=== PATIENT | female | born 1935 | race Caucasian/White ===

== ENCOUNTER → 2016-09-29 | Outpatient (CLI) | payer MEDICARE, OTHER | LOC: WI 12:59 | PROVIDERS: ATTEND Internal Medicine | DX: Z12.31 Encounter for screening mammogram for malignant neoplasm of breast (principal); M81.0 Age-related osteoporosis without current pathological fracture | CPT/HCPCS: 77080; G0202; 77067 ==

== ENCOUNTER → 2019-02-12 | Outpatient (CLI) | payer MEDICARE, OTHER ==
--- NOTE | 2019-02-12 14:05 | WOMENS IMAGING REPORT ---
EXAM DESCRIPTION: 3D SCREENING MAMMO BILAT COMPLETED DATE/TIME: 02/12/2019 11:39 am REASON FOR STUDY: Z12.31 ROUTINE 3D BILATERAL SCREENING, M81.0 AGE RELATED OSTEOPOROSIS WITHO Z12.31 ENCNTR SCREEN MAMMOGRAM FOR MALIGNANT NEOPLASM OF ODILIA M81.0 AGE-RELATED OSTEOPOROSIS W/O CURRENT P ATHOLOGICAL FRAC COMPARISON: Multiple since 2008 EXAM PARAMETERS: Standard craniocaudal and mediolateral oblique views of each breast recorded using digital acquisition and breast tomosynthesis. Read with the assistance of CAD. .[facility] - [employer] Architecture Analyst Version 9.2 LIMITATIONS: None. FINDINGS: Findings present which are benign by mammographic criteria. No suspicious masses, calcific ations or architectural distortion. Pertinent benign findings: Old postsurgical changes at the 6 o'clock position right breast Benign mammographic findings may include one or more of the following: Smooth masses, popcorn/rim/coa rse calcifications, asymmetries, post-procedure changes, and lesions with long-standing stability. IMPRESSION: BENIGN MAMMOGRAPHIC FINDINGS. BIRADS 2 BREAST DENSITY: a. The breasts are almost entirely fatty. BIRAD: ASSESSMENT: 2 BENIGN FINDING(S) RECOMMENDATION: ROUTINE SCREENING COMMENT: The patient has been notified of the results by letter per SA requirements. Additional no tification policies are in place for contacting patient with suspicious or incomplete findings. Quality ID #[id number]: The [employer] recommends an annual screening mammogram for women aged 40 years or over. This facility utilizes a reminder system to ensure that all patients receive reminder letters, and/or direct phone calls for appointments. This includes reminders for routine scr eening mammograms, diagnostic mammograms, or other Breast Imaging Interventions when appropriate. Th is patient will be placed in the appropriate reminder system. TECHNICAL DOCUMENTATION: FINDING NUMBER: (1) ASSESSMENT: (1) JOB ID: [id number] [employer]- All Rights Reserved Reading location - IP/workstation name: [email or web address]
--- NOTE | 2019-02-12 14:07 | WOMENS IMAGING REPORT ---
EXAM DESCRIPTION: BONE DENSITY HIP/SPINE COMPLETED DATE/TIME: 02/12/2019 11:39 am REASON FOR STUDY: Z12.31 ROUTINE 3D BILATERAL SCREENING, M81.0 AGE RELATED OSTEOPOROSIS WITHO Z12.31 ENCNTR SCREEN MAMMOGRAM FOR MALIGNANT NEOPLASM OF [place]ILIA M81.0 AGE-RELATED OSTEOPOROSIS W/O CURRENT P ATHOLOGICAL FRAC COMPARISON: Multiple since 2004, most recently 2017 TECHNIQUE: Dual-Energy X-ray Absorptiometry (DEXA) of the AP Spine and Hip. LIMITATIONS: None. FINDINGS: LUMBAR SPINE: The bone mineral density (BMD) measured from L1-L4 in the AP projection correlates with a T-score of -1.5, which is osteopenic as defined by the World Health Organization. This is unchanged from 2017. This represents a 9% decrease in bone density since baseline study in 2 004 HIP: The bone mineral density (BMD) measured in the left femoral neck at the hip correlates with a T-score of -2.3, which is osteopenic as defined by the World Health Organization. This is unchanged from 2017. This represents a 16% decrease in bone density since 2003 10 year Fracture Risk Assessment: Major Osteoporotic Fracture: Currently treated for osteoporosis Hip Fracture: Currently treated for osteoporosis IMPRESSION: 1. LUMBAR SPINE WHO CLASSIFICATION: Osteopenic 2. HIP WHO CLASSIFICATION: Osteoporotic OVERALL ASSESSMENT: WHO CLASSIFICATION: Osteoporotic COMMENT: The World Health Organization defines low BMD as follows: T-score: Normal: Greater than -1.0 Osteopenia: Between -1.0 and -2.5 Osteoporosis: Less than -2.5 without fractures Established osteoporosis: Less than -2.5 with fractures In general, you may wish to consider: Diagnosis Treatment Follow-up DEXA Normal BMD Prevention 2-3 years Osteopenia Prevention/Therapy 1-2 years Osteoporosis Therapy Yearly TECHNICAL DOCUMENTATION: JOB ID: [id number] [employer]- All Rights Reserved Reading location - IP/workstation name: [email or web address]
== END ==
LOC: WI 11:10
PROVIDERS: ATTEND Internal Medicine
DX: Z12.31 Encounter for screening mammogram for malignant neoplasm of breast (principal); M81.0 Age-related osteoporosis without current pathological fracture; C34.32 Malignant neoplasm of lower lobe, left bronchus or lung
CPT/HCPCS: 77063; 77067; 77080

== ENCOUNTER 2020-04-29 16:36 | Inpatient (IN) | payer MEDICARE, OTHER ==
[2020-04-29] MEDS ORDERED: IPRATROPIUM/ALBUTEROL 0.5-2.5 MG/3 ML AMPUL NEB ONE (16:55)
--- NOTE | 2020-04-29 17:23 | ER Document Report ---
Entered by LANIE VILLALPANDO SCRIBE 04/29/20 [id number] Acting as scribe for:MARK LEIVA MD ED Respiratory Problem - General Chief Complaint: Breathing Difficulty Stated Complaint: BREATHING PROBLEMS Time Seen by Provider: 04/29/20 16:43 Mode of Arrival: Medic Information source: Patient Notes: This 84 year old female patient with a history significant for COPD brought in by EMS from [facility] presents to the ED today with complaints of shortness of breath with associated productive cough for the past x4-5 days. Per nursing, patient's O2 sats were 77% on room air upon EMS arrival. EMS administered 125 mg Solumedrol and x1 A&A treatment and placed the patient on supplemental O2. Initial O2 saturation here was 97% on 4L via [place]. TRAVEL OUTSIDE OF THE [place] IN LAST 30 DAYS: No - Related Data Allergies/Adverse Reactions: Sulfa (Sulfonamide Antibiotics) Allergy (Intermediate, Verified 02/18/13 18:13) Hives Past Medical History - General Information source: Patient, [facility] Records - Social History Smoking Status: Current Every Day Smoker Smoking Education Provided: No Family History: Reviewed & Not Pertinent, Other Patient has suicidal ideation: No Patient has homicidal ideation: No - Past Medical History Cardiac Medical History: Reports: Hx Hypertension Pulmonary Medical History: Reports: Hx COPD Endocrine Medical History: Reports: Hx Hypothyroidism Malignancy Medical History: Reports: Hx Breast Cancer Past Surgical History: Reports: Hx Breast Surgery, Hx Thyroid Surgery - Immunizations Hx Diphtheria, Pertussis, Tetanus Vaccination: Yes Review of Systems - Review of Systems Constitutional: No symptoms reported EENT: No symptoms reported Cardiovascular: No symptoms reported Respiratory: See HPI Gastrointestinal: No symptoms reported Genitourinary: No symptoms reported Female Genitourinary: No symptoms reported Musculoskeletal: No symptoms reported Skin: No symptoms reported Hematologic/Lymphatic: No symptoms reported Neurological/Psychological: No symptoms reported -: Yes All other systems reviewed and negative Physical Exam - Vital signs Vitals: Pulse Ox 93 04/29/20 16:43 - General General appearance: Alert In distress: None - HEENT Head: Normocephalic, Atraumatic Eyes: Normal Pupils: PERRL - Respiratory Respiratory status: Retractions, Tachypnea Chest status: Nontender Breath sounds: Rhonchi - diffuse, Wheezing - diffuse Chest palpation: Normal - Cardiovascular Rhythm: Regular, Tachycardia Heart sounds: Normal auscultation Murmur: No Friction rub: No Gallop: None auscultated - Abdominal Inspection: Normal Distension: No distension Bowel sounds: Normal Tenderness: Nontender - Abdomen soft Organomegaly: No organomegaly - Back Back: Normal, Nontender - Extremities General upper extremity: Normal inspection General lower extremity: Normal inspection. No: Edema - Neurological Neuro grossly intact: Yes Orientation: AAOx4 Luis Coma Scale Eye Opening: Spontaneous Luis Coma Scale Verbal: Oriented [place] Coma Scale Motor: Obeys Commands [place] Coma Scale Total: 15 - Psychological Associated symptoms: Normal affect, Normal mood - Skin Skin Temperature: Warm Skin Moisture: Dry Skin Color: Normal Course - Re-evaluation Re-evalutation: 04/29/20 20:27 The patient was evaluated during the global COVID-19 pandemic and that diagnosis was suspected/considered upon their initial presentation. Their evaluation, treatment and testing was consistent with current guidelines for patients who present with complaints or symptoms that may be related to COVID-19. - Vital Signs Vital signs: Temp Pulse Resp BP Pulse Ox 97.3 F 109 H 30 H 98/71 L 94 04/29/20 16:59 04/29/20 16:54 04/29/20 20:00 04/29/20 19:01 04/29/20 20:00 - Laboratory Result Diagrams: 04/29/20 16:53 04/29/20 16:53 Laboratory results interpreted by me: 04/29/20 04/29/20 16:53 16:53 WBC 16.6 H Hgb 11.2 L Hct 33.0 L RDW 14.9 H Plt Count 690 H Lymph % (Auto) 6.0 L Absolute Neuts (auto) 14.3 H Seg Neutrophils % 85.9 H Sodium 132.5 L Carbon Dioxide 17 L BUN 40 H Est GFR (MDRD) Non-Af 53 L Glucose 120 H Total Protein 6.0 L Albumin 2.8 L - Diagnostic Test Radiology reviewed: Image reviewed, Reports reviewed - Chest x-ray shows new development of bilateral pulmonary nodules. Mild prominence of interstitial m [place]kings in the left lung may be edema versus infiltrate. Very small pleural effusions suggested. - EKG Interpretation by Fl EKG shows normal: Sinus rhythm, [place], Intervals, ST-T Waves. abnormal: QRS Complexes - Consider anteroseptal infarct Rate: Tachycardia - 105 Rhythm: Other - Ectopic atrial tachycardia When compared to previous EKG there are: Changes noted - Consults Dr. Bahena Time consulted: 19:45 Consulted provider: will come to ER Critical Care Note - Critical Care Note Total time excluding time spent on procedures (mins): 40 Comments: At least 40 minutes spent evaluating the patient, trying to get is clear possible history from EMS. Taking a history from my quite dyspneic hypoxic patient. Instituting urgent medical therapies. Reviewing patient's prior records, new lab work, EKGs, and chest x-rays. Multiple re-evaluations to see how the patient was progressing with management. Implementing hydration therapy when lab work indicated the patient was dehydrated. Phone calls to hospitalist service to get the patient admitted to the hospital. Discharge - Discharge Clinical Impression: COPD with exacerbation, Left lower lobe pulmonary infiltrate, Pulmonary nodules/lesions, multiple, Dehydration, Hypoxemia Leukocytosis Qualifiers: Leukocytosis type: unspecified Qualified Code(s): D72.829 - Elevated white blood cell count, unspecified Hypotension Qualifiers: Hypotension type: unspecified hypotension type Qualified Code(s): I95.9 - Hypotension, unspecified Condition: Good Disposition: ADMITTED INPATIENT Admitting Provider: Shruti (Hospitalist) Unit Admitted: Telemetry I personally performed the services described in the documentation, reviewed and edited the documentation which was dictated to the scribe in my presence, and it accurately records my words and actions.
--- NOTE | 2020-04-29 17:28 | RADIOLOGY REPORT (SQ) ---
EXAM DESCRIPTION: CHEST SINGLE VIEW IMAGES COMPLETED DATE/TIME: 04/29/2020 5:05 pm REASON FOR STUDY: sob COMPARISON: 07/11/2010 EXAM PARAMETERS: NUMBER OF VIEWS: One view. TECHNIQUE: Single frontal radiographic view of the chest acquired. RADIATION DOSE: NA LIMITATIONS: None. FINDINGS: LUNGS AND PLEURA: New development of bilateral pulmonary nodules since the prior examinat ion. Some of the largest measures 1.4 cm. Mild prominence of the interstitial markings in the left lung may be on the basis of edema versus infiltrates. No pneumothorax. Very small pleural effusions suggested. MEDIASTINUM AND HILAR STRUCTURES: No masses. Contour normal. HEART AND VASCULAR STRUCTURES: Heart normal in size. Normal vasculature. BONES: No acute findings. HARDWARE: None in the chest. OTHER: Post surgical changes right breast and surgical clips in the right axilla. IMPRESSION: 1. Since the prior study dated 07/11/2010, new development of bilateral pulmonary nodule s. Correlation with CT chest with IV contrast suggested. 2. Mild prominence of the interstitial markings in the left lung may be on the basis of edema versus infiltrates. Very small pleural effusions suggested. 3. Post surgical changes right breast, stable findings. TECHNICAL DOCUMENTATION: JOB ID: [id number] [employer]- All Rights Reserved Reading location - IP/workstation name: [email or web address]
[2020-04-29 17:32] LABS: ABSOLUTE MONOCYTES (AUTO) 1.3 10^3/uL (0.1-1.4); ABSOLUTE NEUT (AUTO) 14.3 10^3/uL (1.7-8.2); BASOPHILS % (AUTO) 0.1 % (0-2); EOSINOPHILS % (AUTO) 0.2 % (0-6); HEMOGLOBIN 11.2 g/dL (12.0-15.5); MEAN CORPUSCULAR HEMOGLOBIN 28.5 pg (27.0-33.4); MEAN CORPUSCULAR HGB CONC 33.9 g/dL (32.0-36.0); MEAN CORPUSCULAR VOLUME 84 fl (80-97); MONOCYTES % (AUTO) 7.8 % (3-13); PLATELET COUNT 690 10^3/uL (150-450); RED BLOOD COUNT 3.93 10^6/uL (3.72-5.28); RED CELL DISTRIBUTION WIDTH 14.9 % (11.5-14.0); SEGMENTED NEUTROPHILS % (AUTO) 85.9 % (42-78); TOTAL CELLS COUNTED % (AUTO) 100 %; WHITE BLOOD COUNT 16.6 10^3/uL (4.0-10.5)
[2020-04-29 17:57] LABS: ALBUMIN 2.8 g/dL (3.5-5.0); ALKALINE PHOSPHATASE 68 U/L (38-126); ANION GAP 16 (5-19); ASPARTATE AMINO TRANSFERASE 27 U/L (14-36); BILIRUBIN,DIRECT 0.3 mg/dL (0.0-0.4); BILIRUBIN,TOTAL 0.4 mg/dL (0.2-1.3); BLOOD UREA NITROGEN 40 mg/dL (7-20); CALCIUM 8.7 mg/dL (8.4-10.2); CARBON DIOXIDE 17 mmol/L (22-30); CHLORIDE 100 mmol/L (98-107); CREATINE KINASE 100 U/L (30-135); GLUCOSE 120 mg/dL (75-110); POTASSIUM 4.1 mmol/L (3.6-5.0)
[2020-04-29] MEDS ORDERED: LEVOFLOXACIN 750 MG/D5W RTU 750 MG/150 ML RTUPB IV ONE (18:04)
[2020-04-29 18:09] LABS: CREATINE KINASE MB 2.44 ng/mL (<4.55); TROPONIN I 0.029 ng/mL
[2020-04-29] MEDS ORDERED: ALBUTEROL SULFATE 0.083% NEB 2.5 MG/3 ML AMPUL NEB ONE (18:34)
[2020-04-29] MEDS ORDERED: NORMAL SALINE 1000 ML 1,000 ML IV ONE (18:35)
[2020-04-29] MEDS ORDERED: ONDANSETRON HCL INJ/PF 4 MG/2 ML SDV IV PRN (21:01)
[2020-04-29] MEDS ORDERED: ACETAMINOPHEN 325 MG TABLET PO PRN (21:01)
[2020-04-29] MEDS ORDERED: PROMETHAZINE HCL INJ 25 MG/1 ML VIAL IV PRN (21:01)
[2020-04-29] MEDS ORDERED: TEMAZEPAM 7.5 MG CAPSULE PO PRN (21:01)
[2020-04-29] MEDS ORDERED: NITROGLYCERIN 0.4 MG/TAB 25 TAB/BOTTLE SL PRN (21:09)
--- NOTE | 2020-04-29 22:07 | EKG REPORT ---
SEVERITY:- ABNORMAL ECG - SINUS OR ECTOPIC ATRIAL TACHYCARDIA : Confirmed by: Aisha Walters MD 29-Apr-2020 22:06:39
[2020-04-29 22:23] LABS: CHOLESTEROL 103.72 mg/dL (0-200); TRIGLYCERIDES 101 mg/dL (<150)
[2020-04-29 22:33] LABS: DIRECT LDL 40 mg/dL (<100)
[2020-04-29] MEDS: FAMOTIDINE 20 MG TABLET PO SCH (23:23)
[2020-04-29] MEDS: DEXAMETHASONE 4 MG TABLET PO SCH (23:24)
[2020-04-29] MEDS: ASPIRIN 81 MG TABLET, CHEWABLE PO SCH (23:24)
[2020-04-29] MEDS: OXYCODONE-ACETAMINOPHEN 5-325 MG TABLET PO PRN (23:29)
[2020-04-29] MEDS: NICOTINE 21 MG/24 HR PATCH.TD24 TD SCH (23:30)
[2020-04-29 23:35] LABS: ARTERIAL BLOOD BASE EXCESS -6.9 mmol/L; ARTERIAL BLOOD FIO2 4L; ARTERIAL BLOOD H2CO3 0.71 mmol/L (1.05-1.35); ARTERIAL BLOOD HCO3 15.7 mmol/L (20-24); ARTERIAL BLOOD O2 SATURATION 91.3 % (94-98); ARTERIAL BLOOD PCO2 23.7 mmHg (35-45); ARTERIAL BLOOD PH 7.44 (7.35-7.45); ARTERIAL BLOOD TOTAL CO2 16.4 mmol/L (21-25)
[2020-04-30 00:06] LABS: APPEARANCE,URINE CLOUDY; BILIRUBIN,URINE NEGATIVE (NEGATIVE); COLOR,URINE YELLOW; GLUCOSE, URINE NEGATIVE (NEGATIVE); KETONES,URINE TRACE mg/dL (NEGATIVE); LEUKOCYTE ESTERASE,URINE SMALL (NEGATIVE); NITRITE,URINE NEGATIVE (NEGATIVE); PROTEIN,URINE 30 mg/dL (NEGATIVE); URINE SPECIFIC GRAVITY 1.023; UROBILINOGEN,URINE NEGATIVE mg/dL (<2.0)
[2020-04-30] MEDS: NORMAL SALINE 1000 ML 1,000 ML IV PRN ×2 (01:12→19:00)
[2020-04-30] MEDS: LORAZEPAM INJ 2 MG/1 ML VIAL IV PRN ×2 (01:15→21:09)
[2020-04-30] MEDS: FLUTICASONE/UMECLIDIN/VILANTER 100-62.5-25 MCG/DOSE IH SCH ×2 (01:16→10:31)
--- NOTE | 2020-04-30 01:21 | RADIOLOGY REPORT (SQ) ---
CLINICAL INDICATION: Acute respiratory failure, pulmonary nodules,. . TECHNIQUE: CT arteriography was obtained of the chest with multiplanar MIP and/or 3-D angiographic reconstructions. This exam was performed according to our departmental dose-optimization program, which includes automated exposure control, adjustment of the mA and/or kV according to patient size and/or use of iterative reconstruction techniques. COMPARISON: None available. CORRELATION: Chest radiography today. FINDINGS: Adequate contrast bolus. Average Hounsfield unit measurement within main pulmonary artery segment of 545. Artifact from venous opacification. Motion artifact There is no evidence of pulmonary embolus. Thoracic aorta is of normal caliber. Arterial calcification. The heart is enlarged. No pericardial effusion. Large right hilar/infrahilar mass. This may represent an enlarged central lymph node. This measures approximately 2.5 x 3 cm, series 3 image 70. Additional matted lymph nodes are seen within the mediastinum. The esophagus is mildly distended and fluid-filled. There is also mild esophageal thickening.. The lungs demonstrate chronic interstitial changes bilaterally. Innumerable tiny nodule opacities are identified left upper lobe. There are several tiny, less than 5 mm, nodular opacities scattered bilaterally most prominent left upper lobe. More dominant confluent nodular opacities are seen bilaterally. The largest is appreciated apical posterior segment left upper lobe measuring 1.2 x 1.6 cm, series 4 image 48. Large soft tissue nodule is appreciated superior segment right lower lobe measuring 1.5 x 2.2 cm, series 4 image 48. Multiple other nodules are seen. Dependent atelectasis. No effusion. No pneumothorax.. Mucous plugging is seen within several bronchi. Visualized abdominal contents are unremarkable. 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 Multilevel wedge compression fractures which appear old. This includes a vertebral plana at T12. IMPRESSION: No evidence of pulmonary embolus. Mucous plugging. There is a large central mass lesion left infrahilar may represent a pulmonary mass or perhaps adenopathy. Other prominent mediastinal lymph nodes are seen. Multiple bilateral pulmonary nodules are seen. Some of the smaller nodules have an appearance suspicious for an infectious inflammatory process but there are larger well-rounded and more sharply marginated soft tissue nodules which are suspicious for neoplasm. Is there a known history of a primary carcinoma? .
--- NOTE | 2020-04-30 04:21 | PDOC H&P ---
History of Present Illness Admission Date/PCP: 04/29/20 20:10 YEIMY WHITMAN MD History of Present Illness: JESSY BAKER is a 84 year old female past medical history of tobacco abuse, non-oxygen dependent COPD, hypothyroidism, chronic pain, hypertension presenting to ED complaining of recent onset worsening shortness of breath accompanied by productive cough, wheezing and rales. Patient denies any chest pain, fever, nausea, vomiting, diarrhea, constipation or any urinary symptoms. In ED a chest x-ray was positive for left lower lobe consolidation and multiple pulmonary nodules. Hospitalist was consulted for admission. In ED he was noted to have leukocytosis, thrombocytosis, ABG positive for hypoxemia, mildly elevated troponins and proBNP, mild hypercalcemia, hyponatremia, a CTA was done to follow-up for pulmonary nodule, showed multiple pulmonary nodules and a central mass likely malignancy. Past Medical History Cardiac Medical History: Reports: Hypertension Pulmonary Medical History: Reports: Chronic Obstructive Pulmonary Disease (COPD) Endocrine Medical History: Reports: Hypothyroidism Malignancy Medical History: Reports: Breast Cancer Psychiatric Medical History: Denies: Depression Social History Smoking Status: Current Every Day Smoker Electronic Cigarette use?: No Frequency of Alcohol Use: None Hx Recreational Drug Use: No Drugs: None Hx Prescription Drug Abuse: No Family History Family History: Reviewed & Not Pertinent, Other Parental Family History Reviewed: Yes Children Family History Reviewed: Yes Sibling(s) Family History Reviewed.: Yes Medication/Allergy Home Medications: Albuterol Sulfate [Ventolin 0.083% Neb 2.5 mg/3 mL Ampul] 1 vial NEB Q4 02/11/13 Aspirin [Ecotrin 81 mg EC Tablet] 81 mg PO DAILY 02/11/13 Atenolol [Tenormin 25 mg Tablet] 25 mg PO DAILY 02/11/13 Fluticasone/Salmeterol [Advair 100-50 Diskus 28 Dose] 1 inh IH Q12H 02/11/13 Ipratropium/Albuterol Sulfate [Duoneb 2.5-0.5 Mg/3 Ml Soln] 3 ml IH PRN PRN 02/11/13 Levothyroxine Sodium [Synthroid 75 Mcg Tablet] 150 mcg PO DAILY 02/11/13 Montelukast Sodium [Singulair 10 Mg Tablet] 10 mg PO QHS 02/11/13 Niacin/Lovastatin [Advicor 1,000 Mg-20 Mg Tablet] 1 each PO DAILY 02/11/13 Nifedipine [Adalat CC 60 mg Tablet] 60 mg PO DAILY 02/11/13 Tiotropium [place] [Spiriva Handihaler 18 mcg/dose (30 Dose)] 1 cap IH DAILY 02/11/13 Allergies/Adverse Reactions: Sulfa (Sulfonamide Antibiotics) Allergy (Intermediate, Verified 02/18/13 18:13) Hives Review of Systems Review of Systems: as per hpi Physical Exam Vital Signs: Temp Pulse Resp BP Pulse Ox 97.5 F 90 29 H 108/53 L 93 04/30/20 01:13 04/30/20 02:00 04/30/20 01:30 04/30/20 01:13 04/30/20 01:30 Intake & Output 04/28/20 04/29/20 04/30/20 06:59 06:59 06:59 Intake Total 1150 Balance 1150 Weight 54.1 kg General appearance: PRESENT: severe distress, well-developed, well-nourished Respiratory exam: PRESENT: clear to auscultation leonid, crackles, prolonged expiratory phas, tachypnea, wheezes. ABSENT: rales, rhonchi Cardiovascular exam: PRESENT: RRR, tachycardia. ABSENT: diastolic murmur, rubs, systolic murmur GI/Abdominal exam: PRESENT: normal bowel sounds, soft. ABSENT: distended, guarding, mass, organolmegaly, rebound, tenderness Neurological exam: PRESENT: alert, awake, oriented to person, oriented to place, oriented to time, oriented to situation, CN II-XII grossly intact. ABSENT: motor sensory deficit Results Laboratory Results: 04/29/20 16:53 04/29/20 16:53 04/29/20 04/29/20 04/29/20 16:53 16:53 16:53 WBC 16.6 H RBC 3.93 Hgb 11.2 L Hct 33.0 L MCV 84 MCH 28.5 MCHC 33.9 RDW 14.9 H Plt Count 690 H Seg Neutrophils % 85.9 H Carbonic Acid HCO3/H2CO3 Ratio ABG pH ABG pCO2 ABG pO2 ABG HCO3 ABG O2 Saturation ABG Base Excess FiO2 Sodium 132.5 L Potassium 4.1 Chloride 100 Carbon Dioxide 17 L Anion Gap 16 BUN 40 H Creatinine 1.00 Est GFR ( Amer) > 60 Glucose 120 H Calcium 8.7 Total Bilirubin 0.4 AST 27 Alkaline Phosphatase 68 Total Protein 6.0 L Albumin 2.8 L Triglycerides 101 Cholesterol 103.72 LDL Cholesterol Direct 40 VLDL Cholesterol 20.0 HDL Cholesterol 34 L Urine Color Urine Appearance Urine pH Ur Specific [place] Urine Protein Urine Glucose (UA) Urine Ketones Urine Blood Urine Nitrite Ur Leukocyte Esterase Urine WBC (Auto) Urine RBC (Auto) 04/29/20 04/29/20 21:48 23:42 WBC RBC Hgb Hct MCV MCH MCHC RDW Plt Count Seg Neutrophils % Carbonic Acid 0.71 L HCO3/H2CO3 Ratio 22:1 ABG pH 7.44 ABG pCO2 23.7 L ABG pO2 57.0 L ABG HCO3 15.7 L ABG O2 Saturation 91.3 L ABG Base Excess -6.9 FiO2 4L Sodium Potassium Chloride Carbon Dioxide Anion Gap BUN Creatinine Est GFR ( Amer) Glucose Calcium Total Bilirubin AST Alkaline Phosphatase Total Protein Albumin Triglycerides Cholesterol LDL Cholesterol Direct VLDL Cholesterol HDL Cholesterol Urine Color YELLOW Urine Appearance CLOUDY Urine pH 5.0 Ur Specific [place] 1.023 Urine Protein 30 H Urine Glucose (UA) NEGATIVE Urine Ketones TRACE H Urine Blood NEGATIVE Urine Nitrite NEGATIVE Ur Leukocyte Esterase SMALL H Urine WBC (Auto) 22 Urine RBC (Auto) 2 04/29/20 04/29/20 04/29/20 16:53 16:53 22:24 Creatine Kinase 100 CK-MB (CK-2) 2.44 Troponin I 0.029 NT-Pro-B Natriuret Pep 1250 H 04/29/20 22:24 Creatine Kinase CK-MB (CK-2) Troponin I 0.024 NT-Pro-B Natriuret Pep Impressions: Chest X-Ray 04/29/20 16:43 IMPRESSION: 1. Since the prior study dated 07/11/2010, new development of bilateral pulmonary nodules. Correlation with CT chest with IV contrast suggested. 2. Mild prominence of the interstitial markings in the left lung may be on the basis of edema versus infiltrates. Very small pleural effusions suggested. 3. Post surgical changes right breast, stable findings. Chest/Abdomen CTA 04/29/20 21:12 IMPRESSION: No evidence of pulmonary embolus. Mucous plugging. There is a large central mass lesion left infrahilar may represent a pulmonary mass or perhaps adenopathy. Other prominent mediastinal lymph nodes are seen. Multiple bilateral pulmonary nodules are seen. Some of the smaller nodules have an appearance suspicious for an infectious inflammatory process but there are larger well-rounded and more sharply marginated soft tissue nodules which are suspicious for neoplasm. Is there a known history of a primary carcinoma? . Assessment and Plan - Diagnosis (1) Acute respiratory failure with hypoxemia Is this a current diagnosis for this admission?: Yes Plan: Multifactorial, likely due to acute pneumonia complicated by underlying COPD and likely lung malignancy. Admit to IMCU, empiric broad-spectrum IV antibiotics, IV steroids, sputum culture, BiPAP, duo nebs, LABA, LABA, ICS, flutter valve, incentive spirometry. (2) Pneumonia Qualifiers: Laterality: right Lung location: lower lobe of lung Is this a current diagnosis for this admission?: Yes Plan: Likely community-acquired pneumonia caused by gram-positive cocci including Streptococcus pneumonia, COVID-19 infection and postobstructive pneumonia is also possibility. Plan as per above. (3) Acute exacerbation of COPD with asthma Is this a current diagnosis for this admission?: Yes Plan: History of non-oxygen dependent COPD. Acutely exacerbated with bilateral wheezing and rhonchi on physical examination. ABG positive for hypoxemia. History of chronic heavy tobacco abuse. Plan as per #1. (4) Hyponatremia Is this a current diagnosis for this admission?: Yes Plan: Most likely chronic. Given lung nodules and mass hyponatremia due to lung malignancy is a possibility. Continue normal saline, monitor BMP, seizure precautions. If no improvement consult nephrology. (5) Pulmonary nodules/lesions, multiple Is this a current diagnosis for this admission?: Yes Plan: Chest x-ray positive for multiple pulmonary nodules, follow-up CT with contrast positive for multiple nodules and central lesion likely malignancy. Consulted oncology. Follow-up recommendations. (6) Tobacco abuse Is this a current diagnosis for this admission?: Yes Plan: History of heavy tobacco abuse. Counseled on quitting. NicoDerm patch provided. - Time Time Spent with patient: 35 or more minutes Smoking Cessation Education: 3 to 10 minutes Medications reviewed and adjusted accordingly: Yes Anticipated Discharge Disposition: Home with Home Health Anticipated Discharge Timeframe: within 72 hours
[2020-04-30] MEDS: DEXAMETHASONE 4 MG TABLET PO SCH ×3 (05:33→21:09)
[2020-04-30 06:47] LABS: HEMATOCRIT 31.8 % (36.0-47.0); HEMOGLOBIN 10.5 g/dL (12.0-15.5); MEAN CORPUSCULAR HEMOGLOBIN 28.3 pg (27.0-33.4); MEAN CORPUSCULAR HGB CONC 33.1 g/dL (32.0-36.0); MEAN CORPUSCULAR VOLUME 85 fl (80-97); PLATELET COUNT 572 10^3/uL (150-450); RED BLOOD COUNT 3.72 10^6/uL (3.72-5.28); RED CELL DISTRIBUTION WIDTH 15.1 % (11.5-14.0); WHITE BLOOD COUNT 13.8 10^3/uL (4.0-10.5)
[2020-04-30 07:14] LABS: ALBUMIN 2.8 g/dL (3.5-5.0); ALKALINE PHOSPHATASE 60 U/L (38-126); ANION GAP 13 (5-19); ASPARTATE AMINO TRANSFERASE 30 U/L (14-36); BILIRUBIN,DIRECT 0.3 mg/dL (0.0-0.4); BILIRUBIN,TOTAL 0.3 mg/dL (0.2-1.3); BLOOD UREA NITROGEN 35 mg/dL (7-20); CALCIUM 8.2 mg/dL (8.4-10.2); CARBON DIOXIDE 16 mmol/L (22-30); CHLORIDE 107 mmol/L (98-107); GLUCOSE 111 mg/dL (75-110); PHOSPHORUS 3.9 mg/dL (2.5-4.5); TOTAL PROTEIN 6.4 g/dL (6.3-8.2)
[2020-04-30 07:21] LABS: ABSOLUTE LYMPHOCYTES# (MANUAL) 0.4 10^3/uL (0.5-4.7); ABSOLUTE MONOCYTES # (MANUAL) 0.6 10^3/uL (0.1-1.4); BASOPHILS % (MANUAL) 0 % (0-2); EOSINOPHILS % (MANUAL) 0 % (0-6); LYMPHOCYTES % (MANUAL) 3 % (13-45); MONOCYTES % (MANUAL) 4 % (3-13); SEGMENTED NEUTROPHILS % (MAN) 93 % (42-78); TOTAL CELLS COUNTED 100
[2020-04-30 07:22] LABS: ANISOCYTOSIS SLIGHT; PLATELET COMMENT INCREASED; POLYCHROMASIA SLIGHT
[2020-04-30] MEDS: IPRATROPIUM/ALBUTEROL 0.5-2.5 MG/3 ML AMPUL NEB SCH ×3 (07:48→20:07)
[2020-04-30] MEDS: NORMAL SALINE 1000 ML 1,000 ML IV ONE ×2 (08:34→08:45)
--- NOTE | 2020-04-30 08:57 | Progress Note ---
Provider Note Provider Note: Oncology consultation was received for new possible lung mass on CT scans. Patient is currently in COVID-19 restriction area and I was not able to complete full consult. I did review the chart and review radiology images. I will be happy to follow with you and complete full consult once COVID-19 restrictions have been lifted. Consider biopsy of mass in the future. Elevated PLT and WBC most likely reactive.
[2020-04-30] MEDS ORDERED: CEFTRIAXONE 1 GM/D5W RTU 1 GM/50 ML RTUPB IV SCH (10:00)
[2020-04-30] MEDS ORDERED: AZITHROMYCIN 500 MG in DEXTROSE 5%-WATER 250 ML IV SCH (10:00)
[2020-04-30] MEDS: NICOTINE 21 MG/24 HR PATCH.TD24 TD SCH (10:30)
[2020-04-30] MEDS: FAMOTIDINE 20 MG TABLET PO SCH ×2 (10:31→21:10)
[2020-04-30] MEDS: DOCUSATE SODIUM 100 MG CAPSULE PO SCH (10:31)
[2020-04-30] MEDS: ASPIRIN 81 MG TABLET, CHEWABLE PO SCH (10:31)
[2020-04-30] MEDS: GUAIFENESIN/D-METHORPHAN (200-20 MG) SYRUP 10 ML PO PRN (10:31)
[2020-04-30] MEDS: ENOXAPARIN SODIUM INJ 40 MG/0.4 ML DISP.SYRIN SUBCUT SCH (10:32)
[2020-04-30] MEDS: ACETYLCYSTEINE 20% SOLN 800 MG/4 ML VIAL.NEB NEB SCH ×3 (12:18→20:07)
[2020-04-30] MEDS: IPRATROPIUM/ALBUTEROL 0.5-2.5 MG/3 ML AMPUL NEB PRN (12:21)
[2020-04-30] MEDS: OXYCODONE-ACETAMINOPHEN 5-325 MG TABLET PO PRN (12:26)
--- NOTE | 2020-04-30 18:14 | PDOC PROGRESS REPORT ---
Subjective Progress Note for:: 04/30/20 Subjective:: Patient having a tough time coughing up sputum this morning. Still feels significantly short of breath this morning and was placed on BiPAP simply because she was starting to fatigue with a constant hacking cough or cough. We will do some chest physiotherapy as her chest CT does show a lot of mucus plugging is as well. Also ordered for Mucomyst. Patient informs me that she does not communicate much with her children and her has Alzheimer's. Reason For Visit: ACUTE RESPIRATORY FAILURE WITH HYPOXIA PNEUMONIA Physical Exam Vital Signs: Temp Pulse Resp BP Pulse Ox 97.4 F 96 18 115/66 100 04/30/20 08:03 04/30/20 14:44 04/30/20 14:44 04/30/20 11:57 04/30/20 14:44 Intake & Output 04/29/20 04/30/20 05/01/20 06:59 06:59 06:59 Intake Total 1200 Balance 1200 Weight 54.1 kg General appearance: PRESENT: no acute distress, cooperative, thin, other - fatigued Neck exam: ABSENT: JVD Respiratory exam: PRESENT: accessory muscle use, rhonchi - Scattered clear left lung, tachypnea. ABSENT: symmetrical, wheezes Cardiovascular exam: PRESENT: RRR, +S1, +S2. ABSENT: tachycardia Vascular exam: PRESENT: pallor GI/Abdominal exam: PRESENT: soft. ABSENT: rebound, rigid, tenderness Neurological exam: PRESENT: alert, awake, oriented to person, oriented to place, oriented to time Psychiatric exam: ABSENT: agitated, anxious Results Laboratory Results: 04/30/20 06:21 04/30/20 06:21 04/29/20 04/29/20 04/29/20 16:53 21:48 23:42 WBC RBC Hgb Hct MCV MCH MCHC RDW Plt Count Seg Neutrophils % Carbonic Acid 0.71 L HCO3/H2CO3 Ratio 22:1 ABG pH 7.44 ABG pCO2 23.7 L ABG pO2 57.0 L ABG HCO3 15.7 L ABG O2 Saturation 91.3 L ABG Base Excess -6.9 FiO2 4L Sodium Potassium Chloride Carbon Dioxide Anion Gap BUN Creatinine Est GFR ( Amer) Glucose Calcium Phosphorus Magnesium Total Bilirubin AST Alkaline Phosphatase Total Protein Albumin Triglycerides 101 Cholesterol 103.72 LDL Cholesterol Direct 40 VLDL Cholesterol 20.0 HDL Cholesterol 34 L Urine Color YELLOW Urine Appearance CLOUDY Urine pH 5.0 Ur Specific [place] 1.023 Urine Protein 30 H Urine Glucose (UA) NEGATIVE Urine Ketones TRACE H Urine Blood NEGATIVE Urine Nitrite NEGATIVE Ur Leukocyte Esterase SMALL H Urine WBC (Auto) 22 Urine RBC (Auto) 2 04/30/20 04/30/20 06:21 06:21 WBC 13.8 H RBC 3.72 Hgb 10.5 L Hct 31.8 L MCV 85 MCH 28.3 MCHC 33.1 RDW 15.1 H Plt Count 572 H Seg Neutrophils % Not Reportable Carbonic Acid HCO3/H2CO3 Ratio ABG pH ABG pCO2 ABG pO2 ABG HCO3 ABG O2 Saturation ABG Base Excess FiO2 Sodium 136.0 L Potassium 4.0 Chloride 107 Carbon Dioxide 16 L Anion Gap 13 BUN 35 H Creatinine 0.81 Est GFR ( Amer) > 60 Glucose 111 H Calcium 8.2 L Phosphorus 3.9 Magnesium 2.3 Total Bilirubin 0.3 AST 30 Alkaline Phosphatase 60 Total Protein 6.4 Albumin 2.8 L Triglycerides Cholesterol LDL Cholesterol Direct VLDL Cholesterol HDL Cholesterol Urine Color Urine Appearance Urine pH Ur Specific [place] Urine Protein Urine Glucose (UA) Urine Ketones Urine Blood Urine Nitrite Ur Leukocyte Esterase Urine WBC (Auto) Urine RBC (Auto) 04/29/20 04/29/20 04/29/20 16:53 16:53 22:24 Creatine Kinase 100 CK-MB (CK-2) 2.44 Troponin I 0.029 NT-Pro-B Natriuret Pep 1250 H 04/29/20 04/30/20 22:24 06:21 Creatine Kinase CK-MB (CK-2) Troponin I 0.024 0.025 NT-Pro-B Natriuret Pep Impressions: Chest X-Ray 04/29/20 16:43 IMPRESSION: 1. Since the prior study dated 07/11/2010, new development of bilateral pulmonary nodules. Correlation with CT chest with IV contrast suggested. 2. Mild prominence of the interstitial markings in the left lung may be on the basis of edema versus infiltrates. Very small pleural effusions suggested. 3. Post surgical changes right breast, stable findings. Chest/Abdomen CTA 04/29/20 21:12 IMPRESSION: No evidence of pulmonary embolus. Mucous plugging. There is a large central mass lesion left infrahilar may represent a pulmonary mass or perhaps adenopathy. Other prominent mediastinal lymph nodes are seen. Multiple bilateral pulmonary nodules are seen. Some of the smaller nodules have an appearance suspicious for an infectious inflammatory process but there are larger well-rounded and more sharply marginated soft tissue nodules which are suspicious for neoplasm. Is there a known history of a primary carcinoma? . Assessment and Plan - Diagnosis (1) Acute respiratory failure with hypoxemia Is this a current diagnosis for this admission?: Yes Plan: Multifactorial, likely due to acute pneumonia, mucous plugging complicated by underlying COPD and likely lung malignancy. Monitor in the IMCU. Treatment as below. Placed on BiPAP given work of breathing but seems to be doing okay on BiPAP. FiO2 is 36%. (2) Mucus plugging of bronchi Is this a current diagnosis for this admission?: Yes Plan: This is contributing to patient's significant dyspnea. Starting patient on Mucomyst nebulizers as well as chest physiotherapy to help her mobilize her secretions. Robitussin-DM as needed. Gentle IV hydration. (3) Pneumonia Qualifiers: Laterality: bilateral Lung location: lower lobe of lung Is this a current diagnosis for this admission?: Yes Plan: Community-acquired bacterial. Sputum culture is growing gram-negative raul. Blood culture has been obtained. We will switch antibiotics to Levaquin IV for coverage of Pseudomonas. She did undergo testing for COVID-19 and we are awaiting the results. (4) Pulmonary nodules/lesions, multiple Is this a current diagnosis for this admission?: Yes Plan: CT scan showed multiple nodules in the left mostly but also in the right and a mass which is in the left infrahilar region measuring 3 cm. Given patient's significant and current smoking history, there is high suspicion that this could be cancer. Patient will likely need a bronchoscopy with biopsy to obtain tissue diagnosis. Oncology is consulted (5) Acute exacerbation of COPD with asthma Is this a current diagnosis for this admission?: Yes Plan: History of non-oxygen dependent COPD. Acutely exacerbated with bilateral wheezing and rhonchi on physical examination. ABG positive for hypoxemia. History of chronic heavy tobacco abuse. Bronchodilators, currently on dexamethasone as well. (6) Hypotension Qualifiers: Hypotension type: unspecified hypotension type Qualified Code(s): I95.9 - Hypotension, unspecified Is this a current diagnosis for this admission?: Yes Plan: Improved with IV fluids. We will continue normal saline for now. Hold nifedipine. (7) Tobacco abuse Is this a current diagnosis for this admission?: Yes Plan: History of heavy tobacco abuse. NicoDerm patch provided. - Time Time Spent with patient: 25-34 minutes Anticipated Discharge Disposition: Home, Self Care Anticipated Discharge Timeframe: Undetermined
[2020-04-30] MEDS: LEVOFLOXACIN 750 MG/D5W RTU 750 MG/150 ML RTUPB IV SCH (18:16)
[2020-04-30] MEDS: MONTELUKAST SODIUM 10 MG TABLET PO SCH (21:10)
[2020-04-30] MEDS: POLYETHYLENE GLYCOL 3350 POWDER 17 GM/1 PACKET PO SCH (21:10)
[2020-04-30] MEDS: ATORVASTATIN CALCIUM 40 MG TABLET PO SCH (21:10)
[2020-05-01] MEDS: DEXAMETHASONE 4 MG TABLET PO SCH (05:37)
[2020-05-01] MEDS: LEVOTHYROXINE SODIUM 0.1 MG TABLET PO SCH (05:37)
[2020-05-01] MEDS: LEVOTHYROXINE SODIUM 0.075 MG TABLET PO SCH (05:37)
[2020-05-01] MEDS: NORMAL SALINE 1000 ML 1,000 ML IV PRN ×2 (05:39→15:40)
[2020-05-01] MEDS ORDERED: LEVOTHYROXINE SODIUM 0.025 MG TABLET PO SCH (06:00)
[2020-05-01] MEDS: ACETYLCYSTEINE 20% SOLN 800 MG/4 ML VIAL.NEB NEB SCH (07:56)
[2020-05-01] MEDS: IPRATROPIUM/ALBUTEROL 0.5-2.5 MG/3 ML AMPUL NEB SCH ×3 (07:57→20:55)
[2020-05-01 08:21] LABS: ARTERIAL BLOOD BASE EXCESS -9.3 mmol/L; ARTERIAL BLOOD FIO2 35%; ARTERIAL BLOOD H2CO3 0.67 mmol/L (1.05-1.35); ARTERIAL BLOOD HCO3 13.8 mmol/L (20-24); ARTERIAL BLOOD O2 SATURATION 96.1 % (94-98); ARTERIAL BLOOD PCO2 22.3 mmHg (35-45); ARTERIAL BLOOD PH 7.41 (7.35-7.45); ARTERIAL BLOOD PO2 79.4 mmHg (80-100); ARTERIAL BLOOD TOTAL CO2 14.4 mmol/L (21-25)
[2020-05-01] MEDS: GUAIFENESIN/D-METHORPHAN (200-20 MG) SYRUP 10 ML PO PRN (08:50)
[2020-05-01] MEDS: LORAZEPAM INJ 2 MG/1 ML VIAL IV PRN ×2 (08:50→16:05)
[2020-05-01] MEDS: ENOXAPARIN SODIUM INJ 40 MG/0.4 ML DISP.SYRIN SUBCUT SCH (09:14)
[2020-05-01] MEDS: ATENOLOL 50 MG TABLET PO SCH (09:14)
[2020-05-01] MEDS: DOCUSATE SODIUM 100 MG CAPSULE PO SCH (09:14)
[2020-05-01] MEDS: ASPIRIN 81 MG TABLET, CHEWABLE PO SCH (09:14)
[2020-05-01] MEDS: NICOTINE 21 MG/24 HR PATCH.TD24 TD SCH (09:15)
[2020-05-01] MEDS: OXYCODONE-ACETAMINOPHEN 5-325 MG TABLET PO PRN (09:15)
[2020-05-01] MEDS: FAMOTIDINE 20 MG TABLET PO SCH ×2 (09:15→22:22)
[2020-05-01] MEDS: LIDOCAINE 5% (700 MG) TRANSDERMAL ADH..PATCH TP SCH (09:16)
[2020-05-01] MEDS ORDERED: DEXAMETHASONE 4 MG TABLET PO SCH (10:00)
--- NOTE | 2020-05-01 10:21 | PDOC PROGRESS REPORT ---
Subjective Progress Note for:: 05/01/20 Subjective:: Patient received several sessions of chest physiotherapy yesterday and this morning. She however remains significantly tachypneic and has started breathing in the 30s to 40s on BiPAP. She was on nasal cannula at 4 L when I saw her this morning but was notably breathing in the 50s. Her oxygenation was adequate at 91%. ABG did not show any evidence of CO2 retention. However patient is significantly breathless and constantly hacking away trying to cough up sputum. With the physiotherapy she has been able to actually produce much more sputum than before. Discussed CODE STATUS with her. She is opting to be a full code. Discussed with medical assistant who will be taking patient to the ICU. Reason For Visit: ACUTE RESPIRATORY FAILURE WITH HYPOXIA PNEUMONIA Physical Exam Vital Signs: Temp Pulse Resp BP Pulse Ox 97.6 F 114 H 20 114/61 100 05/01/20 07:34 05/01/20 07:56 05/01/20 07:56 05/01/20 07:34 05/01/20 07:56 Intake & Output 04/30/20 05/01/20 05/02/20 06:59 06:59 06:59 Intake Total 1200 2700 Output Total 100 Balance 1200 2600 Weight 54.1 kg 56.1 kg General appearance: PRESENT: cooperative, hard of hearing, severe distress, thin Neck exam: ABSENT: JVD Respiratory exam: PRESENT: accessory muscle use, retraction, rhonchi - Very significant diffuse, symmetrical, tachypnea. ABSENT: stridor, unlabored, wheezes Cardiovascular exam: PRESENT: +S1, +S2, tachycardia. ABSENT: irregular rhythm GI/Abdominal exam: PRESENT: soft. ABSENT: rebound, rigid, tenderness Neurological exam: PRESENT: alert, awake Psychiatric exam: ABSENT: agitated Focused psych exam: ABSENT: pressured speech Skin exam: ABSENT: jaundice Results Laboratory Results: 04/30/20 06:21 04/30/20 06:21 05/01/20 08:05 Carbonic Acid 0.67 L HCO3/H2CO3 Ratio 20:1 ABG pH 7.41 ABG pCO2 22.3 L ABG pO2 79.4 L ABG HCO3 13.8 L ABG O2 Saturation 96.1 ABG Base Excess -9.3 FiO2 35% 04/29/20 16:53 Blood Blood Culture (PCR) - Final 04/29/20 16:53 Sputum Gram Stain - Final 04/29/20 04/29/20 04/29/20 16:53 16:53 22:24 Creatine Kinase 100 CK-MB (CK-2) 2.44 Troponin I 0.029 NT-Pro-B Natriuret Pep 1250 H 04/29/20 04/30/20 22:24 06:21 Creatine Kinase CK-MB (CK-2) Troponin I 0.024 0.025 NT-Pro-B Natriuret Pep Impressions: Chest X-Ray 04/29/20 16:43 IMPRESSION: 1. Since the prior study dated 07/11/2010, new development of bilateral pulmonary nodules. Correlation with CT chest with IV contrast suggested. 2. Mild prominence of the interstitial markings in the left lung may be on the basis of edema versus infiltrates. Very small pleural effusions suggested. 3. Post surgical changes right breast, stable findings. Chest/Abdomen CTA 04/29/20 21:12 IMPRESSION: No evidence of pulmonary embolus. Mucous plugging. There is a large central mass lesion left infrahilar may represent a pulmonary mass or perhaps adenopathy. Other prominent mediastinal lymph nodes are seen. Multiple bilateral pulmonary nodules are seen. Some of the smaller nodules have an appearance suspicious for an infectious inflammatory process but there are larger well-rounded and more sharply marginated soft tissue nodules which are suspicious for neoplasm. Is there a known history of a primary carcinoma? . Assessment and Plan - Diagnosis (1) Acute respiratory failure with hypoxemia Is this a current diagnosis for this admission?: Yes Plan: Multifactorial, likely due to acute pneumonia, mucous plugging complicated by underlying COPD and likely lung malignancy. Remains significantly breathless and very tachypneic and appears very fatigued. Even very tachypneic on BiPAP rate breathing in the 30s to 40s. Her problem is not so much oxygenation as she is 91% on 4 L nasal cannula and she has no evide nce of CO2 retention as ABG actually shows mild respiratory alkalosis with metabolic compensation. Seems mucous plugging and pneumonia making it extremely hard. She may very well need intubation if she does not turn around soon. I have discussed case with medical assistant and we together saw patient at bedside and patient will be transferred to the ICU for further care. I did confirm full CODE STATUS with patient. (2) Mucus plugging of bronchi Is this a current diagnosis for this admission?: Yes Plan: Patient has had several sessions of chest physiotherapy yesterday and this morning as well as few treatments with Mucomyst nebulizers and albuterol to help her mobilize her secretions. Robitussin-DM as needed. Gentle IV hydration. She is starting to cough up much more sputum than yesterday but still in significant respiratory distress. (3) Pneumonia Qualifiers: Laterality: bilateral Lung location: lower lobe of lung Is this a current diagnosis for this admission?: Yes Plan: Community-acquired bacterial. Sputum culture is growing Pseudomonas and H. influenzae negative. Continue Levaquin She did undergo testing for COVID-19 and we are awaiting the results. (4) Pulmonary nodules/lesions, multiple Is this a current diagnosis for this admission?: Yes Plan: CT scan showed multiple nodules in the left mostly but also in the right and a mass which is in the left infrahilar region measuring 3 cm. Given patient's significant and current smoking history, and thin body habitus, there is high suspicion that this could be cancer. Patient will likely need a bronchoscopy with biopsy to obtain tissue diagnosis. Oncology is consulted (5) Acute exacerbation of COPD with asthma Is this a current diagnosis for this admission?: Yes Plan: History of non-oxygen dependent COPD. History of chronic heavy tobacco abuse. Bronchodilators, currently on dexamethasone as well. Could probably change to prednisone if COVID comes back negative. (6) Hypotension Qualifiers: Hypotension type: unspecified hypotension type Qualified Code(s): I95.9 - Hypotension, unspecified Is this a current diagnosis for this admission?: Yes Plan: Resolved at this point. Continue to hold nifedipine. (7) Tobacco abuse Is this a current diagnosis for this admission?: Yes Plan: History of heavy tobacco abuse. NicoDerm patch provided. - Time Time Spent with patient: 25-34 minutes Anticipated Discharge Disposition: Home with Home Health Anticipated Discharge Timeframe: Undetermined
[2020-05-01] MEDS: FLUTICASONE/UMECLIDIN/VILANTER 100-62.5-25 MCG/DOSE IH SCH (10:22)
[2020-05-01 11:09] LABS: HEMATOCRIT 28.3 % (36.0-47.0); HEMOGLOBIN 9.4 g/dL (12.0-15.5); MEAN CORPUSCULAR HEMOGLOBIN 28.2 pg (27.0-33.4); MEAN CORPUSCULAR HGB CONC 33.1 g/dL (32.0-36.0); MEAN CORPUSCULAR VOLUME 85 fl (80-97); PLATELET COUNT 597 10^3/uL (150-450); RED BLOOD COUNT 3.32 10^6/uL (3.72-5.28); RED CELL DISTRIBUTION WIDTH 15.7 % (11.5-14.0); WHITE BLOOD COUNT 18.8 10^3/uL (4.0-10.5)
[2020-05-01 11:23] LABS: ANION GAP 14 (5-19); BLOOD UREA NITROGEN 23 mg/dL (7-20); CALCIUM 7.5 mg/dL (8.4-10.2); CARBON DIOXIDE 12 mmol/L (22-30); CHLORIDE 112 mmol/L (98-107); GLUCOSE 131 mg/dL (75-110)
[2020-05-01 11:48] LABS: ABSOLUTE LYMPHOCYTES# (MANUAL) 0.8 10^3/uL (0.5-4.7); ABSOLUTE MONOCYTES # (MANUAL) 0.2 10^3/uL (0.1-1.4); BAND NEUTROPHILS % (MANUAL) 2 % (3-5); BASOPHILS % (MANUAL) 0 % (0-2); EOSINOPHILS % (MANUAL) 0 % (0-6); LYMPHOCYTES % (MANUAL) 3 % (13-45); MONOCYTES % (MANUAL) 1 % (3-13); SEGMENTED NEUTROPHILS % (MAN) 93 % (42-78); TOTAL CELLS COUNTED 100
[2020-05-01 11:49] LABS: ANISOCYTOSIS SLIGHT; OVALOCYTES SLIGHT; PLATELET COMMENT INCREASED
--- NOTE | 2020-05-01 12:26 | ADVANCED CARE ---
- Diagnosis (1) Acute respiratory failure with hypoxemia Diagnosis Current: Yes (2) Mucus plugging of bronchi Diagnosis Current: Yes (3) Pneumonia Diagnosis Current: Yes Attendance: Patient, myself Resuscitation Status: Full Code Discussion: I discussed patient's medical condition with her and her clinical deterioration. Also reviewed plans of care, treatment plan and CODE STATUS. Patient confirmed the full CODE STATUS. Also okay with intubation if needed given her respiratory deterioration. I did explain that she will need a bronchoscopy with biopsy on h er lung mass at some point. Patient did voice to me that her primary contact is her Payam who she would like us to communicate with. She did inform me that he has Alzheimer's but that he still quite functional. I did call her Payam to notify him of patient's condition and the patient is being transferred to the ICU for further care and possibly may need intubation if she continues to deteriorate. From my conversation with him via phone call, he seems to be fully oriented, very much with it and has capacity. He is okay with the plan. Time Spent: 25mins
--- NOTE | 2020-05-01 12:32 | CRITICAL CARE ADMISSION REPORT ---
HPI Date:: 05/01/20 Time:: 12:00 Reason for ICU Reason:: Respiratory Distress. Patient at risk for ventialtory failure Admission Date/Time & PCP: Admission Date/Time: 04/29/20 20:10 Primary Care Provider: YEIMY WHITMAN MD HPI: JESSY BAKER is a 84 year old female past medical history of tobacco abuse, non-oxygen dependent COPD, hypothyroidism, chronic pain, hypertension presenting to ED complaining of recent onset worsening shortness of breath accompanied by productive cough, wheezing and rales. Patient denies any chest pain, fever, nausea, vomiting, diarrhea, constipation or any urinary symptoms. In ED a chest x-ray was positive for left lower lobe consolidation and multiple pulmonary nodules. Hospitalist was consulted for admission. In ED he was noted to have leukocytosis, thrombocytosis, ABG positive for hypoxemia, mildly elevated troponins and proBNP, mild hypercalcemia, hyponatremia, a CTA was done to follow-up for pulmonary nodule, showed multiple pulmonary nodules and a central mass likely malignancy. 05/01 I was asked to see thepatient today because her resp. status did not appear to be getting better.The patient has been consistently on BIPAP. She has incessant coughing as well. The patient is a daily smoker uncear how much. Has not been on 02 at home. Has been on a number of bronchodialtor inhalers at home. There is some concern that the patient may need to be ntubated in the near future. Her ABG shows a compensated respiratory alkalosis. The patient is afebbrile Her WBC has been elevated since admission. Her Covid results are pending. She has been on Levaquin as of today Her CXR was fairly unremarkable other than RUL nodule. Her CSAT scan shows multiple large nodular densities bilaterally with the largest of these seen in the LLL in the infrahilar area Plan Summary: Plan 1) Transfer to ICU 2) Mintor respiratory status carefully 3)IV steroids. 4) HHN 5) sequential ABGS or follow Endtidal CO2 Bed rest. Continue levaquin for now 6) The lung masses are on the back burner. I dn't think they rperesent an infx complication. I suspect the patient has peither primar lung cancer with mets or it may represent an extrthoracic cancer with mets, Past Medical History Cardiac Medical History: Reports: Hypertension Pulmonary Medical History: Reports: Chronic Obstructive Pulmonary Disease (COPD) Endocrine Medical History: Reports: Hypothyroidism Malignancy Medical History: Reports: Breast Cancer Psychiatric Medical History: Denies: Depression Social/Family History - Social History Smoking Status: Current Every Day Smoker Frequency of Alcohol Use: None Hx Recreational Drug Use: No Drugs: None Hx Prescription Drug Abuse: No - Medication/Allergies Home Medications: Montelukast Sodium [Singulair 10 Mg Tablet] 10 mg PO QHS 02/11/13 Tiotropium [place] [Spiriva Handihaler 18 mcg/dose (30 Dose)] 1 cap IH DAILY 02/11/13 Albuterol Sulfate [Proair Hfa Inhalation Aerosol 8.5 gm Mdi] 2 puff IH Q4HP PRN 04/30/20 Atenolol [Tenormin 50 mg Tablet] 25 mg PO DAILY 04/30/20 Atorvastatin Calcium [Lipitor 40 mg Tablet] 40 mg PO QHS 04/30/20 Ergocalciferol (Vitamin D2) [Drisdol 50,000 unit (1.25MG) Capsule] 50,000 unit PO Q7D 04/30/20 Fluticasone/Salmeterol [Advair 500-50 Diskus 14 Dose/Diskus] 1 inh IH Q12H 04/30/20 Levothyroxine Sodium [Synthroid] 175 mcg PO DAILY 04/30/20 Lidocaine [Lidoderm 5% (700 mg) Transdermal Patch] 2 patch TP DAILY 04/30/20 Nifedipine [Nifedipine ER] 60 mg PO DAILY 04/30/20 Oxycodone HCl/Acetaminophen [Oxycodone-Acetaminophen 10-325] 1.5 each PO Q6HP PRN 04/30/20 Polyethylene Glycol 3350 [Clearlax] 17 gm PO QHS 04/30/20 Prednisone [Deltasone 20 mg Tablet] 20 mg PO DAILY 04/30/20 Allergies/Adverse Reactions: Sulfa (Sulfonamide Antibiotics) Allergy (Intermediate, Verified 02/18/13 18:13) Hives Review of Systems ROS unobtainable: Due to mental status Constitutional: PRESENT: anorexia, weakness Cardiovascular: ABSENT: edema Respiratory: PRESENT: cough, dyspnea. ABSENT: hemoptysis Gastrointestinal: ABSENT: abdominal pain Genitourinary: ABSENT: difficulty urinating Integumentary: ABSENT: diaphoresis Neurological: ABSENT: confusion, focal weakness Psychiatric: PRESENT: anxiety Endocrine: ABSENT: cold intolerance Hematologic/Lymphatic: ABSENT: easy bruising Physical Exam Vital Signs: Temp Pulse Resp BP Pulse Ox 97.6 F 114 H 20 114/61 100 05/01/20 10:00 05/01/20 07:56 05/01/20 07:56 05/01/20 07:34 05/01/20 07:56 Intake & Output 04/30/20 05/01/20 05/02/20 06:59 06:59 06:59 Intake Total 1200 2700 Output Total 100 Balance 1200 2600 Weight 54.1 kg 56.1 kg Weight/Height Weight 56.1 kg Height 5 ft 5 in General appearance: PRESENT: hard of hearing, other - Moderate distress due to coughing Head exam: PRESENT: atraumatic, normocephalic Eye exam: PRESENT: conjunctiva pink Ear exam: PRESENT: normal external ear exam Mouth exam: PRESENT: moist Neck exam: ABSENT: JVD, tenderness, thyromegaly Respiratory exam: PRESENT: accessory muscle use, clear to auscultation leonid, tachypnea Cardiovascular exam: PRESENT: RRR, +S1, +S2 Pulses: PRESENT: normal carotid pulses, +2 pedal pulses bilateral GI/Abdominal exam: PRESENT: soft. ABSENT: mass, tenderness Extremities exam: ABSENT: calf tenderness, clubbing, joint swelling, +1 edema Neurological exam: PRESENT: alert, altered Psychiatric exam: PRESENT: agitated Tubes/Lines: PRESENT: Other - BIPAP unit Laboratory/Radiographs Laboratory Results: 05/01/20 10:35 05/01/20 05/01/20 08:05 10:35 Carbonic Acid 0.67 L HCO3/H2CO3 Ratio 20:1 ABG pH 7.41 ABG pCO2 22.3 L ABG pO2 79.4 L ABG HCO3 13.8 L ABG O2 Saturation 96.1 ABG Base Excess -9.3 FiO2 35% Sodium 137.8 Potassium 4.0 Chloride 112 H Carbon Dioxide 12 L Anion Gap 14 BUN 23 H Creatinine 0.57 Est GFR ( Amer) > 60 Glucose 131 H Calcium 7.5 L Magnesium 2.1 04/29/20 16:53 Sputum Gram Stain - Final 04/29/20 16:53 Sputum Sputum Culture - Final Pseudomonas Aeruginosa Haemophilus Influenzae Normal Celeste 04/29/20 16:53 Blood Blood Culture (PCR) - Final 04/29/20 04/29/20 04/29/20 16:53 16:53 22:24 Creatine Kinase 100 CK-MB (CK-2) 2.44 Troponin I 0.029 NT-Pro-B Natriuret Pep 1250 H 04/29/20 04/30/20 22:24 06:21 Creatine Kinase CK-MB (CK-2) Troponin I 0.024 0.025 NT-Pro-B Natriuret Pep Impressions: Chest X-Ray 04/29/20 16:43 IMPRESSION: 1. Since the prior study dated 07/11/2010, new development of bilateral pulmonary nodules. Correlation with CT chest with IV contrast suggested. 2. Mild prominence of the interstitial markings in the left lung may be on the basis of edema versus infiltrates. Very small pleural effusions suggested. 3. Post surgical changes right breast, stable findings. Chest/Abdomen CTA 04/29/20 21:12 IMPRESSION: No evidence of pulmonary embolus. Mucous plugging. There is a large central mass lesion left infrahilar may represent a pulmonary mass or perhaps adenopathy. Other prominent mediastinal lymph nodes are seen. Multiple bilateral pulmonary nodules are seen. Some of the smaller nodules have an appearance suspicious for an infectious inflammatory process but there are larger well-rounded and more sharply marginated soft tissue nodules which are suspicious for neoplasm. Is there a known history of a primary carcinoma? . Critical Time Critical Time (minutes): 45 -: The care of a critically ill patient is dynamic. This note represents a static moment in the admission process. Orders and treatments may be given simultaneously and urgently, and time is not regional sales representative of the treatment process. This patient requires Critical Care secondary to life threatening organ or limb dysfunction. Without Critical Care services, the patient is at risk for increased mortality and morbidity.
[2020-05-01] MEDS: MORPHINE SULFATE 10 MG/ML INJ IV PRN ×2 (16:33→20:33)
[2020-05-01] MEDS: LEVOFLOXACIN 750 MG/D5W RTU 750 MG/150 ML RTUPB IV SCH (17:23)
[2020-05-01] MEDS: ATORVASTATIN CALCIUM 40 MG TABLET PO SCH (22:22)
[2020-05-01] MEDS: POLYETHYLENE GLYCOL 3350 POWDER 17 GM/1 PACKET PO SCH (22:22)
[2020-05-01] MEDS: METHYLPREDNISOLONE INJ 40 MG/1 ML SDV IV SCH (22:22)
[2020-05-01] MEDS: MONTELUKAST SODIUM 10 MG TABLET PO SCH (22:22)
[2020-05-02] MEDS: NORMAL SALINE 1000 ML 1,000 ML IV PRN ×2 (03:31→10:29)
[2020-05-02] MEDS: LEVOTHYROXINE SODIUM 0.1 MG TABLET PO SCH (06:08)
[2020-05-02] MEDS: METHYLPREDNISOLONE INJ 40 MG/1 ML SDV IV SCH ×3 (06:08→21:39)
[2020-05-02] MEDS: LEVOTHYROXINE SODIUM 0.075 MG TABLET PO SCH (06:08)
[2020-05-02] MEDS: IPRATROPIUM/ALBUTEROL 0.5-2.5 MG/3 ML AMPUL NEB SCH ×3 (08:11→20:55)
[2020-05-02] MEDS ORDERED: PIPERACILLIN/TAZOBACTAM 4.5 GM VIAL IV ONE (08:30)
[2020-05-02] MEDS ORDERED: PIPERACILLIN/TAZOBACTAM 4.5 GM VIAL IV SCH (09:00)
--- NOTE | 2020-05-02 09:11 | PDOC CRITICAL CARE PROG REPORT ---
General Date:: 05/02/20 ICU Day:: 2 Hospital Day:: 4 Resuscitation Status: Full Code Events in the past 12 to 24 Hours:: The patient presented on 04/29 to the medical floor. The patient was hypoxemic She was admitted and placed on steroids and HHN. The patient is still an active smoker. The person was PUI but Covid has come back negative. The patient was transferred yesterday to the ICU. We were concerned about worsenign resp. status and possible need for intubation. She had had incessant coughing fits on the floor and needed lots of attention. Has been on and off BIPAP. Initial WBC was 16.6. has remained hemodynamically stable Reason for ICU Addmission:: Respiratory Distress. Patient at risk for ventialtory failure Physical Exam Vital Signs: Temp Pulse Resp BP Pulse Ox 98.2 F 94 27 H 145/75 H 97 05/02/20 08:00 05/02/20 08:13 05/02/20 08:13 05/02/20 08:00 05/02/20 08:13 Intake & Output 05/01/20 05/02/20 05/03/20 06:59 06:59 06:59 Intake Total 2700 2100 Output Total 100 2050 50 Balance 2600 50 -50 Weight 56.1 kg 57 kg Weight/Height Weight 57 kg Height 5 ft 5 in General appearance: PRESENT: no acute distress, hard of hearing Head exam: PRESENT: atraumatic, normocephalic Eye exam: PRESENT: conjunctiva pink Ear exam: PRESENT: normal external ear exam Mouth exam: PRESENT: dry mucosa, moist Neck exam: ABSENT: JVD, tenderness, thyromegaly, tracheal deviation Respiratory exam: PRESENT: prolonged expiratory phas. ABSENT: accessory muscle use Cardiovascular exam: PRESENT: +S1, +S2, tachycardia Pulses: PRESENT: normal dorsalis pedis pul Vascular exam: PRESENT: normal capillary refill GI/Abdominal exam: PRESENT: normal bowel sounds, soft Rectal exam: PRESENT: deferred Extremities exam: ABSENT: calf tenderness, joint swelling Musculoskeletal exam: PRESENT: full ROM Neurological exam: PRESENT: oriented to time Laboratory/Radiographs Laboratory Results: 05/01/20 10:35 05/01/20 10:35 05/01/20 05/01/20 10:35 10:35 WBC 18.8 H RBC 3.32 L Hgb 9.4 L Hct 28.3 L MCV 85 MCH 28.2 MCHC 33.1 RDW 15.7 H Plt Count 597 H Seg Neutrophils % Not Reportable Sodium 137.8 Potassium 4.0 Chloride 112 H Carbon Dioxide 12 L Anion Gap 14 BUN 23 H Creatinine 0.57 Est GFR ( Amer) > 60 Glucose 131 H Calcium 7.5 L Magnesium 2.1 04/29/20 16:53 Blood Blood Culture (PCR) - Final 04/29/20 16:53 Blood Blood Culture - Final Micrococcus Species 04/29/20 16:53 Sputum Gram Stain - Final 04/29/20 16:53 Sputum Sputum Culture - Final Pseudomonas Aeruginosa Haemophilus Influenzae Normal Celeste 04/29/20 04/29/20 04/29/20 16:53 16:53 22:24 Creatine Kinase 100 CK-MB (CK-2) 2.44 Troponin I 0.029 NT-Pro-B Natriuret Pep 1250 H 04/29/20 04/30/20 22:24 06:21 Creatine Kinase CK-MB (CK-2) Troponin I 0.024 0.025 NT-Pro-B Natriuret Pep Impressions: Chest X-Ray 04/29/20 16:43 IMPRESSION: 1. Since the prior study dated 07/11/2010, new development of bilateral pulmonary nodules. Correlation with CT chest with IV contrast suggested. 2. Mild prominence of the interstitial markings in the left lung may be on the basis of edema versus infiltrates. Very small pleural effusions suggested. 3. Post surgical changes right breast, stable findings. Chest/Abdomen CTA 04/29/20 21:12 IMPRESSION: No evidence of pulmonary embolus. Mucous plugging. There is a large central mass lesion left infrahilar may represent a pulmonary mass or perhaps adenopathy. Other prominent mediastinal lymph nodes are seen. Multiple bilateral pulmonary nodules are seen. Some of the smaller nodules have an appearance suspicious for an infectious inflammatory process but there are larger well-rounded and more sharply marginated soft tissue nodules which are suspicious for neoplasm. Is there a known history of a primary carcinoma? . Assessment and Plan - Diagnosis (1) Metastatic cancer to lung Is this a current diagnosis for this admission?: Yes Plan: The patient has multiple large masses/noduales in the lung. I am concerned either about a metastic lung lesion or a primary lung cancer with intrathoracic mets. I beleieve it is less likely to be nonmliugannt ( such as Abraham's of a fungal infx). Aftert thepatient is well she will needa biopsy. (2) Acute respiratory failure with hypoxemia Is this a current diagnosis for this admission?: Yes Plan: Multifactorial, likely due to acute pneumonia, mucous plugging complicated by underlying COPD and likely lung malignancy. Remains significantly breathless and very tachypneic and appears very fatigued. Even very tachypneic on BiPAP rate breathing in the 30s to 40s. Her problem is not so much oxygenation as she is 91% on 4 L nasal cannula and she has no evidence of CO2 retention as ABG actually shows mild respiratory alkalosis with metabolic compensation. Seems mucous plugging and pneumonia making it extremely hard. She may very well need intubation if she does not turn around soon. I have discussed case with pipe stem aligner and we together saw patient at bedside and patient will be transferr ed to the ICU for further care. I did confirm full CODE STATUS with patient. 05/02 The patient is on BUIPAP presenrlty and appears fairly comfortable. At times she is a little confused and was asking to go home. Developed a resp. alkalois pepe has apparently kled to a low seru bicarb level in compensation. (3) Pulmonary nodules/lesions, multiple Is this a current diagnosis for this admission?: Yes (4) Pneumonia Qualifiers: Laterality: bilateral Lung location: lower lobe of lung Is this a current diagnosis for this admission?: Yes Plan: Community-acquired bacterial. Sputum culture is growing Pseudomonas and H. influenzae negative. Continue Levaquin She did undergo testing for COVID-19 and we are awaiting the results. 05/02 The patient has grown out 2 pathogens form her sputm iclding zH. flu and Pseudomaonas are. i have changed abx gorge to Zosyn. Critical Time Critical Time (minutes): 35 Level of Care: ICU -: 1. The care of a critical patient is a dynamic process. This note is a solar manufacturer's representative synopsis but static in nature. The timeframe for treatments given in order is not necessarily the actual time these treatments may have been done. 2. This patient requires critical care secondary to ongoing requirements for therapy not offered or safe outside the critical care environment. Transfer to a lower level of care will result in altered life or limb morbidity and mortality. 3. Multidisciplinary rounds completed. 4. ABCDE bundle addressed.
[2020-05-02 09:18] LABS: ARTERIAL BLOOD BASE EXCESS -6.7 mmol/L; ARTERIAL BLOOD H2CO3 0.72 mmol/L (1.05-1.35); ARTERIAL BLOOD HCO3 15.9 mmol/L (20-24); ARTERIAL BLOOD O2 SATURATION 96.1 % (94-98); ARTERIAL BLOOD PCO2 23.8 mmHg (35-45); ARTERIAL BLOOD PH 7.44 (7.35-7.45); ARTERIAL BLOOD PO2 76.6 mmHg (80-100); ARTERIAL BLOOD TOTAL CO2 16.7 mmol/L (21-25)
[2020-05-02 09:19] LABS: ARTERIAL BLOOD FIO2 35%
--- NOTE | 2020-05-02 09:36 | RADIOLOGY REPORT (SQ) ---
EXAM DESCRIPTION: CHEST SINGLE VIEW IMAGES COMPLETED DATE/TIME: 05/02/2020 9:18 am REASON FOR STUDY: f/u pneumonia COMPARISON: 04/29/2020. EXAM PARAMETERS: NUMBER OF VIEWS: One view. TECHNIQUE: Single frontal radiographic view of the chest acquired. RADIATION DOSE: NA LIMITATIONS: None. FINDINGS: LUNGS AND PLEURA: Vague pulmonary nodules. Increasing faint airspace disease in the right upper lobe and left lower lobe. Possible small left pleural effusion. MEDIASTINUM AND HILAR STRUCTURES: No masses. Contour normal. HEART AND VASCULAR STRUCTURES: Heart normal in size. Normal vasculature. BONES: No acute findings. HARDWARE: Surgical clips in the soft tissues on the right. OTHER: No other significant finding. IMPRESSION: INCREASING FAINT AIRSPACE DISEASE IN THE RIGHT UPPER LOBE AND LEFT LOWER LOBE CONCERNING FOR DEVELOPING PNEUMONIA. TECHNICAL DOCUMENTATION: JOB ID: [id number] 2010 [employer]- All Rights Reserved Reading location - IP/workstation name: [email or web address]
[2020-05-02] MEDS: PIPERACILLIN SODIUM/TAZOBACTAM 4.5 GM in NORMAL SALINE 100 ML IV SCH ×3 (10:22→21:38)
[2020-05-02] MEDS: NICOTINE 21 MG/24 HR PATCH.TD24 TD SCH (10:23)
[2020-05-02] MEDS: ATENOLOL 50 MG TABLET PO SCH (10:24)
[2020-05-02] MEDS: ASPIRIN 81 MG TABLET, CHEWABLE PO SCH (10:24)
[2020-05-02] MEDS: FAMOTIDINE 20 MG TABLET PO SCH ×2 (10:24→21:39)
[2020-05-02] MEDS: ENOXAPARIN SODIUM INJ 40 MG/0.4 ML DISP.SYRIN SUBCUT SCH (10:24)
[2020-05-02] MEDS: DOCUSATE SODIUM 100 MG CAPSULE PO SCH (10:25)
[2020-05-02] MEDS: FLUTICASONE/UMECLIDIN/VILANTER 100-62.5-25 MCG/DOSE IH SCH (10:28)
[2020-05-02] MEDS: LIDOCAINE 5% (700 MG) TRANSDERMAL ADH..PATCH TP SCH (10:46)
[2020-05-02] MEDS: MORPHINE SULFATE 10 MG/ML INJ IV PRN ×2 (16:31→23:21)
[2020-05-02] MEDS: LEVOFLOXACIN 750 MG/D5W RTU 750 MG/150 ML RTUPB IV SCH (17:35)
[2020-05-02] MEDS: POLYETHYLENE GLYCOL 3350 POWDER 17 GM/1 PACKET PO SCH (21:39)
[2020-05-02] MEDS: MONTELUKAST SODIUM 10 MG TABLET PO SCH (21:39)
[2020-05-02] MEDS: ATORVASTATIN CALCIUM 40 MG TABLET PO SCH (21:39)
[2020-05-03] MEDS: PIPERACILLIN SODIUM/TAZOBACTAM 4.5 GM in NORMAL SALINE 100 ML IV SCH ×4 (03:11→21:37)
[2020-05-03] MEDS: NORMAL SALINE 1000 ML 1,000 ML IV PRN ×2 (03:11→14:07)
[2020-05-03 04:29] LABS: ANION GAP 9 (5-19); BLOOD UREA NITROGEN 10 mg/dL (7-20); CARBON DIOXIDE 21 mmol/L (22-30); CHLORIDE 109 mmol/L (98-107); GLUCOSE 123 mg/dL (75-110)
[2020-05-03 04:35] LABS: CALCIUM 6.6 mg/dL (8.4-10.2); POTASSIUM 2.6 mmol/L (3.6-5.0)
[2020-05-03] MEDS ORDERED: CALCIUM GLUC IN NACL, ISO-OSM 1 GM/50 ML RTUPB IV ONE (04:36)
[2020-05-03 04:52] LABS: HEMATOCRIT 29.5 % (36.0-47.0); HEMOGLOBIN 10.4 g/dL (12.0-15.5); MEAN CORPUSCULAR HEMOGLOBIN 29.1 pg (27.0-33.4); MEAN CORPUSCULAR HGB CONC 35.3 g/dL (32.0-36.0); MEAN CORPUSCULAR VOLUME 82 fl (80-97); PLATELET COUNT 524 10^3/uL (150-450); RED BLOOD COUNT 3.58 10^6/uL (3.72-5.28); WHITE BLOOD COUNT 26.5 10^3/uL (4.0-10.5)
[2020-05-03] MEDS: POTASSI CL 20 MEQ/50 ML RIDER 20 MEQ/50 ML RTUPB IV SCH ×4 (04:59→10:45)
[2020-05-03 05:07] LABS: ABSOLUTE LYMPHOCYTES# (MANUAL) 0.5 10^3/uL (0.5-4.7); ABSOLUTE MONOCYTES # (MANUAL) 1.1 10^3/uL (0.1-1.4); BAND NEUTROPHILS % (MANUAL) 2 % (3-5); BASOPHILS % (MANUAL) 0 % (0-2); EOSINOPHILS % (MANUAL) 0 % (0-6); LYMPHOCYTES % (MANUAL) 2 % (13-45); MONOCYTES % (MANUAL) 4 % (3-13); SEGMENTED NEUTROPHILS % (MAN) 92 % (42-78); TOTAL CELLS COUNTED 100
[2020-05-03 05:09] LABS: ANISOCYTOSIS 1+; PLATELET COMMENT INCREASED; TOXIC GRANULATION 1+
[2020-05-03] MEDS: METHYLPREDNISOLONE INJ 40 MG/1 ML SDV IV SCH ×3 (05:16→21:29)
[2020-05-03] MEDS: LEVOTHYROXINE SODIUM 0.1 MG TABLET PO SCH (05:16)
[2020-05-03] MEDS: LEVOTHYROXINE SODIUM 0.075 MG TABLET PO SCH (05:16)
[2020-05-03] MEDS: OXYCODONE-ACETAMINOPHEN 5-325 MG TABLET PO PRN ×2 (05:36→21:36)
[2020-05-03 06:49] LABS: PHOSPHORUS 1.4 mg/dL (2.5-4.5)
[2020-05-03] MEDS ORDERED: PROMETHAZINE HCL INJ 25 MG/1 ML VIAL IV PRN (07:30)
[2020-05-03] MEDS ORDERED: ONDANSETRON HCL INJ/PF 4 MG/2 ML SDV IV PRN (07:30)
[2020-05-03] MEDS ORDERED: CALCIUM GLUCONATE 1000 MG/10 ML INJ IV ONE (07:43)
[2020-05-03] MEDS: MAGNESIUM SULFATE/D5W 1 GM/100 ML RTUPB IV SCH ×2 (08:10→09:51)
[2020-05-03] MEDS: IPRATROPIUM/ALBUTEROL 0.5-2.5 MG/3 ML AMPUL NEB SCH ×3 (08:31→20:02)
--- NOTE | 2020-05-03 08:42 | PDOC CONSULTATION ---
Consultation Consult Date: 05/03/20 Provider Consulted: ELADIO BRAND Consult reason:: Hematology/Oncology consultation was requested for patient with new lung nodules/adenopathy. May be infectious or malignant. History of Present Illness Admission Date/PCP: 04/29/20 20:10 YEIMY RAMAN MD History of Present Illness: JESSY BAKER is a 84 year old female who presented to Dr. Raman' office with evidence of pneumonia. She was admitted and ruled out for COVID-19. However, she is now requiring BiPAP and is in the ICU. This morning, she is a bit confused, but very talkative. She states that she wants to go home and take the breathing machine with her. She explains that when she is wearing the nasal canula, she still has dyspnea, but with the BiPAP machine, she feels much better. Past Medical History Cardiac Medical History: Reports: Hypertension Pulmonary Medical History: Reports: Chronic Obstructive Pulmonary Disease (COPD) Endocrine Medical History: Reports: Hypothyroidism Malignancy Medical History: Reports: Breast Cancer Psychiatric Medical History: Denies: Depression Social History Smoking Status: Current Every Day Smoker Electronic Cigarette use?: No Frequency of Alcohol Use: None Hx Recreational Drug Use: No Drugs: None Hx Prescription Drug Abuse: No - Advance Directive Resuscitation Status: Full Code Family History Family History: Other Parental Family History Reviewed: No - Patient remains confused and not able to answer all questions. Children Family History Reviewed: No Sibling(s) Family History Reviewed.: No Medication/Allergy Home Medications: Montelukast Sodium [Singulair 10 Mg Tablet] 10 mg PO QHS 02/11/13 Tiotropium Celina [Spiriva Handihaler 18 mcg/dose (30 Dose)] 1 cap IH DAILY 02/11/13 Albuterol Sulfate [Proair Hfa Inhalation Aerosol 8.5 gm Mdi] 2 puff IH Q4HP PRN 04/30/20 Atenolol [Tenormin 50 mg Tablet] 25 mg PO DAILY 04/30/20 Atorvastatin Calcium [Lipitor 40 mg Tablet] 40 mg PO QHS 04/30/20 Ergocalciferol (Vitamin D2) [Drisdol 50,000 unit (1.25MG) Capsule] 50,000 unit PO Q7D 04/30/20 Fluticasone/Salmeterol [Advair 500-50 Diskus 14 Dose/Diskus] 1 inh IH Q12H 04/30/20 Levothyroxine Sodium [Synthroid] 175 mcg PO DAILY 04/30/20 Lidocaine [Lidoderm 5% (700 mg) Transdermal Patch] 2 patch TP DAILY 04/30/20 Nifedipine [Nifedipine ER] 60 mg PO DAILY 04/30/20 Oxycodone HCl/Acetaminophen [Oxycodone-Acetaminophen 10-325] 1.5 each PO Q6HP PRN 04/30/20 Polyethylene Glycol 3350 [Clearlax] 17 gm PO QHS 04/30/20 Prednisone [Deltasone 20 mg Tablet] 20 mg PO DAILY 04/30/20 Allergies/Adverse Reactions: Sulfa (Sulfonamide Antibiotics) Allergy (Intermediate, Verified 02/18/13 18:13) Hives Review of Systems Constitutional: ABSENT: fever(s), headache(s) Eyes: ABSENT: visual disturbances Ears: ABSENT: hearing changes Nose, Mouth, and Throat: PRESENT: other - Dry mouth.. ABSENT: sore throat Cardiovascular: ABSENT: chest pain Respiratory: PRESENT: dyspnea Gastrointestinal: PRESENT: other - "I'm not eating". ABSENT: constipation Genitourinary: ABSENT: dysuria Integumentary: ABSENT: pruritus Neurological: PRESENT: weakness Hematologic/Lymphatic: ABSENT: easy bleeding Physical Exam Vital Signs: Temp Pulse Resp BP Pulse Ox 98.6 F 89 32 H 131/82 H 98 05/03/20 00:00 05/03/20 07:00 05/03/20 04:15 05/03/20 00:00 05/03/20 04:15 Intake & Output 05/02/20 05/03/20 05/04/20 06:59 06:59 06:59 Intake Total 2099 2026 50 Output Total 2049 2494 Balance 50 -468 50 Weight 57 kg 56.6 kg General appearance: PRESENT: no acute distress, well-developed, well-nourished Head exam: PRESENT: normocephalic Eye exam: PRESENT: EOMI Mouth exam: PRESENT: dry mucosa Neck exam: ABSENT: lymphadenopathy, tenderness Respiratory exam: PRESENT: wheezes, other - Upper airway noise. Cardiovascular exam: PRESENT: RRR, tachycardia GI/Abdominal exam: PRESENT: soft. 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 Not oriented to time. Psychiatric exam: PRESENT: appropriate affect Skin exam: PRESENT: normal color Results Laboratory Results: 05/03/20 04:45 05/03/20 03:25 05/02/20 05/03/20 05/03/20 09:15 03:25 03:25 WBC Cancelled RBC Cancelled Hgb Cancelled Hct Cancelled MCV Cancelled MCH Cancelled MCHC Cancelled RDW Cancelled Plt Count Cancelled Seg Neutrophils % Cancelled Carbonic Acid 0.72 L HCO3/H2CO3 Ratio 22:1 ABG pH 7.44 ABG pCO2 23.8 L ABG pO2 76.6 L ABG HCO3 15.9 L ABG O2 Saturation 96.1 ABG Base Excess -6.7 FiO2 35% Sodium 138.8 Potassium 2.6 L* Chloride 109 H Carbon Dioxide 21 L Anion Gap 9 BUN 10 Creatinine 0.54 Est GFR ( Amer) > 60 Glucose 123 H Calcium 6.6 L* Phosphorus Magnesium 05/03/20 05/03/20 04:45 04:45 WBC 26.5 H RBC 3.58 L Hgb 10.4 L Hct 29.5 L MCV 82 MCH 29.1 MCHC 35.3 RDW 15.0 H Plt Count 524 H Seg Neutrophils % Not Reportable Carbonic Acid HCO3/H2CO3 Ratio ABG pH ABG pCO2 ABG pO2 ABG HCO3 ABG O2 Saturation ABG Base Excess FiO2 Sodium Potassium Chloride Carbon Dioxide Anion Gap BUN Creatinine Est GFR ( Amer) Glucose Calcium Phosphorus 1.4 L Magnesium 1.4 L 04/29/20 04/29/20 04/29/20 16:53 16:53 22:24 Creatine Kinase 100 CK-MB (CK-2) 2.44 Troponin I 0.029 NT-Pro-B Natriuret Pep 1250 H 04/29/20 04/30/20 22:24 06:21 Creatine Kinase CK-MB (CK-2) Troponin I 0.024 0.025 NT-Pro-B Natriuret Pep Impressions: Chest/Abdomen CTA 04/29/20 21:12 IMPRESSION: No evidence of pulmonary embolus. Mucous plugging. There is a large central mass lesion left infrahilar may represent a pulmonary mass or perhaps adenopathy. Other prominent mediastinal lymph nodes are seen. Multiple bilateral pulmonary nodules are seen. Some of the smaller nodules have an appearance suspicious for an infectious inflammatory process but there are larger well-rounded and more sharply marginated soft tissue nodules which are suspicious for neoplasm. Is there a known history of a primary carcinoma? . Chest X-Ray 05/02/20 09:00 IMPRESSION: INCREASING FAINT AIRSPACE DISEASE IN THE RIGHT UPPER LOBE AND LEFT LOWER LOBE CONCERNING FOR DEVELOPING PNEUMONIA. Status: Image reviewed by me Assessment & Plan - Diagnosis (1) Acute respiratory failure with hypoxemia Is this a current diagnosis for this admission?: Yes Plan: I agree that this appears to be infectious/inflammatory in nature. She is on appropriate steroids and antibiotics. (2) Pulmonary nodules/lesions, multiple Is this a current diagnosis for this admission?: Yes Plan: Only way to know for sure if this is malignant would be a biopsy. Right now, I would prefer to treat as inflammatory and repeat CT in a few weeks. If areas are markedly improved, then continue to follow with scans. However, if adenop athy/mass is persistent, then consider bronchoscopy or CT guided biopsy. (3) Leukocytosis Qualifiers: Leukocytosis type: leukemoid reaction Qualified Code(s): D72.823 - Leukemoid reaction Is this a current diagnosis for this admission?: Yes Plan: Elevated WBC and PLT most likely due to infection and steroids. Will watch. (4) Anemia Qualifiers: Other causes of anemia: chronic disease, other Is this a current diagnosis for this admission?: Yes Plan: Most likely due to chronic disease. Stable currently. No indication for blood transfusion. Further work-up as outpatient. - Plan Summary Plan Summary: Patient was discussed with Dr. Reyes. I will continue to follow from a distance. Please call with any questions or concerns.
[2020-05-03] MEDS ORDERED: POTASSIUM PHOS,M-BASIC-D-BASIC 30 MMOL in NORMAL SALINE 500 ML IV ONE (09:00)
[2020-05-03] MEDS: ENOXAPARIN SODIUM INJ 40 MG/0.4 ML DISP.SYRIN SUBCUT SCH (09:37)
[2020-05-03] MEDS: FLUTICASONE/UMECLIDIN/VILANTER 100-62.5-25 MCG/DOSE IH SCH (09:37)
[2020-05-03] MEDS: NICOTINE 21 MG/24 HR PATCH.TD24 TD SCH (09:37)
[2020-05-03] MEDS: NIFEDIPINE 30 MG TAB.ER.24 PO SCH (09:38)
[2020-05-03] MEDS: FAMOTIDINE 20 MG TABLET PO SCH ×2 (09:38→21:29)
[2020-05-03] MEDS: ASPIRIN 81 MG TABLET, CHEWABLE PO SCH (09:38)
[2020-05-03] MEDS: ATENOLOL 50 MG TABLET PO SCH (09:38)
[2020-05-03] MEDS: DOCUSATE SODIUM 100 MG CAPSULE PO SCH (09:38)
[2020-05-03] MEDS: LIDOCAINE 5% (700 MG) TRANSDERMAL ADH..PATCH TP SCH (09:39)
[2020-05-03] MEDS ORDERED: (PENDING PHARMACY ID) (Fluticasone/Salmeterol 1 INH) IH SCH (09:45)
[2020-05-03] MEDS ORDERED: (PENDING PHARMACY ID) (Nifedipine [Nifedipine Er] 60 MG) PO SCH (10:00)
[2020-05-03] MEDS ORDERED: NICOTINE 21 MG/24 HR PATCH.TD24 TD SCH (10:00)
--- NOTE | 2020-05-03 10:31 | PDOC CRITICAL CARE PROG REPORT ---
General Date:: 05/03/20 ICU Day:: 2 Hospital Day:: 3 Resuscitation Status: Full Code Events in the past 12 to 24 Hours:: Of and on bipap do to mostly subjective SOB. Review of systems relevant to events:: Pulmonary Reason for ICU Addmission:: Respiratory Distress. Patient at risk for ventialt ory failure - Medications: Medications reviewed and adjusted accordingly: Yes Vasopressors:: None Sedation:: None Physical Exam Vital Signs: Temp Pulse Resp BP Pulse Ox 98.6 F 99 21 H 131/82 H 96 05/03/20 00:00 05/03/20 08:31 05/03/20 08:31 05/03/20 00:00 05/03/20 08:31 Intake & Output 05/02/20 05/03/20 05/04/20 06:59 06:59 06:59 Intake Total 2099 2026 150 Output Total 20495 150 Balance 50 -468 0 Weight 57 kg 56.6 kg Weight/Height Weight 56.6 kg Height 5 ft 5 in General appearance: PRESENT: no acute distress, cooperative, thin Head exam: PRESENT: atraumatic, normocephalic Eye exam: PRESENT: conjunctiva pink, EOMI, PERRLA. ABSENT: scleral icterus Ear exam: PRESENT: normal external ear exam Mouth exam: PRESENT: moist, tongue midline Respiratory exam: PRESENT: clear to auscultation leonid, decreased breath sounds. ABSENT: rales, rhonchi, wheezes Cardiovascular exam: PRESENT: RRR, tachycardia. ABSENT: diastolic murmur, rubs, systolic murmur GI/Abdominal exam: PRESENT: normal bowel sounds, soft. ABSENT: distended, guarding, mass, organolmegaly, rebound, tenderness Rectal exam: PRESENT: deferred Gentrourinary exam: PRESENT: indwelling catheter Extremities exam: PRESENT: full ROM. ABSENT: calf tenderness, clubbing, pedal edema Musculoskeletal exam: PRESENT: normal inspection Neurological exam: PRESENT: alert, awake, oriented to person, oriented to place, oriented to time, oriented to situation, CN II-XII grossly intact. ABSENT: cullen r sensory deficit Psychiatric exam: PRESENT: anxious Skin exam: PRESENT: dry, intact, warm. ABSENT: cyanosis, rash Laboratory/Radiographs Laboratory Results: 05/03/20 04:45 05/03/20 03:25 05/03/20 05/03/20 05/03/20 03:25 03:25 04:45 WBC Cancelled 26.5 H RBC Cancelled 3.58 L Hgb Cancelled 10.4 L Hct Cancelled 29.5 L MCV Cancelled 82 MCH Cancelled 29.1 MCHC Cancelled 35.3 RDW Cancelled 15.0 H Plt Count Cancelled 524 H Seg Neutrophils % Cancelled Not Reportable Sodium 138.8 Potassium 2.6 L* Chloride 109 H Carbon Dioxide 21 L Anion Gap 9 BUN 10 Creatinine 0.54 Est GFR ( Amer) > 60 Glucose 123 H Calcium 6.6 L* Phosphorus Magnesium 05/03/20 04:45 WBC RBC Hgb Hct MCV MCH MCHC RDW Plt Count Seg Neutrophils % Sodium Potassium Chloride Carbon Dioxide Anion Gap BUN Creatinine Est GFR ( Amer) Glucose Calcium Phosphorus 1.4 L Magnesium 1.4 L 04/29/20 04/29/20 04/29/20 16:53 16:53 22:24 Creatine Kinase 100 CK-MB (CK-2) 2.44 Troponin I 0.029 NT-Pro-B Natriuret Pep 1250 H 04/29/20 04/30/20 22:24 06:21 Creatine Kinase CK-MB (CK-2) Troponin I 0.024 0.025 NT-Pro-B Natriuret Pep Impressions: Chest/Abdomen CTA 04/29/20 21:12 IMPRESSION: No evidence of pulmonary embolus. Mucous plugging. There is a large central mass lesion left infrahilar may represent a pulmonary mass or perhaps adenopathy. Other prominent mediastinal lymph nodes are seen. Multiple bilateral pulmonary nodules are seen. Some of the smaller nodules have an appearance suspicious for an infectious inflammatory process but there are larger well-rounded and more sharply marginated soft tissue nodules which are suspicious for neoplasm. Is there a known history of a primary carcinoma? . Chest X-Ray 05/02/20 09:00 IMPRESSION: INCREASING FAINT AIRSPACE DISEASE IN THE RIGHT UPPER LOBE AND LEFT LOWER LOBE CONCERNING FOR DEVELOPING PNEUMONIA. All labs, radiographs, diagnostic studies and EKGs were personally reviewed: Yes In addition, reports of radiographic and diagnostic studies were read: Yes Assessment and Plan - Diagnosis (1) Acute respiratory failure with hypoxemia Is this a current diagnosis for this admission?: Yes Plan: She has no documented hypoxia by ABG, however before her transfer was said to be hypoxic to O2 saturatios of 70s. I'm not sure how real this was. (2) COPD with exacerbation Is this a current diagnosis for this admission?: Yes Plan: She is subjectively wheezing not by exam. Continue nebulizers, steroids and Advair restarted. (3) Leukocytosis Qualifiers: Leukocytosis type: leukemoid reaction Qualified Code(s): D72.823 - Leukemoid reaction Is this a current diagnosis for this admission?: Yes Plan: There is no new evidence of infection. Is on good antibiotics. WBC parallels start of steroids. Probably leukemoid. (4) Pneumonia Qualifiers: Laterality: bilateral Lung location: lower lobe of lung Is this a current diagnosis for this admission?: Yes Plan: Mild and no sign of aspiration. Continue antibiotics. (5) Pulmonary nodules/lesions, multiple Is this a current diagnosis for this admission?: Yes Plan: Will need biopsy when recovered from this illness. Seen by Dr. Mary. (6) Tobacco abuse Is this a current diagnosis for this admission?: Yes Plan: The likely cause of her COPD. Still smokes daily. (7) Hypokalemia Is this a current diagnosis for this admission?: Yes Plan: [facility]. (8) Hypocalcemia Is this a current diagnosis for this admission?: Yes Plan: To be replaced with total of 3gms calcium gluconate. Plan Summary: Use bipap when needed. PT evel. May downgrade later today. Critical Time Critical Time (minutes): 35 Level of Care: ICU Anticipated discharge: Home with Homehealth Anticipated DC Timeframe: Other -: 1. The care of a critical patient is a dynamic process. This note is a administrative representative synopsis but static in nature. The timeframe for treatments given in order is not necessarily the actual time these treatments may have been done. 2. This patient requires critical care secondary to ongoing requirements for therapy not offered or safe outside the critical care environment. Transfer to a lower level of care will result in altered life or limb morbidity and mortality. 3. Multidisciplinary rounds completed. 4. ABCDE bundle addressed.
[2020-05-03] MEDS: CALCIUM GLUCONATE 1 GM/NS 50 ML RTU IV SCH ×2 (11:21→13:00)
[2020-05-03] MEDS: LEVOFLOXACIN 750 MG/D5W RTU 750 MG/150 ML RTUPB IV SCH (17:14)
[2020-05-03] MEDS: POLYETHYLENE GLYCOL 3350 POWDER 17 GM/1 PACKET PO SCH (21:30)
[2020-05-03] MEDS: MONTELUKAST SODIUM 10 MG TABLET PO SCH (21:30)
[2020-05-03] MEDS: ATORVASTATIN CALCIUM 40 MG TABLET PO SCH (21:30)
[2020-05-03] MEDS: PHARMACY COMMUNICATION ORDER MC SCH (21:38)
[2020-05-04] MEDS: PIPERACILLIN SODIUM/TAZOBACTAM 4.5 GM in NORMAL SALINE 100 ML IV SCH (02:09)
[2020-05-04] MEDS: NORMAL SALINE 1000 ML 1,000 ML IV PRN (02:09)
[2020-05-04 03:30] LABS: ANION GAP 15 (5-19); BLOOD UREA NITROGEN 7 mg/dL (7-20); CARBON DIOXIDE 19 mmol/L (22-30); CHLORIDE 111 mmol/L (98-107); GLUCOSE 106 mg/dL (75-110)
[2020-05-04 03:43] LABS: CALCIUM 5.6 mg/dL (8.4-10.2)
[2020-05-04 03:44] LABS: POTASSIUM 2.6 mmol/L (3.6-5.0)
[2020-05-04 04:06] LABS: HEMATOCRIT 24.3 % (36.0-47.0); HEMOGLOBIN 8.6 g/dL (12.0-15.5); MEAN CORPUSCULAR HGB CONC 35.2 g/dL (32.0-36.0); MEAN CORPUSCULAR VOLUME 82 fl (80-97); PLATELET COUNT 440 10^3/uL (150-450); RED BLOOD COUNT 2.95 10^6/uL (3.72-5.28); RED CELL DISTRIBUTION WIDTH 15.7 % (11.5-14.0); WHITE BLOOD COUNT 26.9 10^3/uL (4.0-10.5)
[2020-05-04 05:53] LABS: ABSOLUTE LYMPHOCYTES# (MANUAL) 1.9 10^3/uL (0.5-4.7); ABSOLUTE MONOCYTES # (MANUAL) 0.5 10^3/uL (0.1-1.4); BASOPHILS % (MANUAL) 0 % (0-2); EOSINOPHILS % (MANUAL) 0 % (0-6); LYMPHOCYTES % (MANUAL) 6 % (13-45); MONOCYTES % (MANUAL) 2 % (3-13); SEGMENTED NEUTROPHILS % (MAN) 91 % (42-78); TOTAL CELLS COUNTED 100
[2020-05-04 05:54] LABS: ANISOCYTOSIS SLIGHT; PLATELET COMMENT ADEQUATE; PLATELET LARGE PRESENT; TOXIC GRANULATION SLIGHT; TOXIC VACUOLATION PRESENT
[2020-05-04] MEDS: POTASSIUM CHLORIDE 20 MEQ/50 ML RTU IV SCH ×4 (05:58→12:23)
[2020-05-04] MEDS: LEVOTHYROXINE SODIUM 0.075 MG TABLET PO SCH (06:14)
[2020-05-04] MEDS: METHYLPREDNISOLONE INJ 40 MG/1 ML SDV IV SCH ×3 (06:14→21:38)
[2020-05-04] MEDS: LEVOTHYROXINE SODIUM 0.1 MG TABLET PO SCH (06:14)
[2020-05-04] MEDS: LORAZEPAM 0.5 MG TABLET PO PRN ×2 (06:40→21:32)
[2020-05-04] MEDS: POTASSIUM CHLORIDE 10 MEQ TABLET.ER PO SCH ×3 (07:44→17:06)
[2020-05-04] MEDS: MORPHINE SULFATE 10 MG/ML INJ IV PRN ×2 (07:45→21:32)
[2020-05-04] MEDS: IPRATROPIUM/ALBUTEROL 0.5-2.5 MG/3 ML AMPUL NEB SCH ×3 (08:04→19:47)
--- NOTE | 2020-05-04 08:33 | PDOC PROGRESS REPORT ---
Subjective Progress Note for:: 05/04/20 Subjective:: Patient still very confused. She told the nurses that no physician saw her at all yesterday. She also states she has had nothing to eat for days. She is complaining of hip pain and would like some ice cream. She just took several pills and was given pain medications earlier according to nurses. ROS: dyspnea, arthritis, No nausea. Reason For Visit: ACUTE RESPIRATORY FAILURE WITH HYPOXIA PNEUMONIA Physical Exam Vital Signs: Temp Pulse Resp BP Pulse Ox 97.4 F 102 H 16 122/62 96 05/04/20 03:36 05/04/20 07:00 05/04/20 03:36 05/04/20 03:36 05/04/20 03:36 Intake & Output 05/03/20 05/04/20 05/05/20 06:59 06:59 06:59 Intake Total 7 2500 46 Output Total 2495 2125 Balance -468 375 46 Weight 56.6 kg 56.8 kg General appearance: PRESENT: mild distress - Worse than yesterday, but was not on BiPAP. Head exam: PRESENT: normocephalic Eye exam: PRESENT: EOMI Mouth exam: PRESENT: dry mucosa Respiratory exam: PRESENT: other - Wheezes and crackles with upper airway noise as well. Cardiovascular exam: PRESENT: RRR GI/Abdominal exam: PRESENT: soft. ABSENT: tenderness Extremities exam: ABSENT: pedal edema Neurological exam: PRESENT: awake. ABSENT: oriented to person, oriented to time Psychiatric exam: PRESENT: appropriate affect Skin exam: PRESENT: normal color Results Laboratory Results: 05/04/20 02:30 05/04/20 02:30 05/04/20 05/04/20 02:30 02:30 WBC 26.9 H RBC 2.95 L Hgb 8.6 L Hct 24.3 L MCV 82 MCH 29.0 MCHC 35.2 RDW 15.7 H Plt Count 440 Seg Neutrophils % Not Reportable Sodium 145.3 H Potassium 2.6 L* Chloride 111 H Carbon Dioxide 19 L Anion Gap 15 BUN 7 Creatinine 0.45 L Est GFR ( Amer) > 60 Glucose 106 Calcium 5.6 L* 04/29/20 04/29/20 04/29/20 16:53 16:53 22:24 Creatine Kinase 100 CK-MB (CK-2) 2.44 Troponin I 0.029 NT-Pro-B Natriuret Pep 1250 H 04/29/20 04/30/20 22:24 06:21 Creatine Kinase CK-MB (CK-2) Troponin I 0.024 0.025 NT-Pro-B Natriuret Pep Impressions: Chest/Abdomen CTA 04/29/20 21:12 IMPRESSION: No evidence of pulmonary embolus. Mucous plugging. There is a large central mass lesion left infrahilar may represent a pulmonary mass or perhaps adenopathy. Other prominent mediastinal lymph nodes are seen. Multiple bilateral pulmonary nodules are seen. Some of the smaller nodules have an appearance suspicious for an infectious inflammatory process but there are larger well-rounded and more sharply marginated soft tissue nodules which are suspicious for neoplasm. Is there a known history of a primary carcinoma? . Chest X-Ray 05/02/20 09:00 IMPRESSION: INCREASING FAINT AIRSPACE DISEASE IN THE RIGHT UPPER LOBE AND LEFT LOWER LOBE CONCERNING FOR DEVELOPING PNEUMONIA. Assessment & Plan - Diagnosis (1) Acute respiratory failure with hypoxemia Is this a current diagnosis for this admission?: Yes Plan: Consider pulmonary consult for long-term follow-up as well. (2) Pulmonary nodules/lesions, multiple Is this a current diagnosis for this admission?: Yes Plan: I still believe these are inflammatory. Plan to repeat CT in a few weeks after pneumonia has improved and is persistent, then consider biopsy. (3) Leukocytosis Qualifiers: Leukocytosis type: leukemoid reaction Qualified Code(s): D72.823 - Leukemoid reaction Is this a current diagnosis for this admission?: Yes (4) Anemia Qualifiers: Other causes of anemia: chronic disease, other Is this a current diagnosis for this admission?: Yes Plan: A bit worse today, but no indication for blood transfusion. Continue to monitor. - Time Time Spent with patient: Less than 15 minutes
[2020-05-04] MEDS: NIFEDIPINE 30 MG TAB.ER.24 PO SCH (09:57)
[2020-05-04] MEDS: ATENOLOL 50 MG TABLET PO SCH (09:57)
[2020-05-04] MEDS: FAMOTIDINE 20 MG TABLET PO SCH ×2 (09:57→21:37)
[2020-05-04] MEDS: ASPIRIN 81 MG TABLET, CHEWABLE PO SCH (09:57)
[2020-05-04] MEDS: FLUTICASONE/UMECLIDIN/VILANTER 100-62.5-25 MCG/DOSE IH SCH (09:58)
[2020-05-04] MEDS: OXYCODONE-ACETAMINOPHEN 5-325 MG TABLET PO PRN ×2 (10:02→15:22)
[2020-05-04] MEDS: DOCUSATE SODIUM 100 MG CAPSULE PO SCH (10:06)
[2020-05-04] MEDS: ENOXAPARIN SODIUM INJ 40 MG/0.4 ML DISP.SYRIN SUBCUT SCH (10:07)
[2020-05-04] MEDS: NICOTINE 21 MG/24 HR PATCH.TD24 TD SCH (10:07)
[2020-05-04] MEDS: LIDOCAINE 5% (700 MG) TRANSDERMAL ADH..PATCH TP SCH (10:22)
--- NOTE | 2020-05-04 11:45 | PDOC PROGRESS REPORT ---
Subjective Progress Note for:: 05/04/20 Subjective:: The patient is still coughing up brownish-green mucus. She still feels short of breath. She feels very weak as well. She also reports that it is difficult to wear the BiPAP mask at night because it prevents her from sleeping. Reason For Visit: ACUTE RESPIRATORY FAILURE WITH HYPOXIA PNEUMONIA Haemophilus influenza and Pseudomonas Physical Exam Vital Signs: Temp Pulse Resp BP Pulse Ox 97.3 F 102 H 24 H 113/59 L 94 05/04/20 07:23 05/04/20 08:05 05/04/20 08:05 05/04/20 07:23 05/04/20 08:05 Intake & Output 05/03/20 05/04/20 05/05/20 06:59 06:59 06:59 Intake Total 2026 2650 96 Output Total 2495 2125 Balance -468 525 96 Weight 56.6 kg 56.8 kg General appearance: PRESENT: cooperative, mild distress, well-developed - Very frail appearing 84-year-old female in bed with nasal cannula in place. Head exam: PRESENT: atraumatic, normocephalic Eye exam: PRESENT: conjunctiva pale. ABSENT: scleral icterus Ear exam: PRESENT: normal external ear exam. ABSENT: bleeding, drainage Mouth exam: PRESENT: dry mucosa, tongue midline Neck exam: ABSENT: carotid bruit, JVD, lymphadenopathy, thyromegaly, tracheostomy Respiratory exam: PRESENT: rhonchi - Bilaterally., symmetrical, other - Extremely congested cough. ABSENT: accessory muscle use, rales, retraction, wheezes Cardiovascular exam: PRESENT: +S1, +S2, tachycardia GI/Abdominal exam: PRESENT: normal bowel sounds, soft. ABSENT: distended, guarding, tenderness Rectal exam: PRESENT: deferred Gentrourinary exam: PRESENT: indwelling catheter Extremities exam: PRESENT: other - Bruising upper extremity especially left arm. ABSENT: pedal edema Musculoskeletal exam: PRESENT: other - Decreased muscle mass. ABSENT: deformity, dislocation, tenderness Neurological exam: PRESENT: alert, awake, oriented to person, oriented to place, oriented to time, oriented to situation, CN II-XII grossly intact. ABSENT: altered Psychiatric exam: PRESENT: flat affect. ABSENT: agitated, anxious Focused psych exam: ABSENT: delusional, paranoid, restlessness Skin exam: PRESENT: erythema - Mild on the left arm, other - Ecchymotic lesions left arm Results Laboratory Results: 05/04/20 02:30 05/04/20 02:30 05/04/20 05/04/20 02:30 02:30 WBC 26.9 H RBC 2.95 L Hgb 8.6 L Hct 24.3 L MCV 82 MCH 29.0 MCHC 35.2 RDW 15.7 H Plt Count 440 Seg Neutrophils % Not Reportable Sodium 145.3 H Potassium 2.6 L* Chloride 111 H Carbon Dioxide 19 L Anion Gap 15 BUN 7 Creatinine 0.45 L Est GFR ( Amer) > 60 Glucose 106 Calcium 5.6 L* 04/29/20 04/29/20 04/29/20 16:53 16:53 22:24 Creatine Kinase 100 CK-MB (CK-2) 2.44 Troponin I 0.029 NT-Pro-B Natriuret Pep 1250 H 04/29/20 04/30/20 22:24 06:21 Creatine Kinase CK-MB (CK-2) Troponin I 0.024 0.025 NT-Pro-B Natriuret Pep Impressions: Chest/Abdomen CTA 04/29/20 21:12 IMPRESSION: No evidence of pulmonary embolus. Mucous plugging. There is a large central mass lesion left infrahilar may represent a pulmonary mass or perhaps adenopathy. Other prominent mediastinal lymph nodes are seen. Multiple bilateral pulmonary nodules are seen. Some of the smaller nodules have an appearance suspicious for an infectious inflammatory process but there are larger well-rounded and more sharply marginated soft tissue nodules which are suspicious for neoplasm. Is there a known history of a primary carcinoma? . Chest X-Ray 05/02/20 09:00 IMPRESSION: INCREASING FAINT AIRSPACE DISEASE IN THE RIGHT UPPER LOBE AND LEFT LOWER LOBE CONCERNING FOR DEVELOPING PNEUMONIA. Assessment and Plan - Diagnosis (1) Acute respiratory failure with hypoxemia Is this a current diagnosis for this admission?: Yes (2) Pneumonia Qualifiers: Laterality: bilateral Lung location: lower lobe of lung Is this a current diagnosis for this admission?: Yes (3) Acute exacerbation of COPD with asthma Is this a current diagnosis for this admission?: Yes (4) Pulmonary nodules/lesions, multiple Is this a current diagnosis for this admission?: Yes (5) Hypomagnesemia Is this a current diagnosis for this admission?: Yes (6) Hypocalcemia Is this a current diagnosis for this admission?: Yes (7) Hypokalemia Is this a current diagnosis for this admission?: Yes (8) Cigarette nicotine dependence Is this a current diagnosis for this admission?: Yes (9) Hyponatremia Is this a current diagnosis for this admission?: Yes (10) Tachycardia Is this a current diagnosis for this admission?: Yes - Plan Summary Summary: 05/04/2020 Respiratory failure-still requires supplemental oxygen. Pneumonia-sputum culture positive for Pseudomonas and Haemophilus influenza. Currently on Zosyn and levofloxacin. I have asked Dr. Briggs, emergency medicine specialist, to consult as well. Exacerbation COPD with asthma-nebulizer treatments as well as mucolytic's and steroids Electrolyte abnormalities-magnesium, calcium and potassium have been given. Serum sodium is now normal. Monitor electrolytes closely. Tachycardia-patient's heart rate has been variable despite patient at rest. Continue to monitor on telemetry. Correct electrolytes and reassess. Intravenous beta-emelia available if needed. Multiple pulmonary nodules-unsure if malignant versus inflammatory versus infectious. Continue antibiotic therapy. Pulmonology will assess as well. Tobacco dependence-nicotine patch available. History of smoking makes this illness that much worse - Time Time Spent with patient: 15-24 minutes Smoking Cessation Education: 3 to 10 minutes Medications reviewed and adjusted accordingly: Yes Anticipated Discharge Disposition: May need short-term skilled versus discharged home with home health Anticipated Discharge Timeframe: Unknown
[2020-05-04] MEDS: PIPERACILLIN SODIUM/TAZOBACTAM 3.375 GM in NORMAL SALINE 100 ML IV SCH ×3 (12:23→23:42)
[2020-05-04] MEDS: RINGERS SOLUTION,LACTATED 1,000 ML IV PRN ×2 (15:22→23:42)
[2020-05-04] MEDS ORDERED: MAGNESIUM SULFATE/D5W 1 GM/100 ML RTUPB IV ONE (16:00)
[2020-05-04] MEDS ORDERED: CALCIUM GLUCONATE 1000 MG/10 ML INJ IV ONE (16:00)
[2020-05-04 16:51] LABS: ALBUMIN 2.2 g/dL (3.5-5.0); ALKALINE PHOSPHATASE 43 U/L (38-126); ANION GAP 7 (5-19); ASPARTATE AMINO TRANSFERASE 40 U/L (14-36); BILIRUBIN,DIRECT 0.3 mg/dL (0.0-0.4); BILIRUBIN,TOTAL 0.4 mg/dL (0.2-1.3); BLOOD UREA NITROGEN 8 mg/dL (7-20); CARBON DIOXIDE 21 mmol/L (22-30); CHLORIDE 109 mmol/L (98-107); GLUCOSE 91 mg/dL (75-110); PHOSPHORUS 1.1 mg/dL (2.5-4.5); TOTAL PROTEIN 4.8 g/dL (6.3-8.2)
[2020-05-04 17:00] LABS: CALCIUM 6.2 mg/dL (8.4-10.2); POTASSIUM 4.9 mmol/L (3.6-5.0)
[2020-05-04] MEDS: LEVOFLOXACIN 750 MG/D5W RTU 750 MG/150 ML RTUPB IV SCH (19:56)
[2020-05-04] MEDS: ATORVASTATIN CALCIUM 40 MG TABLET PO SCH (21:37)
[2020-05-04] MEDS: MONTELUKAST SODIUM 10 MG TABLET PO SCH (21:37)
[2020-05-04] MEDS: GUAIFENESIN 600 MG TABLET.SA PO SCH (21:38)
[2020-05-04] MEDS: POLYETHYLENE GLYCOL 3350 POWDER 17 GM/1 PACKET PO SCH (21:38)
[2020-05-04] MEDS: PHARMACY COMMUNICATION ORDER MC SCH (21:38)
[2020-05-05] MEDS: MORPHINE SULFATE 10 MG/ML INJ IV PRN (04:19)
[2020-05-05] MEDS: LEVOTHYROXINE SODIUM 0.075 MG TABLET PO SCH (05:31)
[2020-05-05] MEDS: LEVOTHYROXINE SODIUM 0.1 MG TABLET PO SCH (05:31)
[2020-05-05] MEDS: METHYLPREDNISOLONE INJ 40 MG/1 ML SDV IV SCH ×3 (05:51→21:42)
[2020-05-05] MEDS: RINGERS SOLUTION,LACTATED 1,000 ML IV PRN ×2 (05:51→14:48)
[2020-05-05] MEDS: PIPERACILLIN SODIUM/TAZOBACTAM 3.375 GM in NORMAL SALINE 100 ML IV SCH ×3 (05:51→18:20)
[2020-05-05 06:16] LABS: HEMATOCRIT 26.4 % (36.0-47.0); HEMOGLOBIN 9.1 g/dL (12.0-15.5); MEAN CORPUSCULAR HEMOGLOBIN 28.5 pg (27.0-33.4); MEAN CORPUSCULAR HGB CONC 34.3 g/dL (32.0-36.0); MEAN CORPUSCULAR VOLUME 83 fl (80-97); PLATELET COUNT 458 10^3/uL (150-450); RED BLOOD COUNT 3.18 10^6/uL (3.72-5.28); RED CELL DISTRIBUTION WIDTH 15.9 % (11.5-14.0); WHITE BLOOD COUNT 26.9 10^3/uL (4.0-10.5)
[2020-05-05 06:34] LABS: ALBUMIN 2.1 g/dL (3.5-5.0); ANION GAP 7 (5-19); BLOOD UREA NITROGEN 7 mg/dL (7-20); CARBON DIOXIDE 21 mmol/L (22-30); CHLORIDE 109 mmol/L (98-107); GLUCOSE 94 mg/dL (75-110); PHOSPHORUS 1.5 mg/dL (2.5-4.5); POTASSIUM 4.4 mmol/L (3.6-5.0)
[2020-05-05 06:43] LABS: CALCIUM 6.2 mg/dL (8.4-10.2)
[2020-05-05 07:06] LABS: ABSOLUTE LYMPHOCYTES# (MANUAL) 1.1 10^3/uL (0.5-4.7); ABSOLUTE MONOCYTES # (MANUAL) 1.1 10^3/uL (0.1-1.4); BAND NEUTROPHILS % (MANUAL) 1 % (3-5); BASOPHILS % (MANUAL) 0 % (0-2); EOSINOPHILS % (MANUAL) 0 % (0-6); LYMPHOCYTES % (MANUAL) 4 % (13-45); MONOCYTES % (MANUAL) 4 % (3-13); SEGMENTED NEUTROPHILS % (MAN) 90 % (42-78); TOTAL CELLS COUNTED 100
[2020-05-05 07:09] LABS: TOXIC GRANULATION 1+
[2020-05-05 07:10] LABS: ANISOCYTOSIS SLIGHT; BURR CELLS SLIGHT
[2020-05-05 07:11] LABS: PLATELET COMMENT INCREASED; POIKILOCYTOSIS SLIGHT
[2020-05-05 07:13] LABS: MYELOCYTES % (MANUAL) 1 % (0)
[2020-05-05] MEDS: IPRATROPIUM/ALBUTEROL 0.5-2.5 MG/3 ML AMPUL NEB SCH ×4 (08:07→20:22)
[2020-05-05] MEDS: POTASSIUM CHLORIDE 10 MEQ TABLET.ER PO SCH ×3 (08:09→18:19)
--- NOTE | 2020-05-05 09:15 | PDOC CONSULTATION ---
Consultation Consult Date: 05/04/20 Provider Consulted: ARLEY HAYWARD History of Present Illness Admission Date/PCP: 04/29/20 20:10 YEIMY WHITMAN MD Patient complains of: Redness of breath History of Present Illness: JESSY BAKER is a 84 year old female Who presents with increasing shortness of breath. She also notes 5 to 10 pound weight loss recently. She has a longstanding history of cigarette smoking smoking as much as 2 packs/day. She smoked for greater than 40 years. She states that she stopped smoking on the day she was admitted to the hospital. She notes a daily cough that is rarely productive. She describes her shortness of breath as occurring with any degree of exertion. She denies any chest pain with her shortness of breath. She further denies any occupational exposure. Specifically she denies any exposure to asbestos. Past Medical History Cardiac Medical History: Reports: Hypertension Pulmonary Medical History: Reports: Chronic Obstructive Pulmonary Disease (COPD) Endocrine Medical History: Reports: Hypothyroidism Malignancy Medical History: Reports: Breast Cancer Psychiatric Medical History: Denies: Depression Social History Information Source: Patient Smoking Status: Current Every Day Smoker Frequency of Alcohol Use: None Hx Recreational Drug Use: No Drugs: None Hx Prescription Drug Abuse: No - Advance Directive Resuscitation Status: Full Code Family History Family History: Reviewed & Not Pertinent, Other Parental Family History Reviewed: No Children Family History Reviewed: No Sibling(s) Family History Reviewed.: No Medication/Allergy Home Medications: Montelukast Sodium [Singulair 10 Mg Tablet] 10 mg PO QHS 02/11/13 Tiotropium [place] [Spiriva Handihaler 18 mcg/dose (30 Dose)] 1 cap IH DAILY 02/11/13 Albuterol Sulfate [Proair Hfa Inhalation Aerosol 8.5 gm Mdi] 2 puff IH Q4HP PRN 04/30/20 Atenolol [Tenormin 50 mg Tablet] 25 mg PO DAILY 04/30/20 Atorvastatin Calcium [Lipitor 40 mg Tablet] 40 mg PO QHS 04/30/20 Ergocalciferol (Vitamin D2) [Drisdol 50,000 unit (1.25MG) Capsule] 50,000 unit PO Q7D 04/30/20 Fluticasone/Salmeterol [Advair 500-50 Diskus 14 Dose/Diskus] 1 inh IH Q12H 04/30/20 Levothyroxine Sodium [Synthroid] 175 mcg PO DAILY 04/30/20 Lidocaine [Lidoderm 5% (700 mg) Transdermal Patch] 2 patch TP DAILY 04/30/20 Nifedipine [Nifedipine ER] 60 mg PO DAILY 04/30/20 Oxycodone HCl/Acetaminophen [Oxycodone-Acetaminophen 10-325] 1.5 each PO Q6HP PRN 04/30/20 Polyethylene Glycol 3350 [Clearlax] 17 gm PO QHS 04/30/20 Prednisone [Deltasone 20 mg Tablet] 20 mg PO DAILY 04/30/20 Allergies/Adverse Reactions: Sulfa (Sulfonamide Antibiotics) Allergy (Intermediate, Verified 02/18/13 18:13) Hives Physical Exam Vital Signs: Temp Pulse Resp BP Pulse Ox 97.6 F 64 16 117/59 L 97 05/05/20 05:23 05/05/20 08:07 05/05/20 08:07 05/05/20 05:23 05/05/20 08:07 Intake & Output 05/04/20 05/05/20 05/06/20 06:59 06:59 06:59 Intake Total 2650 2065 Output Total 2125 1000 Balance 525 1065 Weight 56.8 kg 56.5 kg Head exam: PRESENT: atraumatic, normocephalic Neck exam: ABSENT: carotid bruit, JVD, lymphadenopathy, thyromegaly Respiratory exam: PRESENT: rhonchi - Noted in all osuna., symmetrical, unlabored. ABSENT: rales Cardiovascular exam: PRESENT: RRR. ABSENT: diastolic murmur, rubs, systolic murmur GI/Abdominal exam: PRESENT: normal bowel sounds, soft. ABSENT: distended, guarding, mass, organolmegaly, rebound, tenderness Extremities exam: ABSENT: calf tenderness, clubbing, pedal edema Neurological exam: PRESENT: alert, awake, oriented to person, oriented to place, oriented to time, oriented to situation, CN II-XII grossly intact. ABSENT: motor sensory deficit Results Laboratory Results: 05/05/20 05:40 05/05/20 05:40 05/04/20 05/04/20 05/04/20 16:14 16:14 16:14 WBC RBC Hgb Hct MCV MCH MCHC RDW Plt Count Seg Neutrophils % Sodium Cancelled 137.0 Potassium Cancelled 4.9 D Chloride Cancelled 109 H Carbon Dioxide Cancelled 21 L Anion Gap Cancelled 7 BUN Cancelled 8 Creatinine Cancelled 0.53 Est GFR ( Amer) Cancelled > 60 Est GFR (Non-Af Amer) Cancelled Glucose Cancelled 91 Calcium Cancelled 6.2 L* Phosphorus 1.1 L Magnesium 1.6 Total Bilirubin 0.4 AST 40 H Alkaline Phosphatase 43 Total Protein 4.8 L Albumin 2.2 L 2.2 L 05/05/20 05/05/20 05:40 05:40 WBC 26.9 H RBC 3.18 L Hgb 9.1 L Hct 26.4 L MCV 83 MCH 28.5 MCHC 34.3 RDW 15.9 H Plt Count 458 H Seg Neutrophils % Not Reportable Sodium 136.6 L Potassium 4.4 Chloride 109 H Carbon Dioxide 21 L Anion Gap 7 BUN 7 Creatinine 0.54 Est GFR ( Amer) > 60 Est GFR (Non-Af Amer) Glucose 94 Calcium 6.2 L* Phosphorus 1.5 L Magnesium 1.7 Total Bilirubin AST Alkaline Phosphatase Total Protein Albumin 2.1 L 04/29/20 18:11 Blood Blood Culture - Final NO GROWTH IN 5 DAYS 04/29/20 04/29/20 04/29/20 16:53 16:53 22:24 Creatine Kinase 100 CK-MB (CK-2) 2.44 Troponin I 0.029 NT-Pro-B Natriuret Pep 1250 H 04/29/20 04/30/20 22:24 06:21 Creatine Kinase CK-MB (CK-2) Troponin I 0.024 0.025 NT-Pro-B Natriuret Pep Impressions: Chest/Abdomen CTA 04/29/20 21:12 IMPRESSION: No evidence of pulmonary embolus. Mucous plugging. There is a large central mass lesion left infrahilar may represent a pulmonary mass or perhaps adenopathy. Other prominent mediastinal lymph nodes are seen. Multiple bilateral pulmonary nodules are seen. Some of the smaller nodules have an appearance suspicious for an infectious inflammatory process but there are larger well-rounded and more sharply marginated soft tissue nodules which are suspicious for neoplasm. Is there a known history of a primary carcinoma? . Chest X-Ray 05/02/20 09:00 IMPRESSION: INCREASING FAINT AIRSPACE DISEASE IN THE RIGHT UPPER LOBE AND LEFT LOWER LOBE CONCERNING FOR DEVELOPING PNEUMONIA. Status: Image reviewed by me - Review of her recent CT scan reveals narrowing of the left mainstem bronchus with what appears to be external tumor surrounding both the left mainstem bronchus and at the region of the isabel. Further out there appears to be near complete narrowing of the left lower lobe bronchus. This again appears encircled by tumor. Further out in the lung parenchyma there are multiple nodular/infiltrative lesions particularly involving the left side. Assessment & Plan - Diagnosis (2) Pulmonary nodules/lesions, multiple Is this a current diagnosis for this admission?: Yes - Plan Summary Plan Summary: This patient presents with an abnormal CT scan of the chest. She has a longstanding history of cigarette smoking. The CT scan of her chest taken in full suggests unlikely tumor involving areas of the mediastinum resulting in some splaying of the isabel as well as narrowing of the left mainstem bronchus and the left lower lobe bronchus. Again this is quite worrisome for underlying carcinoma. I think the next appropriate step is bronchoscopy. I will schedule that as expeditiously as possible. I think the nodular/infiltrative lesions in the lung likely represent carcinoma as well. Likely with some degree of cavitation. Given this patient's advanced age and the location of what is likely to be tumor in her chest she is certainly not a surgical candidate. For now would continue antibiotics until I can establish a diagnosis. She clearly also has some degree of COPD. This of course is of lesser concern at this time given the above concerns. We will follow with you during this hospitalization.
--- NOTE | 2020-05-05 09:15 | PDOC PROGRESS REPORT ---
Subjective Progress Note for:: 05/05/20 Subjective:: Patient is on BiPAP this morning. She reports that she cannot breathe without it. Once again she did not have a restful night. She was asking the respiratory therapist why she needed chest physiotherapy. She has not coughed up anything this morning but she has been on BiPAP for several hours. Reason For Visit: ACUTE RESPIRATORY FAILURE WITH HYPOXIA PNEUMONIA Physical Exam Vital Signs: Temp Pulse Resp BP Pulse Ox 97.6 F 64 16 117/59 L 97 05/05/20 05:23 05/05/20 08:07 05/05/20 08:07 05/05/20 05:23 05/05/20 08:07 Intake & Output 05/04/20 05/05/20 05/06/20 06:59 06:59 06:59 Intake Total 2650 2065 Output Total 2125 1000 Balance 525 1065 Weight 56.8 kg 56.5 kg General appearance: PRESENT: cooperative, other - Well-developed 84-year-old female in moderate distress with BiPAP mask in place Head exam: PRESENT: atraumatic, normocephalic Eye exam: PRESENT: conjunctiva pale. ABSENT: conjunctival injection, scleral icterus Ear exam: PRESENT: normal external ear exam. ABSENT: bleeding, drainage Mouth exam: PRESENT: other - Unable to fully assess due to BiPAP mask. Neck exam: ABSENT: JVD, lymphadenopathy, tracheostomy Respiratory exam: PRESENT: prolonged expiratory phas, rhonchi - Bilateral, symmetrical, other - Currently on BiPAP. ABSENT: accessory muscle use, rales, tachypnea, wheezes Cardiovascular exam: PRESENT: RRR, +S1, +S2. ABSENT: bradycardia, diastolic murmur, irregular rhythm, systolic murmur, tachycardia GI/Abdominal exam: PRESENT: normal bowel sounds, soft. ABSENT: distended, guarding, tenderness Rectal exam: PRESENT: deferred Gentrourinary exam: PRESENT: indwelling catheter Extremities exam: PRESENT: other - Right upper arm with erythema and ecchymosis.. ABSENT: pedal edema Musculoskeletal exam: ABSENT: deformity, dislocation Neurological exam: PRESENT: alert, awake, oriented to person, oriented to place, oriented to situation, other - Somewhat difficult to assess due to BiPAP. ABSENT: altered Psychiatric exam: PRESENT: anxious, flat affect. ABSENT: agitated Focused psych exam: ABSENT: delusional, paranoid, restlessness Skin exam: PRESENT: erythema, other - Ecchymotic lesions both upper extremities. ABSENT: rash, vesicles Results Laboratory Results: 05/05/20 05:40 05/05/20 05:40 05/04/20 05/04/20 05/04/20 16:14 16:14 16:14 WBC RBC Hgb Hct MCV MCH MCHC RDW Plt Count Seg Neutrophils % Sodium Cancelled 137.0 Potassium Cancelled 4.9 D Chloride Cancelled 109 H Carbon Dioxide Cancelled 21 L Anion Gap Cancelled 7 BUN Cancelled 8 Creatinine Cancelled 0.53 Est GFR ( Amer) Cancelled > 60 Est GFR (Non-Af Amer) Cancelled Glucose Cancelled 91 Calcium Cancelled 6.2 L* Phosphorus 1.1 L Magnesium 1.6 Total Bilirubin 0.4 AST 40 H Alkaline Phosphatase 43 Total Protein 4.8 L Albumin 2.2 L 2.2 L 05/05/20 05/05/20 05:40 05:40 WBC 26.9 H RBC 3.18 L Hgb 9.1 L Hct 26.4 L MCV 83 MCH 28.5 MCHC 34.3 RDW 15.9 H Plt Count 458 H Seg Neutrophils % Not Reportable Sodium 136.6 L Potassium 4.4 Chloride 109 H Carbon Dioxide 21 L Anion Gap 7 BUN 7 Creatinine 0.54 Est GFR ( Amer) > 60 Est GFR (Non-Af Amer) Glucose 94 Calcium 6.2 L* Phosphorus 1.5 L Magnesium 1.7 Total Bilirubin AST Alkaline Phosphatase Total Protein Albumin 2.1 L 04/29/20 18:11 Blood Blood Culture - Final NO GROWTH IN 5 DAYS 04/29/20 04/29/20 04/29/20 16:53 16:53 22:24 Creatine Kinase 100 CK-MB (CK-2) 2.44 Troponin I 0.029 NT-Pro-B Natriuret Pep 1250 H 04/29/20 04/30/20 22:24 06:21 Creatine Kinase CK-MB (CK-2) Troponin I 0.024 0.025 NT-Pro-B Natriuret Pep Impressions: Chest/Abdomen CTA 04/29/20 21:12 IMPRESSION: No evidence of pulmonary embolus. Mucous plugging. There is a large central mass lesion left infrahilar may represent a pulmonary mass or perhaps adenopathy. Other prominent mediastinal lymph nodes are seen. Multiple bilateral pulmonary nodules are seen. Some of the smaller nodules have an appearance suspicious for an infectious inflammatory process but there are larger well-rounded and more sharply marginated soft tissue nodules which are suspicious for neoplasm. Is there a known history of a primary carcinoma? . Chest X-Ray 05/02/20 09:00 IMPRESSION: INCREASING FAINT AIRSPACE DISEASE IN THE RIGHT UPPER LOBE AND LEFT LOWER LOBE CONCERNING FOR DEVELOPING PNEUMONIA. Assessment and Plan - Diagnosis (1) Acute respiratory failure with hypoxemia Is this a current diagnosis for this admission?: Yes (2) Pneumonia Qualifiers: Laterality: bilateral Lung location: lower lobe of lung Is this a current diagnosis for this admission?: Yes (3) Acute exacerbation of COPD with asthma Is this a current diagnosis for this admission?: Yes (4) Pulmonary nodules/lesions, multiple Is this a current diagnosis for this admission?: Yes (5) Hypomagnesemia Is this a current diagnosis for this admission?: Yes (6) Hypocalcemia Is this a current diagnosis for this admission?: Yes (7) Hypokalemia Is this a current diagnosis for this admission?: Yes (8) Cigarette nicotine dependence Is this a current diagnosis for this admission?: Yes (9) Hyponatremia Is this a current diagnosis for this admission?: Yes (10) Tachycardia Is this a current diagnosis for this admission?: Yes - Plan Summary Summary: 05/04/2020 Respiratory failure-still requires supplemental oxygen. Pneumonia-sputum culture positive for Pseudomonas and Haemophilus influenza. Currently on Zosyn and levofloxacin. I have asked Dr. Briggs, bird keeper, to consult as well. Exacerbation COPD with asthma-nebulizer treatments as well as mucolytic's and st eroids Electrolyte abnormalities-magnesium, calcium and potassium have been given. Serum sodium is now normal. Monitor electrolytes closely. Tachycardia-patient's heart rate has been variable despite patient at rest. Continue to monitor on telemetry. Correct electrolytes and reassess. Intraveno us beta-emelia available if needed. Multiple pulmonary nodules-unsure if malignant versus inflammatory versus infectious. Continue antibiotic therapy. Pulmonology will assess as well. Tobacco dependence-nicotine patch available. History of smoking makes this illness that much worse 05/05/2020- Appreciate Dr. Briggs's input. Respiratory failure with pneumonia and COPD-patient now requiring BiPAP. She was able to tolerate nasal cannula yesterday. Dr. Briggs is planning a bronchoscopy. We will continue current antibiotic therapy as well as steroids and nebulizer treatments. Pulmonary nodules-possible endobronchial lesion at the isabel. Pulmonology may be able to biopsy. The procedure most likely will be tomorrow. Electrolyte abnormalities-calcium is still low even corrected for low albumin. Phosphorus is low as well. Potassium is now normal at 4.4. We will give additional calcium and initiate potassium phosphate orally. Tobacco dependence-continue nicotine patch Tachycardia-improved. Possibly related to electrolyte abnormalities. Continue telemetry monitoring. Await on [place] P results. Definitely concerned regarding the patient's condition and if this is a malignancy the treatment possibilities given her age and current illness. - Time Time Spent with patient: 15-24 minutes Smoking Cessation Education: 3 to 10 minutes Medications reviewed and adjusted accordingly: Yes Anticipated Discharge Disposition: Unknown at this time. Awaiting further testing and results. Anticipated Discharge Timeframe: Unknown
[2020-05-05] MEDS: ASPIRIN 81 MG TABLET, CHEWABLE PO SCH (11:28)
[2020-05-05] MEDS: GUAIFENESIN 600 MG TABLET.SA PO SCH ×2 (11:29→21:41)
[2020-05-05] MEDS: FAMOTIDINE 20 MG TABLET PO SCH ×2 (11:29→21:41)
[2020-05-05] MEDS: DOCUSATE SODIUM 100 MG CAPSULE PO SCH (11:29)
[2020-05-05] MEDS: NIFEDIPINE 30 MG TAB.ER.24 PO SCH (11:29)
[2020-05-05] MEDS: ATENOLOL 50 MG TABLET PO SCH (11:31)
[2020-05-05] MEDS: NICOTINE 21 MG/24 HR PATCH.TD24 TD SCH (11:34)
[2020-05-05] MEDS: LIDOCAINE 5% (700 MG) TRANSDERMAL ADH..PATCH TP SCH (11:34)
[2020-05-05] MEDS: ENOXAPARIN SODIUM INJ 40 MG/0.4 ML DISP.SYRIN SUBCUT SCH (11:35)
[2020-05-05] MEDS: FLUTICASONE/UMECLIDIN/VILANTER 100-62.5-25 MCG/DOSE IH SCH (12:09)
--- NOTE | 2020-05-05 12:40 | PDOC PROGRESS REPORT ---
Subjective Progress Note for:: 05/05/20 Subjective:: In the interim the patient has been placed on a BiPAP device on a regular basis. She notes improvement in her underlying shortness of breath. She again denies any cough or mucus production at this time. In particular she denies any hemoptysis. Reason For Visit: ACUTE RESPIRATORY FAILURE WITH HYPOXIA PNEUMONIA Physical Exam Vital Signs: Temp Pulse Resp BP Pulse Ox 97.7 F 100 18 121/71 98 05/05/20 09:03 05/05/20 09:03 05/05/20 09:03 05/05/20 09:03 05/05/20 09:03 Intake & Output 05/04/20 05/05/20 05/06/20 06:59 06:59 06:59 Intake Total 2650 2065 Output Total 2125 1000 Balance 525 1065 Weight 56.8 kg 56.5 kg Exam: Her exam today is largely unchanged except for the presence of the BiPAP device. Neck was supple without adenopathy or bruits lung exam revealed distant breath sounds with faint scattered wheezes. Remainder of exam was unchanged. Results Laboratory Results: 05/05/20 05:40 05/05/20 05:40 05/04/20 05/04/20 05/04/20 16:14 16:14 16:14 WBC RBC Hgb Hct MCV MCH MCHC RDW Plt Count Seg Neutrophils % Sodium Cancelled 137.0 Potassium Cancelled 4.9 D Chloride Cancelled 109 H Carbon Dioxide Cancelled 21 L Anion Gap Cancelled 7 BUN Cancelled 8 Creatinine Cancelled 0.53 Est GFR ( Amer) Cancelled > 60 Est GFR (Non-Af Amer) Cancelled Glucose Cancelled 91 Calcium Cancelled 6.2 L* Phosphorus 1.1 L Magnesium 1.6 Total Bilirubin 0.4 AST 40 H Alkaline Phosphatase 43 Total Protein 4.8 L Albumin 2.2 L 2.2 L 05/05/20 05/05/20 05:40 05:40 WBC 26.9 H RBC 3.18 L Hgb 9.1 L Hct 26.4 L MCV 83 MCH 28.5 MCHC 34.3 RDW 15.9 H Plt Count 458 H Seg Neutrophils % Not Reportable Sodium 136.6 L Potassium 4.4 Chloride 109 H Carbon Dioxide 21 L Anion Gap 7 BUN 7 Creatinine 0.54 Est GFR ( Amer) > 60 Est GFR (Non-Af Amer) Glucose 94 Calcium 6.2 L* Phosphorus 1.5 L Magnesium 1.7 Total Bilirubin AST Alkaline Phosphatase Total Protein Albumin 2.1 L 04/29/20 18:11 Blood Blood Culture - Final NO GROWTH IN 5 DAYS 04/29/20 04/29/20 04/29/20 16:53 16:53 22:24 Creatine Kinase 100 CK-MB (CK-2) 2.44 Troponin I 0.029 NT-Pro-B Natriuret Pep 1250 H 04/29/20 04/30/20 22:24 06:21 Creatine Kinase CK-MB (CK-2) Troponin I 0.024 0.025 NT-Pro-B Natriuret Pep Impressions: Chest/Abdomen CTA 04/29/20 21:12 IMPRESSION: No evidence of pulmonary embolus. Mucous plugging. There is a large central mass lesion left infrahilar may represent a pulmonary mass or perhaps adenopathy. Other prominent mediastinal lymph nodes are seen. Multiple bilateral pulmonary nodules are seen. Some of the smaller nodules have an appearance suspicious for an infectious inflammatory process but there are larger well-rounded and more sharply marginated soft tissue nodules which are suspicious for neoplasm. Is there a known history of a primary carcinoma? . Chest X-Ray 05/02/20 09:00 IMPRESSION: INCREASING FAINT AIRSPACE DISEASE IN THE RIGHT UPPER LOBE AND LEFT LOWER LOBE CONCERNING FOR DEVELOPING PNEUMONIA. Assessment & Plan - Diagnosis (2) Pulmonary nodules/lesions, multiple Is this a current diagnosis for this admission?: Yes - Time Time Spent with patient: 25-34 minutes - Plan Summary Plan Summary: I had attempted to schedule this patient's bronchoscopy for today. However scheduling would not permit that. We have therefore schedule her for tomorrow at 1130. It is my expectation that this will establish a diagnosis as she has significant findings on CT scan. I again discussed the various diagnostic possibilities with the patient and she is agreeable to proceed with bronchoscopy.
[2020-05-05 13:46] LABS: PATH REVIEW PATHOLOGIST REVIEWED
[2020-05-05] MEDS: METOPROLOL TARTRATE PF/INJ 5 MG/5 ML SDV IV PRN (18:49)
[2020-05-05] MEDS: LEVOFLOXACIN 750 MG/D5W RTU 750 MG/150 ML RTUPB IV SCH (19:12)
[2020-05-05] MEDS: CALCIUM GLUC IN NACL, ISO-OSM 1 GM/50 ML RTUPB IV SCH ×2 (20:15→21:41)
[2020-05-05] MEDS: MONTELUKAST SODIUM 10 MG TABLET PO SCH (21:41)
[2020-05-05] MEDS: ATORVASTATIN CALCIUM 40 MG TABLET PO SCH (21:41)
[2020-05-05] MEDS: POLYETHYLENE GLYCOL 3350 POWDER 17 GM/1 PACKET PO SCH (21:42)
[2020-05-05] MEDS: PHARMACY COMMUNICATION ORDER MC SCH (21:42)
[2020-05-06] MEDS: PIPERACILLIN SODIUM/TAZOBACTAM 3.375 GM in NORMAL SALINE 100 ML IV SCH ×4 (00:25→18:00)
[2020-05-06] MEDS: MORPHINE SULFATE 10 MG/ML INJ IV PRN (00:25)
[2020-05-06] MEDS: LEVOTHYROXINE SODIUM 0.075 MG TABLET PO SCH (05:20)
[2020-05-06] MEDS: LEVOTHYROXINE SODIUM 0.1 MG TABLET PO SCH (05:20)
[2020-05-06] MEDS: RINGERS SOLUTION,LACTATED 1,000 ML IV PRN ×3 (05:23→23:00)
[2020-05-06] MEDS: METHYLPREDNISOLONE INJ 40 MG/1 ML SDV IV SCH ×2 (05:23→18:00)
[2020-05-06 06:18] LABS: HEMATOCRIT 27.9 % (36.0-47.0); HEMOGLOBIN 9.8 g/dL (12.0-15.5); MEAN CORPUSCULAR HEMOGLOBIN 28.9 pg (27.0-33.4); MEAN CORPUSCULAR VOLUME 83 fl (80-97); PLATELET COUNT 483 10^3/uL (150-450); RED BLOOD COUNT 3.38 10^6/uL (3.72-5.28); RED CELL DISTRIBUTION WIDTH 15.2 % (11.5-14.0); WHITE BLOOD COUNT 28.1 10^3/uL (4.0-10.5)
[2020-05-06 06:20] LABS: INTERNATIONAL RATION (INR) 1.68; PROTHROMBIN TIME 19.9 SEC (11.4-15.4)
[2020-05-06 06:35] LABS: ALBUMIN 2.3 g/dL (3.5-5.0); ANION GAP 9 (5-19); BLOOD UREA NITROGEN 10 mg/dL (7-20); CARBON DIOXIDE 22 mmol/L (22-30); CHLORIDE 104 mmol/L (98-107); GLUCOSE 70 mg/dL (75-110); PHOSPHORUS 1.8 mg/dL (2.5-4.5); POTASSIUM 4.5 mmol/L (3.6-5.0)
[2020-05-06 06:43] LABS: CALCIUM 6.7 mg/dL (8.4-10.2)
[2020-05-06 06:44] LABS: ABSOLUTE LYMPHOCYTES# (MANUAL) 0.3 10^3/uL (0.5-4.7); ABSOLUTE MONOCYTES # (MANUAL) 0.3 10^3/uL (0.1-1.4); BASOPHILS % (MANUAL) 0 % (0-2); EOSINOPHILS % (MANUAL) 0 % (0-6); LYMPHOCYTES % (MANUAL) 1 % (13-45); MONOCYTES % (MANUAL) 1 % (3-13); SEGMENTED NEUTROPHILS % (MAN) 98 % (42-78); TOTAL CELLS COUNTED 100
[2020-05-06 06:48] LABS: HYPERSEGMENTED NEUTROPHILS PRESENT; PLATELET COMMENT INCREASED
[2020-05-06 06:49] LABS: ANISOCYTOSIS SLIGHT; POIKILOCYTOSIS SLIGHT; SCHISTOCYTES SLIGHT
[2020-05-06] MEDS ORDERED: POTASSI CL 20 MEQ/50 ML RIDER 20 MEQ/50 ML RTUPB IV SCH (08:00)
[2020-05-06] MEDS: IPRATROPIUM/ALBUTEROL 0.5-2.5 MG/3 ML AMPUL NEB SCH ×3 (08:06→19:57)
[2020-05-06] MEDS ORDERED: PROMETHAZINE HCL INJ 25 MG/1 ML VIAL IM SCH (09:30)
[2020-05-06] MEDS ORDERED: ATROPINE SULFATE INJ 0.4 MG/1 ML VIAL IM SCH (09:45)
--- NOTE | 2020-05-06 10:00 | PDOC PROGRESS REPORT ---
Subjective Progress Note for:: 05/06/20 Subjective:: Patient is actually off of BiPAP this morning. Nursing reports that she in fact declined to wear it this morning. She is on nasal cannula and her oxygen saturation is 94% at rest with 5 L/min. Nursing also reports that the patient is having some coughing when she swallows. The patient has increased shortness of breath with eating. In addition she tends to cough on occasion. She admits that her appetite is quite poor. She also thinks that all of the oral med ications are causing her to lose her appetite. She still feels extremely weak. Reason For Visit: ACUTE RESPIRATORY FAILURE WITH HYPOXIA PNEUMONIA Physical Exam Vital Signs: Temp Pulse Resp BP Pulse Ox 98.0 F 106 H 18 120/66 94 05/06/20 03:19 05/06/20 08:06 05/06/20 08:06 05/06/20 03:19 05/06/20 08:06 Intake & Output 05/05/20 05/06/20 05/07/20 06:59 06:59 06:59 Intake Total 2064 2149 Output Total 1000 2049 Balance 1065 100 Weight 56.5 kg 58 kg General appearance: PRESENT: cooperative, mild distress, well-developed Head exam: PRESENT: atraumatic, normocephalic Eye exam: PRESENT: conjunctiva pale. ABSENT: scleral icterus Ear exam: PRESENT: normal external ear exam. ABSENT: bleeding, drainage Mouth exam: PRESENT: dry mucosa, tongue midline Neck exam: ABSENT: carotid bruit, JVD, lymphadenopathy Respiratory exam: PRESENT: prolonged expiratory phas, rhonchi - Present but improved on the right, symmetrical, unlabored. ABSENT: accessory muscle use, rales, tachypnea, wheezes Cardiovascular exam: PRESENT: +S1, +S2, tachycardia. ABSENT: bradycardia, d iastolic murmur, irregular rhythm, systolic murmur GI/Abdominal exam: PRESENT: hypoactive bowel sounds, soft. ABSENT: distended, guarding, tenderness Rectal exam: PRESENT: deferred Extremities exam: ABSENT: pedal edema Neurological exam: PRESENT: alert, awake, oriented to person, oriented to place, oriented to time, oriented to situation, CN II-XII grossly intact. ABSENT: altered Psychiatric exam: PRESENT: flat affect. ABSENT: agitated, anxious Focused psych exam: ABSENT: delusional, paranoid Skin exam: PRESENT: erythema, other - Multiple bruises and areas of erythema both upper extremities especially at needlestick sites. Very frail thin skin.. ABSENT: normal color Results Laboratory Results: 05/06/20 05:16 05/06/20 05:16 05/06/20 05/06/20 05:16 05:16 WBC 28.1 H RBC 3.38 L Hgb 9.8 L Hct 27.9 L MCV 83 MCH 28.9 MCHC 35.0 RDW 15.2 H Plt Count 483 H Seg Neutrophils % Not Reportable Sodium 134.7 L Potassium 4.5 Chloride 104 Carbon Dioxide 22 Anion Gap 9 BUN 10 Creatinine 0.54 Est GFR ( Amer) > 60 Glucose 70 L Calcium 6.7 L* Phosphorus 1.8 L Magnesium 1.5 L Albumin 2.3 L 04/29/20 04/29/20 04/29/20 16:53 16:53 22:24 Creatine Kinase 100 CK-MB (CK-2) 2.44 Troponin I 0.029 NT-Pro-B Natriuret Pep 1250 H 04/29/20 04/30/20 22:24 06:21 Creatine Kinase CK-MB (CK-2) Troponin I 0.024 0.025 NT-Pro-B Natriuret Pep Impressions: Chest/Abdomen CTA 04/29/20 21:12 IMPRESSION: No evidence of pulmonary embolus. Mucous plugging. There is a large central mass lesion left infrahilar may represent a pulmonary mass or perhaps adenopathy. Other prominent mediastinal lymph nodes are seen. Multiple bilateral pulmonary nodules are seen. Some of the smaller nodules have an appearance suspicious for an infectious inflammatory process but there are larger well-rounded and more sharply marginated soft tissue nodules which are suspicious for neoplasm. Is there a known history of a primary carcinoma? . Chest X-Ray 05/02/20 09:00 IMPRESSION: INCREASING FAINT AIRSPACE DISEASE IN THE RIGHT UPPER LOBE AND LEFT LOWER LOBE CONCERNING FOR DEVELOPING PNEUMONIA. Assessment and Plan - Diagnosis (1) Acute respiratory failure with hypoxemia Is this a current diagnosis for this admission?: Yes (2) Pneumonia Qualifiers: Laterality: bilateral Lung location: lower lobe of lung Is this a current diagnosis for this admission?: Yes (3) Acute exacerbation of COPD with asthma Is this a current diagnosis for this admission?: Yes (4) Pulmonary nodules/lesions, multiple Is this a current diagnosis for this admission?: Yes (5) Hypomagnesemia Is this a current diagnosis for this admission?: Yes (6) Hypocalcemia Is this a current diagnosis for this admission?: Yes (7) Hypokalemia Is this a current diagnosis for this admission?: Yes (8) Cigarette nicotine dependence Is this a current diagnosis for this admission?: Yes (9) Hyponatremia Is this a current diagnosis for this admission?: Yes (10) Tachycardia Is this a current diagnosis for this admission?: Yes (11) Dysphagia Qualifiers: Dysphagia type: unspecified Qualified Code(s): R13.10 - Dysphagia, unspecified Is this a current diagnosis for this admission?: Yes - Plan Summary Summary: 05/04/2020 Respiratory failure-still requires supplemental oxygen. Pneumonia-sputum culture positive for Pseudomonas and Haemophilus influenza. Currently on Zosyn and levofloxacin. I have asked Dr. Briggs, siderographer, to consult as well. Exacerbation COPD with asthma-nebulizer treatments as well as mucolytic's and steroids Electrolyte abnormalities-magnesium, calcium and potassium have been given. Serum sodium is now normal. Monitor electrolytes closely. Tachycardia-patient's heart rate has been variable despite patient at rest. Continue to monitor on telemetry. Correct electrolytes and reassess. Intravenous beta-emelia available if needed. Multiple pulmonary nodules-unsure if malignant versus inflammatory versus in fectious. Continue antibiotic therapy. Pulmonology will assess as well. Tobacco dependence-nicotine patch available. History of smoking makes this illness that much worse 05/05/2020- Appreciate Dr. Briggs's input. Respiratory failure with pneumonia and COPD-patient now requiring BiPAP. She was able to tolerate nasal cannula yesterday. Dr. Briggs is planning a bronchoscopy. We will continue current antibiotic therapy as well as steroids and nebulizer treatments. Pulmonary nodules-possible endobronchial lesion at the isabel. Pulmonology may be able to biopsy. The procedure most likely will be tomorrow. Electrolyte abnormalities-calcium is still low even corrected for low albumin. Phosphorus is low as well. Potassium is now normal at 4.4. We will give additional calcium and initiate potassium phosphate orally. Tobacco dependence-continue nicotine patch Tachycardia-improved. Possibly related to electrolyte abnormalities. Continue telemetry monitoring. Awaiting bronchoscopy results. Definitely concerned regarding the patient's condition and if this is a malignancy the treatment possibilities given her age and current illness. 05/06/2020 Respiratory failure with pneumonia and COPD-the patient is on nasal cannula with reasonable saturation at rest this morning. She reports that she does not tolerate BiPAP all that well. She is due for bronchoscopy today. Hopefully bio psy can be obtained and we can get a final diagnosis on the pulmonary lesions. Her pneumonia does appear to slowly be improving. Unfortunately her white blood cell count continues to rise. I have decreased the Solu-Medrol to 40 mg twice daily. Dysphagia-it is difficult to assess specifics as she reports coughing, poor appetite, concern with a number of oral medications but does not specifically report food sticking when she swallows. She also does not feel like eating with her profound weakness. I did speak with speech therapy and they will evaluate the patient. There are multiple potential etiologies at play including but not limited to direct pressure affect on the esophagus from the pulmonary mass, her profound weakness and possible motor dysfunction. Electrolyte abnormalities-she seems to be maintaining normal potassium levels but her calcium, phosphorus and magnesium are still low. Will attempt to supplement electrolytes by IV as much as possible due to her poor appetite. Pulmonary nodules-with the bronchoscopy today hopefully they can get a biopsy. Tachycardia-the patient was tachycardic again this morning. She still has electrolyte abnormalities. She will be borderline tachycardia and then all of a sudden have a markedly increased heart rate up to 150-160. We will continue to monitor on telemetry and correct electrolytes. Tobacco use-nicotine patch and continue encouraging cessation - Time Time Spent with patient: 15-24 minutes Medications reviewed and adjusted accordingly: Yes Anticipated Discharge Disposition: Unknown Anticipated Discharge Timeframe: Unknown
[2020-05-06] MEDS ORDERED: KETAMINE HCL INJ 500 MG/10 ML VIAL ONE (11:14)
[2020-05-06] MEDS ORDERED: LIDOCAINE 2% INJ-PF (20 MG/ML) 10 ML AMPUL ONE (11:14)
[2020-05-06] MEDS ORDERED: MIDAZOLAM 2 MG/2 ML INJ ONE (11:14)
[2020-05-06] MEDS ORDERED: PROPOFOL INJ 200 MG/20 ML VIAL IV ONE (11:14)
--- NOTE | 2020-05-06 11:19 | RADIOLOGY REPORT (SQ) ---
EXAM DESCRIPTION: PICC INSERTION IMAGES COMPLETED DATE/TIME: 05/06/2020 11:03 am REASON FOR STUDY: Multiple Electrolyte and IV COMPARISON: None. FLUOROSCOPY TIME: 18 seconds of fluoroscopy was used. 1 images saved to PACS. TECHNIQUE: Fluoroscopic and ultrasound guided PICC placement. LIMITATIONS: None. PROCEDURE: After written consent and assessment were obtained, the patient was brought into the fluo roscopy room and placed supine on the table. Ultrasound evaluation of potential access sites were per formed. After successfully identifying a patent left basilic vein, the left arm was prepped and drape d in a sterile fashion along with the ultrasound probe. The entry site was anesthetized with 1% lidoc duglas. A 21 gauge 7 cm needle was advanced through the skin and into the basilic vein under live ultra sound guidance. An ultrasound image was saved to PACS confirming access site. A .018 guide wire was then inserted through the needle and into the venous system. The needle was then removed and an 11 b lade scalpel was used to make a 1cm skin incision. A 5 fr peel-away sheath was advanced over the wir e and into the venous system. A measurement was then made using the existing wire and live fluoroscop ic guidance. The wire was then removed and trimmed. The PICC was advanced through the peel-away sheat h and into the venous system. The peel-away sheath was removed and the catheter was adhered to the pa tients arm with a stat lock. The catheter was then aspirated and flushed and a sterile bandage was pl aced over the access site. A fluoroscopic spot image was saved to PACS confirming the catheter tip w ithin the superior vena cava. IMPRESSION: SUCCESSFUL PLACEMENT OF A 5 FR DUAL LUMEN 39 CM PICC IN THE LEFT BASILIC VEIN. COMMENT: Patient medication list reviewed: Yes- Quality ID# 130:Eligible professional attests to doc umenting in the medical record they obtained, updated, or reviewed the patient's current medications. . Quality ID 145: Final reports for procedures using fluoroscopy that document radiation exposure raymundo daphne, or exposure time and number of fluorographic images (if radiation exposure indices are not avail able) Quality ID #76: The patient was prepped and draped using maximum sterile barrier technique including cap, mask, sterile gown, sterile gloves, a large sterile sheet, hand hygiene, and 2% Chlorhexidine fo r cutaneous antisepsis. When ultrasound is used, sterile ultrasound techniques are followed requiring sterile gel and sterile probes. TECHNICAL DOCUMENTATION: JOB ID: [id number] 2010 [employer]- All Rights Reserved rev-12/21 Reading location - IP/workstation name: [id number]
[2020-05-06] MEDS: PHOSPHORUS #1 250 MG TABLET PO SCH ×2 (11:33→17:02)
[2020-05-06] MEDS: ASPIRIN 81 MG TABLET, CHEWABLE PO SCH (11:34)
[2020-05-06] MEDS: ENOXAPARIN SODIUM INJ 40 MG/0.4 ML DISP.SYRIN SUBCUT SCH (11:34)
[2020-05-06] MEDS: POTASSIUM CHLORIDE 10 MEQ TABLET.ER PO SCH ×3 (11:34→17:02)
[2020-05-06] MEDS: DOCUSATE SODIUM 100 MG CAPSULE PO SCH (11:34)
[2020-05-06] MEDS: LIDOCAINE 5% (700 MG) TRANSDERMAL ADH..PATCH TP SCH (11:34)
[2020-05-06] MEDS: GUAIFENESIN 600 MG TABLET.SA PO SCH ×2 (11:35→21:16)
[2020-05-06] MEDS: NICOTINE 21 MG/24 HR PATCH.TD24 TD SCH (11:35)
[2020-05-06] MEDS: NIFEDIPINE 30 MG TAB.ER.24 PO SCH (11:47)
[2020-05-06] MEDS: FLUTICASONE/UMECLIDIN/VILANTER 100-62.5-25 MCG/DOSE IH SCH (11:47)
[2020-05-06] MEDS: FAMOTIDINE 20 MG TABLET PO SCH ×2 (11:47→21:16)
[2020-05-06] MEDS: ATENOLOL 50 MG TABLET PO SCH (11:47)
[2020-05-06] MEDS: CALCIUM GLUC IN NACL, ISO-OSM 1 GM/50 ML RTUPB IV SCH ×2 (12:28→14:29)
--- NOTE | 2020-05-06 12:59 | Operative Report ---
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 POSTOPERATIVE DIAGNOSIS: No obvious endobronchial tumor. Narrowing of the left mainstem and left lower lobe bronchi with friable mucosa but no obvious mass or tumor invasion. Vi was not splayed. OPERATION: Fiberoptic bronchoscopy via right nares with brushings and washings. SURGEON: ARLEY HAYWARD ANESTHESIA: Moderate Sedation TISSUE REMOVED OR ALTERED: Brushings and washings taken from the left mainstem and left lower lobe bronchi. COMPLICATIONS: None ESTIMATED BLOOD LOSS: Less then 5 cc INTRAOPERATIVE FINDINGS: Friable mucosa involving the left mainstem and left lower lobe bronchi. PROCEDURE: Informed consent was obtained the patient was prepped and draped in usual fashion. Sedation was per the nurse manufacturing project engineer. Fiberoptic bronchoscope was introduced through the right naris without difficulty. Posterior pharynx epiglottis and vocal cords were visualized and were normal. Vocal cords move symmetrically. Trachea was visualized and had copious thick secretions which were washed and suctioned. Vi appeared to be sharp and not splayed. The right mainstem right upper lobe bronchus intermedius right middle lobe and right lower lobe bronchi as well as their segments and subsegments were visualized and were normal. No obvious endobronchial tumor was visualized on the right. The left mainstem appeared to be slightly narrowed with friable mucosa particularly along the posterior wall. The left lower lobe bronchus was narrowed as well with friable tissue. The left upper lobe as well as its segments and subsegments were visualized and were normal no obvious endobronchial tumor was appreciated left lower lobe bronchi did not have any obvious endobronchial tumor. Photo micrographs were taken of appropriate bronchi. Attention was then focused to the left mainstem and left lower lobe bronchi were brushings and washings were taken without difficulty. One episode of desaturation occurred and the bronchoscope was briefly withdrawn it was then reinserted and the fiberoptic procedure was concluded. Specimens were obtained for routine culture and smear cytologic evaluation of brushings and washings as well as fungal culture and smear. Patient tolerated procedure well and was transferred to the PACU in good condition.
--- NOTE | 2020-05-06 13:10 | PDOC PROGRESS REPORT ---
Subjective Progress Note for:: 05/06/20 Reason For Visit: ACUTE RESPIRATORY FAILURE WITH HYPOXIA PNEUMONIA At the time of bronchoscopy this patient did not have obvious endobronchial tumor. On recovery and doing well. Physical Exam Vital Signs: Temp Pulse Resp BP Pulse Ox 98.4 F 98 25 H 116/58 L 96 05/06/20 12:16 05/06/20 12:46 05/06/20 12:46 05/06/20 12:46 05/06/20 12:46 Intake & Output 05/05/20 05/06/20 05/07/20 06:59 06:59 06:59 Intake Total 2065 2150 100 Output Total 1000 0 Balance 1065 100 100 Weight 56.5 kg 58 kg Exam: Exam is largely unchanged. Results Laboratory Results: 05/06/20 05:16 05/06/20 05:16 05/06/20 05/06/20 05:16 05:16 WBC 28.1 H RBC 3.38 L Hgb 9.8 L Hct 27.9 L MCV 83 MCH 28.9 MCHC 35.0 RDW 15.2 H Plt Count 483 H Seg Neutrophils % Not Reportable Sodium 134.7 L Potassium 4.5 Chloride 104 Carbon Dioxide 22 Anion Gap 9 BUN 10 Creatinine 0.54 Est GFR ( Amer) > 60 Glucose 70 L Calcium 6.7 L* Phosphorus 1.8 L Magnesium 1.5 L Albumin 2.3 L 04/29/20 04/29/20 04/29/20 16:53 16:53 22:24 Creatine Kinase 100 CK-MB (CK-2) 2.44 Troponin I 0.029 NT-Pro-B Natriuret Pep 1250 H 04/29/20 04/30/20 22:24 06:21 Creatine Kinase CK-MB (CK-2) Troponin I 0.024 0.025 NT-Pro-B Natriuret Pep Impressions: Chest/Abdomen CTA 04/29/20 21:12 IMPRESSION: No evidence of pulmonary embolus. Mucous plugging. There is a large central mass lesion left infrahilar may represent a pulmonary mass or perhaps adenopathy. Other prominent mediastinal lymph nodes are seen. Multiple bilateral pulmonary nodules are seen. Some of the smaller nodules have an appearance suspicious for an infectious inflammatory process but there are larger well-rounded and more sharply marginated soft tissue nodules which are suspicious for neoplasm. Is there a known history of a primary carcinoma? . Chest X-Ray 05/02/20 09:00 IMPRESSION: INCREASING FAINT AIRSPACE DISEASE IN THE RIGHT UPPER LOBE AND LEFT LOWER LOBE CONCERNING FOR DEVELOPING PNEUMONIA. PICC Line Insertion 05/06/20 00:00 IMPRESSION: SUCCESSFUL PLACEMENT OF A 5 FR DUAL LUMEN 39 CM PICC IN THE LEFT BASILIC VEIN. Assessment & Plan - Diagnosis (2) Pulmonary nodules/lesions, multiple Is this a current diagnosis for this admission?: Yes - Time Time Spent with patient: 35 or more minutes - Plan Summary Plan Summary: At the time of bronchoscopy this patient did not have an obvious endobronchial tumor. Waiting diagnostic studies from the bronchoscopy. On the previous CTA would have expected more extensive endobronchial findings. Previous CTA also suggested some potential involvement of the descending thoracic aorta with a surrounding mass. Need to discuss with radiology the next appropriate diagnostic studies if bronchoscopy is nondiagnostic.. I think the next testing should be either an MRI or PET scan. If it indeed confirms extensive mediastinal disease I think the next consideration would be EBUS.
[2020-05-06] MEDS: CALCIUM GLUCONATE 1 GM/NS 50 ML RTU IV SCH ×2 (15:17→17:02)
[2020-05-06] MEDS: LEVOFLOXACIN 750 MG/D5W RTU 750 MG/150 ML RTUPB IV SCH (20:13)
[2020-05-06] MEDS: POLYETHYLENE GLYCOL 3350 POWDER 17 GM/1 PACKET PO SCH (21:16)
[2020-05-06] MEDS: ATORVASTATIN CALCIUM 40 MG TABLET PO SCH (21:16)
[2020-05-06] MEDS: MONTELUKAST SODIUM 10 MG TABLET PO SCH (21:17)
[2020-05-06] MEDS: PHARMACY COMMUNICATION ORDER MC SCH (22:25)
[2020-05-07] MEDS: PIPERACILLIN SODIUM/TAZOBACTAM 3.375 GM in NORMAL SALINE 100 ML IV SCH ×5 (00:25→23:14)
[2020-05-07] MEDS: LEVOTHYROXINE SODIUM 0.075 MG TABLET PO SCH (05:09)
[2020-05-07] MEDS: LEVOTHYROXINE SODIUM 0.1 MG TABLET PO SCH (05:10)
[2020-05-07] MEDS: METHYLPREDNISOLONE INJ 40 MG/1 ML SDV IV SCH ×2 (05:14→18:11)
[2020-05-07 06:09] LABS: HEMATOCRIT 22.5 % (36.0-47.0); MEAN CORPUSCULAR HEMOGLOBIN 28.6 pg (27.0-33.4); MEAN CORPUSCULAR HGB CONC 34.3 g/dL (32.0-36.0); MEAN CORPUSCULAR VOLUME 84 fl (80-97); PLATELET COUNT 379 10^3/uL (150-450); RED CELL DISTRIBUTION WIDTH 15.5 % (11.5-14.0); WHITE BLOOD COUNT 25.7 10^3/uL (4.0-10.5)
[2020-05-07 06:26] LABS: ALBUMIN 1.8 g/dL (3.5-5.0); ALKALINE PHOSPHATASE 29 U/L (38-126); ANION GAP 8 (5-19); ASPARTATE AMINO TRANSFERASE 27 U/L (14-36); BILIRUBIN,DIRECT 0.3 mg/dL (0.0-0.4); BILIRUBIN,TOTAL 0.3 mg/dL (0.2-1.3); BLOOD UREA NITROGEN 7 mg/dL (7-20); CARBON DIOXIDE 22 mmol/L (22-30); CHLORIDE 101 mmol/L (98-107); GLUCOSE 72 mg/dL (75-110); PHOSPHORUS 1.7 mg/dL (2.5-4.5); POTASSIUM 3.5 mmol/L (3.6-5.0); TOTAL PROTEIN 3.9 g/dL (6.3-8.2)
[2020-05-07 06:37] LABS: CALCIUM 6.6 mg/dL (8.4-10.2); HEMOGLOBIN 7.7 g/dL (12.0-15.5)
[2020-05-07 06:39] LABS: ABSOLUTE LYMPHOCYTES# (MANUAL) 0.5 10^3/uL (0.5-4.7); BAND NEUTROPHILS % (MANUAL) 1 % (3-5); BASOPHILS % (MANUAL) 0 % (0-2); EOSINOPHILS % (MANUAL) 0 % (0-6); LYMPHOCYTES % (MANUAL) 2 % (13-45); MONOCYTES % (MANUAL) 4 % (3-13); SEGMENTED NEUTROPHILS % (MAN) 93 % (42-78); TOTAL CELLS COUNTED 100
[2020-05-07 06:42] LABS: ANISOCYTOSIS SLIGHT; BURR CELLS SLIGHT; HOWELL-JOLLY BODIES PRESENT; PLATELET COMMENT ADEQUATE; POIKILOCYTOSIS SLIGHT; POLYCHROMASIA SLIGHT; SCHISTOCYTES SLIGHT
[2020-05-07] MEDS: METOPROLOL TARTRATE PF/INJ 5 MG/5 ML SDV IV PRN (06:56)
[2020-05-07] MEDS: RINGERS SOLUTION,LACTATED 1,000 ML IV PRN ×3 (06:57→23:18)
[2020-05-07] MEDS ORDERED: INFLUENZA QUAD (6MOS+) 2020-21 VAC 0.5 ML SYR IM ONE (08:00)
[2020-05-07] MEDS: PHOSPHORUS #1 250 MG TABLET PO SCH ×3 (08:18→16:00)
[2020-05-07] MEDS: POTASSIUM CHLORIDE 10 MEQ TABLET.ER PO SCH ×4 (08:18→17:47)
--- NOTE | 2020-05-07 08:18 | PDOC PROGRESS REPORT ---
Subjective Progress Note for:: 05/07/20 Subjective:: Patient sleepy, but able to open eyes and nod Yes-No appropriately. Reason For Visit: ACUTE RESPIRATORY FAILURE WITH HYPOXIA PNEUMONIA Physical Exam Vital Signs: Temp Pulse Resp BP Pulse Ox 97.3 F 72 15 140/61 H 100 05/07/20 03:52 05/07/20 07:32 05/07/20 07:32 05/07/20 07:32 05/07/20 07:32 Intake & Output 05/06/20 05/07/20 05/08/20 06:59 06:59 06:59 Intake Total 2150 3244 Output Total 2050 1475 Balance 100 1769 Weight 58 kg 59.3 kg General appearance: PRESENT: no acute distress Head exam: PRESENT: normocephalic Eye exam: PRESENT: EOMI Respiratory exam: PRESENT: unlabored Extremities exam: ABSENT: pedal edema Neurological exam: PRESENT: awake Psychiatric exam: PRESENT: other - Does not speak today. Skin exam: PRESENT: normal color Results Laboratory Results: 05/07/20 05:18 05/07/20 05:18 05/07/20 05/07/20 05:18 05:18 WBC 25.7 H RBC 2.70 L Hgb 7.7 L D Hct 22.5 L MCV 84 MCH 28.6 MCHC 34.3 RDW 15.5 H Plt Count 379 Seg Neutrophils % Not Reportable Sodium 131.3 L Potassium 3.5 L Chloride 101 Carbon Dioxide 22 Anion Gap 8 BUN 7 Creatinine 0.49 L Est GFR ( Amer) > 60 Glucose 72 L Calcium 6.6 L* Phosphorus 1.7 L Magnesium 1.2 L* Total Bilirubin 0.3 AST 27 Alkaline Phosphatase 29 L Total Protein 3.9 L Albumin 1.8 L 04/29/20 04/29/20 04/29/20 16:53 16:53 22:24 Creatine Kinase 100 CK-MB (CK-2) 2.44 Troponin I 0.029 NT-Pro-B Natriuret Pep 1250 H 04/29/20 04/30/20 22:24 06:21 Creatine Kinase CK-MB (CK-2) Troponin I 0.024 0.025 NT-Pro-B Natriuret Pep Impressions: Chest/Abdomen CTA 04/29/20 21:12 IMPRESSION: No evidence of pulmonary embolus. Mucous plugging. There is a large central mass lesion left infrahilar may represent a pulmonary mass or perhaps adenopathy. Other prominent mediastinal lymph nodes are seen. Multiple bilateral pulmonary nodules are seen. Some of the smaller nodules have an appearance suspicious for an infectious inflammatory process but there are larger well-rounded and more sharply marginated soft tissue nodules which are suspicious for neoplasm. Is there a known history of a primary carcinoma? . Chest X-Ray 05/02/20 09:00 IMPRESSION: INCREASING FAINT AIRSPACE DISEASE IN THE RIGHT UPPER LOBE AND LEFT LOWER LOBE CONCERNING FOR DEVELOPING PNEUMONIA. PICC Line Insertion 05/06/20 00:00 IMPRESSION: SUCCESSFUL PLACEMENT OF A 5 FR DUAL LUMEN 39 CM PICC IN THE LEFT BASILIC VEIN. Assessment & Plan - Diagnosis (1) Acute respiratory failure with hypoxemia Is this a current diagnosis for this admission?: Yes (2) Pulmonary nodules/lesions, multiple Is this a current diagnosis for this admission?: Yes Plan: s/p bronchosopy. Await pathology results. Will follow from a distance unless pathology confirms cancer. Otherwise, consider repeat CT in 4-6 weeks and continue to treat inflammatory process. Dr. Briggs following. (3) Leukocytosis Qualifiers: Leukocytosis type: leukemoid reaction Qualified Code(s): D72.823 - Leukemoid reaction Is this a current diagnosis for this admission?: Yes (4) Anemia Qualifiers: Other causes of anemia: chronic disease, other Is this a current diagnosis for this admission?: Yes Plan: Sharp decrease in HGB today without obvious bleeding. I would repeat this and if continues, consider blood transfusion. - Time Time Spent with patient: Less than 15 minutes
[2020-05-07] MEDS: MAGNESIUM SULFATE 1 GM/D5W 100 ML IV SCH ×2 (08:20→09:53)
[2020-05-07] MEDS: IPRATROPIUM/ALBUTEROL 0.5-2.5 MG/3 ML AMPUL NEB SCH ×3 (08:21→21:14)
[2020-05-07] MEDS: NICOTINE 21 MG/24 HR PATCH.TD24 TD SCH (09:57)
[2020-05-07] MEDS: LIDOCAINE 5% (700 MG) TRANSDERMAL ADH..PATCH TP SCH ×2 (09:59→12:07)
[2020-05-07] MEDS: NIFEDIPINE 30 MG TAB.ER.24 PO SCH (09:59)
[2020-05-07] MEDS: ENOXAPARIN SODIUM INJ 40 MG/0.4 ML DISP.SYRIN SUBCUT SCH ×2 (09:59→12:07)
[2020-05-07] MEDS: FAMOTIDINE 20 MG TABLET PO SCH ×2 (10:00→21:36)
[2020-05-07] MEDS: DOCUSATE SODIUM 100 MG CAPSULE PO SCH (10:00)
[2020-05-07] MEDS ORDERED: MAGNESIUM SULFATE 1 GM/D5W 100 ML IV SCH (10:00)
[2020-05-07] MEDS: ASPIRIN 81 MG TABLET, CHEWABLE PO SCH (10:00)
[2020-05-07] MEDS: LORAZEPAM 0.5 MG TABLET PO PRN ×2 (10:01→23:14)
[2020-05-07] MEDS: ATENOLOL 50 MG TABLET PO SCH (10:01)
[2020-05-07] MEDS: GUAIFENESIN 600 MG TABLET.SA PO SCH ×2 (10:03→21:36)
[2020-05-07] MEDS: FLUTICASONE/UMECLIDIN/VILANTER 100-62.5-25 MCG/DOSE IH SCH (10:05)
--- NOTE | 2020-05-07 13:36 | PDOC PROGRESS REPORT ---
Subjective Progress Note for:: 05/07/20 Subjective:: Bronchoscopy Reason For Visit: ACUTE RESPIRATORY FAILURE WITH HYPOXIA PNEUMONIA This patient had bronchoscopy yesterday for mediastinal mass. Results are still pending at this time. She notes no new complaints. She is seen in bed wearing nasal cannula oxygen in no distress. She denies much in way of cough or mucus production. Physical Exam Vital Signs: Temp Pulse Resp BP Pulse Ox 97.9 F 84 16 134/85 H 96 05/07/20 11:02 05/07/20 11:02 05/07/20 11:02 05/07/20 11:02 05/07/20 11:02 Intake & Output 05/06/20 05/07/20 05/08/20 06:59 06:59 06:59 Intake Total 2150 3244 100 Output Total 2050 1475 Balance 100 1769 100 Weight 58 kg 59.3 kg Exam: Exam today is largely unchanged. She has clear breath sounds. Results Laboratory Results: 05/07/20 05:18 05/07/20 05:18 05/07/20 05/07/20 05:18 05:18 WBC 25.7 H RBC 2.70 L Hgb 7.7 L D Hct 22.5 L MCV 84 MCH 28.6 MCHC 34.3 RDW 15.5 H Plt Count 379 Seg Neutrophils % Not Reportable Sodium 131.3 L Potassium 3.5 L Chloride 101 Carbon Dioxide 22 Anion Gap 8 BUN 7 Creatinine 0.49 L Est GFR ( Amer) > 60 Glucose 72 L Calcium 6.6 L* Phosphorus 1.7 L Magnesium 1.2 L* Total Bilirubin 0.3 AST 27 Alkaline Phosphatase 29 L Total Protein 3.9 L Albumin 1.8 L 04/29/20 04/29/20 04/29/20 16:53 16:53 22:24 Creatine Kinase 100 CK-MB (CK-2) 2.44 Troponin I 0.029 NT-Pro-B Natriuret Pep 1250 H 04/29/20 04/30/20 22:24 06:21 Creatine Kinase CK-MB (CK-2) Troponin I 0.024 0.025 NT-Pro-B Natriuret Pep Impressions: Chest/Abdomen CTA 04/29/20 21:12 IMPRESSION: No evidence of pulmonary embolus. Mucous plugging. There is a large central mass lesion left infrahilar may represent a pulmonary mass or perhaps adenopathy. Other prominent mediastinal lymph nodes are seen. Multiple bilateral pulmonary nodules are seen. Some of the smaller nodules have an appearance suspicious for an infectious inflammatory process but there are larger well-rounded and more sharply marginated soft tissue nodules which are suspicious for neoplasm. Is there a known history of a primary carcinoma? . Chest X-Ray 05/02/20 09:00 IMPRESSION: INCREASING FAINT AIRSPACE DISEASE IN THE RIGHT UPPER LOBE AND LEFT LOWER LOBE CONCERNING FOR DEVELOPING PNEUMONIA. PICC Line Insertion 05/06/20 00:00 IMPRESSION: SUCCESSFUL PLACEMENT OF A 5 FR DUAL LUMEN 39 CM PICC IN THE LEFT BASILIC VEIN. Assessment & Plan - Diagnosis (2) Pulmonary nodules/lesions, multiple Is this a current diagnosis for this admission?: Yes - Time Time Spent with patient: 35 or more minutes - Plan Summary Plan Summary: We are awaiting pathology results from her bronchoscopy. These prove nondiagnostic I believe the next step is percutaneous needle biopsy of 1 of the lung masses that is noted on CT scan. Have discussed with radiology PET scanning as well however we are going to proceed with further diagnostic studies until diagnosis has been established whether or not the PET scan suggests hypermetabolic activity or not. Therefore will likely need to proceed with additional biopsy procedures as indicated.
--- NOTE | 2020-05-07 13:45 | PDOC PROGRESS REPORT ---
Subjective Progress Note for:: 05/07/20 Subjective:: No adverse events overnight. She thinks there is a "plot" to keep her here against her will. She says that "I still do not know what is wrong with me." I tried to explain to her that no one is keeping her here against her will, and that the reason she is still here is because we are trying to figure out what is going on with her, and that the biopsy is pending. Apparently she is worried about her who has dementia being home by himself without her. She says that food is not appealing to her at all, but she would try to eat a little ice cream today. Reason For Visit: ACUTE RESPIRATORY FAILURE WITH HYPOXIA PNEUMONIA Physical Exam Vital Signs: Temp Pulse Resp BP Pulse Ox 97.9 F 84 16 134/85 H 96 05/07/20 11:02 05/07/20 11:02 05/07/20 11:02 05/07/20 11:02 05/07/20 11:02 Intake & Output 05/06/20 05/07/20 05/08/20 06:59 06:59 06:59 Intake Total 2150 3244 100 Output Total 2050 1475 Balance 100 1769 100 Weight 58 kg 59.3 kg General appearance: PRESENT: cooperative, mild distress, well-developed Head exam: PRESENT: atraumatic, normocephalic Eye exam: PRESENT: conjunctiva pale. ABSENT: scleral icterus Ear exam: PRESENT: normal external ear exam. ABSENT: bleeding, drainage Mouth exam: PRESENT: dry mucosa, tongue midline Neck exam: ABSENT: carotid bruit, JVD, lymphadenopathy Respiratory exam: PRESENT: prolonged expiratory phas, rhonchi - Present but improved on the right, symmetrical, unlabored. ABSENT: accessory muscle use, rales, tachypnea, wheezes Cardiovascular exam: PRESENT: +S1, +S2, tachycardia. ABSENT: bradycardia, diastolic murmur, irregular rhythm, systolic murmur GI/Abdominal exam: PRESENT: hypoactive bowel sounds, soft. ABSENT: distended, guarding, tenderness Rectal exam: PRESENT: deferred Extremities exam: ABSENT: pedal edema Neurological exam: PRESENT: alert, awake, oriented to person, oriented to place, oriented to time, oriented to situation, CN II-XII grossly intact. ABSENT: altered Psychiatric exam: PRESENT: flat affect. ABSENT: agitated, anxious Results Laboratory Results: 05/07/20 05:18 05/07/20 05:18 05/07/20 05/07/20 05:18 05:18 WBC 25.7 H RBC 2.70 L Hgb 7.7 L D Hct 22.5 L MCV 84 MCH 28.6 MCHC 34.3 RDW 15.5 H Plt Count 379 Seg Neutrophils % Not Reportable Sodium 131.3 L Potassium 3.5 L Chloride 101 Carbon Dioxide 22 Anion Gap 8 BUN 7 Creatinine 0.49 L Est GFR ( Amer) > 60 Glucose 72 L Calcium 6.6 L* Phosphorus 1.7 L Magnesium 1.2 L* Total Bilirubin 0.3 AST 27 Alkaline Phosphatase 29 L Total Protein 3.9 L Albumin 1.8 L 04/29/20 04/29/20 04/29/20 16:53 16:53 22:24 Creatine Kinase 100 CK-MB (CK-2) 2.44 Troponin I 0.029 NT-Pro-B Natriuret Pep 1250 H 04/29/20 04/30/20 22:24 06:21 Creatine Kinase CK-MB (CK-2) Troponin I 0.024 0.025 NT-Pro-B Natriuret Pep Impressions: Chest/Abdomen CTA 04/29/20 21:12 IMPRESSION: No evidence of pulmonary embolus. Mucous plugging. There is a large central mass lesion left infrahilar may represent a pulmonary mass or perhaps adenopathy. Other prominent mediastinal lymph nodes are seen. Multiple bilateral pulmonary nodules are seen. Some of the smaller nodules have an appearance suspicious for an infectious inflammatory process but there are larger well-rounded and more sharply marginated soft tissue nodules which are suspicious for neoplasm. Is there a known history of a primary carcinoma? . Chest X-Ray 05/02/20 09:00 IMPRESSION: INCREASING FAINT AIRSPACE DISEASE IN THE RIGHT UPPER LOBE AND LEFT LOWER LOBE CONCERNING FOR DEVELOPING PNEUMONIA. PICC Line Insertion 05/06/20 00:00 IMPRESSION: SUCCESSFUL PLACEMENT OF A 5 FR DUAL LUMEN 39 CM PICC IN THE LEFT BASILIC VEIN. Assessment and Plan - Diagnosis (1) Acute respiratory failure with hypoxemia Is this a current diagnosis for this admission?: Yes Plan: She has been stable on nasal cannula. (2) Mediastinal mass Is this a current diagnosis for this admission?: Yes Plan: Biopsy is pending, pulmonology is following. Oncology also following. Awaiting further results. (3) COPD with exacerbation Is this a current diagnosis for this admission?: Yes Plan: Continue steroids and antibiotics (4) Cigarette nicotine dependence Qualifiers: Substance use status: uncomplicated Qualified Code(s): F17.210 - Nicotine dependence, cigarettes, uncomplicated Is this a current diagnosis for this admission?: Yes Plan: Strongly encourage cessation (5) Hypocalcemia Is this a current diagnosis for this admission?: Yes Plan: We have been giving her a lot of supplements but it is not making a difference in her calcium levels. We will check a vitamin D level. (6) Hypomagnesemia Is this a current diagnosis for this admission?: Yes Plan: Replace with supplement as needed - Plan Summary Summary: 05/04/2020 Respiratory failure-still requires supplemental oxygen. Pneumonia-sputum culture positive for Pseudomonas and Haemophilus influenza. Currently on Zosyn and levofloxacin. I have asked Dr. Briggs, comptometer operator, to consult as well. Exacerbation COPD with asthma-nebulizer treatments as well as mucolytic's and steroids Electrolyte abnormalities-magnesium, calcium and potassium have been given. Serum sodium is now normal. Monitor electrolytes closely. Tachycardia-patient's heart rate has been variable despite patient at rest. Continue to monitor on telemetry. Correct electrolytes and reassess. Intravenous beta-emelia available if needed. Multiple pulmonary nodules-unsure if malignant versus inflammatory versus infectious. Continue antibiotic therapy. Pulmonology will assess as well. Tobacco dependence-nicotine patch available. History of smoking makes this illness that much worse 05/05/2020- Appreciate Dr. Briggs's input. Respiratory failure with pneumonia and COPD-patient now requiring BiPAP. She was able to tolerate nasal cannula yesterday. Dr. Briggs is planning a bronchoscopy. We will continue current antibiotic therapy as well as steroids and nebulizer treatments. Pulmonary nodules-possible endobronchial lesion at the isabel. Pulmonology may be able to biopsy. The procedure most likely will be tomorrow. Electrolyte abnormalities-calcium is still low even corrected for low albumin. Phosphorus is low as well. Potassium is now normal at 4.4. We will give additional calcium and initiate potassium phosphate orally. Tobacco dependence-continue nicotine patch Tachycardia-improved. Possibly related to electrolyte abnormalities. Continue telemetry monitoring. Awaiting bronchoscopy results. Definitely concerned regarding the patient's condition and if this is a malignancy the treatment possibilities given her age and current illness. 05/06/2020 Respiratory failure with pneumonia and COPD-the patient is on nasal cannula with reasonable saturation at rest this morning. She reports that she does not tolerate BiPAP all that well. She is due for bronchoscopy today. Hopefully biopsy can be obtained and we can get a final diagnosis on the pulmonary lesions. Her pneumonia does appear to slowly be improving. Unfortunately her white blood cell count continues to rise. I have decreased the Solu-Medrol to 40 mg twice daily. Dysphagia-it is difficult to assess specifics as she reports coughing, poor appetite, concern with a number of oral medications but does not specifically report food sticking when she swallows. She also does not feel like eating with her profound weakness. I did speak with speech therapy and they will evaluate the patient. There are multiple potential etiologies at play including but not limited to direct pressure affect on the esophagus from the pulmonary mass, her profound weakness and possible motor dysfunction. Electrolyte abnormalities-she seems to be maintaining normal potassium levels but her calcium, phosphorus and magnesium are still low. Will attempt to supplement electrolytes by IV as much as possible due to her poor appetite. Pulmonary nodules-with the bronchoscopy today hopefully they can get a biopsy. Tachycardia-the patient was tachycardic again this morning. She still has electrolyte abnormalities. She will be borderline tachycardia and then all of a sudden have a markedly increased heart rate up to 150-160. We will continue to monitor on telemetry and correct electrolytes. Tobacco use-nicotine patch and continue encouraging cessation - Time Time Spent with patient: 15-24 minutes Anticipated Discharge Disposition: Pending clinical course Anticipated Discharge Timeframe: Pending clinical course
[2020-05-07] MEDS: LEVOFLOXACIN 750 MG/D5W RTU 750 MG/150 ML RTUPB IV SCH (18:12)
[2020-05-07] MEDS: ATORVASTATIN CALCIUM 40 MG TABLET PO SCH (21:35)
[2020-05-07] MEDS: POLYETHYLENE GLYCOL 3350 POWDER 17 GM/1 PACKET PO SCH (21:36)
[2020-05-07] MEDS: MONTELUKAST SODIUM 10 MG TABLET PO SCH (21:36)
[2020-05-07] MEDS: PHARMACY COMMUNICATION ORDER MC SCH (21:48)
[2020-05-07] MEDS: GUAIFENESIN/D-METHORPHAN (200-20 MG) SYRUP 10 ML PO PRN (23:18)
[2020-05-08] MEDS ORDERED: NORMAL SALINE 10 ML SDV (AFTER EACH USE) IV PRN (04:00)
[2020-05-08] MEDS: METHYLPREDNISOLONE INJ 40 MG/1 ML SDV IV SCH ×2 (05:55→19:16)
[2020-05-08] MEDS: PIPERACILLIN SODIUM/TAZOBACTAM 3.375 GM in NORMAL SALINE 100 ML IV SCH ×4 (05:55→23:16)
[2020-05-08] MEDS: LEVOTHYROXINE SODIUM 0.1 MG TABLET PO SCH (05:56)
[2020-05-08] MEDS: LEVOTHYROXINE SODIUM 0.075 MG TABLET PO SCH (05:57)
[2020-05-08] MEDS: RINGERS SOLUTION,LACTATED 1,000 ML IV PRN ×2 (06:52→23:16)
[2020-05-08] MEDS: IPRATROPIUM/ALBUTEROL 0.5-2.5 MG/3 ML AMPUL NEB SCH ×3 (08:15→21:00)
[2020-05-08] MEDS: ASPIRIN 81 MG TABLET, CHEWABLE PO SCH (09:34)
[2020-05-08] MEDS: FAMOTIDINE 20 MG TABLET PO SCH ×2 (09:35→21:05)
[2020-05-08] MEDS: GUAIFENESIN 600 MG TABLET.SA PO SCH ×2 (09:35→21:05)
[2020-05-08] MEDS: NIFEDIPINE 30 MG TAB.ER.24 PO SCH (09:35)
[2020-05-08] MEDS: ATENOLOL 50 MG TABLET PO SCH (09:35)
[2020-05-08] MEDS: NICOTINE 21 MG/24 HR PATCH.TD24 TD SCH (09:42)
[2020-05-08] MEDS: DOCUSATE SODIUM 100 MG CAPSULE PO SCH (09:47)
[2020-05-08] MEDS: PHOSPHORUS #1 250 MG TABLET PO SCH ×3 (09:48→16:16)
[2020-05-08] MEDS: POTASSIUM CHLORIDE 10 MEQ TABLET.ER PO SCH ×3 (09:48→16:54)
[2020-05-08] MEDS: NORMAL SALINE 10 ML SDV (SCHEDULED) IV SCH ×2 (09:51→21:06)
[2020-05-08] MEDS: FLUTICASONE/UMECLIDIN/VILANTER 100-62.5-25 MCG/DOSE IH SCH (09:51)
[2020-05-08] MEDS: ENOXAPARIN SODIUM INJ 40 MG/0.4 ML DISP.SYRIN SUBCUT SCH (09:53)
--- NOTE | 2020-05-08 16:39 | PDOC PROGRESS REPORT ---
Subjective Progress Note for:: 05/08/20 Subjective:: No adverse events overnight. No new complaints. Vital signs been stable. On 4 L of oxygen, breathing has been comfortable. Still no energy. Still not eating. Reason For Visit: ACUTE RESPIRATORY FAILURE WITH HYPOXIA PNEUMONIA Physical Exam Vital Signs: Temp Pulse Resp BP Pulse Ox 98.1 F 92 18 133/59 H 97 05/08/20 11:13 05/08/20 14:00 05/08/20 13:57 05/08/20 11:13 05/08/20 13:57 Intake & Output 05/07/20 05/08/20 05/09/20 06:59 06:59 06:59 Intake Total 3244 3381 0 Output Total 1475 2025 375 Balance 1769 1356 -375 Weight 59.3 kg 59.8 kg General appearance: PRESENT: cooperative, mild distress, well-developed Head exam: PRESENT: atraumatic, normocephalic Eye exam: PRESENT: conjunctiva pale. ABSENT: scleral icterus Ear exam: PRESENT: normal external ear exam. ABSENT: bleeding, drainage Mouth exam: PRESENT: dry mucosa, tongue midline Neck exam: ABSENT: carotid bruit, JVD, lymphadenopathy Respiratory exam: PRESENT: prolonged expiratory phas, rhonchi - Present but improved on the right, symmetrical, unlabored. ABSENT: accessory muscle use, ra les, tachypnea, wheezes Cardiovascular exam: PRESENT: +S1, +S2, tachycardia. ABSENT: bradycardia, diastolic murmur, irregular rhythm, systolic murmur GI/Abdominal exam: PRESENT: hypoactive bowel sounds, soft. ABSENT: distended, guarding, tenderness Rectal exam: PRESENT: deferred Extremities exam: ABSENT: pedal edema Neurological exam: PRESENT: alert, awake, oriented to person, oriented to place, oriented to time, oriented to situation, CN II-XII grossly intact. ABSENT: altered Psychiatric exam: PRESENT: flat affect. ABSENT: agitated, anxious Results Laboratory Results: 05/07/20 05:18 05/07/20 05:18 05/06/20 12:07 Bronchial Washings Gram Stain - Final 05/06/20 12:07 Bronchial Washings Bronchial Washings Culture - Final Yeast, Not Jeana Albicans Normal Celeste Absent 04/29/20 04/29/20 04/29/20 16:53 16:53 22:24 Creatine Kinase 100 CK-MB (CK-2) 2.44 Troponin I 0.029 NT-Pro-B Natriuret Pep 1250 H 04/29/20 04/30/20 22:24 06:21 Creatine Kinase CK-MB (CK-2) Troponin I 0.024 0.025 NT-Pro-B Natriuret Pep Impressions: Chest/Abdomen CTA 04/29/20 21:12 IMPRESSION: No evidence of pulmonary embolus. Mucous plugging. There is a large central mass lesion left infrahilar may represent a pulmonary mass or perhaps adenopathy. Other prominent mediastinal lymph nodes are seen. Multiple bilateral pulmonary nodules are seen. Some of the smaller nodules have an appearance suspicious for an infectious inflammatory process but there are larger well-rounded and more sharply marginated soft tissue nodules which are suspicious for neoplasm. Is there a known history of a primary carcinoma? . Chest X-Ray 05/02/20 09:00 IMPRESSION: INCREASING FAINT AIRSPACE DISEASE IN THE RIGHT UPPER LOBE AND LEFT LOWER LOBE CONCERNING FOR DEVELOPING PNEUMONIA. PICC Line Insertion 05/06/20 00:00 IMPRESSION: SUCCESSFUL PLACEMENT OF A 5 FR DUAL LUMEN 39 CM PICC IN THE LEFT BASILIC VEIN. Assessment and Plan - Diagnosis (1) Acute respiratory failure with hypoxemia Is this a current diagnosis for this admission?: Yes Plan: She has been stable on nasal cannula. (2) Mediastinal mass Is this a current diagnosis for this admission?: Yes Plan: Biopsy is pending, pulmonology is following. Oncology also following. Awaiting further results. (3) COPD with exacerbation Is this a current diagnosis for this admission?: Yes Plan: Continue steroids and antibiotics (4) Cigarette nicotine dependence Qualifiers: Substance use status: uncomplicated Qualified Code(s): F17.210 - Nicotine dependence, cigarettes, uncomplicated Is this a current diagnosis for this admission?: Yes Plan: Strongly encourage cessation (5) Hypocalcemia Is this a current diagnosis for this admission?: Yes Plan: We have been giving her a lot of supplements but it is not making a difference in her calcium levels. We will check a vitamin D level. (6) Hypomagnesemia Is this a current diagnosis for this admission?: Yes Plan: Replace with supplement as needed - Plan Summary Summary: 05/04/2020 Respiratory failure-still requires supplemental oxygen. Pneumonia-sputum culture positive for Pseudomonas and Haemophilus influenza. Currently on Zosyn and levofloxacin. I have asked Dr. Briggs, superintendent warehouse, to consult as well. Exacerbation COPD with asthma-nebulizer treatments as well as mucolytic's and steroids Electrolyte abnormalities-magnesium, calcium and potassium have been given. Serum sodium is now normal. Monitor electrolytes closely. Tachycardia-patient's heart rate has been variable despite patient at rest. Continue to monitor on telemetry. Correct electrolytes and reassess. Intravenous beta-emelia available if needed. Multiple pulmonary nodules-unsure if malignant versus inflammatory versus infectious. Continue antibiotic therapy. Pulmonology will assess as well. Tobacco dependence-nicotine patch available. History of smoking makes this illness that much worse 05/05/2020- Appreciate Dr. Briggs's input. Respiratory failure with pneumonia and COPD-patient now requiring BiPAP. She was able to tolerate nasal cannula yesterday. Dr. Briggs is planning a bronchoscopy. We will continue current antibiotic therapy as well as steroids and nebulizer treatments. Pulmonary nodules-possible endobronchial lesion at the isabel. Pulmonology may be able to biopsy. The procedure most likely will be tomorrow. Electrolyte abnormalities-calcium is still low even corrected for low albumin. Phosphorus is low as well. Potassium is now normal at 4.4. We will give additional calcium and initiate potassium phosphate orally. Tobacco dependence-continue nicotine patch Tachycardia-improved. Possibly related to electrolyte abnormalities. Continue telemetry monitoring. Awaiting bronchoscopy results. Definitely concerned regarding the patient's condition and if this is a malignancy the treatment possibilities given her age and current illness. 05/06/2020 Respiratory failure with pneumonia and COPD-the patient is on nasal cannula with reasonable saturation at rest this morning. She reports that she does not tolerate BiPAP all that well. She is due for bronchoscopy today. Hopefully biopsy can be obtained and we can get a final diagnosis on the pulmonary lesions. Her pneumonia does appear to slowly be improving. Unfortunately her white blood cell count continues to rise. I have decreased the Solu-Medrol to 40 mg twice daily. Dysphagia-it is difficult to assess specifics as she reports coughing, poor appetite, concern with a number of oral medications but does not specifically report food sticking when she swallows. She also does not feel like eating with her profound weakness. I did speak with speech therapy and they will evaluate the patient. There are multiple potential etiologies at play including but not limited to direct pressure affect on the esophagus from the pulmonary mass, her profound weakness and possible motor dysfunction. Electrolyte abnormalities-she seems to be maintaining normal potassium levels but her calcium, phosphorus and magnesium are still low. Will attempt to supplement electrolytes by IV as much as possible due to her poor appetite. Pulmonary nodules-with the bronchoscopy today hopefully they can get a biopsy. Tachycardia-the patient was tachycardic again this morning. She still has elect rolyte abnormalities. She will be borderline tachycardia and then all of a sudden have a markedly increased heart rate up to 150-160. We will continue to monitor on telemetry and correct electrolytes. Tobacco use-nicotine patch and continue encouraging cessation - Time Time Spent with patient: 15-24 minutes Anticipated Discharge Disposition: Pending clinical course Anticipated Discharge Timeframe: Pending clinical course
[2020-05-08 17:56] LABS: ANION GAP 6 (5-19); BLOOD UREA NITROGEN 8 mg/dL (7-20); CARBON DIOXIDE 25 mmol/L (22-30); CHLORIDE 101 mmol/L (98-107); GLUCOSE 104 mg/dL (75-110)
[2020-05-08 18:21] LABS: CALCIUM 6.4 mg/dL (8.4-10.2); POTASSIUM 2.7 mmol/L (3.6-5.0)
[2020-05-08] MEDS: LIDOCAINE 5% (700 MG) TRANSDERMAL ADH..PATCH TP SCH (18:55)
[2020-05-08] MEDS ORDERED: POTASSIUM CHLORIDE 20 MEQ PACKET PO ONE (19:15)
[2020-05-08] MEDS ORDERED: MAGNESIUM SULFATE/D5W 1 GM/100 ML RTUPB IV ONE (19:30)
[2020-05-08] MEDS: CALCIUM GLUC IN NACL, ISO-OSM 1 GM/50 ML RTUPB IV SCH ×2 (20:58→22:11)
[2020-05-08] MEDS: GUAIFENESIN/D-METHORPHAN (200-20 MG) SYRUP 10 ML PO PRN (21:05)
[2020-05-08] MEDS: MONTELUKAST SODIUM 10 MG TABLET PO SCH (21:05)
[2020-05-08] MEDS: ATORVASTATIN CALCIUM 40 MG TABLET PO SCH (21:05)
[2020-05-08] MEDS: POLYETHYLENE GLYCOL 3350 POWDER 17 GM/1 PACKET PO SCH (21:06)
[2020-05-08] MEDS: PHARMACY COMMUNICATION ORDER MC SCH (22:07)
[2020-05-09] MEDS: LORAZEPAM 0.5 MG TABLET PO PRN ×2 (00:54→05:59)
[2020-05-09] MEDS: IPRATROPIUM/ALBUTEROL 0.5-2.5 MG/3 ML AMPUL NEB PRN (01:52)
[2020-05-09] MEDS: PIPERACILLIN SODIUM/TAZOBACTAM 3.375 GM in NORMAL SALINE 100 ML IV SCH ×5 (05:58→23:32)
[2020-05-09] MEDS: METHYLPREDNISOLONE INJ 40 MG/1 ML SDV IV SCH ×2 (05:59→17:21)
[2020-05-09] MEDS: LEVOTHYROXINE SODIUM 0.1 MG TABLET PO SCH (05:59)
[2020-05-09] MEDS: LEVOTHYROXINE SODIUM 0.075 MG TABLET PO SCH (05:59)
[2020-05-09] MEDS: RINGERS SOLUTION,LACTATED 1,000 ML IV PRN ×3 (06:07→23:32)
[2020-05-09] MEDS: IPRATROPIUM/ALBUTEROL 0.5-2.5 MG/3 ML AMPUL NEB SCH ×3 (08:14→21:01)
[2020-05-09] MEDS: PHOSPHORUS #1 250 MG TABLET PO SCH ×3 (08:49→17:04)
[2020-05-09] MEDS: POTASSIUM CHLORIDE 10 MEQ TABLET.ER PO SCH ×3 (08:49→17:04)
[2020-05-09] MEDS: NORMAL SALINE 10 ML SDV (SCHEDULED) IV SCH ×2 (09:38→22:04)
[2020-05-09] MEDS: NICOTINE 21 MG/24 HR PATCH.TD24 TD SCH (09:39)
[2020-05-09] MEDS: DOCUSATE SODIUM 100 MG CAPSULE PO SCH (09:43)
[2020-05-09] MEDS: FLUTICASONE/UMECLIDIN/VILANTER 100-62.5-25 MCG/DOSE IH SCH (09:44)
[2020-05-09 10:39] LABS: BLOOD UREA NITROGEN 5 mg/dL (7-20); GLUCOSE 133 mg/dL (75-110)
[2020-05-09 10:45] LABS: CARBON DIOXIDE 26 mmol/L (22-30); CHLORIDE 103 mmol/L (98-107)
[2020-05-09 10:55] LABS: ANION GAP 3 (5-19)
[2020-05-09 10:56] LABS: CALCIUM 6.6 mg/dL (8.4-10.2); POTASSIUM 2.8 mmol/L (3.6-5.0)
[2020-05-09] MEDS: FAMOTIDINE 20 MG TABLET PO SCH ×2 (11:49→22:03)
[2020-05-09] MEDS: ATENOLOL 50 MG TABLET PO SCH (11:49)
[2020-05-09] MEDS: ENOXAPARIN SODIUM INJ 40 MG/0.4 ML DISP.SYRIN SUBCUT SCH (11:49)
[2020-05-09] MEDS: ASPIRIN 81 MG TABLET, CHEWABLE PO SCH (11:49)
[2020-05-09] MEDS: NIFEDIPINE 30 MG TAB.ER.24 PO SCH (11:49)
[2020-05-09] MEDS: GUAIFENESIN 600 MG TABLET.SA PO SCH ×2 (11:49→22:03)
[2020-05-09] MEDS: POTASSIUM CHLORIDE 20 MEQ/50 ML RTU IV SCH ×3 (15:51→19:28)
--- NOTE | 2020-05-09 16:01 | PDOC PROGRESS REPORT ---
Subjective Progress Note for:: 05/09/20 Subjective:: No adverse events overnight. Patient's condition is essentially unchanged. O2 saturation stable on 4 L per nasal cannula. She was very ornery today and wanted to leave AGAINST MEDICAL ADVICE. Her came up and he did not have a coherent plan to be able to get her out of the hospital. There is some concern that he has dementia, and the patient has commented on this before. A capacity evaluation was done and the official report is pending, but it seems that the opinion was that the patient will require a medical power of assistant prosecuting attorney to make her decisions, and it is not thought that her will be able to do this given his limitations. Reason For Visit: ACUTE RESPIRATORY FAILURE WITH HYPOXIA PNEUMONIA Physical Exam Vital Signs: Temp Pulse Resp BP Pulse Ox 97.6 F 96 19 139/64 H 96 05/09/20 07:50 05/09/20 14:15 05/09/20 14:15 05/09/20 07:33 05/09/20 14:15 Intake & Output 05/08/20 05/09/20 05/10/20 06:59 06:59 06:59 Intake Total 3381 2046 300 Output Total 2025 1825 Balance 1356 221 300 Weight 59.8 kg 66.2 kg 66.8 kg General appearance: PRESENT: cooperative, mild distress, well-developed Head exam: PRESENT: atraumatic, normocephalic Eye exam: PRESENT: conjunctiva pale. ABSENT: scleral icterus Ear exam: PRESENT: normal external ear exam. ABSENT: bleeding, drainage Mouth exam: PRESENT: dry mucosa, tongue midline Neck exam: ABSENT: carotid bruit, JVD, lymphadenopathy Respiratory exam: PRESENT: prolonged expiratory phas, rhonchi - Present but improved on the right, symmetrical, unlabored. ABSENT: accessory muscle use, rales, tachypnea, wheezes Cardiovascular exam: PRESENT: +S1, +S2, tachycardia. ABSENT: bradycardia, diastolic murmur, irregular rhythm, systolic murmur GI/Abdominal exam: PRESENT: hypoactive bowel sounds, soft. ABSENT: distended, guarding, tenderness Rectal exam: PRESENT: deferred Extremities exam: ABSENT: pedal edema Neurological exam: PRESENT: alert, awake, oriented to person, oriented to place, CN II-XII grossly intact. ABSENT: altered Psychiatric exam: PRESENT: agitated Results Laboratory Results: 05/07/20 05:18 05/09/20 09:35 05/08/20 05/09/20 17:05 09:35 Sodium 131.7 L 132.3 L Potassium 2.7 L* 2.8 L* Chloride 101 103 Carbon Dioxide 25 26 Anion Gap 6 3 L BUN 8 5 L Creatinine 0.52 0.51 L Est GFR ( Amer) > 60 > 60 Glucose 104 133 H Calcium 6.4 L* 6.6 L* Magnesium 1.6 05/06/20 12:07 Bronchial Washings Gram Stain - Final 05/06/20 12:07 Bronchial Washings Bronchial Washings Culture - Final Yeast, Not Jeana Albicans Normal Celeste Absent 04/29/20 04/29/20 04/29/20 16:53 16:53 22:24 Creatine Kinase 100 CK-MB (CK-2) 2.44 Troponin I 0.029 NT-Pro-B Natriuret Pep 1250 H 04/29/20 04/30/20 22:24 06:21 Creatine Kinase CK-MB (CK-2) Troponin I 0.024 0.025 NT-Pro-B Natriuret Pep Impressions: Chest/Abdomen CTA 04/29/20 21:12 IMPRESSION: No evidence of pulmonary embolus. Mucous plugging. There is a large central mass lesion left infrahilar may represent a pulmonary mass or perhaps adenopathy. Other prominent mediastinal lymph nodes are seen. Multiple bilateral pulmonary nodules are seen. Some of the smaller nodules have an appearance suspicious for an infectious inflammatory process but there are larger well-rounded and more sharply marginated soft tissue nodules which are suspicious for neoplasm. Is there a known history of a primary carcinoma? . Chest X-Ray 05/02/20 09:00 IMPRESSION: INCREASING FAINT AIRSPACE DISEASE IN THE RIGHT UPPER LOBE AND LEFT LOWER LOBE CONCERNING FOR DEVELOPING PNEUMONIA. PICC Line Insertion 05/06/20 00:00 IMPRESSION: SUCCESSFUL PLACEMENT OF A 5 FR DUAL LUMEN 39 CM PICC IN THE LEFT BASILIC VEIN. Assessment and Plan - Diagnosis (1) Acute respiratory failure with hypoxemia Is this a current diagnosis for this admission?: Yes Plan: She has been stable on nasal cannula. (2) Mediastinal mass Is this a current diagnosis for this admission?: Yes Plan: Biopsy is pending, pulmonology is following. Oncology also following. Awaiting further results. Because of her previously described limitations, we are attempting to contact family to get a medical proxy determined (3) COPD with exacerbation Is this a current diagnosis for this admission?: Yes Plan: Continue steroids and antibiotics, will start to taper (4) Cigarette nicotine dependence Qualifiers: Substance use status: uncomplicated Qualified Code(s): F17.210 - Nicotine dependence, cigarettes, uncomplicated Is this a current diagnosis for this admission?: Yes Plan: Strongly encourage cessation (5) Hypocalcemia Is this a current diagnosis for this admission?: Yes Plan: I am not going to continue to replace this because no matter how much calcium we give her she is not retaining any of it and she is asymptomatic (6) Hypomagnesemia Is this a current diagnosis for this admission?: Yes Plan: Replace with supplement as needed - Plan Summary Summary: 05/04/2020 Respiratory failure-still requires supplemental oxygen. Pneumonia-sputum culture positive for Pseudomonas and Haemophilus influenza. Currently on Zosyn and levofloxacin. I have asked Dr. Briggs, business administration instructor, to consult as well. Exacerbation COPD with asthma-nebulizer treatments as well as mucolytic's and steroids Electrolyte abnormalities-magnesium, calcium and potassium have been given. Serum sodium is now normal. Monitor electrolytes closely. Tachycardia-patient's heart rate has been variable despite patient at rest. Continue to monitor on telemetry. Correct electrolytes and reassess. Intravenous beta-emelia available if needed. Multiple pulmonary nodules-unsure if malignant versus inflammatory versus infectious. Continue antibiotic therapy. Pulmonology will assess as well. Tobacco dependence-nicotine patch available. History of smoking makes this il lness that much worse 05/05/2020- Appreciate Dr. Briggs's input. Respiratory failure with pneumonia and COPD-patient now requiring BiPAP. She was able to tolerate nasal cannula yesterday. Dr. Briggs is planning a bronchoscopy. We will continue current antibiotic therapy as well as steroids and nebulizer treatments. Pulmonary nodules-possible endobronchial lesion at the isabel. Pulmonology may be able to biopsy. The procedure most likely will be tomorrow. Electrolyte abnormalities-calcium is still low even corrected for low albumin. Phosphorus is low as well. Potassium is now normal at 4.4. We will give additional calcium and initiate potassium phosphate orally. Tobacco dependence-continue nicotine patch Tachycardia-improved. Possibly related to electrolyte abnormalities. Continue telemetry monitoring. Awaiting bronchoscopy results. Definitely concerned regarding the patient's condition and if this is a malignancy the treatment possibilities given her age and current illness. 05/06/2020 Respiratory failure with pneumonia and COPD-the patient is on nasal cannula with reasonable saturation at rest this morning. She reports that she does not tolerate BiPAP all that well. She is due for bronchoscopy today. Hopefully biopsy can be obtained and we can get a final diagnosis on the pulmonary lesions. Her pneumonia does appear to slowly be improving. Unfortunately her white blood cell count continues to rise. I have decreased the Solu-Medrol to 40 mg twice daily. Dysphagia-it is difficult to assess specifics as she reports coughing, poor appetite, concern with a number of oral medications but does not specifically report food sticking when she swallows. She also does not feel like eating with her profound weakness. I did speak with speech therapy and they will evaluate the patient. There are multiple potential etiologies at play including but not limited to direct pressure affect on the esophagus from the pulmonary mass, her profound weakness and possible motor dysfunction. Electrolyte abnormalities-she seems to be maintaining normal potassium levels but her calcium, phosphorus and magnesium are still low. Will attempt to supplement electrolytes by IV as much as possible due to her poor appetite. Pulmonary nodules-with the bronchoscopy today hopefully they can get a biopsy. Tachycardia-the patient was tachycardic again this morning. She still has electrolyte abnormalities. She will be borderline tachycardia and then all of a sudden have a markedly increased heart rate up to 150-160. We will continue to monitor on telemetry and correct electrolytes. Tobacco use-nicotine patch and continue encouraging cessation - Time Time Spent with patient: 25-34 minutes Anticipated Discharge Disposition: Pending clinical course Anticipated Discharge Timeframe: Pending clinical course
[2020-05-09] MEDS: GUAIFENESIN/D-METHORPHAN (200-20 MG) SYRUP 10 ML PO PRN (22:03)
[2020-05-09] MEDS: LIDOCAINE 5% (700 MG) TRANSDERMAL ADH..PATCH TP SCH (22:03)
[2020-05-09] MEDS: ATORVASTATIN CALCIUM 40 MG TABLET PO SCH (22:03)
[2020-05-09] MEDS: MONTELUKAST SODIUM 10 MG TABLET PO SCH (22:04)
[2020-05-09] MEDS: PHARMACY COMMUNICATION ORDER MC SCH (22:04)
[2020-05-09] MEDS: POLYETHYLENE GLYCOL 3350 POWDER 17 GM/1 PACKET PO SCH (22:05)
[2020-05-10] MEDS: METHYLPREDNISOLONE INJ 40 MG/1 ML SDV IV SCH (05:19)
[2020-05-10] MEDS: LEVOTHYROXINE SODIUM 0.075 MG TABLET PO SCH (05:21)
[2020-05-10] MEDS: LEVOTHYROXINE SODIUM 0.1 MG TABLET PO SCH (05:21)
[2020-05-10] MEDS: PIPERACILLIN SODIUM/TAZOBACTAM 3.375 GM in NORMAL SALINE 100 ML IV SCH ×3 (05:21→17:18)
[2020-05-10] MEDS: RINGERS SOLUTION,LACTATED 1,000 ML IV PRN ×2 (05:27→15:24)
[2020-05-10] MEDS: IPRATROPIUM/ALBUTEROL 0.5-2.5 MG/3 ML AMPUL NEB PRN (06:04)
[2020-05-10] MEDS: IPRATROPIUM/ALBUTEROL 0.5-2.5 MG/3 ML AMPUL NEB SCH ×3 (07:30→19:45)
[2020-05-10] MEDS: FLUTICASONE/UMECLIDIN/VILANTER 100-62.5-25 MCG/DOSE IH SCH (10:00)
[2020-05-10] MEDS: FAMOTIDINE 20 MG TABLET PO SCH ×2 (10:01→21:32)
[2020-05-10] MEDS: GUAIFENESIN 600 MG TABLET.SA PO SCH ×2 (10:01→21:32)
[2020-05-10] MEDS: NIFEDIPINE 30 MG TAB.ER.24 PO SCH (10:01)
[2020-05-10] MEDS: NICOTINE 21 MG/24 HR PATCH.TD24 TD SCH (10:01)
[2020-05-10] MEDS: ATENOLOL 50 MG TABLET PO SCH (10:02)
[2020-05-10] MEDS: ASPIRIN 81 MG TABLET, CHEWABLE PO SCH (10:02)
[2020-05-10] MEDS: NORMAL SALINE 10 ML SDV (SCHEDULED) IV SCH ×2 (10:05→21:33)
[2020-05-10] MEDS: ENOXAPARIN SODIUM INJ 40 MG/0.4 ML DISP.SYRIN SUBCUT SCH (10:06)
[2020-05-10] MEDS: DOCUSATE SODIUM 100 MG CAPSULE PO SCH (10:19)
[2020-05-10] MEDS: POTASSIUM CHLORIDE 10 MEQ TABLET.ER PO SCH ×3 (10:19→17:18)
[2020-05-10] MEDS: PHOSPHORUS #1 250 MG TABLET PO SCH ×3 (10:20→17:18)
[2020-05-10] MEDS ORDERED: ALBUTEROL SULFATE HFA (90 MCG/PUFF) 8 GM MDI IH PRN (14:16)
--- NOTE | 2020-05-10 16:28 | PDOC PROGRESS REPORT ---
Subjective Progress Note for:: 05/10/20 Subjective:: No adverse events overnight. Patient's condition remains largely unchanged. She still not eating very much. She still stable on 3 to 4 L per nasal cannula. She still very weak. Her biopsy results came back negative, but it was bronchial washings and bronchial brushings. I spoke with Dr. Briggs who recommended repeating a CT of the chest without contrast to assess for any interval change. Reason For Visit: ACUTE RESPIRATORY FAILURE WITH HYPOXIA PNEUMONIA Physical Exam Vital Signs: Temp Pulse Resp BP Pulse Ox 97.5 F 86 16 126/62 H 95 05/10/20 11:52 05/10/20 14:20 05/10/20 14:20 05/10/20 11:52 05/10/20 15:31 Intake & Output 05/09/20 05/10/20 05/11/20 06:59 06:59 06:59 Intake Total 2046 3186 1000 Output Total 1825 1540 Balance 221 1646 1000 Weight 66.2 kg 66.8 kg 66.8 kg General appearance: PRESENT: cooperative, mild distress, well-developed Head exam: PRESENT: atraumatic, normocephalic Eye exam: PRESENT: conjunctiva pale. ABSENT: scleral icterus Ear exam: PRESENT: normal external ear exam. ABSENT: bleeding, drainage Mouth exam: PRESENT: dry mucosa, tongue midline Neck exam: ABSENT: carotid bruit, JVD, lymphadenopathy Respiratory exam: PRESENT: prolonged expiratory phas, rhonchi - on the right, symmetrical, unlabored. ABSENT: accessory muscle use, rales, tachypnea, wheezes Cardiovascular exam: PRESENT: +S1, +S2, tachycardia. ABSENT: bradycardia, diastolic murmur, irregular rhythm, systolic murmur GI/Abdominal exam: PRESENT: hypoactive bowel sounds, soft. ABSENT: distended, g uarding, tenderness Rectal exam: PRESENT: deferred Extremities exam: ABSENT: pedal edema Neurological exam: PRESENT: alert, awake, oriented to person, oriented to place, CN II-XII grossly intact. ABSENT: altered Results Laboratory Results: 05/07/20 05:18 05/09/20 09:35 05/06/20 12:07 Bronchial Washings Fungal Smear - Final 05/06/20 12:07 Bronchial Washings Fungal Smear - Final 04/29/20 04/29/20 04/29/20 16:53 16:53 22:24 Creatine Kinase 100 CK-MB (CK-2) 2.44 Troponin I 0.029 NT-Pro-B Natriuret Pep 1250 H 04/29/20 04/30/20 22:24 06:21 Creatine Kinase CK-MB (CK-2) Troponin I 0.024 0.025 NT-Pro-B Natriuret Pep Impressions: Chest/Abdomen CTA 04/29/20 21:12 IMPRESSION: No evidence of pulmonary embolus. Mucous plugging. There is a large central mass lesion left infrahilar may represent a pulmonary mass or perhaps adenopathy. Other prominent mediastinal lymph nodes are seen. Multiple bilateral pulmonary nodules are seen. Some of the smaller nodules have an appearance suspicious for an infectious inflammatory process but there are larger well-rounded and more sharply marginated soft tissue nodules which are suspicious for neoplasm. Is there a known history of a primary carcinoma? . Chest X-Ray 05/02/20 09:00 IMPRESSION: INCREASING FAINT AIRSPACE DISEASE IN THE RIGHT UPPER LOBE AND LEFT LOWER LOBE CONCERNING FOR DEVELOPING PNEUMONIA. PICC Line Insertion 05/06/20 00:00 IMPRESSION: SUCCESSFUL PLACEMENT OF A 5 FR DUAL LUMEN 39 CM PICC IN THE LEFT BASILIC VEIN. Assessment and Plan - Diagnosis (1) Acute respiratory failure with hypoxemia Is this a current diagnosis for this admission?: Yes Plan: She has been stable on nasal cannula. (2) Mediastinal mass Is this a current diagnosis for this admission?: Yes Plan: Bronchoscopy pathology came back negative. Dr. Briggs recommended CT of the chest without contrast. If it shows signs of improvement, then we can be more confident that this was some sort of inflammatory process like an infection. If there is little improvement or it appears unchanged, we can feel more confident that this is probably a neoplastic process that will need further investigation, specifically a biopsy via some method. (3) COPD with exacerbation Is this a current diagnosis for this admission?: Yes Plan: Continue steroids and antibiotics, will start to taper (4) Cigarette nicotine dependence Qualifiers: Substance use status: uncomplicated Qualified Code(s): F17.210 - Nicotine dependence, cigarettes, uncomplicated Is this a current diagnosis for this admission?: Yes Plan: Strongly encourage cessation (5) Hypocalcemia Is this a current diagnosis for this admission?: Yes Plan: I am not going to continue to replace this because no matter how much calcium we give her she is not retaining any of it and she is asymptomatic (6) Hypomagnesemia Is this a current diagnosis for this admission?: Yes Plan: Replace with supplement as needed - Plan Summary Summary: 05/04/2020 Respiratory failure-still requires supplemental oxygen. Pneumonia-sputum culture positive for Pseudomonas and Haemophilus influenza. Currently on Zosyn and levofloxacin. I have asked Dr. Briggs, barbering instructor, to consult as well. Exacerbation COPD with asthma-nebulizer treatments as well as mucolytic's and steroids Electrolyte abnormalities-magnesium, calcium and potassium have been given. Serum sodium is now normal. Monitor electrolytes closely. Tachycardia-patient's heart rate has been variable despite patient at rest. Continue to monitor on telemetry. Correct electrolytes and reassess. Intravenous beta-emelia available if needed. Multiple pulmonary nodules-unsure if malignant versus inflammatory versus infectious. Continue antibiotic therapy. Pulmonology will assess as well. Tobacco dependence-nicotine patch available. History of smoking makes this illness that much worse 05/05/2020- Appreciate Dr. Briggs's input. Respiratory failure with pneumonia and COPD-patient now requiring BiPAP. She was able to tolerate nasal cannula yesterday. Dr. Briggs is planning a bronchoscopy. We will continue current antibiotic therapy as well as steroids and nebulizer treatments. Pulmonary nodules-possible endobronchial lesion at the isabel. Pulmonology may be able to biopsy. The procedure most likely will be tomorrow. Electrolyte abnormalities-calcium is still low even corrected for low albumin. Phosphorus is low as well. Potassium is now normal at 4.4. We will give additional calcium and initiate potassium phosphate orally. Tobacco dependence-continue nicotine patch Tachycardia-improved. Possibly related to electrolyte abnormalities. Continue telemetry monitoring. Awaiting bronchoscopy results. Definitely concerned regarding the patient's condition and if this is a malignancy the treatment possibilities given her age and current illness. 05/06/2020 Respiratory failure with pneumonia and COPD-the patient is on nasal cannula with reasonable saturation at rest this morning. She reports that she does not tolerate BiPAP all that well. She is due for bronchoscopy today. Hopefully biopsy can be obtained and we can get a final diagnosis on the pulmonary lesions. Her pneumonia does appear to slowly be improving. Unfortunately her white blood cell count continues to rise. I have decreased the Solu-Medrol to 40 mg twice daily. Dysphagia-it is difficult to assess specifics as she reports coughing, poor appetite, concern with a number of oral medications but does not specifically report food sticking when she swallows. She also does not feel like eating with her profound weakness. I did speak with speech therapy and they will evaluate the patient. There are multiple potential etiologies at play including but not limited to direct pressure affect on the esophagus from the pulmonary mass, her profound weakness and possible motor dysfunction. Electrolyte abnormalities-she seems to be maintaining normal potassium levels but her calcium, phosphorus and magnesium are still low. Will attempt to supplement electrolytes by IV as much as possible due to her poor appetite. Pulmonary nodules-with the bronchoscopy today hopefully they can get a biopsy. Tachycardia-the patient was tachycardic again this morning. She still has electrolyte abnormalities. She will be borderline tachycardia and then all of a sudden have a markedly increased heart rate up to 150-160. We will continue to monitor on telemetry and correct electrolytes. Tobacco use-nicotine patch and continue encouraging cessation - Time Time Spent with patient: 25-34 minutes Anticipated Discharge Disposition: Pending clinical condition Anticipated Discharge Timeframe: Pending clinical condition
[2020-05-10] MEDS: LIDOCAINE 5% (700 MG) TRANSDERMAL ADH..PATCH TP SCH (21:31)
[2020-05-10] MEDS: POLYETHYLENE GLYCOL 3350 POWDER 17 GM/1 PACKET PO SCH (21:31)
[2020-05-10] MEDS: ATORVASTATIN CALCIUM 40 MG TABLET PO SCH (21:32)
[2020-05-10] MEDS: MONTELUKAST SODIUM 10 MG TABLET PO SCH (21:32)
[2020-05-10] MEDS: PHARMACY COMMUNICATION ORDER MC SCH (21:33)
--- NOTE | 2020-05-10 23:23 | RADIOLOGY REPORT (SQ) ---
CT CHEST WITHOUT INTRAVENOUS CONTRAST: 05/10/2020 10:15 PM CDT HISTORY: 84-year old patient with concern for chest masses. COMPARISON: CT the chest from 04/30/2020 TECHNIQUE: Serial 3 mm axial images were obtained from above the thoracic inlet to the upper abdomen without intravenous contrast administered. Sagittal and coronal reconstructions were also obtained and reviewed. This exam was performed according to our departmental dose-optimization program, which includes automated exposure control, adjustment of the mA and/or KV according to the patient's size and/or use of iterative reconstruction technique. FINDINGS: Both lobes of the thyroid appear homogenous with no suspicious nodules identified. The thoracic aorta is normal in size. The main pulmonary artery is within normal limits. The heart is enlarged. There is no evidence of a pericardial effusion. Coronary artery calcifications are seen. Mitral annular calcifications are seen. A left upper extremity PICC line catheter tip projects near the SVC/right atrial junction. There are small bilateral pleural effusions present. There is no evidence of a pneumothorax. The central tracheobronchial tree is patent. The visualized esophagus is patulous. There is mild centrilobular emphysematous change present. There are round groundglass airspace opacities. There is a 9 mm groundglass nodule and an adjacent cavitary 8 mm nodule at the right upper lobe, best seen on images nine and 10 of 58. There is a 2.0 x 1.2 cm nodule at the right lower lobe, best seen on image 23 of 58. There is air trapping present. The nodule at the posterior aspect of the left upper lobe is decreased since prior imaging and measures up to 1.0 x 1.0 cm in comparison to 1.5 x 1.3 cm. The previously seen small satellite lesion is also smaller. There was a nodular opacity at the medial aspect of the right lung base left lung base which has also diminished in size and now measures at least 1.6 x 1.1 cm in comparison to 2.4 x 1.5 cm. A left lower lobe subpleural nodule is obscured by consolidative airspace opacities. There is a nodule seen near the right major and minor fissures measuring up to 9 mm. There are nonspecific pretracheal and paratracheal lymph nodes measuring up to 6 to 7 mm in short axis dimension. No suspicious supraclavicular or axillary lymphadenopathy is seen. Evaluation of the upper abdomen is limited by the lack of intravenous contrast. No gross abnormality seen at the upper abdomen. There is trace fluid over the upper abdomen. Some oral contrast was given to the patient. Review of the bone show no evidence of any suspicious lytic or blastic lesions. There is a similar compression deformity at T12 and T8. IMPRESSION: Bilateral lung nodules appear decreased since prior imaging. There is one at the right upper lobe which may have some cavitation. There is also decreased groundglass change. This may reflect resolving infection. Interval follow-up to complete resolution is recommended within one month. The previously seen reticulonodular airspace opacities and groundglass airspace opacities have significantly improved.
[2020-05-11] MEDS: PIPERACILLIN SODIUM/TAZOBACTAM 3.375 GM in NORMAL SALINE 100 ML IV SCH ×2 (00:07→05:49)
[2020-05-11] MEDS: RINGERS SOLUTION,LACTATED 1,000 ML IV PRN ×2 (00:08→13:15)
[2020-05-11] MEDS: LEVOTHYROXINE SODIUM 0.075 MG TABLET PO SCH (05:49)
[2020-05-11] MEDS: LEVOTHYROXINE SODIUM 0.1 MG TABLET PO SCH (05:49)
[2020-05-11 07:04] LABS: HEMATOCRIT 23.3 % (36.0-47.0); MEAN CORPUSCULAR HEMOGLOBIN 28.5 pg (27.0-33.4); MEAN CORPUSCULAR HGB CONC 34.4 g/dL (32.0-36.0); MEAN CORPUSCULAR VOLUME 83 fl (80-97); PLATELET COUNT 388 10^3/uL (150-450); RED BLOOD COUNT 2.81 10^6/uL (3.72-5.28); WHITE BLOOD COUNT 26.7 10^3/uL (4.0-10.5)
[2020-05-11 07:24] LABS: ALBUMIN 1.8 g/dL (3.5-5.0); ALKALINE PHOSPHATASE 28 U/L (38-126); ASPARTATE AMINO TRANSFERASE 21 U/L (14-36); BILIRUBIN,DIRECT 0.2 mg/dL (0.0-0.4); BILIRUBIN,TOTAL 0.3 mg/dL (0.2-1.3); BLOOD UREA NITROGEN 5 mg/dL (7-20); POTASSIUM 3.8 mmol/L (3.6-5.0); TOTAL PROTEIN 3.8 g/dL (6.3-8.2)
[2020-05-11 07:29] LABS: CARBON DIOXIDE 28 mmol/L (22-30); CHLORIDE 105 mmol/L (98-107)
[2020-05-11 07:34] LABS: GLUCOSE 56 mg/dL (75-110)
[2020-05-11 07:44] LABS: CALCIUM 6.1 mg/dL (8.4-10.2)
[2020-05-11 07:51] LABS: ANION GAP 1 (5-19)
[2020-05-11] MEDS: PHOSPHORUS #1 250 MG TABLET PO SCH ×3 (08:06→17:25)
[2020-05-11] MEDS: POTASSIUM CHLORIDE 10 MEQ TABLET.ER PO SCH ×3 (08:06→17:25)
--- NOTE | 2020-05-11 08:20 | PDOC PROGRESS REPORT ---
Subjective Progress Note for:: 05/11/20 Subjective:: Patient states that she is uncomfortable in the bed. Unable to reposition herself due to left arm weakness. Otherwise, no complaints. States that the plan is for her to go to rehab and repeat CT at a later time. Reason For Visit: ACUTE RESPIRATORY FAILURE WITH HYPOXIA PNEUMONIA Physical Exam Vital Signs: Temp Pulse Resp BP Pulse Ox 97.6 F 73 16 119/45 L 100 05/11/20 03:18 05/11/20 07:00 05/11/20 03:18 05/11/20 03:18 05/11/20 03:18 Intake & Output 05/10/20 05/11/20 05/12/20 06:59 06:59 06:59 Intake Total 3186 2720 Output Total 1540 1050 Balance 1646 1670 Weight 66.8 kg 67.2 kg General appearance: PRESENT: no acute distress Head exam: PRESENT: normocephalic Respiratory exam: PRESENT: clear to auscultation leonid, unlabored Cardiovascular exam: PRESENT: RRR GI/Abdominal exam: PRESENT: soft. ABSENT: tenderness Extremities exam: ABSENT: pedal edema Neurological exam: PRESENT: alert, awake Psychiatric exam: PRESENT: appropriate affect Skin exam: PRESENT: normal color Results Laboratory Results: 05/11/20 05:50 05/11/20 05:50 05/11/20 05/11/20 05:50 05:50 WBC 26.7 H RBC 2.81 L Hgb 8.0 L Hct 23.3 L MCV 83 MCH 28.5 MCHC 34.4 RDW 16.0 H Plt Count 388 Sodium 134.1 L Potassium 3.8 Chloride 105 Carbon Dioxide 28 Anion Gap 1 L BUN 5 L Creatinine 0.54 Est GFR ( Amer) > 60 Glucose 56 L Calcium 6.1 L* Total Bilirubin 0.3 AST 21 Alkaline Phosphatase 28 L Total Protein 3.8 L Albumin 1.8 L 05/06/20 12:07 Bronchial Washings Fungal Smear - Final 05/06/20 12:07 Bronchial Washings Fungal Smear - Final 04/29/20 04/29/20 04/29/20 16:53 16:53 22:24 Creatine Kinase 100 CK-MB (CK-2) 2.44 Troponin I 0.029 NT-Pro-B Natriuret Pep 1250 H 04/29/20 04/30/20 22:24 06:21 Creatine Kinase CK-MB (CK-2) Troponin I 0.024 0.025 NT-Pro-B Natriuret Pep Impressions: Chest/Abdomen CTA 04/29/20 21:12 IMPRESSION: No evidence of pulmonary embolus. Mucous plugging. There is a large central mass lesion left infrahilar may represent a pulmonary mass or perhaps adenopathy. Other prominent mediastinal lymph nodes are seen. Multiple bilateral pulmonary nodules are seen. Some of the smaller nodules have an appearance suspicious for an infectious inflammatory process but there are larger well-rounded and more sharply marginated soft tissue nodules which are suspicious for neoplasm. Is there a known history of a primary carcinoma? . Chest X-Ray 05/02/20 09:00 IMPRESSION: INCREASING FAINT AIRSPACE DISEASE IN THE RIGHT UPPER LOBE AND LEFT LOWER LOBE CONCERNING FOR DEVELOPING PNEUMONIA. PICC Line Insertion 05/06/20 00:00 IMPRESSION: SUCCESSFUL PLACEMENT OF A 5 FR DUAL LUMEN 39 CM PICC IN THE LEFT BASILIC VEIN. Chest CT 05/10/20 00:00 IMPRESSION: Bilateral lung nodules appear decreased since prior imaging. There is one at the right upper lobe which may have some cavitation. There is also decreased groundglass change. This may reflect resolving infection. Interval follow-up to complete resolution is recommended within one month. The previously seen reticulonodular airspace opacities and groundglass airspace opacities have significantly improved. Assessment & Plan - Diagnosis (1) Acute respiratory failure with hypoxemia Is this a current diagnosis for this admission?: Yes (2) Pulmonary nodules/lesions, multiple Is this a current diagnosis for this admission?: Yes Plan: Initial pathology has all been negative for cancer. I agree with plans to repeat CT in the future (I would wait about a week). If still positive, consider further biopsy. (3) Leukocytosis Qualifiers: Leukocytosis type: leukemoid reaction Qualified Code(s): D72.823 - Leukemoid reaction Is this a current diagnosis for this admission?: Yes (4) Anemia Qualifiers: Other causes of anemia: chronic disease, other Is this a current diagnosis for this admission?: Yes Plan: I will check iron, B12, Folate, as deficiencies may give elevated WBC and PLT with anemia. However, more likely that this is anemia of chronic disease. I will be happy to follow as outpatient. Consider transfusion for HGB <8. - Time Time Spent with patient: Less than 15 minutes
[2020-05-11] MEDS: IPRATROPIUM/ALBUTEROL 0.5-2.5 MG/3 ML AMPUL NEB SCH ×3 (08:33→20:03)
[2020-05-11] MEDS: ATENOLOL 50 MG TABLET PO SCH (10:03)
[2020-05-11] MEDS: NIFEDIPINE 30 MG TAB.ER.24 PO SCH (10:03)
[2020-05-11] MEDS: METHYLPREDNISOLONE INJ 40 MG/1 ML SDV IV SCH (10:04)
[2020-05-11] MEDS: ASPIRIN 81 MG TABLET, CHEWABLE PO SCH (10:04)
[2020-05-11] MEDS: GUAIFENESIN 600 MG TABLET.SA PO SCH ×2 (10:04→22:33)
[2020-05-11] MEDS: FAMOTIDINE 20 MG TABLET PO SCH ×2 (10:04→22:33)
[2020-05-11] MEDS: NORMAL SALINE 10 ML SDV (SCHEDULED) IV SCH ×2 (10:05→22:34)
[2020-05-11] MEDS: NICOTINE 21 MG/24 HR PATCH.TD24 TD SCH (10:05)
--- NOTE | 2020-05-11 10:05 | PDOC PROGRESS REPORT ---
Subjective Progress Note for:: 05/10/20 Subjective:: In the interum her bronchoscopy results did not reveal any evidence of carcinoma. She denies any new complaints at this time. Specifically she denies any never shortness of breath. Reason For Visit: ACUTE RESPIRATORY FAILURE WITH HYPOXIA PNEUMONIA Physical Exam Vital Signs: Temp Pulse Resp BP Pulse Ox 98.1 F 87 16 114/58 L 94 05/10/20 19:20 05/10/20 19:45 05/10/20 19:45 05/10/20 19:20 05/10/20 19:45 Intake & Output 05/09/20 05/10/20 05/11/20 06:59 06:59 06:59 Intake Total 2046 3186 1460 Output Total 1825 1540 Balance 221 1646 1460 Weight 66.2 kg 66.8 kg 66.8 kg Exam: Unchanged Results Laboratory Results: 05/07/20 05:18 05/09/20 09:35 05/06/20 12:07 Bronchial Washings Fungal Smear - Final 05/06/20 12:07 Bronchial Washings Fungal Smear - Final 04/29/20 04/29/20 04/29/20 16:53 16:53 22:24 Creatine Kinase 100 CK-MB (CK-2) 2.44 Troponin I 0.029 NT-Pro-B Natriuret Pep 1250 H 04/29/20 04/30/20 22:24 06:21 Creatine Kinase CK-MB (CK-2) Troponin I 0.024 0.025 NT-Pro-B Natriuret Pep Impressions: Chest/Abdomen CTA 04/29/20 21:12 IMPRESSION: No evidence of pulmonary embolus. Mucous plugging. There is a large central mass lesion left infrahilar may represent a pulmonary mass or perhaps adenopathy. Other prominent mediastinal lymph nodes are seen. Multiple bilateral pulmonary nodules are seen. Some of the smaller nodules have an appearance suspicious for an infectious inflammatory process but there are larger well-rounded and more sharply marginated soft tissue nodules which are suspicious for neoplasm. Is there a known history of a primary carcinoma? . Chest X-Ray 05/02/20 09:00 IMPRESSION: INCREASING FAINT AIRSPACE DISEASE IN THE RIGHT UPPER LOBE AND LEFT LOWER LOBE CONCERNING FOR DEVELOPING PNEUMONIA. PICC Line Insertion 05/06/20 00:00 IMPRESSION: SUCCESSFUL PLACEMENT OF A 5 FR DUAL LUMEN 39 CM PICC IN THE LEFT BASILIC VEIN. Chest CT 05/10/20 00:00 IMPRESSION: Bilateral lung nodules appear decreased since prior imaging. There is one at the right upper lobe which may have some cavitation. There is also decreased groundglass change. This may reflect resolving infection. Interval follow-up to complete resolution is recommended within one month. The previously seen reticulonodular airspace opacities and groundglass airspace opacities have significantly improved. Assessment & Plan - Diagnosis (1) Mediastinal mass Is this a current diagnosis for this admission?: Yes (2) Pulmonary nodules/lesions, multiple Is this a current diagnosis for this admission?: Yes - Time Time Spent with patient: 35 or more minutes - Plan Summary Plan Summary: I think a repeat CT scan is the next step. If she continues to have significant lung and mediastinal lesions then CT guided biopsy would be the next step. Her CT scan is now available. Feels bilateral pleural effusions with some atelectasis at the left lung base. In addition there continues to be some mediastinal abnormalities. It is difficult to separate out which of these findings may be postinflammatory in which may be reactive to an underlying carcinoma. Think the next appropriate step is continued observation with serial CT scans. Of course does not need be performed in the hospital. We will be happy to follow her as an outpatient. For now would continue antibiotics. I would like to see her back in the office in roughly a week's time with a CT scan. And will proceed from there based upon clearing her nonclearing of pulmonary findings on CT scan. At some point PET/CT may be helpful.
[2020-05-11] MEDS: DOCUSATE SODIUM 100 MG CAPSULE PO SCH (10:06)
[2020-05-11] MEDS: ENOXAPARIN SODIUM INJ 40 MG/0.4 ML DISP.SYRIN SUBCUT SCH (10:06)
[2020-05-11] MEDS: FLUTICASONE/UMECLIDIN/VILANTER 100-62.5-25 MCG/DOSE IH SCH (10:07)
[2020-05-11] MEDS: IPRATROPIUM/ALBUTEROL 0.5-2.5 MG/3 ML AMPUL NEB PRN (11:10)
[2020-05-11 12:22] LABS: ABSOLUTE RETICS # 0.034 10^6/uL (0.028-0.122); RETICULOCYTE COUNT (AUTO) 1.21 % (0.66-2.85)
[2020-05-11 12:27] LABS: IRON(TIBC) 16.1 ug/dL (37-170)
[2020-05-11 13:34] LABS: FOLATE 8.69 ng/mL (>2.76)
[2020-05-11] MEDS: ASCORBIC ACID 500 MG TABLET PO SCH (17:25)
[2020-05-11] MEDS: FERROUS SULFATE 325 MG TABLET PO SCH (17:26)
--- NOTE | 2020-05-11 17:51 | PDOC PROGRESS REPORT ---
Subjective Progress Note for:: 05/11/20 Subjective:: No adverse events overnight. Patient's condition remains largely unchanged. She still not eating very much. She still stable on 3 to 4 L per nasal cannula. She still very weak. She is agreeable to going to a rehab center. Reason For Visit: ACUTE RESPIRATORY FAILURE WITH HYPOXIA PNEUMONIA Physical Exam Vital Signs: Temp Pulse Resp BP Pulse Ox 97.4 F 90 22 H 124/60 98 05/11/20 17:14 05/11/20 17:14 05/11/20 17:14 05/11/20 17:14 05/11/20 17:14 Intake & Output 05/10/20 05/11/20 05/12/20 06:59 06:59 06:59 Intake Total 3186 2720 1334 Output Total 1540 1050 Balance 1646 1670 1334 Weight 66.8 kg 67.2 kg General appearance: PRESENT: cooperative, mild distress, well-developed Head exam: PRESENT: atraumatic, normocephalic Eye exam: PRESENT: conjunctiva pale. ABSENT: scleral icterus Ear exam: PRESENT: normal external ear exam. ABSENT: bleeding, drainage Mouth exam: PRESENT: dry mucosa, tongue midline Neck exam: ABSENT: carotid bruit, JVD, lymphadenopathy Respiratory exam: PRESENT: prolonged expiratory phas, rhonchi - on the right, symmetrical, unlabored. ABSENT: accessory muscle use, rales, tachypnea, wheezes Cardiovascular exam: PRESENT: +S1, +S2, tachycardia. ABSENT: bradycardia, diastolic murmur, irregular rhythm, systolic murmur GI/Abdominal exam: PRESENT: hypoactive bowel sounds, soft. ABSENT: distended, guarding, tenderness Rectal exam: PRESENT: deferred Extremities exam: ABSENT: pedal edema Neurological exam: PRESENT: alert, awake, oriented to person, oriented to place, CN II-XII grossly intact. ABSENT: altered Results Laboratory Results: 05/11/20 05:50 05/11/20 05:50 05/11/20 05/11/20 05/11/20 05:50 05:50 05:50 WBC 26.7 H RBC 2.81 L Hgb 8.0 L Hct 23.3 L MCV 83 MCH 28.5 MCHC 34.4 RDW 16.0 H Plt Count 388 Retic Count (auto) 1.21 Sodium 134.1 L Potassium 3.8 Chloride 105 Carbon Dioxide 28 Anion Gap 1 L BUN 5 L Creatinine 0.54 Est GFR ( Amer) > 60 Glucose 56 L Calcium 6.1 L* Iron TIBC % Saturation Ferritin Total Bilirubin 0.3 AST 21 Alkaline Phosphatase 28 L Total Protein 3.8 L Albumin 1.8 L Vitamin B12 Folate 05/11/20 05:50 WBC RBC Hgb Hct MCV MCH MCHC RDW Plt Count Retic Count (auto) Sodium Potassium Chloride Carbon Dioxide Anion Gap BUN Creatinine Est GFR ( Amer) Glucose Calcium Iron 16.1 L TIBC 177 L % Saturation 9 Ferritin 483.00 H Total Bilirubin AST Alkaline Phosphatase Total Protein Albumin Vitamin B12 820.0 Folate 8.69 05/06/20 12:07 Bronchial Washings Fungal Smear - Final 05/06/20 12:07 Bronchial Washings Fungal Smear - Final 04/29/20 04/29/20 04/29/20 16:53 16:53 22:24 Creatine Kinase 100 CK-MB (CK-2) 2.44 Troponin I 0.029 NT-Pro-B Natriuret Pep 1250 H 04/29/20 04/30/20 22:24 06:21 Creatine Kinase CK-MB (CK-2) Troponin I 0.024 0.025 NT-Pro-B Natriuret Pep Impressions: Chest/Abdomen CTA 04/29/20 21:12 IMPRESSION: No evidence of pulmonary embolus. Mucous plugging. There is a large central mass lesion left infrahilar may represent a pulmonary mass or perhaps adenopathy. Other prominent mediastinal lymph nodes are seen. Multiple bilateral pulmonary nodules are seen. Some of the smaller nodules have an appearance suspicious for an infectious inflammatory process but there are larger well-rounded and more sharply marginated soft tissue nodules which are suspicious for neoplasm. Is there a known history of a primary carcinoma? . Chest X-Ray 05/02/20 09:00 IMPRESSION: INCREASING FAINT AIRSPACE DISEASE IN THE RIGHT UPPER LOBE AND LEFT LOWER LOBE CONCERNING FOR DEVELOPING PNEUMONIA. PICC Line Insertion 05/06/20 00:00 IMPRESSION: SUCCESSFUL PLACEMENT OF A 5 FR DUAL LUMEN 39 CM PICC IN THE LEFT BASILIC VEIN. Chest CT 05/10/20 00:00 IMPRESSION: Bilateral lung nodules appear decreased since prior imaging. There is one at the right upper lobe which may have some cavitation. There is also decreased groundglass change. This may reflect resolving infection. Interval follow-up to complete resolution is recommended within one month. The previously seen reticulonodular airspace opacities and groundglass airspace opacities have significantly improved. Assessment and Plan - Diagnosis (1) Acute respiratory failure with hypoxemia Is this a current diagnosis for this admission?: Yes Plan: She has been stable on nasal cannula. (2) Mediastinal mass Is this a current diagnosis for this admission?: Yes Plan: Repeat CT scan shows that the lesions seem to be somewhat smaller in size. This would suggest something inflammatory rather than malignancy. Spoke with Dr. Briggs who recommended seeing him in the office in about a week and he plans to do a follow-up scan in 2 to 4 weeks. (3) COPD with exacerbation Is this a current diagnosis for this admission?: Yes Plan: Antibiotics have been discontinued. Exacerbation resolved. Tapering steroids. They can be discontinued when she is discharged. (4) Cigarette nicotine dependence Qualifiers: Substance use status: uncomplicated Qualified Code(s): F17.210 - Nicotine dependence, cigarettes, uncomplicated Is this a current diagnosis for this admission?: Yes Plan: Strongly encourage cessation (5) Hypocalcemia Is this a current diagnosis for this admission?: Yes Plan: I am not going to continue to replace this because no matter how much calcium we give her she is not retaining any of it and she is asymptomatic. She also has a low albumin because she does not eat very well. (6) Hypomagnesemia Is this a current diagnosis for this admission?: Yes Plan: Replace with supplement as needed - Plan Summary Summary: 05/04/2020 Respiratory failure-still requires supplemental oxygen. Pneumonia-sputum culture positive for Pseudomonas and Haemophilus influenza. Currently on Zosyn and levofloxacin. I have asked Dr. Briggs, sales rep, to consult as well. Exacerbation COPD with asthma-nebulizer treatments as well as mucolytic's and steroids Electrolyte abnormalities-magnesium, calcium and potassium have been given. Serum sodium is now normal. Monitor electrolytes closely. Tachycardia-patient's heart rate has been variable despite patient at rest. Continue to monitor on telemetry. Correct electrolytes and reassess. Intravenous beta-emelia available if needed. Multiple pulmonary nodules-unsure if malignant versus inflammatory versus infectious. Continue antibiotic therapy. Pulmonology will assess as well. Tobacco dependence-nicotine patch available. History of smoking makes this illness that much worse 05/05/2020- Appreciate Dr. Briggs's input. Respiratory failure with pneumonia and COPD-patient now requiring BiPAP. She was able to tolerate nasal cannula yesterday. Dr. Briggs is planning a bronchoscopy. We will continue current antibiotic therapy as well as steroids and nebulizer treatments. Pulmonary nodules-possible endobronchial lesion at the isabel. Pulmonology may be able to biopsy. The procedure most likely will be tomorrow. Electrolyte abnormalities-calcium is still low even corrected for low albumin. Phosphorus is low as well. Potassium is now normal at 4.4. We will give additional calcium and initiate potassium phosphate orally. Tobacco dependence-continue nicotine patch Tachycardia-improved. Possibly related to electrolyte abnormalities. Continue telemetry monitoring. Awaiting bronchoscopy results. Definitely concerned regarding the patient's condition and if this is a malignancy the treatment possibilities given her age and current illness. 05/06/2020 Respiratory failure with pneumonia and COPD-the patient is on nasal cannula with reasonable saturation at rest this morning. She reports that she does not tolerate BiPAP all that well. She is due for bronchoscopy today. Hopefully biopsy can be obtained and we can get a final diagnosis on the pulmonary lesions. Her pneumonia does appear to slowly be improving. Unfortunately her white blood cell count continues to rise. I have decreased the Solu-Medrol to 40 mg twice daily. Dysphagia-it is difficult to assess specifics as she reports coughing, poor appetite, concern with a number of oral medications but does not specifically report food sticking when she swallows. She also does not feel like eating with her profound weakness. I did speak with speech therapy and they will evaluate the patient. There are multiple potential etiologies at play including but not limited to direct pressure affect on the esophagus from the pulmonary mass, her profound weakness and possible motor dysfunction. Electrolyte abnormalities-she seems to be maintaining normal potassium levels but her calcium, phosphorus and magnesium are still low. Will attempt to supplement electrolytes by IV as much as possible due to her poor appetite. Pulmonary nodules-with the bronchoscopy today hopefully they can get a biopsy. Tachycardia-the patient was tachycardic again this morning. She still has electrolyte abnormalities. She will be borderline tachycardia and then all of a sudden have a markedly increased heart rate up to 150-160. We will continue to monitor on telemetry and correct electrolytes. Tobacco use-nicotine patch and continue encouraging cessation - Time Time Spent with patient: 15-24 minutes Anticipated Discharge Disposition: Residential Facility Anticipated Discharge Timeframe: within 72 hours
[2020-05-11] MEDS: POLYETHYLENE GLYCOL 3350 POWDER 17 GM/1 PACKET PO SCH (22:29)
[2020-05-11] MEDS: LIDOCAINE 5% (700 MG) TRANSDERMAL ADH..PATCH TP SCH (22:33)
[2020-05-11] MEDS: ATORVASTATIN CALCIUM 40 MG TABLET PO SCH (22:33)
[2020-05-11] MEDS: MONTELUKAST SODIUM 10 MG TABLET PO SCH (22:33)
[2020-05-12] MEDS: GUAIFENESIN/D-METHORPHAN (200-20 MG) SYRUP 10 ML PO PRN (05:46)
[2020-05-12] MEDS: LEVOTHYROXINE SODIUM 0.1 MG TABLET PO SCH (05:46)
[2020-05-12] MEDS: LEVOTHYROXINE SODIUM 0.075 MG TABLET PO SCH (05:46)
[2020-05-12] MEDS: IPRATROPIUM/ALBUTEROL 0.5-2.5 MG/3 ML AMPUL NEB SCH ×3 (07:31→20:56)
[2020-05-12] MEDS: PHOSPHORUS #1 250 MG TABLET PO SCH ×3 (08:00→17:45)
[2020-05-12] MEDS: POTASSIUM CHLORIDE 10 MEQ TABLET.ER PO SCH ×3 (08:00→17:45)
[2020-05-12 11:04] LABS: ARTERIAL BLOOD BASE EXCESS -1.4 mmol/L; ARTERIAL BLOOD FIO2 40%; ARTERIAL BLOOD H2CO3 0.96 mmol/L (1.05-1.35); ARTERIAL BLOOD O2 SATURATION 96.1 % (94-98); ARTERIAL BLOOD PCO2 31.9 mmHg (35-45); ARTERIAL BLOOD PH 7.46 (7.35-7.45); ARTERIAL BLOOD PO2 76.6 mmHg (80-100)
[2020-05-12] MEDS: NICOTINE 21 MG/24 HR PATCH.TD24 TD SCH (12:20)
[2020-05-12] MEDS: ENOXAPARIN SODIUM INJ 40 MG/0.4 ML DISP.SYRIN SUBCUT SCH (12:20)
[2020-05-12] MEDS: METHYLPREDNISOLONE INJ 40 MG/1 ML SDV IV SCH (12:21)
[2020-05-12] MEDS: NIFEDIPINE 30 MG TAB.ER.24 PO SCH (12:23)
[2020-05-12] MEDS: DOCUSATE SODIUM 100 MG CAPSULE PO SCH (12:23)
[2020-05-12] MEDS: FERROUS SULFATE 325 MG TABLET PO SCH ×2 (12:24→17:45)
[2020-05-12] MEDS: NORMAL SALINE 10 ML SDV (SCHEDULED) IV SCH ×2 (12:24→21:32)
[2020-05-12] MEDS: GUAIFENESIN 600 MG TABLET.SA PO SCH ×2 (12:24→21:19)
[2020-05-12] MEDS: ATENOLOL 50 MG TABLET PO SCH (12:24)
[2020-05-12] MEDS: ASPIRIN 81 MG TABLET, CHEWABLE PO SCH (12:24)
[2020-05-12] MEDS: ASCORBIC ACID 500 MG TABLET PO SCH ×2 (12:24→17:45)
[2020-05-12] MEDS: FAMOTIDINE 20 MG TABLET PO SCH ×2 (12:24→21:19)
[2020-05-12] MEDS: PHARMACY COMMUNICATION ORDER MC SCH (12:25)
[2020-05-12] MEDS: FLUTICASONE/UMECLIDIN/VILANTER 100-62.5-25 MCG/DOSE IH SCH (12:25)
--- NOTE | 2020-05-12 16:22 | RADIOLOGY REPORT (SQ) ---
EXAM DESCRIPTION: VENOUS BILATERAL UPPER IMAGES COMPLETED DATE/TIME: 05/12/2020 3:06 pm REASON FOR STUDY: EDEMA, LT ARM PICC LINE COMPARISON: None. TECHNIQUE: Dynamic and static gilmore scale and color images acquired of the right and left arm venous system. Selected spectral images acquired with additional compression and augmentation maneuvers. The contralateral subclavian vein and internal jugular vein were also imaged. Images stored on PACS. LIMITATIONS: None. FINDINGS: INTERNAL JUGULAR VEIN: Normal phasicity, compression, augmentation. No visualized echogeni c material on gilmore scale. No defects on color images. Comparison opposite side normal. SUBCLAVIAN VEIN: Normal compression, augmentation. No visualized echogenic material on gilmore scale. No defects on color images. AXILLARY VEIN: Normal compression, augmentation. No visualized echogenic material on gilmore scale. No d efects on color images. BRACHIAL VEIN: Normal compression, augmentation. No visualized echogenic material on gilmore scale. No d efects on color images. BASILIC VEIN: Normal compression, augmentation. No visualized echogenic material on gilmore scale. No de fects on color images. CEPHALIC VEIN: Noncompressible left cephalic vein in the midforearm. OTHER: No other significant finding. CONTRALATERAL SUBCLAVIAN VEIN AND INTERNAL JUGULAR VEIN: Normal phasicity, compression and augmentation. No visualized echogenic material on gilmore scale. No de fects on color images. IMPRESSION: Noncompressible left cephalic vein in the midforearm. No proximal thrombus identified in either upper extremity. TECHNICAL DOCUMENTATION: JOB ID: [id number] [id number] 2010 [employer]- All Rights Reserved Reading location - IP/workstation name: [employer]
[2020-05-12 17:06] LABS: C DIFFICILE GDH NEGATIVE (NEGATIVE)
--- NOTE | 2020-05-12 18:27 | PDOC PROGRESS REPORT ---
Subjective Progress Note for:: 05/12/20 Subjective:: JESSY BAKER is a 84 year old female past medical history of tobacco abuse, non-oxygen dependent COPD, hypothyroidism, chronic pain, hypertension presenting to ED complaining of recent onset worsening shortness of breath accompanied by productive cough, wheezing and rales. Patient denies any chest pain, fever, nausea, vomiting, diarrhea, constipation or any urinary symptoms. In ED a chest x-ray was positive for left lower lobe consolidation and multiple pulmonary nodules. Hospitalist was consulted for admission. In ED he was noted to have leukocytosis, thrombocytosis, ABG positive for hypoxemia, mildly elevated troponins and proBNP, mild hypercalcemia, hyponatremia, a CTA was done to follow-up for pulmonary nodule, showed multiple pulmonary nodules and a central mass likely malignancy. Admitted to ICU 04/11/2020 for worsening respiratory symptoms. Was not intubated at transfer back to floor on 05/04/2020. Pulmonary was consulted and are now nodules concerning for lung cancer. A bronchoscopy on 08/14/2019 was negative for malignancy. Oncology was consulted recommendation was to repeat CT in 1 week and is still positive consider further biopsy. Repeat CT on 05/10/2020 showed bilateral lung nodules appear decreased since prior imaging, right upper lobe which may have some cavitation. Bronchial washing grew normal oral josé miguel. Sputum culture from admission grew Pseudomonas pansensitive and Haemophilus influenza. Patient has been treated with ceftriaxone levofloxacin however patient still has significant oxygen dependency and leukocytosis. 05/12/2020. No acute events overnight, patient is still in moderate respiratory sound worsening leukocytosis, dependent on BiPAP and supplemental oxygen, complaining of generalized fatigue and weakness, persistent cough, denies any fever, chills, nausea, vomiting, diarrhea, constipation or any urinary symptoms. Reason For Visit: ACUTE RESPIRATORY FAILURE WITH HYPOXIA PNEUMONIA Physical Exam Vital Signs: Temp Pulse Resp BP Pulse Ox 97.8 F 85 22 H 108/52 L 94 05/12/20 15:10 05/12/20 15:10 05/12/20 15:10 05/12/20 15:10 05/12/20 15:10 Intake & Output 05/11/20 05/12/20 05/13/20 06:59 06:59 06:59 Intake Total 2720 1534 Output Total 1050 1525 1150 Balance 1670 9 -1150 Weight 67.2 kg 67.9 kg General appearance: PRESENT: mild distress Head exam: PRESENT: atraumatic, normocephalic Neck exam: ABSENT: carotid bruit, JVD, lymphadenopathy, thyromegaly Respiratory exam: PRESENT: accessory muscle use, crackles, prolonged expiratory phas, symmetrical, tachypnea. ABSENT: rales, rhonchi, wheezes Cardiovascular exam: PRESENT: RRR. ABSENT: diastolic murmur, rubs, systolic murmur GI/Abdominal exam: PRESENT: normal bowel sounds, soft. ABSENT: distended, guarding, mass, organolmegaly, rebound, tenderness Neurological exam: PRESENT: alert, awake, oriented to person, oriented to place, oriented to time, oriented to situation, CN II-XII grossly intact. ABSENT: motor sensory deficit Results Laboratory Results: 05/11/20 05:50 05/11/20 05:50 05/12/20 10:52 Carbonic Acid 0.96 L HCO3/H2CO3 Ratio 22:1 ABG pH 7.46 H ABG pCO2 31.9 L ABG pO2 76.6 L ABG HCO3 22.0 ABG O2 Saturation 96.1 ABG Base Excess -1.4 FiO2 40% 04/29/20 04/29/20 04/29/20 16:53 16:53 22:24 Creatine Kinase 100 CK-MB (CK-2) 2.44 Troponin I 0.029 NT-Pro-B Natriuret Pep 1250 H 04/29/20 04/30/20 22:24 06:21 Creatine Kinase CK-MB (CK-2) Troponin I 0.024 0.025 NT-Pro-B Natriuret Pep Impressions: Chest/Abdomen CTA 04/29/20 21:12 IMPRESSION: No evidence of pulmonary embolus. Mucous plugging. There is a large central mass lesion left infrahilar may represent a pulmonary mass or perhaps adenopathy. Other prominent mediastinal lymph nodes are seen. Multiple bilateral pulmonary nodules are seen. Some of the smaller nodules have an appearance suspicious for an infectious inflammatory process but there are larger well-rounded and more sharply marginated soft tissue nodules which are suspicious for neoplasm. Is there a known history of a primary carcinoma? . Chest X-Ray 05/02/20 09:00 IMPRESSION: INCREASING FAINT AIRSPACE DISEASE IN THE RIGHT UPPER LOBE AND LEFT LOWER LOBE CONCERNING FOR DEVELOPING PNEUMONIA. PICC Line Insertion 05/06/20 00:00 IMPRESSION: SUCCESSFUL PLACEMENT OF A 5 FR DUAL LUMEN 39 CM PICC IN THE LEFT BASILIC VEIN. Chest CT 05/10/20 00:00 IMPRESSION: Bilateral lung nodules appear decreased since prior imaging. There is one at the right upper lobe which may have some cavitation. There is also decreased groundglass change. This may reflect resolving infection. Interval follow-up to complete resolution is recommended within one month. The previously seen reticulonodular airspace opacities and groundglass airspace opacities have significantly improved. Venous Doppler Study 05/12/20 09:53 IMPRESSION: Noncompressible left cephalic vein in the midforearm. No proximal thrombus identified in either upper extremity. Assessment and Plan - Diagnosis (1) Acute respiratory failure with hypoxemia Is this a current diagnosis for this admission?: Yes Plan: No significant review, still BiPAP and supplemental oxygen dependent, worsening leukocytosis, noted to be in moderate respiratory distress. Initial COVID 19 test negative, repeat COVID 19 pending. Admitted to ICU 04/11/2020 for worsening respiratory symptoms. Was not intubated at transfer back to floor on 05/04/2020. Bronchial washing grew normal oral josé miguel. Sputum culture from admission grew Pseudomonas pansensitive and Haemophilus influenza being treated with a full course of IV ceftriaxone and IV levofloxacin. Due to worsening leukocytosis and hospitalist patient will start on cefepime to cover for Pseudomonas. Day 1 IV antibiotics. Day 1 IV cefepime. Day 2 p.o. steroids. Continue broad-spectrum empiric IV antibiotics, p.o. steroids, incentive spirometry, flutter valve, LABA, LABA, ICS, aggressive pulmonary toileting. (2) Pneumonia Qualifiers: Laterality: bilateral Lung location: lower lobe of lung Is this a current diagnosis for this admission?: Yes Plan: No significant provement, sputum culture positive for Pseudomonas pansensitive and Haemophilus influenza. Plan as above. (3) Acute exacerbation of COPD with asthma Is this a current diagnosis for this admission?: Yes Plan: Plan as per #1. (4) Hyponatremia Is this a current diagnosis for this admission?: Yes Plan: Most likely chronic. Given lung nodules and mass hyponatremia due to lung malignancy is a possibility. Continue normal saline, monitor BMP, seizure precautions. If no improvement consult nephrology. (5) Pulmonary nodules/lesions, multiple Is this a current diagnosis for this admission?: Yes Plan: Pulmonary was consulted and are now nodules concerning for lung cancer. A bron choscopy on 08/14/2019 was negative for malignancy. Oncology was consulted recommendation was to repeat CT in 1 week and is still positive consider further biopsy. Repeat CT on 05/10/2020 showed bilateral lung nodules appear decreased since prior imaging, right upper lobe which may have some cavitation. (6) Tobacco abuse Is this a current diagnosis for this admission?: Yes Plan: Continue nicotine patch. Counseled on quitting. - Time Time Spent with patient: 35 or more minutes Medications reviewed and adjusted accordingly: Yes Anticipated Discharge Disposition: Home with Home Health Anticipated Discharge Timeframe: within 48 hours
[2020-05-12] MEDS: POLYETHYLENE GLYCOL 3350 POWDER 17 GM/1 PACKET PO SCH (21:19)
[2020-05-12] MEDS: ATORVASTATIN CALCIUM 40 MG TABLET PO SCH (21:19)
[2020-05-12] MEDS: MONTELUKAST SODIUM 10 MG TABLET PO SCH (21:19)
[2020-05-12] MEDS: LIDOCAINE 5% (700 MG) TRANSDERMAL ADH..PATCH TP SCH (21:20)
[2020-05-13] MEDS: LEVOTHYROXINE SODIUM 0.1 MG TABLET PO SCH (05:14)
[2020-05-13] MEDS: LEVOTHYROXINE SODIUM 0.075 MG TABLET PO SCH (05:14)
[2020-05-13 06:29] LABS: HEMATOCRIT 25.9 % (36.0-47.0); HEMOGLOBIN 8.8 g/dL (12.0-15.5); MEAN CORPUSCULAR HEMOGLOBIN 28.1 pg (27.0-33.4); MEAN CORPUSCULAR HGB CONC 33.9 g/dL (32.0-36.0); MEAN CORPUSCULAR VOLUME 83 fl (80-97); RED BLOOD COUNT 3.11 10^6/uL (3.72-5.28); RED CELL DISTRIBUTION WIDTH 15.8 % (11.5-14.0); WHITE BLOOD COUNT 26.5 10^3/uL (4.0-10.5)
[2020-05-13 06:43] LABS: ALBUMIN 2.3 g/dL (3.5-5.0); ALKALINE PHOSPHATASE 36 U/L (38-126); ANION GAP 7 (5-19); ASPARTATE AMINO TRANSFERASE 22 U/L (14-36); BILIRUBIN,DIRECT 0.3 mg/dL (0.0-0.4); BILIRUBIN,TOTAL 0.3 mg/dL (0.2-1.3); BLOOD UREA NITROGEN 6 mg/dL (7-20); CARBON DIOXIDE 21 mmol/L (22-30); CHLORIDE 105 mmol/L (98-107); POTASSIUM 4.7 mmol/L (3.6-5.0); TOTAL PROTEIN 4.7 g/dL (6.3-8.2)
[2020-05-13 06:45] LABS: GLUCOSE 59 mg/dL (75-110)
[2020-05-13 06:55] LABS: CALCIUM 6.2 mg/dL (8.4-10.2)
[2020-05-13 07:14] LABS: ABSOLUTE LYMPHOCYTES# (MANUAL) 0.5 10^3/uL (0.5-4.7); BASOPHILS % (MANUAL) 0 % (0-2); EOSINOPHILS % (MANUAL) 0 % (0-6); LYMPHOCYTES % (MANUAL) 2 % (13-45); MONOCYTES % (MANUAL) 0 % (3-13); SEGMENTED NEUTROPHILS % (MAN) 98 % (42-78); TOTAL CELLS COUNTED 100
[2020-05-13 07:16] LABS: ANISOCYTOSIS SLIGHT; RBC MORPHOLOGY COMMENT NORMO-CYTIC/CHROMIC
[2020-05-13 07:17] LABS: PLATELET COMMENT ADEQUATE; PLATELET COUNT 411 10^3/uL (150-450); TOXIC GRANULATION SLIGHT
[2020-05-13] MEDS: IPRATROPIUM/ALBUTEROL 0.5-2.5 MG/3 ML AMPUL NEB SCH ×3 (07:59→19:40)
[2020-05-13] MEDS ORDERED: CALCIUM GLUCONATE 1000 MG/10 ML INJ IV ONE (08:30)
[2020-05-13] MEDS ORDERED: MAGNESIUM SULFATE/D5W 1 GM/100 ML RTUPB IV ONE (09:00)
[2020-05-13] MEDS ORDERED: CEFEPIME 2 GM/D5W RTU 2 GM/50 ML RTUPB IV SCH (10:00)
[2020-05-13] MEDS: ENOXAPARIN SODIUM INJ 40 MG/0.4 ML DISP.SYRIN SUBCUT SCH (10:51)
[2020-05-13] MEDS: ATENOLOL 50 MG TABLET PO SCH (10:52)
[2020-05-13] MEDS: PHOSPHORUS #1 250 MG TABLET PO SCH ×3 (10:52→16:59)
[2020-05-13] MEDS: POTASSIUM CHLORIDE 10 MEQ TABLET.ER PO SCH ×3 (10:52→16:59)
[2020-05-13] MEDS: ASCORBIC ACID 500 MG TABLET PO SCH ×2 (10:52→16:59)
[2020-05-13] MEDS: FERROUS SULFATE 325 MG TABLET PO SCH ×2 (10:52→16:59)
[2020-05-13] MEDS: GUAIFENESIN 600 MG TABLET.SA PO SCH ×2 (10:52→21:06)
[2020-05-13] MEDS: ASPIRIN 81 MG TABLET, CHEWABLE PO SCH (10:53)
[2020-05-13] MEDS: DOCUSATE SODIUM 100 MG CAPSULE PO SCH (10:53)
[2020-05-13] MEDS: FAMOTIDINE 20 MG TABLET PO SCH ×2 (10:53→21:06)
[2020-05-13] MEDS: NIFEDIPINE 30 MG TAB.ER.24 PO SCH (10:53)
[2020-05-13] MEDS: NICOTINE 21 MG/24 HR PATCH.TD24 TD SCH (10:53)
[2020-05-13] MEDS: NORMAL SALINE 10 ML SDV (SCHEDULED) IV SCH ×2 (10:55→21:07)
[2020-05-13] MEDS: CEFEPIME HCL 2 GM in DEXTROSE 5%-WATER 50 ML IV SCH ×2 (11:00→21:04)
[2020-05-13] MEDS: PHARMACY COMMUNICATION ORDER MC SCH (11:02)
[2020-05-13] MEDS: FLUTICASONE/UMECLIDIN/VILANTER 100-62.5-25 MCG/DOSE IH SCH (11:02)
[2020-05-13] MEDS ORDERED: CALCIUM GLUCONATE 1 GM/NS 50 ML RTU IV ONE (12:30)
[2020-05-13] MEDS: METHYLPREDNISOLONE INJ 40 MG/1 ML SDV IV SCH ×3 (12:32→21:07)
[2020-05-13] MEDS: OXYCODONE-ACETAMINOPHEN 5-325 MG TABLET PO SCH ×2 (14:57→21:05)
--- NOTE | 2020-05-13 16:33 | PDOC PROGRESS REPORT ---
Subjective Progress Note for:: 05/13/20 Subjective:: JESSY BAKER is a 84 year old female past medical history of tobacco abuse, non-oxygen dependent COPD, hypothyroidism, chronic pain, hypertension presenting to ED complaining of recent onset worsening shortness of breath accompanied by productive cough, wheezing and rales. Patient denies any chest pain, fever, nausea, vomiting, diarrhea, constipation or any urinary symptoms. In ED a chest x-ray was positive for left lower lobe consolidation and multiple pulmonary nodules. Hospitalist was consulted for admission. In ED he was noted to have leukocytosis, thrombocytosis, ABG positive for hypoxemia, mildly elevated troponins and proBNP, mild hypercalcemia, hyponatremia, a CTA was done to follow-up for pulmonary nodule, showed multiple pulmonary nodules and a central mass likely malignancy. Admitted to ICU 04/11/2020 for worsening respiratory symptoms. Was not intubated at transfer back to floor on 05/04/2020. Pulmonary was consulted and are now nodules concerning for lung cancer. A bronchoscopy on 08/14/2019 was negative for malignancy. Oncology was consulted recommendation was to repeat CT in 1 week and is still positive consider further biopsy. Repeat CT on 05/10/2020 showed bilateral lung nodules appear decreased since prior imaging, right upper lobe which may have some cavitation. Bronchial washing grew normal oral josé miguel. Sputum culture from admission grew Pseudomonas pansensitive and Haemophilus influenza. Patient has been treated with ceftriaxone levofloxacin however patient still has significant oxygen dependency and leukocytosis. 05/12/2020. No acute events overnight, patient is still in moderate respiratory sound worsening leukocytosis, dependent on BiPAP and supplemental oxygen, complaining of generalized fatigue and weakness, persistent cough, denies any fever, chills, nausea, vomiting, diarrhea, constipation or any urinary symptoms. 05/13/2020. Reporting mild improvement of symptoms compared to yesterday, still dependent on BiPAP sulfadoxine, complaining of generalized weakness and fatigue, denies any fever, chills, nausea, vomiting, diarrhea, constipation or any urinary symptoms. Reason For Visit: ACUTE RESPIRATORY FAILURE WITH HYPOXIA PNEUMONIA Physical Exam Vital Signs: Temp Pulse Resp BP Pulse Ox 97.7 F 88 17 114/56 L 96 05/13/20 15:54 05/13/20 15:44 05/13/20 15:44 05/13/20 15:44 05/13/20 15:44 Intake & Output 05/12/20 05/13/20 05/14/20 06:59 06:59 06:59 Intake Total 1534 450 Output Total 1525 1775 1275 Balance 9 5 Weight 67.9 kg 65.3 kg 65.3 kg General appearance: PRESENT: mild distress Head exam: PRESENT: atraumatic, normocephalic Respiratory exam: PRESENT: accessory muscle use, crackles, prolonged expiratory phas, symmetrical, tachypnea, wheezes. ABSENT: rales, rhonchi Cardiovascular exam: PRESENT: RRR, tachycardia. ABSENT: diastolic murmur, rubs, systolic murmur GI/Abdominal exam: PRESENT: normal bowel sounds, soft. ABSENT: distended, guarding, mass, organolmegaly, rebound, tenderness Neurological exam: PRESENT: alert, awake, oriented to person, oriented to place, oriented to time, oriented to situation, CN II-XII grossly intact. ABSENT: motor sensory deficit Results Laboratory Results: 05/13/20 05:55 05/13/20 05:55 05/13/20 05/13/20 05:55 05:55 WBC 26.5 H RBC 3.11 L Hgb 8.8 L Hct 25.9 L MCV 83 MCH 28.1 MCHC 33.9 RDW 15.8 H Plt Count 411 Seg Neutrophils % Not Reportable Sodium 133.3 L Potassium 4.7 Chloride 105 Carbon Dioxide 21 L Anion Gap 7 BUN 6 L Creatinine 0.47 L Est GFR ( Amer) > 60 Glucose 59 L Calcium 6.2 L* Magnesium 1.4 L Total Bilirubin 0.3 AST 22 Alkaline Phosphatase 36 L Total Protein 4.7 L Albumin 2.3 L 04/29/20 04/29/20 04/29/20 16:53 16:53 22:24 Creatine Kinase 100 CK-MB (CK-2) 2.44 Troponin I 0.029 NT-Pro-B Natriuret Pep 1250 H 04/29/20 04/30/20 22:24 06:21 Creatine Kinase CK-MB (CK-2) Troponin I 0.024 0.025 NT-Pro-B Natriuret Pep Impressions: Chest/Abdomen CTA 04/29/20 21:12 IMPRESSION: No evidence of pulmonary embolus. Mucous plugging. There is a large central mass lesion left infrahilar may represent a pulmonary mass or perhaps adenopathy. Other prominent mediastinal lymph nodes are seen. Multiple bilateral pulmonary nodules are seen. Some of the smaller nodules have an appearance suspicious for an infectious inflammatory process but there are larger well-rounded and more sharply marginated soft tissue nodules which are suspicious for neoplasm. Is there a known history of a primary carcinoma? . Chest X-Ray 05/02/20 09:00 IMPRESSION: INCREASING FAINT AIRSPACE DISEASE IN THE RIGHT UPPER LOBE AND LEFT LOWER LOBE CONCERNING FOR DEVELOPING PNEUMONIA. PICC Line Insertion 05/06/20 00:00 IMPRESSION: SUCCESSFUL PLACEMENT OF A 5 FR DUAL LUMEN 39 CM PICC IN THE LEFT BASILIC VEIN. Chest CT 05/10/20 00:00 IMPRESSION: Bilateral lung nodules appear decreased since prior imaging. There is one at the right upper lobe which may have some cavitation. There is also decreased groundglass change. This may reflect resolving infection. Interval follow-up to complete resolution is recommended within one month. The previously seen reticulonodular airspace opacities and groundglass airspace opacities have significantly improved. Venous Doppler Study 05/12/20 09:53 IMPRESSION: Noncompressible left cephalic vein in the midforearm. No proximal thrombus identified in either upper extremity. Assessment and Plan - Diagnosis (1) Acute respiratory failure with hypoxemia Is this a current diagnosis for this admission?: Yes Plan: No significant review, still BiPAP and supplemental oxygen dependent, worsening leukocytosis, noted to be in moderate respiratory distress. Initial COVID 19 test negative, repeat COVID 19 pending. Admitted to ICU 04/11/2020 for worsening respiratory symptoms. Was not intubated at transfer back to floor on 05/04/2020. Bronchial washing grew normal oral josé miguel. Sputum culture from admission grew Pseudomonas pansensitive and Haemophilus influenza being treated with a full course of IV ceftriaxone and IV levofloxacin. Due to worsening leukocytosis and hospitalist patient will start on cefepime to cover for Pseudomonas. Day 2 IV antibiotics. Day 2 IV cefepime. Day 3 p.o. steroids. Continue broad-spectrum empiric IV antibiotics, p.o. steroids, incentive spirometry, flutter valve, LABA, LABA, ICS, aggressive pulmonary toileting. (2) Pneumonia Qualifiers: Laterality: bilateral Lung location: lower lobe of lung Is this a current diagnosis for this admission?: Yes Plan: No significant provement, sputum culture positive for Pseudomonas pansensitive and Haemophilus influenza. Plan as above. (3) Acute exacerbation of COPD with asthma Is this a current diagnosis for this admission?: Yes Plan: Plan as per #1. (4) Hyponatremia Is this a current diagnosis for this admission?: Yes Plan: Most likely chronic. Given lung nodules and mass hyponatremia due to lung malignancy is a possibility. Continue normal saline, monitor BMP, seizure precautions. If no improvement consult nephrology. (5) Pulmonary nodules/lesions, multiple Is this a current diagnosis for this admission?: Yes Plan: Pulmonary was consulted and are now nodules concerning for lung cancer. A br onchoscopy on 08/14/2019 was negative for malignancy. Oncology was consulted recommendation was to repeat CT in 1 week and is still positive consider further biopsy. Repeat CT on 05/10/2020 showed bilateral lung nodules appear decreased since prior imaging, right upper lobe which may have some cavitation. (6) Tobacco abuse Is this a current diagnosis for this admission?: Yes Plan: Continue nicotine patch. Counseled on quitting. - Time Time Spent with patient: 25-34 minutes Smoking Cessation Education: 3 to 10 minutes Medications reviewed and adjusted accordingly: Yes Anticipated Discharge Disposition: Alf Facility Anticipated Discharge Timeframe: when bed available
[2020-05-13] MEDS: CALCIUM CARBONATE 600 MG/VITAMIN D3 400 UNIT TABLET PO SCH (18:15)
[2020-05-13] MEDS: POLYETHYLENE GLYCOL 3350 POWDER 17 GM/1 PACKET PO SCH (21:05)
[2020-05-13] MEDS: LIDOCAINE 5% (700 MG) TRANSDERMAL ADH..PATCH TP SCH (21:06)
[2020-05-13] MEDS: MONTELUKAST SODIUM 10 MG TABLET PO SCH (21:06)
[2020-05-13] MEDS: ATORVASTATIN CALCIUM 40 MG TABLET PO SCH (21:06)
[2020-05-14] MEDS: OXYCODONE-ACETAMINOPHEN 5-325 MG TABLET PO SCH ×3 (05:25→21:07)
[2020-05-14] MEDS: METHYLPREDNISOLONE INJ 40 MG/1 ML SDV IV SCH ×3 (05:26→21:07)
[2020-05-14] MEDS: LEVOTHYROXINE SODIUM 0.1 MG TABLET PO SCH (05:26)
[2020-05-14] MEDS: LEVOTHYROXINE SODIUM 0.075 MG TABLET PO SCH (05:26)
[2020-05-14 06:05] LABS: HEMOGLOBIN 8.9 g/dL (12.0-15.5); MEAN CORPUSCULAR HGB CONC 34.4 g/dL (32.0-36.0); MEAN CORPUSCULAR VOLUME 84 fl (80-97); PLATELET COUNT 439 10^3/uL (150-450); RED BLOOD COUNT 3.09 10^6/uL (3.72-5.28); RED CELL DISTRIBUTION WIDTH 16.3 % (11.5-14.0); WHITE BLOOD COUNT 18.9 10^3/uL (4.0-10.5)
[2020-05-14 06:10] LABS: ARTERIAL BLOOD BASE EXCESS -3.6 mmol/L; ARTERIAL BLOOD H2CO3 0.92 mmol/L (1.05-1.35); ARTERIAL BLOOD HCO3 19.5 mmol/L (20-24); ARTERIAL BLOOD O2 SATURATION 93.7 % (94-98); ARTERIAL BLOOD PCO2 30.4 mmHg (35-45); ARTERIAL BLOOD PH 7.43 (7.35-7.45); ARTERIAL BLOOD PO2 65.6 mmHg (80-100); ARTERIAL BLOOD TOTAL CO2 20.5 mmol/L (21-25)
[2020-05-14 06:15] LABS: ARTERIAL BLOOD FIO2 1L
[2020-05-14 06:37] LABS: ALBUMIN 1.9 g/dL (3.5-5.0); ALKALINE PHOSPHATASE 32 U/L (38-126); ASPARTATE AMINO TRANSFERASE 17 U/L (14-36); BILIRUBIN,DIRECT 0.2 mg/dL (0.0-0.4); BILIRUBIN,TOTAL 0.3 mg/dL (0.2-1.3); BLOOD UREA NITROGEN 7 mg/dL (7-20); CARBON DIOXIDE 19 mmol/L (22-30); CHLORIDE 112 mmol/L (98-107); GLUCOSE 84 mg/dL (75-110); PHOSPHORUS 3.3 mg/dL (2.5-4.5); POTASSIUM 4.9 mmol/L (3.6-5.0); TOTAL PROTEIN 3.9 g/dL (6.3-8.2)
[2020-05-14 07:03] LABS: CALCIUM 6.1 mg/dL (8.4-10.2)
[2020-05-14 07:04] LABS: ANION GAP 4 (5-19)
[2020-05-14] MEDS: IPRATROPIUM/ALBUTEROL 0.5-2.5 MG/3 ML AMPUL NEB SCH ×3 (07:47→20:13)
[2020-05-14] MEDS: CEFEPIME HCL 2 GM in DEXTROSE 5%-WATER 50 ML IV SCH ×2 (09:39→21:08)
[2020-05-14] MEDS: POTASSIUM CHLORIDE 10 MEQ TABLET.ER PO SCH ×3 (09:40→17:12)
[2020-05-14] MEDS: DOCUSATE SODIUM 100 MG CAPSULE PO SCH (09:41)
[2020-05-14] MEDS: FAMOTIDINE 20 MG TABLET PO SCH ×2 (09:41→21:07)
[2020-05-14] MEDS: ASPIRIN 81 MG TABLET, CHEWABLE PO SCH (09:41)
[2020-05-14] MEDS: PHOSPHORUS #1 250 MG TABLET PO SCH ×3 (09:41→17:42)
[2020-05-14] MEDS: CALCIUM CARBONATE 600 MG/VITAMIN D3 400 UNIT TABLET PO SCH ×2 (09:41→17:12)
[2020-05-14] MEDS: GUAIFENESIN 600 MG TABLET.SA PO SCH ×2 (09:41→21:07)
[2020-05-14] MEDS: FERROUS SULFATE 325 MG TABLET PO SCH ×2 (09:41→17:11)
[2020-05-14] MEDS: ATENOLOL 50 MG TABLET PO SCH (09:41)
[2020-05-14] MEDS: NIFEDIPINE 30 MG TAB.ER.24 PO SCH (09:41)
[2020-05-14] MEDS: ENOXAPARIN SODIUM INJ 40 MG/0.4 ML DISP.SYRIN SUBCUT SCH (09:42)
[2020-05-14] MEDS: ASCORBIC ACID 500 MG TABLET PO SCH ×2 (09:42→17:11)
[2020-05-14] MEDS: NICOTINE 21 MG/24 HR PATCH.TD24 TD SCH (09:42)
[2020-05-14] MEDS: PHARMACY COMMUNICATION ORDER MC SCH (09:43)
[2020-05-14] MEDS: NORMAL SALINE 10 ML SDV (SCHEDULED) IV SCH ×2 (10:15→23:16)
[2020-05-14] MEDS: FLUTICASONE/UMECLIDIN/VILANTER 100-62.5-25 MCG/DOSE IH SCH (13:09)
--- NOTE | 2020-05-14 14:11 | PDOC PROGRESS REPORT ---
Subjective Progress Note for:: 05/14/20 Subjective:: JESSY BAKER is a 84 year old female past medical history of tobacco abuse, non-oxygen dependent COPD, hypothyroidism, chronic pain, hypertension presenting to ED complaining of recent onset worsening shortness of breath accompanied by productive cough, wheezing and rales. Patient denies any chest pain, fever, nausea, vomiting, diarrhea, constipation or any urinary symptoms. In ED a chest x-ray was positive for left lower lobe consolidation and multiple pulmonary nodules. Hospitalist was consulted for admission. In ED he was noted to have leukocytosis, thrombocytosis, ABG positive for hypoxemia, mildly elevated troponins and proBNP, mild hypercalcemia, hyponatremia, a CTA was done to follow-up for pulmonary nodule, showed multiple pulmonary nodules and a central mass likely malignancy. Admitted to ICU 04/11/2020 for worsening respiratory symptoms. Was not intubated at transfer back to floor on 05/04/2020. Pulmonary was consulted and are now nodules concerning for lung cancer. A bronchoscopy on 08/14/2019 was negative for malignancy. Oncology was consulted recommendation was to repeat CT in 1 week and is still positive consider further biopsy. Repeat CT on 05/10/2020 showed bilateral lung nodules appear decreased since prior imaging, right upper lobe which may have some cavitation. Bronchial washing grew normal oral josé miguel. Sputum culture from admission grew Pseudomonas pansensitive and Haemophilus influenza. Patient has been treated with ceftriaxone levofloxacin however patient still has significant oxygen dependency and leukocytosis. 05/12/2020. No acute events overnight, patient is still in moderate respiratory sound worsening leukocytosis, dependent on BiPAP and supplemental oxygen, complaining of generalized fatigue and weakness, persistent cough, denies any fever, chills, nausea, vomiting, diarrhea, constipation or any urinary symptoms. 05/13/2020. Reporting mild improvement of symptoms compared to yesterday, still dependent on BiPAP sulfadoxine, complaining of generalized weakness and fatigue, denies any fever, chills, nausea, vomiting, diarrhea, constipation or any urinary symptoms. 05/14/2020. No acute events overnight. Patient has moderate improvement of her respiratory symptoms, she is reporting to be too weak and fatigued and refusing to take part in physical therapy, patient is stating that she would like to be transition to rehab as soon as possible, denies any fever, chills, nausea, vomiting, diarrhea, constipation or any urinary symptoms. Reason For Visit: ACUTE RESPIRATORY FAILURE WITH HYPOXIA PNEUMONIA Physical Exam Vital Signs: Temp Pulse Resp BP Pulse Ox 97.5 F 91 18 108/49 L 93 05/14/20 11:39 05/14/20 11:39 05/14/20 11:39 05/14/20 11:39 05/14/20 11:39 Intake & Output 05/13/20 05/14/20 05/15/20 06:59 06:59 06:59 Intake Total 920 Output Total 1775 2650 Balance -1775 -1730 Weight 65.3 kg 62.1 kg General appearance: PRESENT: mild distress, well-developed, well-nourished Head exam: PRESENT: atraumatic, normocephalic Neck exam: ABSENT: carotid bruit, JVD, lymphadenopathy, thyromegaly Respiratory exam: PRESENT: rales, rhonchi, symmetrical. ABSENT: wheezes Cardiovascular exam: PRESENT: RRR. ABSENT: diastolic murmur, rubs, systolic murmur GI/Abdominal exam: PRESENT: normal bowel sounds, soft. ABSENT: distended, guarding, mass, organolmegaly, rebound, tenderness Neurological exam: PRESENT: alert, awake, oriented to person, oriented to place, oriented to time, oriented to situation, CN II-XII grossly intact. ABSENT: motor sensory deficit Results Laboratory Results: 05/14/20 05:45 05/14/20 05:45 05/14/20 05/14/20 05/14/20 05:45 05:45 05:45 WBC 18.9 H RBC 3.09 L Hgb 8.9 L Hct 26.0 L MCV 84 MCH 29.0 MCHC 34.4 RDW 16.3 H Plt Count 439 Carbonic Acid 0.92 L HCO3/H2CO3 Ratio 21:1 ABG pH 7.43 ABG pCO2 30.4 L ABG pO2 65.6 L ABG HCO3 19.5 L ABG O2 Saturation 93.7 L ABG Base Excess -3.6 FiO2 1L Sodium 134.5 L Potassium 4.9 Chloride 112 H Carbon Dioxide 19 L Anion Gap 4 L BUN 7 Creatinine 0.39 L Est GFR ( Amer) > 60 Glucose 84 Calcium 6.1 L* Phosphorus 3.3 Magnesium 1.6 Total Bilirubin 0.3 AST 17 Alkaline Phosphatase 32 L Total Protein 3.9 L Albumin 1.9 L 04/29/20 04/29/20 04/29/20 16:53 16:53 22:24 Creatine Kinase 100 CK-MB (CK-2) 2.44 Troponin I 0.029 NT-Pro-B Natriuret Pep 1250 H 04/29/20 04/30/20 22:24 06:21 Creatine Kinase CK-MB (CK-2) Troponin I 0.024 0.025 NT-Pro-B Natriuret Pep Impressions: Chest/Abdomen CTA 04/29/20 21:12 IMPRESSION: No evidence of pulmonary embolus. Mucous plugging. There is a large central mass lesion left infrahilar may represent a pulmonary mass or perhaps adenopathy. Other prominent mediastinal lymph nodes are seen. Multiple bilateral pulmonary nodules are seen. Some of the smaller nodules have an appearance suspicious for an infectious inflammatory process but there are larger well-rounded and more sharply marginated soft tissue nodules which are suspicious for neoplasm. Is there a known history of a primary carcinoma? . Chest X-Ray 05/02/20 09:00 IMPRESSION: INCREASING FAINT AIRSPACE DISEASE IN THE RIGHT UPPER LOBE AND LEFT LOWER LOBE CONCERNING FOR DEVELOPING PNEUMONIA. PICC Line Insertion 05/06/20 00:00 IMPRESSION: SUCCESSFUL PLACEMENT OF A 5 FR DUAL LUMEN 39 CM PICC IN THE LEFT BASILIC VEIN. Chest CT 05/10/20 00:00 IMPRESSION: Bilateral lung nodules appear decreased since prior imaging. There is one at the right upper lobe which may have some cavitation. There is also decreased groundglass change. This may reflect resolving infection. Interval follow-up to complete resolution is recommended within one month. The previously seen reticulonodular airspace opacities and groundglass airspace opacities have significantly improved. Venous Doppler Study 05/12/20 09:53 IMPRESSION: Noncompressible left cephalic vein in the midforearm. No proximal thrombus identified in either upper extremity. Assessment and Plan - Diagnosis (1) Acute respiratory failure with hypoxemia Is this a current diagnosis for this admission?: Yes Plan: Moderate improvement. SPO2 WNL on 2 L oxygen. WBC trending down. Initial COVID 19 test negative, repeat COVID 19 pending. Admitted to ICU 04/11/2020 for worsening respiratory symptoms. Was not intubated at transfer back to floor on 05/04/2020. Bronchial washing grew normal oral josé miguel. Sputum culture from admission grew Pseudomonas pansensitive and Haemophilus influenza being treated with a full course of IV ceftriaxone and IV levofloxacin. Due to worsening leukocytosis and hospitalist patient will start on cefepime to cover for Pseudomonas. Day 3 IV antibiotics. Day 3 IV cefepime. Day 4 p.o. steroids. Continue broad-spectrum empiric IV antibiotics, p.o. steroids, incentive spirometry, flutter valve, LABA, LABA, ICS, aggressive pulmonary toileting. (2) Pneumonia Qualifiers: Laterality: bilateral Lung location: lower lobe of lung Is this a current diagnosis for this admission?: Yes Plan: No significant provement, sputum culture positive for Pseudomonas pansensitive and Haemophilus influenza. Plan as above. (3) Acute exacerbation of COPD with asthma Is this a current diagnosis for this admission?: Yes Plan: Plan as per #1. (4) Hyponatremia Is this a current diagnosis for this admission?: Yes Plan: Most likely chronic. Given lung nodules and mass hyponatremia due to lung malignancy is a possibility. Continue normal saline, monitor BMP, seizure precautions. If no improvement consult nephrology. (5) Pulmonary nodules/lesions, multiple Is this a current diagnosis for this admission?: Yes Plan: Pulmonary was consulted and are now nodules concerning for lung cancer. A bronchoscopy on 08/14/2019 was negative for malignancy. Oncology was consulted recommendation was to repeat CT in 1 week and is still positive consider further biopsy. Repeat CT on 05/10/2020 showed bilateral lung nodules appear decreased since prior imaging, right upper lobe which may have some cavitation. (6) Tobacco abuse Is this a current diagnosis for this admission?: Yes Plan: Continue nicotine patch. Counseled on quitting. (7) Physical deconditioning Is this a current diagnosis for this admission?: Yes Plan: Likely due to underlying acute illness and prolonged hospitalization. Unfortunately patient refuses to cooperate with physical examination. Patient pending transfer to rehab. Continue PT/OT. Continue nutritional support. Continue fall precautions. - Time Time Spent with patient: 35 or more minutes Smoking Cessation Education: 3 to 10 minutes Medications reviewed and adjusted accordingly: Yes Anticipated Discharge Disposition: [facility] Anticipated Discharge Timeframe: within 48 hours
[2020-05-14] MEDS: MEGESTROL ACETATE 20 MG TABLET PO SCH (17:14)
[2020-05-14] MEDS: MONTELUKAST SODIUM 10 MG TABLET PO SCH (21:07)
[2020-05-14] MEDS: LIDOCAINE 5% (700 MG) TRANSDERMAL ADH..PATCH TP SCH (21:07)
[2020-05-14] MEDS: ATORVASTATIN CALCIUM 40 MG TABLET PO SCH (21:07)
[2020-05-14] MEDS: POLYETHYLENE GLYCOL 3350 POWDER 17 GM/1 PACKET PO SCH (21:07)
[2020-05-15] MEDS: METHYLPREDNISOLONE INJ 40 MG/1 ML SDV IV SCH ×2 (05:09→18:23)
[2020-05-15] MEDS: OXYCODONE-ACETAMINOPHEN 5-325 MG TABLET PO SCH ×3 (05:09→21:53)
[2020-05-15] MEDS: LEVOTHYROXINE SODIUM 0.1 MG TABLET PO SCH (05:09)
[2020-05-15] MEDS: LEVOTHYROXINE SODIUM 0.075 MG TABLET PO SCH (05:09)
[2020-05-15 06:47] LABS: HEMATOCRIT 25.3 % (36.0-47.0); HEMOGLOBIN 8.6 g/dL (12.0-15.5); MEAN CORPUSCULAR HEMOGLOBIN 28.6 pg (27.0-33.4); MEAN CORPUSCULAR HGB CONC 34.2 g/dL (32.0-36.0); MEAN CORPUSCULAR VOLUME 84 fl (80-97); PLATELET COUNT 445 10^3/uL (150-450); RED BLOOD COUNT 3.02 10^6/uL (3.72-5.28); WHITE BLOOD COUNT 20.8 10^3/uL (4.0-10.5)
[2020-05-15 07:14] LABS: ALBUMIN 2.7 g/dL (3.5-5.0); ALKALINE PHOSPHATASE 46 U/L (38-126); ANION GAP 6 (5-19); ASPARTATE AMINO TRANSFERASE 21 U/L (14-36); BILIRUBIN,DIRECT 0.3 mg/dL (0.0-0.4); BILIRUBIN,TOTAL 0.3 mg/dL (0.2-1.3); BLOOD UREA NITROGEN 11 mg/dL (7-20); CALCIUM 8.3 mg/dL (8.4-10.2); CARBON DIOXIDE 22 mmol/L (22-30); CHLORIDE 104 mmol/L (98-107); GLUCOSE 82 mg/dL (75-110); PHOSPHORUS 3.6 mg/dL (2.5-4.5); TOTAL PROTEIN 5.3 g/dL (6.3-8.2)
[2020-05-15 07:21] LABS: PREALBUMIN 23.9 mg/dL (17.6-36.0)
[2020-05-15 07:24] LABS: POTASSIUM 6.6 mmol/L (3.6-5.0)
[2020-05-15 07:58] LABS: ABSOLUTE LYMPHOCYTES# (MANUAL) 0.4 10^3/uL (0.5-4.7); ABSOLUTE MONOCYTES # (MANUAL) 0.6 10^3/uL (0.1-1.4); BASOPHILS % (MANUAL) 0 % (0-2); EOSINOPHILS % (MANUAL) 0 % (0-6); LYMPHOCYTES % (MANUAL) 2 % (13-45); MONOCYTES % (MANUAL) 3 % (3-13); SEGMENTED NEUTROPHILS % (MAN) 95 % (42-78); TOTAL CELLS COUNTED 100
[2020-05-15 07:59] LABS: ANISOCYTOSIS 1+; PLATELET CLUMPS PRESENT; PLATELET COMMENT ADEQUATE
[2020-05-15] MEDS ORDERED: CALCIUM GLUCONATE 1000 MG/10 ML INJ IV ONE (08:41)
[2020-05-15] MEDS: IPRATROPIUM/ALBUTEROL 0.5-2.5 MG/3 ML AMPUL NEB SCH ×3 (08:48→20:20)
[2020-05-15] MEDS ORDERED: CALCIUM GLUCONATE 1 GM/NS 50 ML RTU IV ONE (09:30)
[2020-05-15] MEDS ORDERED: SODIUM POLYSTYRENE SULFONATE 15 GM/60 ML PO ONE (10:00)
[2020-05-15] MEDS: CEFEPIME HCL 2 GM in DEXTROSE 5%-WATER 50 ML IV SCH ×2 (10:46→21:49)
[2020-05-15] MEDS: ASPIRIN 81 MG TABLET, CHEWABLE PO SCH (10:56)
[2020-05-15] MEDS: PHOSPHORUS #1 250 MG TABLET PO SCH ×3 (10:57→15:13)
[2020-05-15] MEDS: ASCORBIC ACID 500 MG TABLET PO SCH ×2 (10:57→18:24)
[2020-05-15] MEDS: CALCIUM CARBONATE 600 MG/VITAMIN D3 400 UNIT TABLET PO SCH ×2 (10:58→18:24)
[2020-05-15] MEDS: FERROUS SULFATE 325 MG TABLET PO SCH ×2 (10:59→18:24)
[2020-05-15] MEDS: NIFEDIPINE 30 MG TAB.ER.24 PO SCH (10:59)
[2020-05-15] MEDS: DOCUSATE SODIUM 100 MG CAPSULE PO SCH (11:00)
[2020-05-15] MEDS: GUAIFENESIN 600 MG TABLET.SA PO SCH ×2 (11:00→21:54)
[2020-05-15] MEDS: FAMOTIDINE 20 MG TABLET PO SCH ×2 (11:00→21:54)
[2020-05-15] MEDS: MEGESTROL ACETATE 20 MG TABLET PO SCH (11:00)
[2020-05-15] MEDS: ATENOLOL 50 MG TABLET PO SCH (11:01)
[2020-05-15] MEDS: NORMAL SALINE 10 ML SDV (SCHEDULED) IV SCH ×2 (11:03→21:54)
[2020-05-15] MEDS: NICOTINE 21 MG/24 HR PATCH.TD24 TD SCH (11:05)
[2020-05-15] MEDS: ENOXAPARIN SODIUM INJ 40 MG/0.4 ML DISP.SYRIN SUBCUT SCH (11:11)
[2020-05-15] MEDS: PHARMACY COMMUNICATION ORDER MC SCH (11:12)
[2020-05-15] MEDS: FLUTICASONE/UMECLIDIN/VILANTER 100-62.5-25 MCG/DOSE IH SCH (11:13)
[2020-05-15] MEDS: POTASSIUM CHLORIDE 10 MEQ TABLET.ER PO SCH (11:25)
--- NOTE | 2020-05-15 14:46 | PDOC PROGRESS REPORT ---
Subjective Progress Note for:: 05/15/20 Subjective:: JESSY BAKER is a 84 year old female past medical history of tobacco abuse, non-oxygen dependent COPD, hypothyroidism, chronic pain, hypertension presenting to ED complaining of recent onset worsening shortness of breath accompanied by productive cough, wheezing and rales. Patient denies any chest pain, fever, nausea, vomiting, diarrhea, constipation or any urinary symptoms. In ED a chest x-ray was positive for left lower lobe consolidation and multiple pulmonary nodules. Hospitalist was consulted for admission. In ED he was noted to have leukocytosis, thrombocytosis, ABG positive for hypoxemia, mildly elevated troponins and proBNP, mild hypercalcemia, hyponatremia, a CTA was done to follow-up for pulmonary nodule, showed multiple pulmonary nodules and a central mass likely malignancy. Admitted to ICU 04/11/2020 for worsening respiratory symptoms. Was not intubated at transfer back to floor on 05/04/2020. Pulmonary was consulted and are now nodules concerning for lung cancer. A bronchoscopy on 08/14/2019 was negative for malignancy. Oncology was consulted recommendation was to repeat CT in 1 week and is still positive consider further biopsy. Repeat CT on 05/10/2020 showed bilateral lung nodules appear decreased since prior imaging, right upper lobe which may have some cavitation. Bronchial washing grew normal oral josé miguel. Sputum culture from admission grew Pseudomonas pansensitive and Haemophilus influenza. Patient has been treated with ceftriaxone levofloxacin however patient still has significant oxygen dependency and leukocytosis. 05/12/2020. No acute events overnight, patient is still in moderate respiratory sound worsening leukocytosis, dependent on BiPAP and supplemental oxygen, complaining of generalized fatigue and weakness, persistent cough, denies any fever, chills, nausea, vomiting, diarrhea, constipation or any urinary symptoms. 05/13/2020. Reporting mild improvement of symptoms compared to yesterday, still dependent on BiPAP sulfadoxine, complaining of generalized weakness and fatigue, denies any fever, chills, nausea, vomiting, diarrhea, constipation or any urinary symptoms. 05/14/2020. No acute events overnight. Patient has moderate improvement of her respiratory symptoms, she is reporting to be too weak and fatigued and refusing to take part in physical therapy, patient is stating that she would like to be transition to rehab as soon as possible, denies any fever, chills, nausea, vomiting, diarrhea, constipation or any urinary symptoms. 05/15/2020. No acute events overnight. Patient continues to improve, on room air in no apparent distress, however frustrated for her long hospitalization anxious about being transferred to rehab, denies any fever, chills, nausea, vomiting, diarrhea, constipation. Appetite improving. Patient is still refusing to get out of the bed and refusing to receive physical therapy. Reason For Visit: ACUTE RESPIRATORY FAILURE WITH HYPOXIA PNEUMONIA Physical Exam Vital Signs: Temp Pulse Resp BP Pulse Ox 98.7 F 88 16 141/69 H 92 05/15/20 12:33 05/15/20 14:28 05/15/20 14:28 05/15/20 12:33 05/15/20 14:28 Intake & Output 05/14/20 05/15/20 05/16/20 06:59 06:59 06:59 Intake Total 920 458 240 Output Total 2650 1497 875 Balance -1730 -1039 -635 Weight 62.1 kg 62.4 kg General appearance: PRESENT: no acute distress, well-developed, well-nourished Head exam: PRESENT: atraumatic, normocephalic Respiratory exam: PRESENT: crackles, rales. ABSENT: rhonchi, wheezes Cardiovascular exam: PRESENT: RRR. ABSENT: diastolic murmur, rubs, systolic murmur GI/Abdominal exam: PRESENT: normal bowel sounds, soft. ABSENT: distended, guarding, mass, organolmegaly, rebound, tenderness Neurological exam: PRESENT: alert, awake, oriented to person, oriented to place, oriented to time, oriented to situation, CN II-XII grossly intact. ABSENT: motor sensory deficit Results Laboratory Results: 05/15/20 05:17 05/15/20 07:45 05/15/20 05/15/20 05/15/20 05:17 05:17 07:45 WBC 20.8 H RBC 3.02 L Hgb 8.6 L Hct 25.3 L MCV 84 MCH 28.6 MCHC 34.2 RDW 16.0 H Plt Count 445 Seg Neutrophils % Not Reportable Sodium 132.1 L Potassium 6.6 H* D 6.1 H* Chloride 104 Carbon Dioxide 22 Anion Gap 6 BUN 11 Creatinine 0.57 Est GFR ( Amer) > 60 Glucose 82 Calcium 8.3 L Phosphorus 3.6 Magnesium 1.7 Total Bilirubin 0.3 AST 21 Alkaline Phosphatase 46 Total Protein 5.3 L Albumin 2.7 L Prealbumin 23.9 04/29/20 04/29/20 04/29/20 16:53 16:53 22:24 Creatine Kinase 100 CK-MB (CK-2) 2.44 Troponin I 0.029 NT-Pro-B Natriuret Pep 1250 H 04/29/20 04/30/20 22:24 06:21 Creatine Kinase CK-MB (CK-2) Troponin I 0.024 0.025 NT-Pro-B Natriuret Pep Impressions: Chest/Abdomen CTA 04/29/20 21:12 IMPRESSION: No evidence of pulmonary embolus. Mucous plugging. There is a large central mass lesion left infrahilar may represent a pulmonary mass or perhaps adenopathy. Other prominent mediastinal lymph nodes are seen. Multiple bilateral pulmonary nodules are seen. Some of the smaller nodules have an appearance suspicious for an infectious inflammatory process but there are larger well-rounded and more sharply marginated soft tissue nodules which are suspicious for neoplasm. Is there a known history of a primary carcinoma? . Chest X-Ray 05/02/20 09:00 IMPRESSION: INCREASING FAINT AIRSPACE DISEASE IN THE RIGHT UPPER LOBE AND LEFT LOWER LOBE CONCERNING FOR DEVELOPING PNEUMONIA. PICC Line Insertion 05/06/20 00:00 IMPRESSION: SUCCESSFUL PLACEMENT OF A 5 FR DUAL LUMEN 39 CM PICC IN THE LEFT BASILIC VEIN. Chest CT 05/10/20 00:00 IMPRESSION: Bilateral lung nodules appear decreased since prior imaging. There is one at the right upper lobe which may have some cavitation. There is also decreased groundglass change. This may reflect resolving infection. Interval follow-up to complete resolution is recommended within one month. The previously seen reticulonodular airspace opacities and groundglass airspace opacities have significantly improved. Venous Doppler Study 05/12/20 09:53 IMPRESSION: Noncompressible left cephalic vein in the midforearm. No proximal thrombus identified in either upper extremity. Assessment and Plan - Diagnosis (1) Acute respiratory failure with hypoxemia Is this a current diagnosis for this admission?: Yes Plan: Moderate improvement. SPO2 WNL on RA. WBC trending down. Initial COVID 19 test negative, repeat COVID 19 pending. Admitted to ICU 04/11/2020 for worsening respiratory symptoms. Was not intubated at transfer back to floor on 05/04/2020. Bronchial washing grew normal oral josé miguel. Sputum culture from admission grew Pseudomonas pansensitive and Haemophilus influenza being treated with a full course of IV ceftriaxone and IV levofloxacin. Due to worsening leukocytosis and hospitalist patient will start on cefepime to cover for Pseudomonas. Day 4 IV antibiotics. Day 4 IV cefepime. Day 4 p.o. steroids. Continue broad-spectrum empiric IV antibiotics, p.o. steroids, incentive spirometry, flutter valve, LABA, LABA, ICS, aggressive pulmonary toileting. (2) Pneumonia Qualifiers: Laterality: bilateral Lung location: lower lobe of lung Is this a current diagnosis for this admission?: Yes Plan: No significant provement, sputum culture positive for Pseudomonas pansensitive and Haemophilus influenza. Plan as above. (3) Acute exacerbation of COPD with asthma Is this a current diagnosis for this admission?: Yes Plan: Plan as per #1. (4) Hyponatremia Is this a current diagnosis for this admission?: Yes Plan: Most likely chronic. Given lung nodules and mass hyponatremia due to lung malignancy is a possibility. Continue normal saline, monitor BMP, seizure precautions. If no improvement consult nephrology. (5) Pulmonary nodules/lesions, multiple Is this a current diagnosis for this admission?: Yes Plan: Pulmonary was consulted and are now nodules concerning for lung cancer. A bro nchoscopy on 08/14/2019 was negative for malignancy. Oncology was consulted recommendation was to repeat CT in 1 week and is still positive consider further biopsy. Repeat CT on 05/10/2020 showed bilateral lung nodules appear decreased since prior imaging, right upper lobe which may have some cavitation. (6) Tobacco abuse Is this a current diagnosis for this admission?: Yes Plan: Continue nicotine patch. Counseled on quitting. (7) Physical deconditioning Is this a current diagnosis for this admission?: Yes Plan: Likely due to underlying acute illness and prolonged hospitalization. Unfortunately patient refuses to cooperate with physical examination. Patient pending transfer to rehab. Continue PT/OT. Continue nutritional support. Continue fall precautions. - Time Time Spent with patient: 35 or more minutes Smoking Cessation Education: 3 to 10 minutes Medications reviewed and adjusted accordingly: Yes Anticipated Discharge Disposition: Care Home Facility Anticipated Discharge Timeframe: when bed available
[2020-05-15 16:49] LABS: HEMATOCRIT 24.4 % (36.0-47.0); HEMOGLOBIN 8.3 g/dL (12.0-15.5); MEAN CORPUSCULAR HEMOGLOBIN 28.4 pg (27.0-33.4); MEAN CORPUSCULAR HGB CONC 33.9 g/dL (32.0-36.0); MEAN CORPUSCULAR VOLUME 84 fl (80-97); PLATELET COUNT 408 10^3/uL (150-450); RED BLOOD COUNT 2.91 10^6/uL (3.72-5.28); RED CELL DISTRIBUTION WIDTH 15.7 % (11.5-14.0); WHITE BLOOD COUNT 19.8 10^3/uL (4.0-10.5)
[2020-05-15 17:12] LABS: ABSOLUTE LYMPHOCYTES# (MANUAL) 0.2 10^3/uL (0.5-4.7); BASOPHILS % (MANUAL) 0 % (0-2); EOSINOPHILS % (MANUAL) 0 % (0-6); LYMPHOCYTES % (MANUAL) 1 % (13-45); MONOCYTES % (MANUAL) 5 % (3-13); SEGMENTED NEUTROPHILS % (MAN) 94 % (42-78); TOTAL CELLS COUNTED 100
[2020-05-15 17:13] LABS: ANISOCYTOSIS 1+; PLATELET COMMENT ADEQUATE
[2020-05-15] MEDS: LIDOCAINE 5% (700 MG) TRANSDERMAL ADH..PATCH TP SCH (21:48)
[2020-05-15] MEDS: MONTELUKAST SODIUM 10 MG TABLET PO SCH (21:54)
[2020-05-15] MEDS: ATORVASTATIN CALCIUM 40 MG TABLET PO SCH (21:54)
[2020-05-15] MEDS: POLYETHYLENE GLYCOL 3350 POWDER 17 GM/1 PACKET PO SCH (21:55)
[2020-05-16] MEDS: OXYCODONE-ACETAMINOPHEN 5-325 MG TABLET PO SCH ×3 (06:06→23:12)
[2020-05-16] MEDS: METHYLPREDNISOLONE INJ 40 MG/1 ML SDV IV SCH ×2 (06:07→17:19)
[2020-05-16] MEDS: LEVOTHYROXINE SODIUM 0.1 MG TABLET PO SCH (06:07)
[2020-05-16] MEDS: LEVOTHYROXINE SODIUM 0.075 MG TABLET PO SCH (06:07)
[2020-05-16 07:28] LABS: ALBUMIN 2.6 g/dL (3.5-5.0); ALKALINE PHOSPHATASE 39 U/L (38-126); ANION GAP 6 (5-19); ASPARTATE AMINO TRANSFERASE 24 U/L (14-36); BILIRUBIN,DIRECT 0.2 mg/dL (0.0-0.4); BILIRUBIN,TOTAL 0.4 mg/dL (0.2-1.3); BLOOD UREA NITROGEN 12 mg/dL (7-20); CALCIUM 8.5 mg/dL (8.4-10.2); CARBON DIOXIDE 26 mmol/L (22-30); CHLORIDE 100 mmol/L (98-107); GLUCOSE 72 mg/dL (75-110); POTASSIUM 4.2 mmol/L (3.6-5.0); TOTAL PROTEIN 4.9 g/dL (6.3-8.2)
[2020-05-16] MEDS: IPRATROPIUM/ALBUTEROL 0.5-2.5 MG/3 ML AMPUL NEB SCH ×3 (08:13→21:40)
[2020-05-16] MEDS: NIFEDIPINE 30 MG TAB.ER.24 PO SCH (11:31)
[2020-05-16] MEDS: DOCUSATE SODIUM 100 MG CAPSULE PO SCH (11:31)
[2020-05-16] MEDS: FAMOTIDINE 20 MG TABLET PO SCH ×2 (11:31→23:12)
[2020-05-16] MEDS: ATENOLOL 50 MG TABLET PO SCH (11:31)
[2020-05-16] MEDS: GUAIFENESIN 600 MG TABLET.SA PO SCH ×2 (11:31→23:11)
[2020-05-16] MEDS: CALCIUM CARBONATE 600 MG/VITAMIN D3 400 UNIT TABLET PO SCH ×2 (11:31→17:19)
[2020-05-16] MEDS: NICOTINE 21 MG/24 HR PATCH.TD24 TD SCH (11:32)
[2020-05-16] MEDS: MEGESTROL ACETATE 20 MG TABLET PO SCH (11:32)
[2020-05-16] MEDS: ASPIRIN 81 MG TABLET, CHEWABLE PO SCH (11:32)
[2020-05-16] MEDS: ASCORBIC ACID 500 MG TABLET PO SCH ×2 (11:32→17:19)
[2020-05-16] MEDS: FERROUS SULFATE 325 MG TABLET PO SCH ×2 (11:32→17:19)
[2020-05-16] MEDS: PHOSPHORUS #1 250 MG TABLET PO SCH ×3 (11:33→17:19)
[2020-05-16] MEDS: CEFEPIME HCL 2 GM in DEXTROSE 5%-WATER 50 ML IV SCH ×2 (11:34→23:06)
[2020-05-16] MEDS: NORMAL SALINE 10 ML SDV (SCHEDULED) IV SCH ×2 (11:37→23:12)
[2020-05-16] MEDS: PHARMACY COMMUNICATION ORDER MC SCH (11:37)
[2020-05-16] MEDS: FLUTICASONE/UMECLIDIN/VILANTER 100-62.5-25 MCG/DOSE IH SCH (11:37)
[2020-05-16] MEDS: ENOXAPARIN SODIUM INJ 40 MG/0.4 ML DISP.SYRIN SUBCUT SCH (11:40)
--- NOTE | 2020-05-16 13:04 | PDOC PROGRESS REPORT ---
Subjective Progress Note for:: 05/16/20 Subjective:: JESSY BAKER is a 84 year old female past medical history of tobacco abuse, non-oxygen dependent COPD, hypothyroidism, chronic pain, hypertension presenting to ED complaining of recent onset worsening shortness of breath accompanied by productive cough, wheezing and rales. Patient denies any chest pain, fever, nausea, vomiting, diarrhea, constipation or any urinary symptoms. In ED a chest x-ray was positive for left lower lobe consolidation and multiple pulmonary nodules. Hospitalist was consulted for admission. In ED he was noted to have leukocytosis, thrombocytosis, ABG positive for hypoxemia, mildly elevated troponins and proBNP, mild hypercalcemia, hyponatremia, a CTA was done to follow-up for pulmonary nodule, showed multiple pulmonary nodules and a central mass likely malignancy. Admitted to ICU 04/11/2020 for worsening respiratory symptoms. Was not intubated at transfer back to floor on 05/04/2020. Pulmonary was consulted and are now nodules concerning for lung cancer. A bronchoscopy on 08/14/2019 was negative for malignancy. Oncology was consulted recommendation was to repeat CT in 1 week and is still positive consider further biopsy. Repeat CT on 05/10/2020 showed bilateral lung nodules appear decreased since prior imaging, right upper lobe which may have some cavitation. Bronchial washing grew normal oral josé miguel. Sputum culture from admission grew Pseudomonas pansensitive and Haemophilus influenza. Patient has been treated with ceftriaxone levofloxacin however patient still has significant oxygen dependency and leukocytosis. 05/12/2020. No acute events overnight, patient is still in moderate respiratory sound worsening leukocytosis, dependent on BiPAP and supplemental oxygen, complaining of generalized fatigue and weakness, persistent cough, denies any fever, chills, nausea, vomiting, diarrhea, constipation or any urinary symptoms. 05/13/2020. Reporting mild improvement of symptoms compared to yesterday, still dependent on BiPAP sulfadoxine, complaining of generalized weakness and fatigue, denies any fever, chills, nausea, vomiting, diarrhea, constipation or any urinary symptoms. 05/14/2020. No acute events overnight. Patient has moderate improvement of her respiratory symptoms, she is reporting to be too weak and fatigued and refusing to take part in physical therapy, patient is stating that she would like to be transition to rehab as soon as possible, denies any fever, chills, nausea, vomiting, diarrhea, constipation or any urinary symptoms. 05/15/2020. No acute events overnight. Patient continues to improve, on room air in no apparent distress, however frustrated for her long hospitalization anxious about being transferred to rehab, denies any fever, chills, nausea, vomiting, diarrhea, constipation. Appetite improving. Patient is still refusing to get out of the bed and refusing to receive physical therapy. 05/16/2020. No acute events overnight. Much improved compared to yesterday, very pleasant today endorsing good appetite, on 1 L saturating WNL, denies fever, chills, nausea, vomiting, diarrhea, constipation or any urinary symptoms. Pending transfer to rehab. Reason For Visit: ACUTE RESPIRATORY FAILURE WITH HYPOXIA PNEUMONIA Physical Exam Vital Signs: Temp Pulse Resp BP Pulse Ox 97.7 F 104 H 25 H 109/53 L 92 05/16/20 11:05 05/16/20 11:05 05/16/20 11:05 05/16/20 11:05 05/16/20 11:05 Intake & Output 05/15/20 05/16/20 05/17/20 06:59 06:59 06:59 Intake Total 458 360 120 Output Total 1497 2050 275 Balance -1039 -1690 -155 Weight 62.4 kg 62.2 kg General appearance: PRESENT: no acute distress, well-developed, well-nourished Head exam: PRESENT: atraumatic, normocephalic Respiratory exam: PRESENT: crackles - Bibasilar crackles. ABSENT: rales, rhonchi, wheezes Cardiovascular exam: PRESENT: RRR. ABSENT: diastolic murmur, rubs, systolic murmur GI/Abdominal exam: PRESENT: normal bowel sounds, soft. ABSENT: distended, guarding, mass, organolmegaly, rebound, tenderness Neurological exam: PRESENT: alert, awake, oriented to person, oriented to place, oriented to time, oriented to situation, CN II-XII grossly intact. ABSENT: motor sensory deficit Results Laboratory Results: 05/15/20 16:25 05/16/20 06:30 05/15/20 05/15/20 05/16/20 15:20 16:25 06:30 WBC 19.8 H RBC 2.91 L Hgb 8.3 L Hct 24.4 L MCV 84 MCH 28.4 MCHC 33.9 RDW 15.7 H Plt Count 408 Seg Neutrophils % Not Reportable Sodium 132.4 L Potassium 5.0 D 4.2 Chloride 100 Carbon Dioxide 26 Anion Gap 6 BUN 12 Creatinine 0.53 Est GFR ( Amer) > 60 Glucose 72 L Calcium 8.5 Magnesium 1.6 1.6 Total Bilirubin 0.4 AST 24 Alkaline Phosphatase 39 Total Protein 4.9 L Albumin 2.6 L 05/06/20 12:07 Bronchial Washings Fungal Smear - Final 05/06/20 12:07 Bronchial Washings Fungal Smear - Final 04/29/20 04/29/20 04/29/20 16:53 16:53 22:24 Creatine Kinase 100 CK-MB (CK-2) 2.44 Troponin I 0.029 NT-Pro-B Natriuret Pep 1250 H 04/29/20 04/30/20 22:24 06:21 Creatine Kinase CK-MB (CK-2) Troponin I 0.024 0.025 NT-Pro-B Natriuret Pep Impressions: Chest/Abdomen CTA 04/29/20 21:12 IMPRESSION: No evidence of pulmonary embolus. Mucous plugging. There is a large central mass lesion left infrahilar may represent a pulmonary mass or perhaps adenopathy. Other prominent mediastinal lymph nodes are seen. Multiple bilateral pulmonary nodules are seen. Some of the smaller nodules have an appearance suspicious for an infectious inflammatory process but there are larger well-rounded and more sharply marginated soft tissue nodules which are suspicious for neoplasm. Is there a known history of a primary carcinoma? . Chest X-Ray 05/02/20 09:00 IMPRESSION: INCREASING FAINT AIRSPACE DISEASE IN THE RIGHT UPPER LOBE AND LEFT LOWER LOBE CONCERNING FOR DEVELOPING PNEUMONIA. PICC Line Insertion 05/06/20 00:00 IMPRESSION: SUCCESSFUL PLACEMENT OF A 5 FR DUAL LUMEN 39 CM PICC IN THE LEFT BASILIC VEIN. Chest CT 05/10/20 00:00 IMPRESSION: Bilateral lung nodules appear decreased since prior imaging. There is one at the right upper lobe which may have some cavitation. There is also decreased groundglass change. This may reflect resolving infection. Interval follow-up to complete resolution is recommended within one month. The previously seen reticulonodular airspace opacities and groundglass airspace opacities have significantly improved. Venous Doppler Study 05/12/20 09:53 IMPRESSION: Noncompressible left cephalic vein in the midforearm. No proximal thrombus identified in either upper extremity. Assessment and Plan - Diagnosis (1) Acute respiratory failure with hypoxemia Is this a current diagnosis for this admission?: Yes Plan: Moderate improvement. SPO2 WNL on RA. WBC trending down. Initial COVID 19 test negative, repeat COVID 19 pending. Admitted to ICU 04/11/2020 for worsening respiratory symptoms. Was not intubated at transfer back to floor on 05/04/2020. Bronchial washing grew normal oral josé miguel. Sputum culture from admission grew Pseudomonas pansensitive and Haemophilus influenza being treated with a full course of IV ceftriaxone and IV levofloxacin. Due to worsening leukocytosis and hospitalist patient will start on cefepime to cover for Pseudomonas. Day 5 IV antibiotics. Day 5 IV cefepime. Day 5 p.o. steroids. Continue broad-spectrum empiric IV antibiotics, p.o. steroids, incentive spirometry, flutter valve, LABA, LABA, ICS, aggressive pulmonary toileting. (2) Pneumonia Qualifiers: Laterality: bilateral Lung location: lower lobe of lung Is this a current diagnosis for this admission?: Yes Plan: No significant provement, sputum culture positive for Pseudomonas pansensitive and Haemophilus influenza. Plan as above. (3) Acute exacerbation of COPD with asthma Is this a current diagnosis for this admission?: Yes Plan: Plan as per #1. (4) Hyponatremia Is this a current diagnosis for this admission?: Yes Plan: Most likely chronic. Given lung nodules and mass hyponatremia due to lung malignancy is a possibility. Continue normal saline, monitor BMP, seizure precautions. If no improvement consult nephrology. (5) Pulmonary nodules/lesions, multiple Is this a current diagnosis for this admission?: Yes Plan: Pulmonary was consulted and are now nodules concerning for lung cancer. A bronchoscopy on 08/14/2019 was negative for malignancy. Oncology was consulted recommendation was to repeat CT in 1 week and is still positive consider further biopsy. Repeat CT on 05/10/2020 showed bilateral lung nodules appear decreased since prior imaging, right upper lobe which may have some cavitation. (6) Tobacco abuse Is this a current diagnosis for this admission?: Yes Plan: Continue nicotine patch. Counseled on quitting. (7) Physical deconditioning Is this a current diagnosis for this admission?: Yes Plan: Likely due to underlying acute illness and prolonged hospitalization. Unfort unately patient refuses to cooperate with physical examination. Patient pending transfer to rehab. Continue PT/OT. Continue nutritional support. Continue fall precautions. - Time Time Spent with patient: 25-34 minutes Smoking Cessation Education: 3 to 10 minutes Medications reviewed and adjusted accordingly: Yes Anticipated Discharge Disposition: [facility]way Facility Anticipated Discharge Timeframe: when bed available
[2020-05-16 14:17] LABS: HEMATOCRIT 23.8 % (36.0-47.0); HEMOGLOBIN 8.1 g/dL (12.0-15.5); MEAN CORPUSCULAR HEMOGLOBIN 28.4 pg (27.0-33.4); MEAN CORPUSCULAR VOLUME 83 fl (80-97); PLATELET COUNT 381 10^3/uL (150-450); RED BLOOD COUNT 2.85 10^6/uL (3.72-5.28); RED CELL DISTRIBUTION WIDTH 16.1 % (11.5-14.0); WHITE BLOOD COUNT 18.7 10^3/uL (4.0-10.5)
[2020-05-16 14:50] LABS: ABSOLUTE LYMPHOCYTES# (MANUAL) 0.6 10^3/uL (0.5-4.7); ABSOLUTE MONOCYTES # (MANUAL) 0.2 10^3/uL (0.1-1.4); BASOPHILS % (MANUAL) 0 % (0-2); EOSINOPHILS % (MANUAL) 0 % (0-6); LYMPHOCYTES % (MANUAL) 3 % (13-45); MONOCYTES % (MANUAL) 1 % (3-13); SEGMENTED NEUTROPHILS % (MAN) 96 % (42-78); TOTAL CELLS COUNTED 100
[2020-05-16 14:51] LABS: ANISOCYTOSIS 1+; PLATELET COMMENT ADEQUATE
[2020-05-16] MEDS: LIDOCAINE 5% (700 MG) TRANSDERMAL ADH..PATCH TP SCH (23:10)
[2020-05-16] MEDS: POLYETHYLENE GLYCOL 3350 POWDER 17 GM/1 PACKET PO SCH (23:11)
[2020-05-16] MEDS: ATORVASTATIN CALCIUM 40 MG TABLET PO SCH (23:11)
[2020-05-16] MEDS: MONTELUKAST SODIUM 10 MG TABLET PO SCH (23:12)
[2020-05-17] MEDS: OXYCODONE-ACETAMINOPHEN 5-325 MG TABLET PO SCH ×4 (03:05→21:38)
[2020-05-17] MEDS: LEVOTHYROXINE SODIUM 0.1 MG TABLET PO SCH (06:06)
[2020-05-17] MEDS: LEVOTHYROXINE SODIUM 0.075 MG TABLET PO SCH (06:06)
[2020-05-17] MEDS: METHYLPREDNISOLONE INJ 40 MG/1 ML SDV IV SCH (06:07)
[2020-05-17] MEDS: IPRATROPIUM/ALBUTEROL 0.5-2.5 MG/3 ML AMPUL NEB SCH ×3 (08:10→19:20)
[2020-05-17] MEDS: PHOSPHORUS #1 250 MG TABLET PO SCH ×3 (08:46→18:47)
[2020-05-17 09:21] LABS: HEMATOCRIT 25.5 % (36.0-47.0); HEMOGLOBIN 8.8 g/dL (12.0-15.5); MEAN CORPUSCULAR HEMOGLOBIN 28.7 pg (27.0-33.4); MEAN CORPUSCULAR HGB CONC 34.4 g/dL (32.0-36.0); MEAN CORPUSCULAR VOLUME 83 fl (80-97); PLATELET COUNT 389 10^3/uL (150-450); RED BLOOD COUNT 3.06 10^6/uL (3.72-5.28); RED CELL DISTRIBUTION WIDTH 16.3 % (11.5-14.0); WHITE BLOOD COUNT 22.2 10^3/uL (4.0-10.5)
[2020-05-17 09:31] LABS: ANION GAP 8 (5-19); BLOOD UREA NITROGEN 13 mg/dL (7-20); CALCIUM 8.9 mg/dL (8.4-10.2); CARBON DIOXIDE 25 mmol/L (22-30); CHLORIDE 100 mmol/L (98-107); GLUCOSE 103 mg/dL (75-110); POTASSIUM 3.5 mmol/L (3.6-5.0)
[2020-05-17 10:01] LABS: ABSOLUTE LYMPHOCYTES# (MANUAL) 0.9 10^3/uL (0.5-4.7); BASOPHILS % (MANUAL) 0 % (0-2); EOSINOPHILS % (MANUAL) 0 % (0-6); LYMPHOCYTES % (MANUAL) 3 % (13-45); MONOCYTES % (MANUAL) 0 % (3-13); NUCLEATED RED BLOOD CELLS 1 /100 WBC (0); SEGMENTED NEUTROPHILS % (MAN) 96 % (42-78); TOTAL CELLS COUNTED 100
[2020-05-17 10:03] LABS: ANISOCYTOSIS 1+; OVALOCYTES SLIGHT; PLATELET COMMENT ADEQUATE; POIKILOCYTOSIS SLIGHT; SCHISTOCYTES SLIGHT
[2020-05-17] MEDS: NICOTINE 21 MG/24 HR PATCH.TD24 TD SCH (10:41)
[2020-05-17] MEDS: FAMOTIDINE 20 MG TABLET PO SCH ×2 (10:43→21:34)
[2020-05-17] MEDS: ATENOLOL 50 MG TABLET PO SCH (10:44)
[2020-05-17] MEDS: DOCUSATE SODIUM 100 MG CAPSULE PO SCH (10:44)
[2020-05-17] MEDS: NIFEDIPINE 30 MG TAB.ER.24 PO SCH (10:45)
[2020-05-17] MEDS: FLUTICASONE/UMECLIDIN/VILANTER 100-62.5-25 MCG/DOSE IH SCH (10:45)
[2020-05-17] MEDS: ASCORBIC ACID 500 MG TABLET PO SCH ×2 (10:45→18:48)
[2020-05-17] MEDS: CALCIUM CARBONATE 600 MG/VITAMIN D3 400 UNIT TABLET PO SCH ×2 (10:46→18:48)
[2020-05-17] MEDS: ASPIRIN 81 MG TABLET, CHEWABLE PO SCH (10:46)
[2020-05-17] MEDS: ENOXAPARIN SODIUM INJ 40 MG/0.4 ML DISP.SYRIN SUBCUT SCH (10:47)
[2020-05-17] MEDS: FERROUS SULFATE 325 MG TABLET PO SCH ×2 (10:47→18:48)
[2020-05-17] MEDS: MEGESTROL ACETATE 20 MG TABLET PO SCH (10:48)
[2020-05-17] MEDS: NORMAL SALINE 10 ML SDV (SCHEDULED) IV SCH ×2 (10:49→21:40)
[2020-05-17] MEDS: PHARMACY COMMUNICATION ORDER MC SCH (10:49)
[2020-05-17] MEDS: GUAIFENESIN 600 MG TABLET.SA PO SCH ×2 (10:49→21:33)
[2020-05-17] MEDS: CEFEPIME HCL 2 GM in DEXTROSE 5%-WATER 50 ML IV SCH ×2 (10:54→21:39)
[2020-05-17] MEDS ORDERED: POTASSIUM CHLORIDE 10 MEQ TABLET.ER PO ONE (13:00)
--- NOTE | 2020-05-17 13:51 | PDOC TRANSFER SUMMARY ---
Impression - Admit/DC Date/PCP Admission Date/Primary Care Provider: 04/29/20 20:10 YEIMY WHITMAN MD Discharge Date: 05/17/20 - Discharge Diagnosis (1) Acute respiratory failure with hypoxemia Is this a current diagnosis for this admission?: Yes (2) Pneumonia Is this a current diagnosis for this admission?: Yes (3) Acute exacerbation of COPD with asthma Is this a current diagnosis for this admission?: Yes (4) Hyponatremia Is this a current diagnosis for this admission?: Yes (5) Pulmonary nodules/lesions, multiple Is this a current diagnosis for this admission?: Yes (6) Tobacco abuse Is this a current diagnosis for this admission?: Yes (7) Physical deconditioning Is this a current diagnosis for this admission?: Yes - Additional Information Resuscitation Status: Full Code Referrals: ELAIDO BRAND MD [ACTIVE STAFF] - (2 weeks from discharge. Please call office to arrange. ) ARLEY HAYWARD MD [ACTIVE PROVISIONAL STAFF] - 06/02/20 10:30 am YEIMY WHITAMN MD [Primary Care Provider] - 05/07/20 8:30 am () Home Medications: Montelukast Sodium [Singulair 10 mg Tablet] 10 mg PO QHS 02/11/13 Tiotropium [place] [Spiriva Handihaler 18 mcg/dose (30 Dose)] 1 cap IH DAILY 02/11/13 Albuterol Sulfate [Proair HFA Inhalation Aerosol 8.5 gm MDI] 2 puff IH Q4HP PRN 04/30/20 Atenolol [Tenormin 50 mg Tablet] 25 mg PO DAILY 04/30/20 Atorvastatin Calcium [Lipitor 40 mg Tablet] 40 mg PO QHS 04/30/20 Ergocalciferol (Vitamin D2) [Drisdol 50,000 unit (1.25MG) Capsule] 50,000 unit PO Q7D 04/30/20 Fluticasone/Salmeterol [Advair 500-50 Diskus 14 Dose/Diskus] 1 inh IH Q12H 04/30/20 Levothyroxine Sodium [Synthroid] 175 mcg PO DAILY 04/30/20 Lidocaine [Lidoderm 5% (700 mg) Transdermal Patch] 2 patch TP DAILY 04/30/20 Nifedipine [Nifedipine ER] 60 mg PO DAILY 04/30/20 Oxycodone HCl/Acetaminophen [Oxycodone-Acetaminophen 10-325] 1.5 each PO Q6HP PRN 04/30/20 Polyethylene Glycol 3350 [Clearlax] 17 gm PO QHS 04/30/20 History of Present Illiness History of Present Illness: JSESY BAKER is a 84 year old female past medical history of tobacco abuse, non-oxygen dependent COPD, hypothyroidism, chronic pain, hypertension presenting to ED complaining of recent onset worsening shortness of breath accompanied by productive cough, wheezing and rales. Patient denies any chest pain, fever, nausea, vomiting, diarrhea, constipation or any urinary symptoms. In ED a chest x-ray was positive for left lower lobe consolidation and multiple pulmonary nodules. Hospitalist was consulted for admission. In ED he was noted to have leukocytosis, thrombocytosis, ABG positive for hypoxemia, mildly elevated troponins and proBNP, mild hypercalcemia, hyponatremia, a CTA was done to follow-up for pulmonary nodule, showed multiple pulmonary nodules and a central mass likely malignancy. Hospital Course Hospital Course: (1) Acute respiratory failure with hypoxemia Moderate improvement. SPO2 WNL on RA. WBC trending down. Initial COVID 19 test negative, repeat COVID 19 negative. Admitted to ICU 04/11/2020 for worsening respiratory symptoms. Was not intubated at transfer back to floor on 05/04/2020. Bronchial washing grew normal oral josé miguel. Sputum culture from admission grew Pseudomonas pansensitive and Haemophilus influenza being treated with a full course of IV ceftriaxone and IV levofloxacin. Due to worsening leukocytosis and hospitalist patient was restarted on cefepime to cover for Pseudomonas. Received 5 days of IV antibiotics. Received 5 days of IV cefepime. Received 5 days of IV steroids. Continued on broad-spectrum empiric IV antibiotics, p.o. steroids, incentive spirometry, flutter valve, LABA, LABA, ICS, aggressive pulmonary toileting. Patient will need outpatient pulmonology follow-up. (2) Pneumonia Moderate improvement. Plan as above. (3) Acute exacerbation of COPD with asthma Plan as per #1. (4) Hyponatremia Resolved. Given lung nodules and mass hyponatremia due to lung malignancy is a possibility. (5) Pulmonary nodules/lesions, multiple Pulmonary was consulted and are now nodules concerning for lung cancer. A bronchoscopy on 08/14/2019 was negative for malignancy. Oncology was consulted recommendation was to repeat CT in 1 week and is still positive consider further biopsy. Repeat CT on 05/10/2020 showed bilateral lung nodules appear decreased since prior imaging, right upper lobe which may have some cavitation. Patient is to follow-up with Dr. Garrido oncologist as outpatient within 1 to 2 weeks. (6) Tobacco abuse Started on nicotine patch. Counseled on quitting. (7) Physical deconditioning Likely due to underlying acute illness and prolonged hospitalization. Unfortunately patient refuses to cooperate with physical examination. Patient is stating once she is discharged to rehab she will cooperate with PT OT. Continue aggressive PT OT. Continue fall precautions. Physical Exam Vital Signs: Temp Pulse Resp BP Pulse Ox 98.1 F 74 16 119/67 94 05/17/20 12:18 05/17/20 13:25 05/17/20 13:25 05/17/20 12:18 05/17/20 13:25 Intake & Output 05/16/20 05/17/20 05/18/20 06:59 06:59 06:59 Intake Total 360 830 120 Output Total 2050 1075 472 Balance -1690 -245 -481 Weight 62.2 kg 62.2 kg 62.2 kg General appearance: PRESENT: no acute distress, well-developed, well-nourished Head exam: PRESENT: atraumatic, normocephalic Throat exam: PRESENT: post pharyngeal erythema, tonsillar erythema, tonsillar exudate, tonsillogmegaly, other Neck exam: ABSENT: carotid bruit, JVD, lymphadenopathy, thyromegaly Respiratory exam: PRESENT: clear to auscultation leonid, rhonchi. ABSENT: rales, wheezes Cardiovascular exam: PRESENT: RRR. ABSENT: diastolic murmur, rubs, systolic murmur Pulses: PRESENT: normal dorsalis pedis pul Vascular exam: PRESENT: normal capillary refill GI/Abdominal exam: PRESENT: normal bowel sounds, soft. ABSENT: distended, guarding, mass, organolmegaly, rebound, tenderness Extremities exam: PRESENT: full ROM. ABSENT: calf tenderness, clubbing, pedal edema Neurological exam: PRESENT: alert, awake, oriented to person, oriented to place, oriented to time, oriented to situation, CN II-XII grossly intact. ABSENT: motor sensory deficit Psychiatric exam: PRESENT: appropriate affect, normal mood. ABSENT: homicidal ideation, suicidal ideation Skin exam: PRESENT: dry, intact, warm. ABSENT: cyanosis, rash Results Laboratory Results: WBC 22.2 10^3/uL (4.0-10.5) H 05/17/20 08:55 RBC 3.06 10^6/uL (3.72-5.28) L 05/17/20 08:55 Hgb 8.8 g/dL (12.0-15.5) L 05/17/20 08:55 Hct 25.5 % (36.0-47.0) L 05/17/20 08:55 MCV 83 fl (80-97) 05/17/20 08:55 MCH 28.7 pg (27.0-33.4) 05/17/20 08:55 MCHC 34.4 g/dL (32.0-36.0) 05/17/20 08:55 RDW 16.3 % (11.5-14.0) H 05/17/20 08:55 Plt Count 389 10^3/uL (150-450) 05/17/20 08:55 Lymph % (Auto) Not Reportable 05/17/20 08:55 [place] % (Auto) Not Reportable 05/17/20 08:55 Eos % (Auto) Not Reportable 05/17/20 08:55 Baso % (Auto) Not Reportable 05/17/20 08:55 Reticulocyte # 0.034 10^6/uL (0.028-0.122) 05/11/20 05:50 Absolute Neuts (auto) Not Reportable 05/17/20 08:55 Absolute Lymphs (auto) Not Reportable 05/17/20 08:55 Absolute Monos (auto) Not Reportable 05/17/20 08:55 Absolute Eos (auto) Not Reportable 05/17/20 08:55 Absolute Basos (auto) Not Reportable 05/17/20 08:55 Total Counted 100 05/17/20 08:55 Seg Neutrophils % Not Reportable 05/17/20 08:55 Seg Neuts % (Manual) 96 % (42-78) H 05/17/20 08:55 Band Neutrophils % 1 % (3-5) L 05/07/20 05:18 Lymphocytes % (Manual) 3 % (13-45) L 05/17/20 08:55 Atypical Lymphs % 1 % (0) 05/17/20 08:55 Monocytes % (Manual) 0 % (3-13) L 05/17/20 08:55 Eosinophils % (Manual) 0 % (0-6) 05/17/20 08:55 Basophils % (Manual) 0 % (0-2) 05/17/20 08:55 Myelocytes % 1 % (0) H 05/05/20 05:40 Abs Neuts (Manual) 21.3 10^3/uL (1.7-8.2) H 05/17/20 08:55 Abs Lymphs (Manual) 0.9 10^3/uL (0.5-4.7) 05/17/20 08:55 Abs Monocytes (Manual) 0.0 10^3/uL (0.1-1.4) L 05/17/20 08:55 Absolute Eos (Manual) 0.0 10^3/uL (0.0-0.6) 05/17/20 08:55 Abs Basophils (Manual) 0.0 10^3/uL (0.0-0.2) 05/17/20 08:55 Nucleated RBCs 1 /100 WBC (0) 05/17/20 08:55 Hypersegmented Neuts PRESENT 05/06/20 05:16 Toxic Granulation SLIGHT 05/13/20 05:55 Toxic Vacuolation PRESENT 05/04/20 02:30 Platelet Estimate Cancelled 05/03/20 03:25 Clumped Platelets PRESENT 05/15/20 05:17 Large Platelets PRESENT 05/04/20 02:30 Platelet Comment ADEQUATE 05/17/20 08:55 Polychromasia SLIGHT 05/07/20 05:18 Poikilocytosis SLIGHT 05/17/20 08:55 Basophilic Stippling PRESENT 05/07/20 05:18 Anisocytosis 1+ 05/17/20 08:55 Ovalocytes SLIGHT 05/17/20 08:55 Singh-Bedford Bodies PRESENT 05/07/20 05:18 Catrina Cells SLIGHT 05/07/20 05:18 Acanthocytes (Spur) 1+ 05/17/20 08:55 Schistocytes SLIGHT 05/17/20 08:55 RBC Morph Comment NORMO-CYTIC/CHROMIC 05/13/20 05:55 Retic Count (auto) 1.21 % (0.66-2.85) 05/11/20 05:50 PT 19.9 SEC (11.4-15.4) H 05/06/20 05:16 INR 1.68 05/06/20 05:16 Carbonic Acid 0.92 mmol/L (1.05-1.35) L 05/14/20 05:45 HCO3/H2CO3 Ratio 21:1 05/14/20 05:45 ABG pH 7.43 (7.35-7.45) 05/14/20 05:45 ABG pCO2 30.4 mmHg (35-45) L 05/14/20 05:45 ABG pO2 65.6 mmHg (80-100) L 05/14/20 05:45 ABG HCO3 19.5 mmol/L (20-24) L 05/14/20 05:45 ABG Total CO2 20.5 mmol/L (21-25) L 05/14/20 05:45 ABG O2 Saturation 93.7 % (94-98) L 05/14/20 05:45 ABG Base Excess -3.6 mmol/L 05/14/20 05:45 FiO2 1L 05/14/20 05:45 Sodium 133.2 mmol/L (137-145) L 05/17/20 08:55 Potassium 3.5 mmol/L (3.6-5.0) L 05/17/20 08:55 Chloride 100 mmol/L (98-107) 05/17/20 08:55 Carbon Dioxide 25 mmol/L (22-30) 05/17/20 08:55 Anion Gap 8 (5-19) 05/17/20 08:55 BUN 13 mg/dL (7-20) 05/17/20 08:55 Creatinine 0.63 mg/dL (0.52-1.25) 05/17/20 08:55 Est GFR ( Amer) > 60 (>60) 05/17/20 08:55 Est GFR (Non-Af Amer) Cancelled 05/04/20 16:14 Est GFR (MDRD) Non-Af > 60 (>60) 05/17/20 08:55 Glucose 103 mg/dL (75-110) 05/17/20 08:55 POC Glucose 157 mg/dL (70-110) H 05/10/20 11:50 Calcium 8.9 mg/dL (8.4-10.2) 05/17/20 08:55 Phosphorus 3.6 mg/dL (2.5-4.5) 05/15/20 05:17 Magnesium 1.6 mg/dL (1.6-2.3) 05/16/20 06:30 Iron 16.1 ug/dL (37-170) L 05/11/20 05:50 TIBC 177 ug/dL (250-450) L 05/11/20 05:50 % Saturation 9 % 05/11/20 05:50 Ferritin 483.00 ng/mL (11.1-264.0) H 05/11/20 05:50 Total Bilirubin 0.4 mg/dL (0.2-1.3) 05/16/20 06:30 Direct Bilirubin 0.2 mg/dL (0.0-0.4) 05/16/20 06:30 Neonat Total Bilirubin Not Reportable 05/16/20 06:30 Neonat Direct Bilirubin Not Reportable 05/16/20 06:30 Neonat Indirect Bili Not Reportable 05/16/20 06:30 AST 24 U/L (14-36) 05/16/20 06:30 ALT 19 U/L (<35) 05/16/20 06:30 Alkaline Phosphatase 39 U/L (38-126) 05/16/20 06:30 Creatine Kinase 100 U/L (30-135) 04/29/20 16:53 CK-MB (CK-2) 2.44 ng/mL (<4.55) 04/29/20 16:53 Troponin I 0.025 ng/mL 04/30/20 06:21 NT-Pro-B Natriuret Pep 1250 pg/mL (<450) H 04/29/20 22:24 Total Protein 4.9 g/dL (6.3-8.2) L 05/16/20 06:30 Albumin 2.6 g/dL (3.5-5.0) L 05/16/20 06:30 Prealbumin 23.9 mg/dL (17.6-36.0) 05/15/20 05:17 Triglycerides 101 mg/dL (<150) 04/29/20 16:53 Cholesterol 103.72 mg/dL (0-200) 04/29/20 16:53 LDL Cholesterol Direct 40 mg/dL (<100) 04/29/20 16:53 VLDL Cholesterol 20.0 mg/dL (10-31) 04/29/20 16:53 HDL Cholesterol 34 mg/dL (>40) L 04/29/20 16:53 EGFR Cancelled 05/04/20 16:14 Vitamin B12 820.0 pg/mL (239-931) 05/11/20 05:50 Vitamin D 25-Hydroxy 28.6 ng/mL (14.7-68.3) 05/14/20 05:45 Folate 8.69 ng/mL (>2.76) 05/11/20 05:50 Urine Color YELLOW 04/29/20 23:42 Urine Appearance CLOUDY 04/29/20 23:42 Urine pH 5.0 (5.0-9.0) 04/29/20 23:42 Ur Specific [place] 1.023 04/29/20 23:42 Urine Protein 30 mg/dL (NEGATIVE) H 04/29/20 23:42 Urine Glucose (UA) NEGATIVE mg/dL (NEGATIVE) 04/29/20 23:42 Urine Ketones TRACE mg/dL (NEGATIVE) H 04/29/20 23:42 Urine Blood NEGATIVE (NEGATIVE) 04/29/20 23:42 Urine Nitrite NEGATIVE (NEGATIVE) 04/29/20 23:42 Urine Bilirubin NEGATIVE (NEGATIVE) 04/29/20 23:42 Urine Urobilinogen NEGATIVE mg/dL (<2.0) 04/29/20 23:42 Ur Leukocyte Esterase SMALL (NEGATIVE) H 04/29/20 23:42 Urine WBC (Auto) 22 /HPF 04/29/20 23:42 Urine RBC (Auto) 2 /HPF 04/29/20 23:42 U Hyaline Cast (Auto) 23 /LPF 04/29/20 23:42 Squamous Epi Cells Auto 10 /HPF 04/29/20 23:42 Urine Mucus (Auto) RARE /LPF 04/29/20 23:42 Urine Ascorbic Acid 20 (NEGATIVE) H 04/29/20 23:42 Stl C. Difficile GDH Ag NEGATIVE (NEGATIVE) 05/12/20 15:16 Stl C.difficile Tox A&B NEGATIVE (NEGATIVE) 05/12/20 15:16 COVID-19 Source See comment 05/13/20 12:45 COVID-19 (SHERRIE) Not Detected (Not Detect) 05/13/20 12:45 SARS-CoV-2 (PCR) NEGATIVE (NEGATIVE) 05/05/20 13:50 Slides for Path Review PATHOLOGIST REVIEWED 05/05/20 05:40 04/29/20 04/29/20 04/29/20 16:53 22:24 22:24 CK-MB (CK-2) 2.44 Troponin I 0.029 0.024 NT-Pro-B Natriuret Pep 1250 H 04/30/20 06:21 CK-MB (CK-2) Troponin I 0.025 NT-Pro-B Natriuret Pep Impressions: Chest X-Ray 04/29/20 16:43 IMPRESSION: 1. Since the prior study dated 07/11/2010, new development of bilateral pulmonary nodules. Correlation with CT chest with IV contrast suggested. 2. Mild prominence of the interstitial markings in the left lung may be on the basis of edema versus infiltrates. Very small pleural effusions suggested. 3. Post surgical changes right breast, stable findings. Chest/Abdomen CTA 04/29/20 21:12 IMPRESSION: No evidence of pulmonary embolus. Mucous plugging. There is a large central mass lesion left infrahilar may represent a pulmonary mass or perhaps adenopathy. Other prominent mediastinal lymph nodes are seen. Multiple bilateral pulmonary nodules are seen. Some of the smaller nodules have an appearance suspicious for an infectious inflammatory process but there are larger well-rounded and more sharply marginated soft tissue nodules which are suspicious for neoplasm. Is there a known history of a primary carcinoma? . Chest X-Ray 05/02/20 09:00 IMPRESSION: INCREASING FAINT AIRSPACE DISEASE IN THE RIGHT UPPER LOBE AND LEFT LOWER LOBE CONCERNING FOR DEVELOPING PNEUMONIA. PICC Line Insertion 05/06/20 00:00 IMPRESSION: SUCCESSFUL PLACEMENT OF A 5 FR DUAL LUMEN 39 CM PICC IN THE LEFT BASILIC VEIN. Chest CT 05/10/20 00:00 IMPRESSION: Bilateral lung nodules appear decreased since prior imaging. There is one at the right upper lobe which may have some cavitation. There is also decreased groundglass change. This may reflect resolving infection. Interval follow-up to complete resolution is recommended within one month. The previously seen reticulonodular airspace opacities and groundglass airspace opacities have significantly improved. Venous Doppler Study 05/12/20 09:53 IMPRESSION: Noncompressible left cephalic vein in the midforearm. No proximal thrombus identified in either upper extremity. Plan Time Spent: Greater than 30 Minutes Stroke Is this a Stroke Patient?: No Acute Heart Failure Is this a Heart Failure Patient?: No
[2020-05-17] MEDS: POLYETHYLENE GLYCOL 3350 POWDER 17 GM/1 PACKET PO SCH (21:33)
[2020-05-17] MEDS: ATORVASTATIN CALCIUM 40 MG TABLET PO SCH (21:38)
[2020-05-17] MEDS: MONTELUKAST SODIUM 10 MG TABLET PO SCH (21:38)
[2020-05-17] MEDS: LIDOCAINE 5% (700 MG) TRANSDERMAL ADH..PATCH TP SCH (21:39)
[2020-05-18] MEDS: LEVOTHYROXINE SODIUM 0.075 MG TABLET PO SCH (07:12)
[2020-05-18] MEDS: OXYCODONE-ACETAMINOPHEN 5-325 MG TABLET PO SCH (07:12)
[2020-05-18] MEDS: LEVOTHYROXINE SODIUM 0.1 MG TABLET PO SCH (07:13)
[2020-05-18] MEDS: IPRATROPIUM/ALBUTEROL 0.5-2.5 MG/3 ML AMPUL NEB SCH (07:56)
[2020-05-18] MEDS: PHOSPHORUS #1 250 MG TABLET PO SCH (08:21)
[2020-05-18 09:00] VITALS: BP 110/60
[2020-05-18] MEDS: ATENOLOL 50 MG TABLET PO SCH (10:17)
[2020-05-18] MEDS: CALCIUM CARBONATE 600 MG/VITAMIN D3 400 UNIT TABLET PO SCH (10:18)
[2020-05-18] MEDS: NIFEDIPINE 30 MG TAB.ER.24 PO SCH (10:18)
[2020-05-18] MEDS: GUAIFENESIN 600 MG TABLET.SA PO SCH (10:18)
[2020-05-18] MEDS: ASPIRIN 81 MG TABLET, CHEWABLE PO SCH (10:18)
[2020-05-18] MEDS: FERROUS SULFATE 325 MG TABLET PO SCH (10:19)
[2020-05-18] MEDS: ASCORBIC ACID 500 MG TABLET PO SCH (10:19)
[2020-05-18] MEDS: FLUTICASONE/UMECLIDIN/VILANTER 100-62.5-25 MCG/DOSE IH SCH (10:23)
[2020-05-18] MEDS: MEGESTROL ACETATE 20 MG TABLET PO SCH (10:23)
[2020-05-18] MEDS: PHARMACY COMMUNICATION ORDER MC SCH (10:24)
[2020-05-18] MEDS: CEFEPIME HCL 2 GM in DEXTROSE 5%-WATER 50 ML IV SCH (10:25)
[2020-05-18] MEDS: DOCUSATE SODIUM 100 MG CAPSULE PO SCH (10:25)
[2020-05-18] MEDS: ENOXAPARIN SODIUM INJ 40 MG/0.4 ML DISP.SYRIN SUBCUT SCH (10:25)
[2020-05-18] MEDS: NORMAL SALINE 10 ML SDV (SCHEDULED) IV SCH (10:26)
[2020-05-18] MEDS: NICOTINE 21 MG/24 HR PATCH.TD24 TD SCH (10:26)
[2020-05-18] MEDS: FAMOTIDINE 20 MG TABLET PO SCH (10:28)
== END 2020-05-18 11:30 | DRG 189 ==
LOC: ER 16:36 → EH 20:10 → 3N 22:24 → ICU 05-01 14:08 → 5 05-03 18:44
PROVIDERS: ADMIT Internal Medicine; ATTEND Internal Medicine
PROC: 5A09557 Assistance with Respiratory Ventilation, Greater than 96 Consecutive Hours, Continuous Positive Airway Pressure (ICD-10-PCS; principal; 2020-04-30)
PROC: B518ZZA Fluoroscopy of Superior Vena Cava, Guidance (ICD-10-PCS; 2020-05-06)
PROC: B548ZZA Ultrasonography of Superior Vena Cava, Guidance (ICD-10-PCS; 2020-05-06)
PROC: 0B9B8ZX Drainage of Left Lower Lobe Bronchus, Via Natural or Artificial Opening Endoscopic, Diagnostic (ICD-10-PCS; 2020-05-06)
PROC: 0B978ZX Drainage of Left Main Bronchus, Via Natural or Artificial Opening Endoscopic, Diagnostic (ICD-10-PCS; 2020-05-06)
PROC: 02HV33Z Insertion of Infusion Device into Superior Vena Cava, Percutaneous Approach (ICD-10-PCS; 2020-05-06 11:30)
DX: J96.01 Acute respiratory failure with hypoxia (principal); J13 Pneumonia due to Streptococcus pneumoniae; J44.1 Chronic obstructive pulmonary disease with (acute) exacerbation; J44.0 Chronic obstructive pulmonary disease with (acute) lower respiratory infection; E87.1 Hypo-osmolality and hyponatremia; T17.590A Other foreign object in bronchus causing asphyxiation, initial encounter; R91.8 Other nonspecific abnormal finding of lung field; B96.5 Pseudomonas (aeruginosa) (mallei) (pseudomallei) as the cause of diseases classified elsewhere; B96.3 Hemophilus influenzae [H. influenzae] as the cause of diseases classified elsewhere; R63.4 Abnormal weight loss; I10 Essential (primary) hypertension; E03.9 Hypothyroidism, unspecified; D72.823 Leukemoid reaction; D63.8 Anemia in other chronic diseases classified elsewhere; E83.52 Hypercalcemia; F17.210 Nicotine dependence, cigarettes, uncomplicated; I95.9 Hypotension, unspecified; X58.XXXA Exposure to other specified factors, initial encounter; E83.42 Hypomagnesemia; E83.51 Hypocalcemia; E87.6 Hypokalemia; R13.10 Dysphagia, unspecified; Z53.29 Procedure and treatment not carried out because of patient's decision for other reasons; Z03.818 Encounter for observation for suspected exposure to other biological agents ruled out; Z79.899 Other long term (current) drug therapy; Z85.3 Personal history of malignant neoplasm of breast; Z88.2 Allergy status to sulfonamides; Z79.52 Long term (current) use of systemic steroids; Z79.890 Hormone replacement therapy; Z79.51 Long term (current) use of inhaled steroids
CPT/HCPCS: 00520; 31623; 31624; 36415; 36573; 36600; 71045; 71250; 71275; 80048; 80053; 80061; 80069; 81001; 82040; 82306; 82550; 82553; 82607; 82728; 82746; 82803; 82962; 83540; 83550; 83735; 83880; 84100; 84132; 84134; 84484; 85025; 85027; 85045; 85610; 87040; 87070; 87077; 87101; 87150; 87186; 87205; 87324; 87449; 87635; 88104; 93005; 93010; 93970; 94640; 94660; 94667; 94668; 96365; 99291; J0610; C9803; J0456; J0692; J0696; J1642; J1650; J1956; J2060; J2250; J2270; J2405; J2543; J2704; J2920; J3475; J3480; J3490; J7030; J7040; J7050; J7060; J7120; J7613; J8540

== ENCOUNTER 2020-05-21 11:48 | Inpatient (IN) | payer MEDICARE, OTHER ==
[2020-05-21] MEDS ORDERED: NORMAL SALINE 1000 ML 1,000 ML IV ONE ×2 (12:25→13:39)
--- NOTE | 2020-05-21 12:49 | RADIOLOGY REPORT (SQ) ---
EXAM DESCRIPTION: CHEST SINGLE VIEW IMAGES COMPLETED DATE/TIME: 05/21/2020 12:39 pm REASON FOR STUDY: Acute respiratory failure COMPARISON: 05/02/2020. EXAM PARAMETERS: NUMBER OF VIEWS: One view. TECHNIQUE: Single frontal radiographic view of the chest acquired. RADIATION DOSE: NA LIMITATIONS: None. FINDINGS: LUNGS AND PLEURA: Increased patchy right perihilar opacities. This stable to improved rig ht basilar and left basilar airspace disease. Likely trace bilateral effusions. No pneumothorax. MEDIASTINUM AND HILAR STRUCTURES: Ill-defined right perihilar opacities. HEART AND VASCULAR STRUCTURES: Stable. Vascular calcifications. BONES: No acute findings. HARDWARE: Surgical clips overlie right axilla. OTHER: No other significant finding. IMPRESSION: Increased right perihilar opacities with persistent but improved patchy bibasilar opacit ies, left greater than right. TECHNICAL DOCUMENTATION: JOB ID: [id number] 2010 [employer]- All Rights Reserved Reading location - IP/workstation name: [email or web address]
[2020-05-21 13:05] LABS: ALBUMIN 2.8 g/dL (3.5-5.0); ALKALINE PHOSPHATASE 46 U/L (38-126); ANION GAP 16 (5-19); ASPARTATE AMINO TRANSFERASE 25 U/L (14-36); BILIRUBIN,DIRECT 0.3 mg/dL (0.0-0.4); BILIRUBIN,TOTAL 0.5 mg/dL (0.2-1.3); BLOOD UREA NITROGEN 39 mg/dL (7-20); CALCIUM 8.1 mg/dL (8.4-10.2); CARBON DIOXIDE 16 mmol/L (22-30); CHLORIDE 104 mmol/L (98-107); CREATINE KINASE 44 U/L (30-135); GLUCOSE 147 mg/dL (75-110); POTASSIUM 5.3 mmol/L (3.6-5.0); TOTAL PROTEIN 5.6 g/dL (6.3-8.2)
--- NOTE | 2020-05-21 13:10 | ER Document Report ---
Entered by GENA GAYLE SCRIBE 05/21/20 1201 Acting as scribe for:MARK LEIVA MD ED Respiratory Problem - General Stated Complaint: DIFFICULTY BREATHING Time Seen by Provider: 05/21/20 11:51 Mode of Arrival: Medic Information source: Patient Cannot obtain history due to: Unstable vital signs Notes: This 84 year old female patient with COPD presents today from [facility] for respiratory distress. [facility] found the patient to have an oxygen saturation in the 50s per EMS. She is on 4L around the clock, C-pap for EMS was able to get the patient's oxygen saturation up to the 80s. She was hypotensive at 80/40 so [facility] staff gave "100 mg of lasix". She had a pressure of 108/57 on arrival here. Patient was transferred to [facility] and she feels much better now. TRAVEL OUTSIDE OF THE [place] IN LAST 30 DAYS: No - Related Data Allergies/Adverse Reactions: Sulfa (Sulfonamide Antibiotics) Allergy (Intermediate, Verified 02/18/13 18:13) Hives Past Medical History - General Information source: [facility] Records Cannot obtain history due to: Unstable vital signs - Social History Smoking Status: Current Every Day Smoker Cigarette use (# per day): Yes Frequency of alcohol use: None Drug Abuse: None Lives with: Family Family History: Reviewed & Not Pertinent, Other - Past Medical History Cardiac Medical History: Reports: Hx Hypertension Pulmonary Medical History: Reports: Hx COPD Endocrine Medical History: Reports: Hx Hypothyroidism Malignancy Medical History: Reports: Hx Breast Cancer Past Surgical History: Reports: Hx Breast Surgery, Hx Thyroid Surgery - Immunizations Hx Diphtheria, Pertussis, Tetanus Vaccination: Yes Review of Systems - Review of Systems -: Yes ROS unobtainable due to patient's medical condition Constitutional: No symptoms reported EENT: No symptoms reported Cardiovascular: No symptoms reported Respiratory: See HPI, Short of breath Gastrointestinal: No symptoms reported Genitourinary: No symptoms reported Female Genitourinary: No symptoms reported Musculoskeletal: No symptoms reported Skin: No symptoms reported Hematologic/Lymphatic: No symptoms reported Neurological/Psychological: No symptoms reported -: Yes All other systems reviewed and negative Physical Exam - Vital signs Vitals: Resp Pulse Ox 28 H 88 L 05/21/20 11:52 05/21/20 11:52 - Notes Notes: Physical Exam: General: Alert, appears short of breath. HEENT: Normocephalic. Atraumatic. PERRL. Extraocular movements intact. Oropharynx clear. Neck: Supple. Non-tender. Respiratory: Moderate respiratory distress. Wheezing and rhonchi bilaterally. Crackles in the left base. Cardiovascular: Tachycardic, regular rhythm. Abdominal: Normal Inspection. Non-tender. No distension. Normal Bowel Sounds. Back: No gross abnormalities. Extremities: Moves all four extremities. Upper extremities: Normal inspection. Normal ROM. Lower extremities: Normal inspection. No edema. Normal ROM. Neurological: Normal cognition. AAOx4. Normal speech. Psychological: Normal affect. Normal Mood. Skin: Warm. Dry. Normal color. Course - Re-evaluation Re-evalutation: 05/21/20 14:43 Patient was given 2 L of normal saline for fluid resuscitation. 1 L to replace the 1 L of urine that was released with a Alvarado catheter. Another liter to start rehydrating this dehydrated patient. 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 It would be managed by the hospitalist. - Vital Signs Vital signs: Temp Pulse Resp BP Pulse Ox 21 H 95/62 L 100 05/21/20 14:01 05/21/20 14:01 05/21/20 14:01 - Laboratory Result Diagrams: 05/21/20 12:18 05/21/20 12:18 Laboratory results interpreted by me: 05/21/20 05/21/20 05/21/20 12:18 12:18 12:18 WBC 18.9 H RBC 3.05 L Hgb 8.7 L Hct 26.7 L RDW 17.9 H Seg Neuts % (Manual) 93 H Lymphocytes % (Manual) 2 L Abs Neuts (Manual) 17.6 H Abs Lymphs (Manual) 0.4 L Carbonic Acid ABG pCO2 ABG HCO3 ABG Total CO2 Sodium 135.6 L Potassium 5.3 H Carbon Dioxide 16 L BUN 39 H Creatinine 3.10 H Est GFR ( Amer) 17 L Est GFR (MDRD) Non-Af 14 L Glucose 147 H Lactic Acid Calcium 8.1 L NT-Pro-B Natriuret Pep 8190 H Total Protein 5.6 L Albumin 2.8 L Urine Protein Urine Blood Ur Leukocyte Esterase 05/21/20 05/21/2005/21/20 12:18 13:08 13:25 WBC RBC Hgb Hct RDW Seg Neuts % (Manual) Lymphocytes % (Manual) Abs Neuts (Manual) Abs Lymphs (Manual) Carbonic Acid 0.83 L ABG pCO2 27.7 L ABG HCO3 17.4 L ABG Total CO2 18.2 L Sodium Potassium Carbon Dioxide BUN Creatinine Est GFR ( Amer) Est GFR (MDRD) Non-Af Glucose Lactic Acid 6.3 H Calcium NT-Pro-B Natriuret Pep Total Protein Albumin Urine Protein 100 H Urine Blood LARGE H Ur Leukocyte Esterase TRACE H - Diagnostic Test Radiology reviewed: Image reviewed, Reports reviewed - Chest x-ray shows increased right perihilar opacities with persistent but improved patchy bibasilar opacities. - EKG Interpretation by Me EKG shows normal: Sinus rhythm, [place], Intervals, QRS Complexes, ST-T Waves Rate: Tachycardia - 110 When compared to previous EKG there are: No significant change - Consults Dr. Hernandez Time consulted: 14:00 Consulted provider: will come to ER Discharge - Discharge Clinical Impression: Right perihilar infiltrate, Dehydration, Hyperkalemia, Acute kidney injury, Acute respiratory failure with hypoxemia, Acute urinary retention, Gross hematuria Sepsis with acute hypoxic respiratory failure Qualifiers: Sepsis type: sepsis due to unspecified organism Severe sepsis shock status: with septic shock Qualified Code(s): A41.9 - Sepsis, unspecified organism Leukocytosis Qualifiers: Leukocytosis type: unspecified Qualified Code(s): D72.829 - Elevated white blood cell count, unspecified Hypotension Qualifiers: Hypotension type: unspecified hypotension type Qualified Code(s): I95.9 - Hypotension, unspecified Urinary tract infection Qualifiers: Urinary tract infection type: site unspecified Hematuria presence: with hematuria Qualified Code(s): N39.0 - Urinary tract infection, site not specified Condition: Fair Disposition: ADMITTED INPATIENT Admitting Provider: David (Hospitalist) Unit Admitted: IMCU I personally performed the services described in the documentation, reviewed and edited the documentation which was dictated to the scribe in my presence, and it accurately records my words and actions.
[2020-05-21 13:13] LABS: TROPONIN I 0.108 ng/mL
[2020-05-21 13:22] LABS: HEMATOCRIT 26.7 % (36.0-47.0); HEMOGLOBIN 8.7 g/dL (12.0-15.5); MEAN CORPUSCULAR HEMOGLOBIN 28.4 pg (27.0-33.4); MEAN CORPUSCULAR HGB CONC 32.5 g/dL (32.0-36.0); PLATELET COUNT 339 10^3/uL (150-450); RED BLOOD COUNT 3.05 10^6/uL (3.72-5.28); RED CELL DISTRIBUTION WIDTH 17.9 % (11.5-14.0); WHITE BLOOD COUNT 18.9 10^3/uL (4.0-10.5)
[2020-05-21 13:23] LABS: MEAN CORPUSCULAR VOLUME 88 fl (80-97)
[2020-05-21 13:26] LABS: ABSOLUTE LYMPHOCYTES# (MANUAL) 0.4 10^3/uL (0.5-4.7); ABSOLUTE MONOCYTES # (MANUAL) 0.9 10^3/uL (0.1-1.4); BASOPHILS % (MANUAL) 0 % (0-2); EOSINOPHILS % (MANUAL) 0 % (0-6); LYMPHOCYTES % (MANUAL) 2 % (13-45); MONOCYTES % (MANUAL) 5 % (3-13); SEGMENTED NEUTROPHILS % (MAN) 93 % (42-78); TOTAL CELLS COUNTED 100
[2020-05-21 13:27] LABS: ANISOCYTOSIS 2+; BURR CELLS SLIGHT; PLATELET COMMENT ADEQUATE; POIKILOCYTOSIS SLIGHT
[2020-05-21] MEDS ORDERED: CEFEPIME 1 GM/D5W RTU 1 GM/50 ML RTUPB IV ONE (13:34)
[2020-05-21 13:47] LABS: APPEARANCE,URINE SLIGHTLY-CLOUDY; BILIRUBIN,URINE NEGATIVE (NEGATIVE); GLUCOSE, URINE NEGATIVE (NEGATIVE); KETONES,URINE NEGATIVE (NEGATIVE); LEUKOCYTE ESTERASE,URINE TRACE (NEGATIVE); NITRITE,URINE NEGATIVE (NEGATIVE); PROTEIN,URINE 100 mg/dL (NEGATIVE); URINE SPECIFIC GRAVITY 1.014; UROBILINOGEN,URINE NEGATIVE mg/dL (<2.0)
[2020-05-21 13:48] LABS: COLOR,URINE BROWN
[2020-05-21 13:57] LABS: ARTERIAL BLOOD H2CO3 0.83 mmol/L (1.05-1.35); ARTERIAL BLOOD HCO3 17.4 mmol/L (20-24); ARTERIAL BLOOD O2 SATURATION 97.7 % (94-98); ARTERIAL BLOOD PCO2 27.7 mmHg (35-45); ARTERIAL BLOOD PH 7.42 (7.35-7.45); ARTERIAL BLOOD PO2 98.5 mmHg (80-100); ARTERIAL BLOOD TOTAL CO2 18.2 mmol/L (21-25)
[2020-05-21 13:58] LABS: ARTERIAL BLOOD FIO2 60%
[2020-05-21] MEDS ORDERED: DEXTROSE 50%-WATER 25 GM/50 ML DISP.SYRIN IV PRN ×2 (14:54)
[2020-05-21] MEDS ORDERED: ONDANSETRON HCL INJ/PF 4 MG/2 ML SDV IV PRN (14:54)
[2020-05-21] MEDS ORDERED: DEXTROSE 40% GEL 15 GM TUBE PO PRN ×2 (14:54)
[2020-05-21] MEDS ORDERED: GLUCAGON,HUMAN RECOMB 1 MG INJ SUBCUT PRN (14:54)
--- NOTE | 2020-05-21 15:25 | PDOC H&P ---
History of Present Illness Admission Date/PCP: 05/21/20 14:21 YEIMY WHITMAN MD History of Present Illness: JESSY BAKER is a 84 year old female who discharged to [facility] from this hospital after being admitted with a multifocal pneumonia. There was some question about nodules in the lungs but repeat CT appeared to show interval decrease in size and so she was going to have follow-up with Dr. Briggs as an outpatient for repeat scan. She was very weak and so she went to [facility] for r ehab. The details of her arrival here are not very well-known at this time, but it appears that her blood pressure was low and she may have been short of breath. Her bladder was very distended and a Alvarado catheter was placed in the ER. They got some urine out that was very very dark as well as some clots. They irrigated the Alvarado in the bladder and they got about a liter of dark looking urine that probably has some blood in it. She had an acute kidney injury. She had what appeared to be some fluid in the perihilar space on chest x-ray. She did not have a fever. She was put on BiPAP and her breathing relaxed. Past Medical History Cardiac Medical History: Reports: Hypertension Pulmonary Medical History: Reports: Chronic Obstructive Pulmonary Disease (COPD) Endocrine Medical History: Reports: Hypothyroidism Malignancy Medical History: Reports: Breast Cancer Psychiatric Medical History: Denies: Depression Social History Lives with: Family Smoking Status: Current Every Day Smoker Frequency of Alcohol Use: None Hx Recreational Drug Use: No Drugs: None Hx Prescription Drug Abuse: No Family History Family History: Reviewed & Not Pertinent, Other Parental Family History Reviewed: No - Unable to obtain Children Family History Reviewed: No - Unable to obtain Sibling(s) Family History Reviewed.: No - Unable to obtain Medication/Allergy Home Medications: Montelukast Sodium [Singulair 10 mg Tablet] 10 mg PO QHS 02/11/13 Tiotropium [place] [Spiriva Handihaler 18 mcg/dose (30 Dose)] 1 cap IH DAILY 02/11/13 Albuterol Sulfate [Proair HFA Inhalation Aerosol 8.5 gm MDI] 2 puff IH Q4HP PRN 04/30/20 Atenolol [Tenormin 50 mg Tablet] 25 mg PO DAILY 04/30/20 Atorvastatin Calcium [Lipitor 40 mg Tablet] 40 mg PO QHS 04/30/20 Ergocalciferol (Vitamin D2) [Drisdol 50,000 unit (1.25MG) Capsule] 50,000 unit PO Q7D 04/30/20 Fluticasone/Salmeterol [Advair 500-50 Diskus 14 Dose/Diskus] 1 inh IH Q12H 04/30/20 Levothyroxine Sodium [Synthroid] 175 mcg PO DAILY 04/30/20 Lidocaine [Lidoderm 5% (700 mg) Transdermal Patch] 2 patch TP DAILY 04/30/20 Nifedipine [Nifedipine ER] 60 mg PO DAILY 04/30/20 Oxycodone HCl/Acetaminophen [Oxycodone-Acetaminophen 10-325] 1.5 each PO Q6HP PRN 04/30/20 Polyethylene Glycol 3350 [Clearlax] 17 gm PO QHS 04/30/20 Allergies/Adverse Reactions: Sulfa (Sulfonamide Antibiotics) Allergy (Intermediate, Verified 02/18/13 18:13) Hives Review of Systems ROS unobtainable: Due to mental status Physical Exam Vital Signs: Temp Pulse Resp BP Pulse Ox 20 95/57 L 100 05/21/20 14:40 05/21/20 14:40 05/21/20 14:40 Intake & Output 05/20/20 05/21/20 05/22/20 06:59 06:59 06:59 Intake Total 1050 Output Total 800 Balance 250 Weight 61.8 kg General appearance: PRESENT: cooperative, disheveled, severe distress, thin Head exam: PRESENT: atraumatic, normocephalic Eye exam: PRESENT: EOMI, PERRLA. ABSENT: conjunctival injection, nystagmus, scleral icterus Ear exam: PRESENT: normal external ear exam Mouth exam: PRESENT: dry mucosa, neck supple Teeth exam: PRESENT: poor dentation Throat exam: ABSENT: post pharyngeal erythema Neck exam: PRESENT: full ROM. ABSENT: carotid bruit, JVD, lymphadenopathy, me ningismus, tenderness, thyromegaly Respiratory exam: PRESENT: decreased breath sounds, rhonchi, tachypnea. ABSENT: accessory muscle use, chest wall tenderness, prolonged expiratory phas, symmetrical, unlabored, wheezes Cardiovascular exam: PRESENT: RRR, +S1, +S2 Pulses: PRESENT: normal carotid pulses Vascular exam: PRESENT: normal capillary refill GI/Abdominal exam: PRESENT: normal bowel sounds, soft. ABSENT: distended, guarding, rebound, tenderness Extremities exam: ABSENT: clubbing, pedal edema Musculoskeletal exam: PRESENT: normal inspection. ABSENT: deformity Neurological exam: PRESENT: awake, oriented to person Psychiatric exam: PRESENT: anxious Skin exam: PRESENT: dry, warm, other - Generally grayish in color Results Laboratory Results: 05/21/20 12:18 05/21/20 12:18 05/21/20 05/21/20 05/21/20 12:18 12:18 12:18 WBC 18.9 H RBC 3.05 L Hgb 8.7 L Hct 26.7 L MCV 88 D MCH 28.4 MCHC 32.5 RDW 17.9 H Plt Count 339 Seg Neutrophils % Not Reportable Carbonic Acid HCO3/H2CO3 Ratio ABG pH ABG pCO2 ABG pO2 ABG HCO3 ABG O2 Saturation ABG Base Excess FiO2 Sodium 135.6 L Potassium 5.3 H Chloride 104 Carbon Dioxide 16 L Anion Gap 16 BUN 39 H Creatinine 3.10 H Est GFR ( Amer) 17 L Glucose 147 H Lactic Acid 6.3 H Calcium 8.1 L Total Bilirubin 0.5 AST 25 Alkaline Phosphatase 46 Total Protein 5.6 L Albumin 2.8 L Urine Color Urine Appearance Urine pH Ur Specific [place] Urine Protein Urine Glucose (UA) Urine Ketones Urine Blood Urine Nitrite Ur Leukocyte Esterase Urine WBC (Auto) Urine RBC (Auto) 05/21/20 05/21/20 13:08 13:25 WBC RBC Hgb Hct MCV MCH MCHC RDW Plt Count Seg Neutrophils % Carbonic Acid 0.83 L HCO3/H2CO3 Ratio 20:1 ABG pH 7.42 ABG pCO2 27.7 L ABG pO2 98.5 ABG HCO3 17.4 L ABG O2 Saturation 97.7 ABG Base Excess -7.0 FiO2 60% Sodium Potassium Chloride Carbon Dioxide Anion Gap BUN Creatinine Est GFR ( Amer) Glucose Lactic Acid Calcium Total Bilirubin AST Alkaline Phosphatase Total Protein Albumin Urine Color BROWN Urine Appearance SLIGHTLY-CLOUDY Urine pH 7.0 Ur Specific [place] 1.014 Urine Protein 100 H Urine Glucose (UA) NEGATIVE Urine Ketones NEGATIVE Urine Blood LARGE H Urine Nitrite NEGATIVE Ur Leukocyte Esterase TRACE H Urine WBC (Auto) >182 Urine RBC (Auto) >182 05/21/20 05/21/20 12:18 12:18 Creatine Kinase 44 Troponin I 0.108 NT-Pro-B Natriuret Pep 8190 H Impressions: Chest X-Ray 05/21/20 12:04 IMPRESSION: Increased right perihilar opacities with persistent but improved patchy bibasilar opacities, left greater than right. Assessment and Plan - Diagnosis (1) Acute and chronic respiratory failure with hypoxia Is this a current diagnosis for this admission?: Yes (2) Metabolic encephalopathy Is this a current diagnosis for this admission?: Yes (3) Acute kidney injury Is this a current diagnosis for this admission?: Yes (4) Acute urinary retention Is this a current diagnosis for this admission?: Yes (5) Dehydration Is this a current diagnosis for this admission?: Yes (6) Gross hematuria Is this a current diagnosis for this admission?: Yes (7) Hyperkalemia Is this a current diagnosis for this admission?: Yes (8) Hypotension Qualifiers: Hypotension type: hypotension due to hypovolemia Qualified Code(s): I95.89 - Other hypotension; E86.1 - Hypovolemia Is this a current diagnosis for this admission?: Yes (9) Emphysema lung Qualifiers: Emphysema type: centrilobular Qualified Code(s): J43.2 - Centrilobular emphysema Is this a current diagnosis for this admission?: Yes (10) Physical deconditioning Is this a current diagnosis for this admission?: Yes (11) Pulmonary nodules/lesions, multiple Is this a current diagnosis for this admission?: Yes - Plan Summary Summary: It appears that she had urinary retention which resulted in an acute kidney injury, which then resulted in a volume overload state with third spacing with concomittent intravascular volume depletion, which led to hypotension and a state of volume overload which resulted in the respiratory failure. Alvarado catheter has relieve the urinary obstruction, and we have her on some IV fluids and her blood pressure has responded. She had a leukocytosis but I think this is most likely reactive. She did get a dose of cefepime in the ER and her urine has been sent for culture. She was on BiPAP but she was looking a lot better. We will try to transition her back to the nasal cannula later on this evening if her clinical condition allows. Because of her renal failure and volume depletion I am reluctant to diurese her further at this time, but I think that with improvement of her urinary retention she will have improvement of her renal function and this will help with any volume overload state. Of course if her volume overload worsens we will have to give her some Lasix. - Time Time Spent with patient: 35 or more minutes Anticipated Discharge Disposition: [facility] Anticipated Discharge Timeframe: Pending clinical course - Inpatient Certification Based on my medical assessment, after consideration of the patient's comorbidities, presenting symptoms, or acuity I expect that the services needed warrant INPATIENT care.: Yes I certify that my determination is in accordance with my understanding of Medicare's requirements for reasonable and necessary INPATIENT services [42 CFR 412.3e].: Yes Medical Necessity: Significant Comorbidiites Make Outpatient Treatment Too Risky, Need Close Monitoring Due to Risk of Patient Decompensation, Need For IV Fluids, Need For Continuous Telemetry Monitoring, Risk of Complication if Not Cared For in Hospital
--- NOTE | 2020-05-21 18:17 | EKG REPORT ---
SEVERITY:- OTHERWISE NORMAL ECG - SINUS TACHYCARDIA : Confirmed by: Dhiraj Carrasco 21-May-2020 18:17:36
[2020-05-21] MEDS ORDERED: RINGERS SOLUTION,LACTATED 1,000 ML IV ONE (20:15)
[2020-05-21] MEDS: RINGERS SOLUTION,LACTATED 1,000 ML IV PRN (21:25)
[2020-05-21] MEDS: HEPARIN SOD (PORCINE) 5,000 UNIT/ML 1 ML VIAL SUBCUT SCH (21:26)
[2020-05-21] MEDS ORDERED: MIDODRINE HCL 5 MG TABLET PO ONE (23:00)
[2020-05-22] MEDS: HEPARIN SOD (PORCINE) 5,000 UNIT/ML 1 ML VIAL SUBCUT SCH ×3 (05:48→21:05)
[2020-05-22] MEDS: MIDODRINE HCL 5 MG TABLET PO SCH ×4 (05:49→21:06)
[2020-05-22] MEDS: RINGERS SOLUTION,LACTATED 1,000 ML IV PRN (06:00)
[2020-05-22 06:20] LABS: HEMATOCRIT 18.3 % (36.0-47.0); MEAN CORPUSCULAR HEMOGLOBIN 28.5 pg (27.0-33.4); MEAN CORPUSCULAR HGB CONC 33.4 g/dL (32.0-36.0); MEAN CORPUSCULAR VOLUME 86 fl (80-97); PLATELET COUNT 231 10^3/uL (150-450); RED BLOOD COUNT 2.13 10^6/uL (3.72-5.28); RED CELL DISTRIBUTION WIDTH 16.8 % (11.5-14.0)
[2020-05-22 06:23] LABS: ANION GAP 9 (5-19); BLOOD UREA NITROGEN 40 mg/dL (7-20); CALCIUM 7.3 mg/dL (8.4-10.2); CARBON DIOXIDE 19 mmol/L (22-30); CHLORIDE 109 mmol/L (98-107); GLUCOSE 70 mg/dL (75-110); POTASSIUM 4.6 mmol/L (3.6-5.0)
[2020-05-22 06:33] LABS: HEMOGLOBIN 6.1 g/dL (12.0-15.5)
[2020-05-22 07:58] LABS: HEMATOCRIT 17.8 % (36.0-47.0); MEAN CORPUSCULAR HEMOGLOBIN 28.8 pg (27.0-33.4); MEAN CORPUSCULAR HGB CONC 33.6 g/dL (32.0-36.0); MEAN CORPUSCULAR VOLUME 86 fl (80-97); PLATELET COUNT 239 10^3/uL (150-450); RED BLOOD COUNT 2.08 10^6/uL (3.72-5.28); RED CELL DISTRIBUTION WIDTH 16.8 % (11.5-14.0); WHITE BLOOD COUNT 14.6 10^3/uL (4.0-10.5)
[2020-05-22] MEDS ORDERED: NORMAL SALINE 250 ML IV PRN ×2 (08:42)
[2020-05-22] MEDS ORDERED: FUROSEMIDE INJ/PF 20 MG/2 ML SDV IV PRN (08:42)
[2020-05-22] MEDS ORDERED: RINGERS SOLUTION,LACTATED 1,000 ML IV PRN (08:47)
--- NOTE | 2020-05-22 10:44 | RADIOLOGY REPORT (SQ) ---
EXAM DESCRIPTION: CHEST SINGLE VIEW IMAGES COMPLETED DATE/TIME: 05/22/2020 9:50 am REASON FOR STUDY: hypoxemia COMPARISON: CT chest 05/10/2020 AP chest 05/21/2020, 05/02/2020 EXAM PARAMETERS: NUMBER OF VIEWS: One view. TECHNIQUE: Single frontal radiographic view of the chest acquired. RADIATION DOSE: NA LIMITATIONS: None. FINDINGS: LUNGS AND PLEURA: Patchy left lower lobe airspace just above the hemidiaphragm. This is s imilar compared to 05/21/2020 Lungs are otherwise hyperinflated and hyperlucent from obstructive lung disease. There is mild pulmo nary vascular prominence and few Hui lines at the right lung base likely from interstitial edema. No gross pleural effusion or pneumothorax. MEDIASTINUM AND HILAR STRUCTURES: No masses. Contour normal. HEART AND VASCULAR STRUCTURES: No cardiomegaly BONES: No acute findings. HARDWARE: None in the chest. OTHER: No other significant finding. IMPRESSION: Pulmonary vascular prominence with mild interstitial edema Persistent left lower lobe airspace disease worrisome for pneumonia. Similar compared to 05/25/2020. Obstructive lung disease TECHNICAL DOCUMENTATION: JOB ID: [id number] 2010 [employer]- All Rights Reserved Reading location - IP/workstation name: [email or web address]
[2020-05-22] MEDS ORDERED: FUROSEMIDE INJ/PF 20 MG/2 ML SDV IV ONE (10:56)
[2020-05-22] MEDS: PIPERACILLIN SODIUM/TAZOBACTAM 2.25 GM in NORMAL SALINE 50 ML IV SCH ×2 (15:08→18:31)
--- NOTE | 2020-05-22 15:16 | PDOC PROGRESS REPORT ---
Subjective Progress Note for:: 05/22/20 Subjective:: She still on BiPAP overnight. She looks a lot more comfortable than she did yesterday. She is put out some urine. Her creatinine has improved. She said she would like to try to come off BiPAP and get a little something to eat. Hemoglobin is down because of all the fluid she got yesterday. Reason For Visit: URINARY RETENTION,ELIJAH,ACUTE ON CHRONIC RESPIRATORY Physical Exam Vital Signs: Temp Pulse Resp BP Pulse Ox 98.7 F 100 18 95/55 L 100 05/22/20 12:46 05/22/20 12:46 05/22/20 12:46 05/22/20 12:46 05/22/20 12:46 Intake & Output 05/21/20 05/22/20 05/23/20 06:59 06:59 06:59 Intake Total 3710 0 Output Total 1275 Balance 2435 0 Weight 60.5 kg General appearance: PRESENT: cooperative, disheveled, no apparent distress, thin Respiratory exam: PRESENT: decreased breath sounds, rhonchi, tachypnea. ABSENT: accessory muscle use, chest wall tenderness, prolonged expiratory phas, symmetrical, unlabored, wheezes Cardiovascular exam: PRESENT: RRR, +S1, +S2 Pulses: PRESENT: normal carotid pulses Vascular exam: PRESENT: normal capillary refill GI/Abdominal exam: PRESENT: normal bowel sounds, soft. ABSENT: distended, guarding, rebound, tenderness Extremities exam: PRESENT: 1+ ankle edema. ABSENT: clubbing Musculoskeletal exam: PRESENT: normal inspection. ABSENT: deformity Neurological exam: PRESENT: awake, oriented to person Psychiatric exam: PRESENT: flat affect Skin exam: PRESENT: dry, warm, other - Generally grayish in color Results Laboratory Results: 05/22/20 07:30 05/22/20 05:48 05/21/20 05/21/20 05/22/20 12:18 12:18 05:48 WBC 18.9 H 15.0 H RBC 3.05 L 2.13 L Hgb 8.7 L 6.1 L D Hct 26.7 L 18.3 L MCV 88 86 MCH 28.4 28.5 MCHC 32.5 33.4 RDW 17.9 H 16.8 H Plt Count 339 231 Sodium 135.6 L Potassium 5.3 H Chloride 104 Carbon Dioxide 16 L Anion Gap 16 BUN 39 H Creatinine 3.10 H Est GFR ( Amer) 17 L Glucose 147 H Calcium 8.1 L Total Bilirubin 0.5 AST 25 Alkaline Phosphatase 46 Total Protein 5.6 L Albumin 2.8 L Blood Type Antibody Screen 05/22/20 05/22/20 05/22/20 05:48 07:30 07:30 WBC 14.6 H RBC 2.08 L Hgb 6.0 L Hct 17.8 L MCV 86 MCH 28.8 MCHC 33.6 RDW 16.8 H Plt Count 239 Sodium 136.7 L Potassium 4.6 Chloride 109 H Carbon Dioxide 19 L Anion Gap 9 BUN 40 H Creatinine 2.05 H Est GFR ( Amer) 28 L Glucose 70 L Calcium 7.3 L Total Bilirubin AST Alkaline Phosphatase Total Protein Albumin Blood Type O POSITIVE Antibody Screen NEGATIVE 05/21/20 13:08 Catheterized Urine Urine Culture - Final C.albicans/C.dubliniensis 05/21/20 05/21/20 12:18 12:18 Creatine Kinase 44 Troponin I 0.108 NT-Pro-B Natriuret Pep 8190 H Impressions: Chest X-Ray 05/22/20 00:00 IMPRESSION: Pulmonary vascular prominence with mild interstitial edema Persistent left lower lobe airspace disease worrisome for pneumonia. Similar compared to 05/25/2020. Obstructive lung disease Assessment and Plan - Diagnosis (1) Acute and chronic respiratory failure with hypoxia Is this a current diagnosis for this admission?: Yes (2) Metabolic encephalopathy Is this a current diagnosis for this admission?: Yes (3) Acute kidney injury Is this a current diagnosis for this admission?: Yes (4) Acute urinary retention Is this a current diagnosis for this admission?: Yes (5) Dehydration Is this a current diagnosis for this admission?: Yes (6) Gross hematuria Is this a current diagnosis for this admission?: Yes (7) Hyperkalemia Is this a current diagnosis for this admission?: Yes (8) Hypotension Qualifiers: Hypotension type: hypotension due to hypovolemia Qualified Code(s): I95.89 - Other hypotension; E86.1 - Hypovolemia Is this a current diagnosis for this admission?: Yes (9) Emphysema lung Qualifiers: Emphysema type: centrilobular Qualified Code(s): J43.2 - Centrilobular emphysema Is this a current diagnosis for this admission?: Yes (10) Physical deconditioning Is this a current diagnosis for this admission?: Yes (11) Pulmonary nodules/lesions, multiple Is this a current diagnosis for this admission?: Yes - Plan Summary Summary: Only Jeana growing out of the urine, no bacteria. Creatinine trending down, urine output is good. She will keep the Alvarado in for now and follow up with urology as outpatient. WBC coming down. Empirically starting Zosyn for treatment of possible aspiration pneumonia. She appears to have some signs of volume overload as well, and were going to give her a couple of doses of Lasix today to see how she responds. 2 units of packed red blood cells have been ordered because of her hemodilution causing her hemoglobin to drop. - Time Time Spent with patient: 15-24 minutes Anticipated Discharge Disposition: [facility] Facility Anticipated Discharge Timeframe: Pending clinical course
[2020-05-22 21:54] LABS: HEMATOCRIT 29.5 % (36.0-47.0); MEAN CORPUSCULAR HEMOGLOBIN 29.1 pg (27.0-33.4); MEAN CORPUSCULAR HGB CONC 34.1 g/dL (32.0-36.0); MEAN CORPUSCULAR VOLUME 86 fl (80-97); PLATELET COUNT 215 10^3/uL (150-450); RED BLOOD COUNT 3.45 10^6/uL (3.72-5.28); RED CELL DISTRIBUTION WIDTH 16.4 % (11.5-14.0); WHITE BLOOD COUNT 12.5 10^3/uL (4.0-10.5)
[2020-05-22 22:34] LABS: ABSOLUTE LYMPHOCYTES# (MANUAL) 0.4 10^3/uL (0.5-4.7); ABSOLUTE MONOCYTES # (MANUAL) 0.3 10^3/uL (0.1-1.4); BAND NEUTROPHILS % (MANUAL) 3 % (3-5); BASOPHILS % (MANUAL) 0 % (0-2); EOSINOPHILS % (MANUAL) 1 % (0-6); LYMPHOCYTES % (MANUAL) 3 % (13-45); MONOCYTES % (MANUAL) 2 % (3-13); SEGMENTED NEUTROPHILS % (MAN) 91 % (42-78); TOTAL CELLS COUNTED 100
[2020-05-22 22:35] LABS: HYPERSEGMENTED NEUTROPHILS PRESENT; PLATELET COMMENT ADEQUATE
[2020-05-22 22:36] LABS: ANISOCYTOSIS 1+
[2020-05-22 22:37] LABS: SCHISTOCYTES SLIGHT
[2020-05-22 22:38] LABS: BURR CELLS 1+; POLYCHROMASIA SLIGHT
[2020-05-23] MEDS: PIPERACILLIN SODIUM/TAZOBACTAM 2.25 GM in NORMAL SALINE 50 ML IV SCH ×4 (00:27→17:19)
[2020-05-23] MEDS ORDERED: MORPHINE SULFATE 10 MG/ML INJ IV PRN (00:58)
[2020-05-23] MEDS: MIDODRINE HCL 5 MG TABLET PO SCH ×3 (05:13→21:29)
[2020-05-23] MEDS: HEPARIN SOD (PORCINE) 5,000 UNIT/ML 1 ML VIAL SUBCUT SCH ×4 (05:13→21:28)
[2020-05-23 06:58] LABS: HEMATOCRIT 29.3 % (36.0-47.0); HEMOGLOBIN 10.2 g/dL (12.0-15.5); MEAN CORPUSCULAR HEMOGLOBIN 29.5 pg (27.0-33.4); MEAN CORPUSCULAR HGB CONC 34.8 g/dL (32.0-36.0); MEAN CORPUSCULAR VOLUME 85 fl (80-97); PLATELET COUNT 212 10^3/uL (150-450); RED BLOOD COUNT 3.46 10^6/uL (3.72-5.28); RED CELL DISTRIBUTION WIDTH 16.4 % (11.5-14.0); WHITE BLOOD COUNT 11.6 10^3/uL (4.0-10.5)
[2020-05-23 07:17] LABS: ANION GAP 9 (5-19); BLOOD UREA NITROGEN 35 mg/dL (7-20); CALCIUM 7.3 mg/dL (8.4-10.2); CARBON DIOXIDE 23 mmol/L (22-30); CHLORIDE 108 mmol/L (98-107); GLUCOSE 75 mg/dL (75-110); POTASSIUM 3.2 mmol/L (3.6-5.0)
[2020-05-23] MEDS ORDERED: ALBUTEROL SULFATE HFA (90 MCG/PUFF) 8 GM MDI (1 MDI/ER DISP) IH PRN (12:33)
[2020-05-23] MEDS ORDERED: OXYCODONE-ACETAMINOPHEN 5-325 MG TABLET PO PRN (12:34)
--- NOTE | 2020-05-23 12:52 | PDOC PROGRESS REPORT ---
Subjective Progress Note for:: 05/23/20 Subjective:: No adverse events overnight. She still on BiPAP but she was down to an FiO2 of 40%. She is talking and looks very comfortable. She wants to eat and be able to take her medications. Reason For Visit: URINARY RETENTION,ELIJAH,ACUTE ON CHRONIC RESPIRATORY Physical Exam Vital Signs: Temp Pulse Resp BP Pulse Ox 98.2 F 86 18 115/60 96 05/23/20 10:00 05/23/20 08:02 05/23/20 08:05 05/23/20 08:02 05/23/20 08:05 Intake & Output 05/22/20 05/23/20 05/24/20 06:59 06:59 06:59 Intake Total 3710 2710 Output Total 1275 1670 Balance 2435 1040 Weight 60.5 kg 58.6 kg General appearance: PRESENT: cooperative, disheveled, no apparent distress, thin Respiratory exam: PRESENT: decreased breath sounds, rhonchi ABSENT: accessory muscle use, chest wall tenderness, prolonged expiratory phas, symmetrical, unlabored, wheezes, tachypnea. Cardiovascular exam: PRESENT: RRR, +S1, +S2 Pulses: PRESENT: normal carotid pulses Vascular exam: PRESENT: normal capillary refill GI/Abdominal exam: PRESENT: normal bowel sounds, soft. ABSENT: distended, guarding, rebound, tenderness Extremities exam: ABSENT: clubbing, edema Musculoskeletal exam: PRESENT: normal inspection. ABSENT: deformity Neurological exam: PRESENT: awake, oriented to person Psychiatric exam: PRESENT: flat affect Skin exam: PRESENT: dry, warm, other - Generally grayish in color Results Laboratory Results: 05/23/20 06:00 05/23/20 06:00 05/22/20 05/22/20 05/23/20 07:30 21:39 06:00 WBC 12.5 H 11.6 H RBC 3.45 L 3.46 L Hgb 10.0 L D 10.2 L Hct 29.5 L 29.3 L MCV 86 85 MCH 29.1 29.5 MCHC 34.1 34.8 RDW 16.4 H 16.4 H Plt Count 215 212 Seg Neutrophils % Not Reportable Sodium Potassium Chloride Carbon Dioxide Anion Gap BUN Creatinine Est GFR ( Amer) Glucose Calcium Blood Type O POSITIVE Antibody Screen NEGATIVE 05/23/20 06:00 WBC RBC Hgb Hct MCV MCH MCHC RDW Plt Count Seg Neutrophils % Sodium 139.7 Potassium 3.2 L Chloride 108 H Carbon Dioxide 23 Anion Gap 9 BUN 35 H Creatinine 1.25 Est GFR ( Amer) 50 L Glucose 75 Calcium 7.3 L Blood Type Antibody Screen 05/21/20 13:08 Catheterized Urine Urine Culture - Final C.albicans/C.dubliniensis 05/21/20 05/21/20 12:18 12:18 Creatine Kinase 44 Troponin I 0.108 NT-Pro-B Natriuret Pep 8190 H Impressions: Chest X-Ray 05/22/20 00:00 IMPRESSION: Pulmonary vascular prominence with mild interstitial edema Persistent left lower lobe airspace disease worrisome for pneumonia. Similar compared to 05/25/2020. Obstructive lung disease Assessment and Plan - Diagnosis (1) Acute and chronic respiratory failure with hypoxia Is this a current diagnosis for this admission?: Yes (2) Metabolic encephalopathy Is this a current diagnosis for this admission?: Yes (3) Acute kidney injury Is this a current diagnosis for this admission?: Yes (4) Acute urinary retention Is this a current diagnosis for this admission?: Yes (5) Dehydration Is this a current diagnosis for this admission?: Yes (6) Gross hematuria Is this a current diagnosis for this admission?: Yes (7) Hyperkalemia Is this a current diagnosis for this admission?: Yes (8) Hypotension Qualifiers: Hypotension type: hypotension due to hypovolemia Qualified Code(s): I95.89 - Other hypotension; E86.1 - Hypovolemia Is this a current diagnosis for this admission?: Yes (9) Emphysema lung Qualifiers: Emphysema type: centrilobular Qualified Code(s): J43.2 - Centrilobular emphysema Is this a current diagnosis for this admission?: Yes (10) Physical deconditioning Is this a current diagnosis for this admission?: Yes (11) Pulmonary nodules/lesions, multiple Is this a current diagnosis for this admission?: Yes - Plan Summary Summary: FiO2 was down to 40%. She looks a lot better today. Little bit of edema that she had yesterday is gone. She wants to eat. We will try to get her onto the nasal cannula today and let her have something to eat. We will otherwise continue her treatments as current. - Time Time Spent with patient: 15-24 minutes Anticipated Discharge Disposition: Custodial Facility Anticipated Discharge Timeframe: within 72 hours
[2020-05-23] MEDS: IPRATROPIUM/ALBUTEROL 0.5-2.5 MG/3 ML AMPUL NEB PRN (14:45)
[2020-05-23] MEDS: FLUTICASONE/VILANTEROL 200-25 MCG/DOSE IH SCH (17:19)
[2020-05-23] MEDS: POLYETHYLENE GLYCOL 3350 POWDER 17 GM/1 PACKET PO SCH (21:29)
[2020-05-23] MEDS: ATORVASTATIN CALCIUM 40 MG TABLET PO SCH (21:29)
[2020-05-23] MEDS ORDERED: (PENDING PHARMACY ID) (Fluticasone/Salmeterol 1 INH) IH SCH (22:00)
[2020-05-24] MEDS: PIPERACILLIN SODIUM/TAZOBACTAM 2.25 GM in NORMAL SALINE 50 ML IV SCH ×4 (00:32→17:32)
[2020-05-24] MEDS: HEPARIN SOD (PORCINE) 5,000 UNIT/ML 1 ML VIAL SUBCUT SCH ×3 (05:31→22:29)
[2020-05-24] MEDS: LEVOTHYROXINE SODIUM 0.075 MG TABLET PO SCH (05:33)
[2020-05-24] MEDS: MIDODRINE HCL 5 MG TABLET PO SCH ×3 (05:33→22:30)
[2020-05-24] MEDS: LEVOTHYROXINE SODIUM 0.1 MG TABLET PO SCH (05:33)
[2020-05-24] MEDS ORDERED: LORAZEPAM INJ 2 MG/1 ML VIAL IV PRN (05:45)
[2020-05-24] MEDS ORDERED: (PENDING PHARMACY ID) (Levothyroxine Sodium [Synthroid] 175 MCG) PO SCH (06:00)
[2020-05-24] MEDS: ATENOLOL 50 MG TABLET PO SCH (10:04)
[2020-05-24] MEDS: UMECLIDINIUM BROMIDE 62.5 MCG/DOSE IH SCH (10:04)
[2020-05-24] MEDS: FLUTICASONE/VILANTEROL 200-25 MCG/DOSE IH SCH (10:04)
--- NOTE | 2020-05-24 13:26 | PDOC PROGRESS REPORT ---
Subjective Progress Note for:: 05/24/20 Subjective:: She got agitated overnight, apparently called the police again as she did during the last admission, and so this morning before I came around on her she had gotten a dose of Ativan that was ordered by the overnight provider. As a result, she was fast asleep whenever I came to see her. She had gotten weaned down to the nasal cannula towards the end of the shift yesterday. Vital signs been stable overnight. Reason For Visit: URINARY RETENTION,ELJIAH,ACUTE ON CHRONIC RESPIRATORY Physical Exam Vital Signs: Temp Pulse Resp BP Pulse Ox 97.5 F 93 25 H 132/83 H 97 05/24/20 11:23 05/24/20 11:23 05/24/20 11:35 05/24/20 11:23 05/24/20 11:35 Intake & Output 05/23/20 05/24/20 05/25/20 06:59 06:59 06:59 Intake Total 2710 854 Output Total 1670 1000 Balance 1040 -146 Weight 58.6 kg 57.2 kg General appearance: PRESENT: Sleep, disheveled, no apparent distress, thin Respiratory exam: PRESENT: decreased breath sounds, rhonchi ABSENT: accessory muscle use, chest wall tenderness, prolonged expiratory phas, symmetrical, unlabored, wheezes, tachypnea. Cardiovascular exam: PRESENT: RRR, +S1, +S2 Pulses: PRESENT: normal carotid pulses Vascular exam: PRESENT: normal capillary refill GI/Abdominal exam: PRESENT: normal bowel sounds, soft. ABSENT: distended, guarding, rebound, tenderness Extremities exam: ABSENT: clubbing, edema Musculoskeletal exam: PRESENT: normal inspection. ABSENT: deformity Skin exam: PRESENT: dry, warm, other - Generally grayish in color Results Laboratory Results: 05/23/20 06:00 05/23/20 06:00 05/21/20 05/21/20 12:18 12:18 Creatine Kinase 44 Troponin I 0.108 NT-Pro-B Natriuret Pep 8190 H Impressions: Chest X-Ray 05/22/20 00:00 IMPRESSION: Pulmonary vascular prominence with mild interstitial edema Persistent left lower lobe airspace disease worrisome for pneumonia. Similar compared to 05/25/2020. Obstructive lung disease Assessment and Plan - Diagnosis (1) Acute and chronic respiratory failure with hypoxia Is this a current diagnosis for this admission?: Yes (2) Metabolic encephalopathy Is this a current diagnosis for this admission?: Yes (3) Acute kidney injury Is this a current diagnosis for this admission?: Yes (4) Acute urinary retention Is this a current diagnosis for this admission?: Yes (5) Dehydration Is this a current diagnosis for this admission?: Yes (6) Gross hematuria Is this a current diagnosis for this admission?: Yes (7) Hyperkalemia Is this a current diagnosis for this admission?: Yes (8) Hypotension Qualifiers: Hypotension type: hypotension due to hypovolemia Qualified Code(s): I95.89 - Other hypotension; E86.1 - Hypovolemia Is this a current diagnosis for this admission?: Yes (9) Emphysema lung Qualifiers: Emphysema type: centrilobular Qualified Code(s): J43.2 - Centrilobular emphysema Is this a current diagnosis for this admission?: Yes (10) Physical deconditioning Is this a current diagnosis for this admission?: Yes (11) Pulmonary nodules/lesions, multiple Is this a current diagnosis for this admission?: Yes - Plan Summary Summary: She was down to 6 L on the nasal cannula, when she sleeps, we put the BiPAP on her. We will reassess her once she is less sedated. Hopefully she will be as antagonistic as she was last night. When she was feeling good during her last hospitalization, she was actually pretty antagonistic at that time, so I wonder if maybe she is getting back to normal. - Time Time Spent with patient: 15-24 minutes Anticipated Discharge Disposition: Shelter Facility Anticipated Discharge Timeframe: within 72 hours
[2020-05-24] MEDS: ATORVASTATIN CALCIUM 40 MG TABLET PO SCH (22:29)
[2020-05-24] MEDS: POLYETHYLENE GLYCOL 3350 POWDER 17 GM/1 PACKET PO SCH (22:29)
[2020-05-25] MEDS: PIPERACILLIN SODIUM/TAZOBACTAM 2.25 GM in NORMAL SALINE 50 ML IV SCH ×5 (01:06→23:36)
[2020-05-25] MEDS: HEPARIN SOD (PORCINE) 5,000 UNIT/ML 1 ML VIAL SUBCUT SCH ×3 (06:05→21:47)
[2020-05-25] MEDS: MIDODRINE HCL 5 MG TABLET PO SCH ×3 (06:13→21:34)
[2020-05-25] MEDS: LEVOTHYROXINE SODIUM 0.075 MG TABLET PO SCH (06:13)
[2020-05-25] MEDS: LEVOTHYROXINE SODIUM 0.1 MG TABLET PO SCH (06:13)
[2020-05-25] MEDS: IPRATROPIUM/ALBUTEROL 0.5-2.5 MG/3 ML AMPUL NEB PRN ×3 (07:57→20:31)
--- NOTE | 2020-05-25 09:06 | RADIOLOGY REPORT (SQ) ---
EXAM DESCRIPTION: CHEST SINGLE VIEW IMAGES COMPLETED DATE/TIME: 05/25/2020 8:47 am REASON FOR STUDY: tachypnea, hypoxia COMPARISON: Chest x-ray dated 05/22/2020 and 04/29/2020. Chest CT dated 05/10/2020. EXAM PARAMETERS: NUMBER OF VIEWS: One view. TECHNIQUE: Single frontal radiographic view of the chest acquired. RADIATION DOSE: NA LIMITATIONS: None. FINDINGS: LUNGS AND PLEURA: Chronic interstitial changes. Patchy density in the left base and perih ilar right lung. Streaky density in the right apex. These findings show little change compared to t he most recent chest x-ray other than right apical density may be slightly more prominent. MEDIASTINUM AND HILAR STRUCTURES: No masses. Contour normal. HEART AND VASCULAR STRUCTURES: Heart normal in size. Normal vasculature. BONES: No acute findings. HARDWARE: Surgical clips in the soft tissues on the right. OTHER: No other significant finding. IMPRESSION: PATCHY AIRSPACE DISEASE IN THE RIGHT APEX, PERIHILAR RIGHT LUNG, AND LEFT LUNG BASE, MAY BE SLIGHTLY WORSE IN THE RIGHT APEX. TECHNICAL DOCUMENTATION: JOB ID: [id number] [employer]- All Rights Reserved Reading location - IP/workstation name: [email or web address]
[2020-05-25] MEDS: ATENOLOL 50 MG TABLET PO SCH (09:25)
[2020-05-25] MEDS: FLUTICASONE/VILANTEROL 200-25 MCG/DOSE IH SCH (09:26)
[2020-05-25] MEDS: UMECLIDINIUM BROMIDE 62.5 MCG/DOSE IH SCH (09:27)
[2020-05-25] MEDS: ALBUTEROL SULFATE HFA (90 MCG/PUFF) 8 GM MDI IH PRN (09:32)
[2020-05-25 13:19] LABS: HEMATOCRIT 32.5 % (36.0-47.0); HEMOGLOBIN 11.1 g/dL (12.0-15.5); MEAN CORPUSCULAR HGB CONC 34.1 g/dL (32.0-36.0); MEAN CORPUSCULAR VOLUME 85 fl (80-97); PLATELET COUNT 301 10^3/uL (150-450); RED BLOOD COUNT 3.82 10^6/uL (3.72-5.28); WHITE BLOOD COUNT 15.3 10^3/uL (4.0-10.5)
[2020-05-25] MEDS: LIDOCAINE 5% (700 MG) TRANSDERMAL ADH..PATCH TP SCH (13:22)
[2020-05-25] MEDS: NICOTINE 14 MG/24 HR PATCH.TD24 TD SCH (13:23)
[2020-05-25 13:37] LABS: ANION GAP 12 (5-19); BLOOD UREA NITROGEN 19 mg/dL (7-20); CARBON DIOXIDE 23 mmol/L (22-30); CHLORIDE 107 mmol/L (98-107); GLUCOSE 93 mg/dL (75-110)
[2020-05-25 13:50] LABS: CALCIUM 6.9 mg/dL (8.4-10.2); POTASSIUM 2.2 mmol/L (3.6-5.0)
[2020-05-25] MEDS ORDERED: POTASSIUM CHLORIDE 10 MEQ TABLET.ER PO ONE (15:00)
[2020-05-25] MEDS: POTASSI CL 20 MEQ/50 ML RIDER 20 MEQ/50 ML RTUPB IV SCH ×2 (15:08→20:34)
[2020-05-25] MEDS: MAGNESIUM SULFATE/D5W 1 GM/100 ML RTUPB IV SCH ×2 (16:57→19:18)
--- NOTE | 2020-05-25 18:18 | PDOC PROGRESS REPORT ---
Subjective Progress Note for:: 05/25/20 Subjective:: Patient is an 84-year-old female with a past medical history of hypertension, COPD, hypothyroidism, breast cancer and suspicion for dementia with behavioral disturbances (; patient tends to call 911 to report that she is being held hostage) who was recently discharged to [place] after being treated for multifocal pneumonia. She was readmitted 05/21/2020 with Metabolic encephalopathy, ELIJAH, and acute urinary retention. Patient was seen on afternoon rounds. She was found resting in bed, comfortably, on supplemental oxygen at 4 L/min. Per patient she is not home O2 dependent. Does not appear that she was discharged on oxygen. Patient is alert and oriented to person, hospital, year, but not situation. Cannot recall the events leading up to her admission. She tells me that she lives at home with her and that they have no friends or family members to assist in providing care for them. 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 She denies fever, chills, chest pain, palpitations, dyspnea, abdominal pain, nausea vomiting or diarrhea. She does report chronic back pain; requests Lidoderm patches. She also reports a nonproductive, though wet sounding, cough. She has no other questions or concerns at this time. No new concerns per nursing. Reason For Visit: URINARY RETENTION,ELIJAH,ACUTE ON CHRONIC RESPIRATORY Physical Exam Vital Signs: Temp Pulse Resp BP Pulse Ox 97.4 F 81 16 135/88 H 94 05/25/20 11:30 05/25/20 13:42 05/25/20 13:42 05/25/20 11:30 05/25/20 13:42 Intake & Output 05/24/20 05/25/20 05/26/20 06:59 06:59 06:59 Intake Total 854 150 100 Output Total 1000 1275 Balance -146 -1125 100 Weight 57.2 kg 52.3 kg General appearance: PRESENT: no acute distress, disheveled, hard of hearing, thin, well-developed, well-nourished Head exam: PRESENT: atraumatic, normocephalic Eye exam: PRESENT: conjunctiva pink, EOMI, PERRLA. ABSENT: scleral icterus Mouth exam: PRESENT: moist, tongue midline Respiratory exam: PRESENT: rhonchi - throughout, symmetrical, other - supplemental oxygen. ABSENT: rales, wheezes Cardiovascular exam: PRESENT: RRR. ABSENT: diastolic murmur, rubs, systolic murmur Pulses: PRESENT: normal dorsalis pedis pul Vascular exam: PRESENT: normal capillary refill Extremities exam: PRESENT: full ROM. ABSENT: calf tenderness, clubbing, pedal edema Neurological exam: PRESENT: alert, awake, oriented to person, oriented to place, oriented to time, CN II-XII grossly intact, other - intermittent confusion. ABSENT: motor sensory deficit Psychiatric exam: PRESENT: appropriate affect, normal mood. ABSENT: homicidal ideation, suicidal ideation Skin exam: PRESENT: dry, intact, warm. ABSENT: cyanosis, rash Results Laboratory Results: 05/25/20 13:00 05/25/20 13:00 05/25/20 05/25/20 05/25/20 13:00 13:00 13:00 WBC 15.3 H RBC 3.82 Hgb 11.1 L Hct 32.5 L MCV 85 MCH 29.0 MCHC 34.1 RDW 16.0 H Plt Count 301 Sodium 141.9 Potassium 2.2 L* Chloride 107 Carbon Dioxide 23 Anion Gap 12 BUN 19 Creatinine 0.91 Est GFR ( Amer) > 60 Glucose 93 Calcium 6.9 L* Magnesium 1.1 L* Albumin 05/25/20 13:00 WBC RBC Hgb Hct MCV MCH MCHC RDW Plt Count Sodium Potassium Chloride Carbon Dioxide Anion Gap BUN Creatinine Est GFR ( Amer) Glucose Calcium Magnesium Albumin 2.4 L 05/21/20 05/21/20 12:18 12:18 Creatine Kinase 44 Troponin I 0.108 NT-Pro-B Natriuret Pep 8190 H Impressions: Chest X-Ray 05/25/20 00:00 IMPRESSION: PATCHY AIRSPACE DISEASE IN THE RIGHT APEX, PERIHILAR RIGHT LUNG, AND LEFT LUNG BASE, MAY BE SLIGHTLY WORSE IN THE RIGHT APEX. Assessment and Plan - Diagnosis (1) Acute and chronic respiratory failure with hypoxia Is this a current diagnosis for this admission?: Yes Plan: Secondary to resolving pneumonia with underlying emphysema. Evaluation and management as below. (2) Acute kidney injury Is this a current diagnosis for this admission?: Yes Plan: Resolved. Multifactorial secondary to dehydration and possibly worsened by acute urinary retention. We will avoid nephrotoxic medications as able. Renally dose where appropriate. Maintain Baer catheter to prevent urinary retention. Follow-up chemistry (3) Acute urinary retention Is this a current diagnosis for this admission?: Yes Plan: Maintain baer catheter. Strict I&Os (4) Emphysema lung Qualifiers: Emphysema type: centrilobular Qualified Code(s): J43.2 - Centrilobular emphysema Is this a current diagnosis for this admission?: Yes Plan: Will provide supplemental oxygen as needed to maintain saturations greater than 89%. Start on scheduled and as needed nebulizer treatments. Mucomyst nebulizer treatments. Continue home dose Breo, Incruse, as needed albuterol inhaler. As needed DuoNeb's. Mucinex twice daily. Robitussin as needed. Pulmonary toilet is encouraged with incentive spirometer, flutter valve, and early ambulation. (5) Physical deconditioning Is this a current diagnosis for this admission?: Yes Plan: PT/OT consultation. Discharge planning consulted. (6) Pulmonary nodules/lesions, multiple Is this a current diagnosis for this admission?: Yes Plan: History of breast cancer. Nodules concerning for malignancy. Bronchoscopy 08/14/2019 - for malignancy. During patient's recent admission, oncology was consulted with recommendation for repeat CT in [address] showed bilateral lung nodules that appear to be decreased since the prior imaging. Right upper lobe with some possible cavitation. Patient scheduled follow-up with Dr. Casey as an outpatient in 1 to 2 weeks. Should the patient's respiratory status plateau or continue to decline, we will repeat imaging and consider inpatient consultation with oncology and pulmonology. (7) Urinary tract infection Qualifiers: Urinary tract infection type: site unspecified Hematuria presence: with hematuria Qualified Code(s): N39.0 - Urinary tract infection, site not specified; R31.9 - Hematuria, unspecified Is this a current diagnosis for this admission?: Yes Plan: Blood cultures negative at 4 days Urine culture revealed Jeana Patient was placed on IV cefepime by ED provider; received 1 dose. Started on IV Zosyn per admitting provider; day #3. We will plan to follow-up urinalysis tomorrow to demonstrate resolution of UTI (8) Dehydration Is this a current diagnosis for this admission?: Yes Plan: Resolved. (9) Gross hematuria Is this a current diagnosis for this admission?: Yes Plan: Secondary to UTI. Management as above. (10) Metabolic encephalopathy Is this a current diagnosis for this admission?: Yes Plan: Acute metabolic encephalopathy is resolved. Multifactorial secondary to dehydration, electrolyte derangements, UTI, acute urinary retention, and acute on chronic respiratory failure secondary to resolving pneumonia and emphysema. Worsened by IV Ativan. Likely underlying dementia. As the patient has a history of breast cancer with lung nodules concerning for malignancy, should her mentation worsen, will obtain head imaging. (11) Hypotension Qualifiers: Hypotension type: hypotension due to hypovolemia Qualified Code(s): I95.89 - Other hypotension; E86.1 - Hypovolemia Is this a current diagnosis for this admission?: Yes Plan: Resolved. (12) Hyperkalemia Is this a current diagnosis for this admission?: Yes Plan: Resolved (13) Hypokalemia Is this a current diagnosis for this admission?: Yes Plan: Magnesium 1.1; IV replacement today. Potassium 2.2; IV and oral replacement today. Follow-up chemistry. - Time Time Spent with patient: 25-34 minutes Medications reviewed and adjusted accordingly: Yes Anticipated Discharge Disposition: Group Home Facility Anticipated Discharge Timeframe: undetermined
[2020-05-25] MEDS: ACETYLCYSTEINE 20% SOLN 800 MG/4 ML VIAL.NEB NEB SCH (20:31)
[2020-05-25] MEDS: POLYETHYLENE GLYCOL 3350 POWDER 17 GM/1 PACKET PO SCH (21:43)
[2020-05-25] MEDS: GUAIFENESIN 600 MG TABLET.SA PO SCH (21:47)
[2020-05-25] MEDS: MONTELUKAST SODIUM 10 MG TABLET PO SCH (21:47)
[2020-05-25] MEDS: ATORVASTATIN CALCIUM 40 MG TABLET PO SCH (21:47)
[2020-05-26 05:23] LABS: HEMATOCRIT 32.6 % (36.0-47.0); HEMOGLOBIN 11.4 g/dL (12.0-15.5); MEAN CORPUSCULAR HEMOGLOBIN 29.3 pg (27.0-33.4); MEAN CORPUSCULAR HGB CONC 35.1 g/dL (32.0-36.0); MEAN CORPUSCULAR VOLUME 83 fl (80-97); PLATELET COUNT 313 10^3/uL (150-450); RED BLOOD COUNT 3.91 10^6/uL (3.72-5.28); RED CELL DISTRIBUTION WIDTH 16.1 % (11.5-14.0); WHITE BLOOD COUNT 12.9 10^3/uL (4.0-10.5)
[2020-05-26] MEDS: MIDODRINE HCL 5 MG TABLET PO SCH ×3 (05:27→21:08)
[2020-05-26] MEDS: PIPERACILLIN SODIUM/TAZOBACTAM 2.25 GM in NORMAL SALINE 50 ML IV SCH ×3 (05:32→17:11)
[2020-05-26] MEDS: HEPARIN SOD (PORCINE) 5,000 UNIT/ML 1 ML VIAL SUBCUT SCH ×3 (05:33→21:12)
[2020-05-26] MEDS: LEVOTHYROXINE SODIUM 0.1 MG TABLET PO SCH (05:33)
[2020-05-26] MEDS: LEVOTHYROXINE SODIUM 0.075 MG TABLET PO SCH (05:33)
[2020-05-26 06:03] LABS: ALBUMIN 2.7 g/dL (3.5-5.0); ALKALINE PHOSPHATASE 57 U/L (38-126); ANION GAP 7 (5-19); ASPARTATE AMINO TRANSFERASE 21 U/L (14-36); BILIRUBIN,DIRECT 0.4 mg/dL (0.0-0.4); BILIRUBIN,TOTAL 0.5 mg/dL (0.2-1.3); BLOOD UREA NITROGEN 18 mg/dL (7-20); CALCIUM 7.3 mg/dL (8.4-10.2); CARBON DIOXIDE 26 mmol/L (22-30); CHLORIDE 109 mmol/L (98-107); GLUCOSE 129 mg/dL (75-110); TOTAL PROTEIN 5.8 g/dL (6.3-8.2)
[2020-05-26 06:10] LABS: POTASSIUM 2.5 mmol/L (3.6-5.0)
[2020-05-26] MEDS ORDERED: POTASSIUM CHLORIDE 20 MEQ PACKET PO ONE (06:18)
[2020-05-26] MEDS: POTASSI CL 20 MEQ/50 ML RIDER 20 MEQ/50 ML RTUPB IV SCH ×2 (07:08→10:17)
[2020-05-26] MEDS: IPRATROPIUM/ALBUTEROL 0.5-2.5 MG/3 ML AMPUL NEB PRN ×2 (07:54→20:20)
[2020-05-26] MEDS: ACETYLCYSTEINE 20% SOLN 800 MG/4 ML VIAL.NEB NEB SCH ×2 (07:54→20:20)
[2020-05-26 09:39] LABS: APPEARANCE,URINE CLOUDY; BILIRUBIN,URINE NEGATIVE (NEGATIVE); COLOR,URINE YELLOW; GLUCOSE, URINE NEGATIVE (NEGATIVE); KETONES,URINE NEGATIVE (NEGATIVE); LEUKOCYTE ESTERASE,URINE LARGE (NEGATIVE); NITRITE,URINE NEGATIVE (NEGATIVE); PROTEIN,URINE 100 mg/dL (NEGATIVE); URINE SPECIFIC GRAVITY 1.014; UROBILINOGEN,URINE NEGATIVE mg/dL (<2.0)
[2020-05-26] MEDS: GUAIFENESIN 600 MG TABLET.SA PO SCH ×2 (10:16→21:12)
[2020-05-26] MEDS: FLUTICASONE/VILANTEROL 200-25 MCG/DOSE IH SCH (10:17)
[2020-05-26] MEDS: LIDOCAINE 5% (700 MG) TRANSDERMAL ADH..PATCH TP SCH (10:17)
[2020-05-26] MEDS: ALBUTEROL SULFATE HFA (90 MCG/PUFF) 8 GM MDI IH PRN (10:18)
[2020-05-26] MEDS: UMECLIDINIUM BROMIDE 62.5 MCG/DOSE IH SCH (10:18)
[2020-05-26] MEDS: NICOTINE 14 MG/24 HR PATCH.TD24 TD SCH (10:19)
[2020-05-26] MEDS: ATENOLOL 50 MG TABLET PO SCH (10:35)
[2020-05-26] MEDS: LACTOBACILLUS ACIDOPHILUS 250 MG TAB PO SCH (17:15)
[2020-05-26] MEDS: NYSTATIN TOPICAL POWDER 15 GM TP SCH (17:19)
[2020-05-26] MEDS ORDERED: FLUCONAZOLE 100 MG TABLET PO SCH (18:00)
--- NOTE | 2020-05-26 19:11 | PDOC PROGRESS REPORT ---
Subjective Progress Note for:: 05/26/20 Subjective:: Patient is an 84-year-old female with a past medical history of hypertension, COPD, hypothyroidism, breast cancer and suspicion for dementia with behavioral disturbances (; patient tends to call 911 to report that she is being held hostage) who was recently discharged to [facility] after being treated for multifocal pneumonia. She was readmitted 05/21/2020 with Metabolic encephalopathy, ELIJAH, and acute urinary retention. Patient was seen on afternoon rounds. She was found resting in bed, comfortably, on supplemental oxygen at 3 L/min. She was sleeping soundly and did not wake when I said her name multiple times; she was allowed to continue resting. Per nursing, patient is very emotional today. Has developed frequent, watery, large volume bowel movements. She now has erythema and skin irritation to her perineal area. Otherwise no new symptoms have been reported. No other concerns per nursing. Reason For Visit: URINARY RETENTION,ELIJAH,ACUTE ON CHRONIC RESPIRATORY Physical Exam Vital Signs: Temp Pulse Resp BP Pulse Ox 97.4 F 98 14 144/83 H 100 05/26/20 08:11 05/26/20 16:01 05/26/20 11:51 05/26/20 11:51 05/26/20 11:51 Intake & Output 05/25/20 05/26/20 05/27/20 06:59 06:59 06:59 Intake Total 150 1032 200 Output Total 1275 1075 Balance -1125 -43 200 Weight 52.3 kg 54.4 kg 54.4 kg General appearance: PRESENT: no acute distress, disheveled, hard of hearing, thin, well-developed, well-nourished Head exam: PRESENT: atraumatic, normocephalic Eye exam: PRESENT: conjunctiva pink, EOMI, PERRLA. ABSENT: scleral icterus Mouth exam: PRESENT: moist, tongue midline Teeth exam: PRESENT: poor dentation Respiratory exam: PRESENT: clear to auscultation leonid, rhonchi - Throughout; decreased from yesterday, symmetrical, unlabored, other - Supplemental oxygen by nasal cannula. ABSENT: rales, wheezes Cardiovascular exam: PRESENT: RRR. ABSENT: diastolic murmur, rubs, systolic murmur Vascular exam: PRESENT: normal capillary refill GI/Abdominal exam: PRESENT: normal bowel sounds, soft. ABSENT: distended, tenderness Rectal exam: PRESENT: deferred Gentrourinary exam: PRESENT: indwelling catheter - Patient declines to have Alvarado removed today Extremities exam: PRESENT: full ROM. ABSENT: calf tenderness, clubbing, pedal edema Neurological exam: PRESENT: CN II-XII grossly intact, other - Sleeping soundly. ABSENT: motor sensory deficit Psychiatric exam: PRESENT: appropriate affect. ABSENT: homicidal ideation, normal mood, suicidal ideation Skin exam: PRESENT: dry, erythema - Peroneal, warm. ABSENT: cyanosis, rash Results Laboratory Results: 05/26/20 05:02 05/26/20 05:02 05/26/20 05/26/20 05/26/20 05:02 05:02 05:02 WBC 12.9 H RBC 3.91 Hgb 11.4 L Hct 32.6 L MCV 83 MCH 29.3 MCHC 35.1 RDW 16.1 H Plt Count 313 Sodium 142.4 Potassium 2.5 L* Chloride 109 H Carbon Dioxide 26 Anion Gap 7 BUN 18 Creatinine 0.96 Est GFR ( Amer) > 60 Glucose 129 H Calcium 7.3 L Magnesium 2.0 Total Bilirubin 0.5 AST 21 Alkaline Phosphatase 57 Total Protein 5.8 L Albumin 2.7 L Urine Color Urine Appearance Urine pH Ur Specific Benld Urine Protein Urine Glucose (UA) Urine Ketones Urine Blood Urine Nitrite Ur Leukocyte Esterase Urine WBC (Auto) Urine RBC (Auto) 05/26/20 08:44 WBC RBC Hgb Hct MCV MCH MCHC RDW Plt Count Sodium Potassium Chloride Carbon Dioxide Anion Gap BUN Creatinine Est GFR ( Amer) Glucose Calcium Magnesium Total Bilirubin AST Alkaline Phosphatase Total Protein Albumin Urine Color YELLOW Urine Appearance CLOUDY Urine pH 6.0 Ur Specific Benld 1.014 Urine Protein 100 H Urine Glucose (UA) NEGATIVE Urine Ketones NEGATIVE Urine Blood LARGE H Urine Nitrite NEGATIVE Ur Leukocyte Esterase LARGE H Urine WBC (Auto) >182 Urine RBC (Auto) >182 05/21/20 15:13 Blood Blood Culture - Final NO GROWTH IN 5 DAYS 05/21/20 12:18 Blood Blood Culture - Final NO GROWTH IN 5 DAYS 05/21/20 05/21/20 12:18 12:18 Creatine Kinase 44 Troponin I 0.108 NT-Pro-B Natriuret Pep 8190 H Impressions: Chest X-Ray 05/25/20 00:00 IMPRESSION: PATCHY AIRSPACE DISEASE IN THE RIGHT APEX, PERIHILAR RIGHT LUNG, AND LEFT LUNG BASE, MAY BE SLIGHTLY WORSE IN THE RIGHT APEX. Assessment and Plan - Diagnosis (1) Acute and chronic respiratory failure with hypoxia Is this a current diagnosis for this admission?: Yes Plan: Secondary to resolving pneumonia with underlying emphysema. Evaluation and management as below. (2) Acute kidney injury Is this a current diagnosis for this admission?: Yes Plan: Resolved. Multifactorial secondary to dehydration and possibly worsened by acute urinary retention. We will avoid nephrotoxic medications as able. Renally dose where appropriate. We will discontinue Alvarado and start bladder trials. Bladder scan every 6 hours and straight cath as needed. Follow-up chemistry (3) Acute urinary retention Is this a current diagnosis for this admission?: Yes Plan: Likely secondary to UTI We will discontinue Alvarado and start bladder trials. Bladder scan every 6 hours and straight cath as needed. Strict I&Os (4) Emphysema lung Qualifiers: Emphysema type: centrilobular Qualified Code(s): J43.2 - Centrilobular emphysema Is this a current diagnosis for this admission?: Yes Plan: Improved lung sounds today; decreased oxygen requirement. Will provide supplemental oxygen as needed to maintain saturations greater than 89%. Start on scheduled and as needed nebulizer treatments. Mucomyst nebulizer treatments. Continue home dose Breo, Incruse, as needed albuterol inhaler. As needed DuoNeb's. Mucinex twice daily. Robitussin as needed. Pulmonary toilet is encouraged with incentive spirometer, flutter valve, and early ambulation. (5) Physical deconditioning Is this a current diagnosis for this admission?: Yes Plan: PT/OT consultation. Discharge planning consulted. (6) Pulmonary nodules/lesions, multiple Is this a current diagnosis for this admission?: Yes Plan: History of breast cancer. Nodules concerning for malignancy. Bronchoscopy 08/14/2019 - for malignancy. During patient's recent admission, oncology was consulted with recommendation for repeat CT in [address] showed bilateral lung nodules that appear to be decreased since the prior imaging. Right upper lobe with some possible cavitation. Patient scheduled follow-up with Dr. Casey as an outpatient in 1 to 2 weeks. Should the patient's respiratory status plateau or continue to decline, we will repeat imaging and consider inpatient consultation with oncology and pulmonology. (7) Urinary tract infection Qualifiers: Urinary tract infection type: site unspecified Hematuria presence: with hematuria Qualified Code(s): N39.0 - Urinary tract infection, site not specified; R31.9 - Hematuria, unspecified Is this a current diagnosis for this admission?: Yes Plan: Blood cultures negative at 5 days Urine culture revealed Jeana Repeat urinalysis today reveals continued evidence for urinary tract infection. Repeat urine culture now pending. Patient was placed on IV cefepime by ED provider; received 1 dose. Started on IV Zosyn per admitting provider; day #4. Have added IV ceftriaxone; first dose today. Difflucan 100 mg po daily x 3 days. I have asked nursing to remove Alvarado catheter; unfortunately, patient declines. Will encourage Alvarado removal tomorrow. (8) Dehydration Is this a current diagnosis for this admission?: Yes Plan: Resolved. (9) Gross hematuria Is this a current diagnosis for this admission?: Yes Plan: Secondary to UTI. Management as above. (10) Metabolic encephalopathy Is this a current diagnosis for this admission?: Yes Plan: Acute metabolic encephalopathy is resolved. Multifactorial secondary to dehydration, electrolyte derangements, UTI, acute urinary retention, and acute on chronic respiratory failure secondary to resolving pneumonia and emphysema. Worsened by IV Ativan. Likely underlying dementia. As the patient has a history of breast cancer with lung nodules concerning for malignancy, should her mentation worsen, will obtain head imaging. (11) Hypotension Qualifiers: Hypotension type: hypotension due to hypovolemia Qualified Code(s): I95.89 - Other hypotension; E86.1 - Hypovolemia Is this a current diagnosis for this admission?: Yes Plan: Resolved. (12) Hyperkalemia Is this a current diagnosis for this admission?: Yes Plan: Resolved (13) Hypokalemia Is this a current diagnosis for this admission?: Yes Plan: Persistent; likely secondary to GI losses as patient has developed large-volume watery stools. IV and oral replacement today. Follow-up chemistries. (14) Diarrhea Qualifiers: Diarrhea type: unspecified type Qualified Code(s): R19.7 - Diarrhea, unspecified Is this a current diagnosis for this admission?: Yes Plan: Possibly related to Zosyn. C. difficile and stool culture pending. Start lactobacillus. Has received 4 days of Zosyn; will discontinue tomorrow if WBCs continue to trend down with continued clinical improvement. - Time Time Spent with patient: 35 or more minutes Medications reviewed and adjusted accordingly: Yes Anticipated Discharge Disposition: Custodial Facility Anticipated Discharge Timeframe: undetermined
[2020-05-26] MEDS ORDERED: POTASSIUM CHLORIDE 10 MEQ TABLET.ER PO ONE (19:30)
[2020-05-26 19:35] LABS: C DIFFICILE GDH NEGATIVE (NEGATIVE)
[2020-05-26] MEDS: ATORVASTATIN CALCIUM 40 MG TABLET PO SCH (21:12)
[2020-05-26] MEDS: POLYETHYLENE GLYCOL 3350 POWDER 17 GM/1 PACKET PO SCH (21:12)
[2020-05-26] MEDS: MONTELUKAST SODIUM 10 MG TABLET PO SCH (21:12)
[2020-05-26 22:39] LABS: ANION GAP 7 (5-19); BLOOD UREA NITROGEN 17 mg/dL (7-20); CALCIUM 7.2 mg/dL (8.4-10.2); CARBON DIOXIDE 26 mmol/L (22-30); CHLORIDE 108 mmol/L (98-107); GLUCOSE 100 mg/dL (75-110)
[2020-05-27] MEDS: PIPERACILLIN SODIUM/TAZOBACTAM 2.25 GM in NORMAL SALINE 50 ML IV SCH ×2 (00:25→05:59)
[2020-05-27] MEDS: MIDODRINE HCL 5 MG TABLET PO SCH ×3 (05:18→21:56)
[2020-05-27] MEDS ORDERED: POTASSIUM CHLORIDE 20 MEQ PACKET PO ONE (05:28)
[2020-05-27] MEDS ORDERED: MAGNESIUM SULFATE INJ 8 MEQ/2 ML IV ONE (05:31)
[2020-05-27] MEDS: HEPARIN SOD (PORCINE) 5,000 UNIT/ML 1 ML VIAL SUBCUT SCH ×2 (05:57→18:08)
[2020-05-27] MEDS: LEVOTHYROXINE SODIUM 0.075 MG TABLET PO SCH (05:58)
[2020-05-27] MEDS: LEVOTHYROXINE SODIUM 0.1 MG TABLET PO SCH (05:59)
[2020-05-27] MEDS: POTASSI CL 20 MEQ/50 ML RIDER 20 MEQ/50 ML RTUPB IV SCH ×2 (06:29→11:14)
[2020-05-27 07:05] LABS: HEMATOCRIT 33.3 % (36.0-47.0); HEMOGLOBIN 11.4 g/dL (12.0-15.5); MEAN CORPUSCULAR HEMOGLOBIN 28.9 pg (27.0-33.4); MEAN CORPUSCULAR HGB CONC 34.2 g/dL (32.0-36.0); MEAN CORPUSCULAR VOLUME 85 fl (80-97); PLATELET COUNT 321 10^3/uL (150-450); RED BLOOD COUNT 3.94 10^6/uL (3.72-5.28); RED CELL DISTRIBUTION WIDTH 16.2 % (11.5-14.0); WHITE BLOOD COUNT 12.9 10^3/uL (4.0-10.5)
[2020-05-27 07:32] LABS: ANION GAP 9 (5-19); BLOOD UREA NITROGEN 15 mg/dL (7-20); CARBON DIOXIDE 22 mmol/L (22-30); CHLORIDE 111 mmol/L (98-107); GLUCOSE 77 mg/dL (75-110); POTASSIUM 3.7 mmol/L (3.6-5.0)
[2020-05-27 07:45] LABS: CALCIUM 6.9 mg/dL (8.4-10.2)
[2020-05-27] MEDS ORDERED: FUROSEMIDE INJ/PF 20 MG/2 ML SDV IV ONE (07:55)
[2020-05-27] MEDS: ACETYLCYSTEINE 20% SOLN 800 MG/4 ML VIAL.NEB NEB SCH ×2 (08:34→20:50)
[2020-05-27] MEDS: IPRATROPIUM/ALBUTEROL 0.5-2.5 MG/3 ML AMPUL NEB PRN ×3 (08:34→20:51)
[2020-05-27] MEDS ORDERED: CEFTRIAXONE 1 GM/D5W RTU 1 GM/50 ML RTUPB IV SCH (10:00)
[2020-05-27] MEDS ORDERED: FUROSEMIDE INJ/PF 20 MG/2 ML SDV ONE (11:38)
[2020-05-27] MEDS: GUAIFENESIN 600 MG TABLET.SA PO SCH ×2 (11:46→21:59)
[2020-05-27] MEDS: FLUTICASONE/VILANTEROL 200-25 MCG/DOSE IH SCH (11:46)
[2020-05-27] MEDS: ATENOLOL 50 MG TABLET PO SCH (11:47)
[2020-05-27] MEDS: LACTOBACILLUS ACIDOPHILUS 250 MG TAB PO SCH ×2 (11:48→18:53)
[2020-05-27] MEDS: NYSTATIN TOPICAL POWDER 15 GM TP SCH ×2 (12:23→18:54)
[2020-05-27] MEDS: UMECLIDINIUM BROMIDE 62.5 MCG/DOSE IH SCH (12:28)
[2020-05-27] MEDS: LIDOCAINE 5% (700 MG) TRANSDERMAL ADH..PATCH TP SCH (12:29)
[2020-05-27] MEDS: NICOTINE 14 MG/24 HR PATCH.TD24 TD SCH (12:30)
[2020-05-27 14:04] LABS: ARTERIAL BLOOD BASE EXCESS -1.8 mmol/L; ARTERIAL BLOOD H2CO3 0.84 mmol/L (1.05-1.35); ARTERIAL BLOOD HCO3 20.5 mmol/L (20-24); ARTERIAL BLOOD O2 SATURATION 97.3 % (94-98); ARTERIAL BLOOD PCO2 27.9 mmHg (35-45); ARTERIAL BLOOD PH 7.49 (7.35-7.45); ARTERIAL BLOOD PO2 86.2 mmHg (80-100); ARTERIAL BLOOD TOTAL CO2 21.4 mmol/L (21-25)
[2020-05-27 14:05] LABS: ARTERIAL BLOOD FIO2 5L
--- NOTE | 2020-05-27 15:16 | RADIOLOGY REPORT (SQ) ---
EXAM DESCRIPTION: CT CHEST WITH IMAGES COMPLETED DATE/TIME: 05/27/2020 2:48 pm REASON FOR STUDY: dysnea, hypoxia COMPARISON: 05/10/2020 and 04/30/2020. TECHNIQUE: CT scan of the chest performed using helical scanning technique with dynamic intravenous contrast injection. Images reviewed with lung, soft tissue and bone windows. Reconstructed coronal and sagittal MPR and MIP images reviewed. All images stored on PACS. All CT scanners at this facility use dose modulation, iterative reconstruction, and/or weight based d osing when appropriate to reduce radiation dose to as low as reasonably achievable (ALARA). [facility]: Dose Right [facility]: CareDose [facility]: Dose Right [facility]: Teradose 4D [facility]: [employer] CONTRAST TYPE AND DOSE: contrast/concentration: Isovue 350.00 mmol/ml; Total Contrast Delivered: 80. 0 ml; Total Saline Delivered: 40.0 ml RENAL FUNCTION: BUN 15 creatinine 0.88. RADIATION DOSE: CT Rad equipment meets quality standard of care and radiation dose reduction techniq ues were employed. CTDIvol: 4.3 mGy. DLP: 157 mGy-cm. . LIMITATIONS: None. FINDINGS: LUNGS AND PLEURA: Moderate bilateral pleural effusions, slightly improved. Chronic pulmon tez scarring. Previously seen pulmonary nodules appear generally unchanged. There is interval devel opment of scattered ground-glass opacities throughout both lungs, more confluent in the lower lobes. HILAR AND MEDIASTINAL STRUCTURES: No identified masses or abnormal nodes. HEART AND VASCULAR STRUCTURES: No aneurysm or dissection. There are nonocclusive pulmonary emboli in right and left upper and lower lobe arterial branches. No pericardial effusion. HARDWARE: None in the chest. UPPER ABDOMEN: No significant findings. Limited exam. THYROID AND OTHER SOFT TISSUES: No masses. No adenopathy. BONES: No significant finding. Chronic changes in the spine with vertebral compression deformities. OTHER: No other significant finding. IMPRESSION: 1. NONOCCLUSIVE PULMONARY EMBOLI TO BOTH LUNGS. 2. INTERVAL DEVELOPMENT OF SCATTERED GROUND-GLASS OPACITIES THROUGHOUT BOTH LUNGS, CONCERNING FOR VIR AL INFECTION. MORE CONFLUENT AIRSPACE DISEASE IN THE LOWER LOBES AND CANNOT EXCLUDE SUPERIMPOSED RO TERIAL PNEUMONIA. 3. BILATERAL PLEURAL EFFUSIONS, SLIGHTLY IMPROVED. 4. CHRONIC PULMONARY SCARRING. PREVIOUSLY SEEN PULMONARY NODULES APPEAR UNCHANGED. TECHNICAL DOCUMENTATION: JOB ID: [id number] Quality ID # [id number]: Final reports with documentation of one or more dose reduction techniques (e.g., Au tomated exposure control, adjustment of the mA and/or kV according to patient size, use of iterative reconstruction technique) 2010 [email or web address]- All Rights Reserved Reading location - IP/workstation name: [email or web address]
[2020-05-27] MEDS ORDERED: HEPARIN SOD (PORCINE) 1,000 UNIT/ML 10 ML VIAL IV ONE ×2 (15:32→18:30)
[2020-05-27] MEDS: FUROSEMIDE INJ/PF 20 MG/2 ML SDV IV SCH ×2 (15:59→21:59)
--- NOTE | 2020-05-27 18:06 | EKG REPORT ---
SEVERITY:- ABNORMAL ECG - SINUS TACHYCARDIA WITH IRREGULAR RATE 86-132 NONSPECIFIC T ABNORMALITIES, INFERIOR LEADS BORDERLINE PROLONGED QT INTERVAL : Confirmed by: John Garcia MD 27-May-2020 18:05:18
[2020-05-27 18:16] LABS: HEMATOCRIT 34.8 % (36.0-47.0); HEMOGLOBIN 11.7 g/dL (12.0-15.5); MEAN CORPUSCULAR HEMOGLOBIN 28.5 pg (27.0-33.4); MEAN CORPUSCULAR HGB CONC 33.7 g/dL (32.0-36.0); MEAN CORPUSCULAR VOLUME 85 fl (80-97); PLATELET COUNT 366 10^3/uL (150-450); RED BLOOD COUNT 4.12 10^6/uL (3.72-5.28); WHITE BLOOD COUNT 13.8 10^3/uL (4.0-10.5)
[2020-05-27 18:18] LABS: INTERNATIONAL RATION (INR) 1.15; PROTHROMBIN TIME 14.9 SEC (11.4-15.4)
[2020-05-27 18:19] LABS: PARTIAL THROMBOPLASTIN TIME 34.3 SEC (23.5-35.8)
--- NOTE | 2020-05-27 18:22 | PDOC PROGRESS REPORT ---
Subjective Progress Note for:: 05/27/20 Subjective:: Patient is an 84-year-old female with a past medical history of hypertension, COPD, hypothyroidism, breast cancer and suspicion for dementia with behavioral disturbances (; patient tends to call 911 to report that she is being held hostage) who was recently discharged to [place] after being treated for multifocal pneumonia. She was readmitted 05/21/2020 with Metabolic encephalopathy, ELIJAH, and acute urinary retention. Patient was seen on morning rounds and again this afternoon. She was found resting in bed on supplemental oxygen at 5 L/min. She is noted to have increased work of breathing today with 2-3 word tachypnea. Patient reports that she is having difficulty catching her breath. She reports continued wet sounding but nonproductive cough. She is also continuing to have frequent, watery, large volume stools. Remains afebrile. She denies chest pain, palpitations, abdominal pain, nausea and vomiting. She does admit to poor appetite. No concerns reported per nursing. Reason For Visit: URINARY RETENTION,ELIJAH,ACUTE ON CHRONIC RESPIRATORY Physical Exam Vital Signs: Temp Pulse Resp BP Pulse Ox 97.8 F 90 20 148/86 H 100 05/27/20 15:47 05/27/20 15:47 05/27/20 15:47 05/27/20 15:47 05/27/20 15:47 Intake & Output 05/26/20 05/27/20 05/28/20 06:59 06:59 06:59 Intake Total 1032 418 50 Output Total 1075 925 Balance -43 -507 50 Weight 54.4 kg 55.1 kg General appearance: PRESENT: hard of hearing, mild distress, well-developed, well-nourished, other - Acutely ill-appearing Head exam: PRESENT: atraumatic, normocephalic Eye exam: PRESENT: conjunctiva pink, EOMI, PERRLA. ABSENT: scleral icterus Mouth exam: PRESENT: moist, tongue midline Respiratory exam: PRESENT: accessory muscle use, clear to auscultation leonid, rhonchi, symmetrical, tachypnea, other - Increase supplemental oxygen needs. ABSENT: rales, wheezes Cardiovascular exam: PRESENT: RRR, +S1, +S2, tachycardia - Heart rate 110-120. ABSENT: diastolic murmur, rubs, systolic murmur Pulses: PRESENT: normal dorsalis pedis pul Vascular exam: PRESENT: normal capillary refill GI/Abdominal exam: PRESENT: normal bowel sounds, soft. ABSENT: distended, guarding, mass, organolmegaly, rebound, tenderness Rectal exam: PRESENT: deferred Gentrourinary exam: PRESENT: indwelling catheter Extremities exam: PRESENT: full ROM. ABSENT: calf tenderness, clubbing, pedal edema Neurological exam: PRESENT: alert, awake, oriented to person, oriented to place, oriented to time, oriented to situation, CN II-XII grossly intact. ABSENT: motor sensory deficit Psychiatric exam: PRESENT: appropriate affect, normal mood. ABSENT: homicidal ideation, suicidal ideation Skin exam: PRESENT: dry, erythema - Peritoneal, warm. ABSENT: cyanosis, rash Results Laboratory Results: 05/27/20 05:56 05/26/20 05/27/20 05/27/20 22:10 05:56 05:56 WBC 12.9 H RBC 3.94 Hgb 11.4 L Hct 33.3 L MCV 85 MCH 28.9 MCHC 34.2 RDW 16.2 H Plt Count 321 Carbonic Acid HCO3/H2CO3 Ratio ABG pH ABG pCO2 ABG pO2 ABG HCO3 ABG O2 Saturation ABG Base Excess FiO2 Sodium 140.6 142.4 Potassium 3.0 L* 3.7 Chloride 108 H 111 H Carbon Dioxide 26 22 Anion Gap 7 9 BUN 17 15 Creatinine 0.96 0.88 Est GFR ( Amer) > 60 > 60 Glucose 100 77 Calcium 7.2 L 6.9 L* Magnesium 1.5 L Ferritin C-Reactive Protein Albumin 05/27/20 05/27/20 05/27/20 05:56 13:40 16:25 WBC RBC Hgb Hct MCV MCH MCHC RDW Plt Count Carbonic Acid 0.84 L HCO3/H2CO3 Ratio 24:1 ABG pH 7.49 H ABG pCO2 27.9 L ABG pO2 86.2 ABG HCO3 20.5 ABG O2 Saturation 97.3 ABG Base Excess -1.8 FiO2 5L Sodium Potassium Chloride Carbon Dioxide Anion Gap BUN Creatinine Est GFR ( Amer) Glucose Calcium Magnesium Ferritin 794.00 H C-Reactive Protein 64.0 H Albumin 2.2 L 05/26/20 08:44 Catheterized Urine Urine Culture - Final C.albicans/C.dubliniensis 05/21/20 15:13 Blood Blood Culture - Final NO GROWTH IN 5 DAYS 05/21/20 12:18 Blood Blood Culture - Final NO GROWTH IN 5 DAYS 05/21/20 05/21/20 05/26/20 12:18 12:18 22:10 Creatine Kinase 44 Troponin I 0.108 NT-Pro-B Natriuret Pep 8190 H 68335 H Impressions: Chest X-Ray 05/25/20 00:00 IMPRESSION: PATCHY AIRSPACE DISEASE IN THE RIGHT APEX, PERIHILAR RIGHT LUNG, AND LEFT LUNG BASE, MAY BE SLIGHTLY WORSE IN THE RIGHT APEX. Chest CT 05/27/20 12:11 IMPRESSION: 1. NONOCCLUSIVE PULMONARY EMBOLI TO BOTH LUNGS. 2. INTERVAL DEVELOPMENT OF SCATTERED GROUND-GLASS OPACITIES THROUGHOUT BOTH LUNGS, CONCERNING FOR VIRAL INFECTION. MORE CONFLUENT AIRSPACE DISEASE IN THE LOWER LOBES AND CANNOT EXCLUDE SUPERIMPOSED BACTERIAL PNEUMONIA. 3. BILATERAL PLEURAL EFFUSIONS, SLIGHTLY IMPROVED. 4. CHRONIC PULMONARY SCARRING. PREVIOUSLY SEEN PULMONARY NODULES APPEAR UNCHANG ED. Assessment and Plan - Diagnosis (1) Pulmonary embolus Qualifiers: Pulmonary embolism type: other Chronicity: acute Acute cor pulmonale presence: without acute cor pulmonale Qualified Code(s): I26.99 - Other pulmonary embolism without acute cor pulmonale Is this a current diagnosis for this admission?: Yes Plan: Patient was noted to have bilateral, nonobstructive, peripheral pulmonary emboli on CT imaging today. Patient is placed on Heparin gtt. Respiratory support as below. (2) Suspected COVID-19 virus infection Is this a current diagnosis for this admission?: Yes Plan: We will obtain COVID testing. D-dimer, ferritin, CRP, LDH all elevated. I have placed patient on heparin drip secondary to acute pulmonary emboli. Provide supplemental oxygen as needed maintain saturations greater than 89%. As needed nebulizer treatments. IV dexamethasone Discussed treatment options with patient; she states that she wishes to be made a full code. She would also be interested in remdesivir or convalescent plasma should she qualify. Zinc, vitamin D, vitamin C, and melatonin supplementation. Encourage pulmonary toilet. Isolation precautions. (3) Emphysema lung Qualifiers: Emphysema type: centrilobular Qualified Code(s): J43.2 - Centrilobular emphysema Is this a current diagnosis for this admission?: Yes Plan: IWill provide supplemental oxygen as needed to maintain saturations greater than 89%. Start on scheduled and as needed nebulizer treatments. Mucomyst nebulizer treatments. Continue home dose Breo, Incruse, as needed albuterol inhaler. As needed DuoNeb's. Mucinex twice daily. Robitussin as needed. Pulmonary toilet is encouraged with incentive spirometer, flutter valve, and early ambulation. (4) Acute and chronic respiratory failure with hypoxia Is this a current diagnosis for this admission?: Yes Plan: Secondary to resolving pneumonia with underlying emphysema. Now with acute bilateral pulmonary emboli increased scattered groundglass opacities Evaluation and management as above. (5) Acute urinary retention Is this a current diagnosis for this admission?: Yes Plan: Likely secondary to UTI We will discontinue Alvarado and start bladder trials. Bladder scan every 6 hours and straight cath as needed. Strict I&Os (6) Physical deconditioning Is this a current diagnosis for this admission?: Yes Plan: PT/OT consultation once the patient's condition begins to improve. Discharge planning consulted. (7) Urinary tract infection Qualifiers: Urinary tract infection type: site unspecified Hematuria presence: with hematuria Qualified Code(s): N39.0 - Urinary tract infection, site not specified; R31.9 - Hematuria, unspecified Is this a current diagnosis for this admission?: Yes Plan: Blood cultures negative at 5 days Urine culture revealed Jeana Repeat urinalysis today reveals continued evidence for urinary tract infection. Repeat urine culture also reveals Jeana Patient was placed on IV cefepime by ED provider; received 1 dose. Received 4 days of Zosyn and 1 of ceftriaxone. One dose of Diflucan 100 mg; unfortunately had to discontinue due to development of prolonged QTc interval. (8) Gross hematuria Is this a current diagnosis for this admission?: Yes Plan: Secondary to UTI. Management as above. (9) Hypokalemia Is this a current diagnosis for this admission?: Yes Plan: Replete. Secondary to GI losses as patient has developed large-volume watery stools. Follow-up chemistries. (10) Diarrhea Qualifiers: Diarrhea type: unspecified type Qualified Code(s): R19.7 - Diarrhea, unspecified Is this a current diagnosis for this admission?: Yes Plan: Possibly related to Zosyn. C. difficile negative. Stool culture revealed Jeana Start lactobacillus. Have discontinued Zosyn. Offered patient rectal tube for comfort and skin protection. (11) Hyperkalemia Is this a current diagnosis for this admission?: Yes Plan: Resolved (12) Hypotension Qualifiers: Hypotension type: hypotension due to hypovolemia Qualified Code(s): I95.89 - Other hypotension; E86.1 - Hypovolemia Is this a current diagnosis for this admission?: Yes Plan: Resolved. (13) Metabolic encephalopathy Is this a current diagnosis for this admission?: Yes Plan: Acute metabolic encephalopathy is resolved. Multifactorial secondary to dehydration, electrolyte derangements, UTI, acute u rinary retention, and acute on chronic respiratory failure secondary to resolving pneumonia and emphysema. Worsened by IV Ativan. Likely underlying dementia. As the patient has a history of breast cancer with lung nodules concerning for malignancy, should her mentation worsen, will obtain head imaging. (14) Dehydration Is this a current diagnosis for this admission?: Yes Plan: Resolved. (15) Pulmonary nodules/lesions, multiple Is this a current diagnosis for this admission?: Yes Plan: History of breast cancer. Nodules concerning for malignancy. Bronchoscopy 08/14/2019 - for malignancy. During patient's recent admission, oncology was consulted with recommendation for repeat CT in [address] showed bilateral lung nodules that appear to be decreased since the prior imaging. Right upper lobe with some possible cavitation. Patient scheduled follow-up with Dr. Casey as an outpatient in 1 to [address] chest with contrast today revealed stable pulmonary nodules. (16) Acute kidney injury Is this a current diagnosis for this admission?: Yes Plan: Resolved. Multifactorial secondary to dehydration and possibly worsened by acute urinary retention. We will avoid nephrotoxic medications as able. Renally dose where appropriate. Follow-up chemistry - Time Time Spent with patient: 35 or more minutes Medications reviewed and adjusted accordingly: Yes Anticipated Discharge Disposition: undetermined Anticipated Discharge Timeframe: >72 hrs
[2020-05-27 18:33] LABS: ABSOLUTE LYMPHOCYTES# (MANUAL) 0.7 10^3/uL (0.5-4.7); ABSOLUTE MONOCYTES # (MANUAL) 0.3 10^3/uL (0.1-1.4); BASOPHILS % (MANUAL) 0 % (0-2); EOSINOPHILS % (MANUAL) 2 % (0-6); LYMPHOCYTES % (MANUAL) 5 % (13-45); MONOCYTES % (MANUAL) 2 % (3-13); SEGMENTED NEUTROPHILS % (MAN) 91 % (42-78); TOTAL CELLS COUNTED 100
[2020-05-27] MEDS ORDERED: HEPARIN SOD (PORCINE) 1,000 UNIT/ML 10 ML VIAL IV PRN (18:33)
[2020-05-27 18:34] LABS: ANISOCYTOSIS 1+; OVALOCYTES 1+; POIKILOCYTOSIS 1+
[2020-05-27 18:35] LABS: PLATELET COMMENT ADEQUATE; SCHISTOCYTES SLIGHT; TARGET CELLS SLIGHT
[2020-05-27] MEDS: ASCORBIC ACID 500 MG TABLET PO SCH (18:53)
[2020-05-27] MEDS: HEPARIN SODIUM,PORCINE/D5W 25,000 UNIT/250 ML RTUINJ IV PRN (18:55)
--- NOTE | 2020-05-27 19:25 | XCELERA REPORT ---
[address] [address] Transthoracic Echocardiogram Report Name: JESSY BAKER Age: 84 yrs Gender: Female : 1935 Patient Status: Inpatient Patient Location: [facility]^A Study Date: 05/27/2020 03:06 PM Height: 65 in Weight: 121 lb BSA: 1.6 m2 Procedure: A complete two-dimensional transthoracic echocardiogram was performed (2D, M-mode, spectral and color flow Doppler). The study was technically adequate with some images being suboptimal in quality. POOR PSAX. Reason For Study: chf Previous Evaluation: No previous studies were available. Ordering Physician: SHERIF VALLEJO Performed By: Arben Alonso Interpretation Summary The patient is mildly tachycardic during the study. The left ventricle is grossly normal size. Left ventricular systolic function is normal. LV EF is 60%. LV diastolic function could not be adequately assessed. Wall motion is grossly normal. Mild to moderate MR, mild to moderate TR, mild PI. Mildly to moderately elevated pulmonary pressures between 51 and 56 mmHg. No prior studies for comparison. MMode/2D Measurements & Calculations RVDd: 2.5 cm LVIDd: 3.8 cm FS: 23.6 % Ao root diam: 3.2 cm IVSd: 0.84 cm LVIDs: 2.9 cm EDV(Teich): 62.1 ml Ao root area: 8.0 cm2 LVPWd: 0.83 cm ESV(Teich): 32.3 ml LA dimension: 3.2 cm EF(Teich): 47.9 % Doppler Measurements & Calculations MV E max brennen: MV P1/2t max brennen: Ao V2 max: LV V1 max P.2 cm/sec 125.5 cm/sec 84.2 cm/sec 2.3 mmHg MV P1/2t: 37.5 msec Ao max PG: LV V1 max: MVA(P1/2t): 5.9 cm2 2.8 mmHg 76.6 cm/sec MV dec slope: LV dP/dt: 2272 mmHg/s 980.5 cm/sec2 MV dec time: 0.15 sec PA V2 max: PI end-d brennen: TR max brennen: MV P1/2t-pr_phl: 52.8 cm/sec 169.7 cm/sec 339.3 cm/sec 37.5 msec PA max P.1 mmHg TR max P.1 mmHg Left Ventricle The left ventricle is grossly normal size. Left ventricular systolic function is normal. LV EF is 60%. LV diastolic function could not be adequately assessed. Wall motion is grossly normal. Right Ventricle The right ventricle is normal in size, thickness and function. The right ventricular systolic function is normal. Atria The right atrium is normal. The left atrial size is normal. The interatrial septum is intact with no evidence for an atrial septal defect. Mitral Valve There is moderate mitral annular calcification. There is no evidence of mitral valve prolapse. No significant mitral valve stenosis. There is a mild to moderate amount of mitral regurgitation. Aortic Valve The aortic valve is trileaflet. The aortic valve is grossly normal. There is no aortic valvular vegetation. There is no aortic valve stenosis. Tricuspid Valve The tricuspid valve is not well visualized, but is grossly normal. There is no tricuspid valve prolapse. There is no tricuspid stenosis. There is a moderate amount of tricuspid regurgitation. Mildly to moderately elevated pulmonary pressures between 51 and 56 mmHg. Pulmonic Valve The pulmonic valve is not well visualized. The pulmonic valve is not well seen, but is grossly normal. There is no vegetation on the pulmonic valve. There is no pulmonic valvular stenosis. There is a mild amount of pulmonic regurgitation. Great Vessels The aortic root is normal size. The inferior vena cava appeared normal and decreased > 50% with respiration (RAP 5-10 mmHg). Effusions There is no pericardial effusion. There is no pleural effusion. : SHERIF VALLEJO Antonio
[2020-05-27] MEDS: POLYETHYLENE GLYCOL 3350 POWDER 17 GM/1 PACKET PO SCH (21:56)
[2020-05-27] MEDS: ATORVASTATIN CALCIUM 40 MG TABLET PO SCH (21:59)
[2020-05-27] MEDS: MONTELUKAST SODIUM 10 MG TABLET PO SCH (21:59)
[2020-05-27] MEDS ORDERED: NORMAL SALINE 500 ML IV ONE (22:00)
[2020-05-27] MEDS: PHARMACY COMMUNICATION ORDER MC SCH (22:10)
[2020-05-27 23:30] LABS: ANION GAP 11 (5-19); BLOOD UREA NITROGEN 13 mg/dL (7-20); CARBON DIOXIDE 20 mmol/L (22-30); CHLORIDE 110 mmol/L (98-107); GLUCOSE 107 mg/dL (75-110)
[2020-05-27 23:40] LABS: CALCIUM 6.9 mg/dL (8.4-10.2)
[2020-05-27 23:41] LABS: POTASSIUM 2.9 mmol/L (3.6-5.0)
[2020-05-28] MEDS: POTASSI CL 20 MEQ/50 ML RIDER 20 MEQ/50 ML RTUPB IV SCH ×2 (00:15→02:20)
[2020-05-28] MEDS ORDERED: POTASSIUM CHLORIDE 20 MEQ PACKET PO ONE (00:15)
[2020-05-28] MEDS: IPRATROPIUM/ALBUTEROL 0.5-2.5 MG/3 ML AMPUL NEB PRN ×3 (04:57→19:33)
[2020-05-28] MEDS: MIDODRINE HCL 5 MG TABLET PO SCH ×3 (05:38→21:06)
[2020-05-28] MEDS: LEVOTHYROXINE SODIUM 0.1 MG TABLET PO SCH (05:38)
[2020-05-28] MEDS: LEVOTHYROXINE SODIUM 0.075 MG TABLET PO SCH (05:38)
[2020-05-28] MEDS: FUROSEMIDE INJ/PF 20 MG/2 ML SDV IV SCH ×3 (05:38→21:10)
[2020-05-28 05:57] LABS: HEMATOCRIT 33.5 % (36.0-47.0); HEMOGLOBIN 11.4 g/dL (12.0-15.5); MEAN CORPUSCULAR HEMOGLOBIN 28.3 pg (27.0-33.4); MEAN CORPUSCULAR VOLUME 83 fl (80-97); PLATELET COUNT 368 10^3/uL (150-450); RED BLOOD COUNT 4.02 10^6/uL (3.72-5.28); RED CELL DISTRIBUTION WIDTH 16.2 % (11.5-14.0); WHITE BLOOD COUNT 14.3 10^3/uL (4.0-10.5)
[2020-05-28 06:18] LABS: ABSOLUTE LYMPHOCYTES# (MANUAL) 0.7 10^3/uL (0.5-4.7); ABSOLUTE MONOCYTES # (MANUAL) 0.1 10^3/uL (0.1-1.4); ANISOCYTOSIS 1+; BASOPHILS % (MANUAL) 0 % (0-2); EOSINOPHILS % (MANUAL) 0 % (0-6); LYMPHOCYTES % (MANUAL) 5 % (13-45); MONOCYTES % (MANUAL) 1 % (3-13); PLATELET COMMENT ADEQUATE; SEGMENTED NEUTROPHILS % (MAN) 94 % (42-78); TOTAL CELLS COUNTED 100
[2020-05-28 06:29] LABS: ANION GAP 10 (5-19); BLOOD UREA NITROGEN 13 mg/dL (7-20); CARBON DIOXIDE 20 mmol/L (22-30); CHLORIDE 112 mmol/L (98-107); GLUCOSE 105 mg/dL (75-110)
[2020-05-28 06:29] LABS: APPEARANCE,URINE TURBID; BILIRUBIN,URINE NEGATIVE (NEGATIVE); COLOR,URINE YELLOW; GLUCOSE, URINE NEGATIVE (NEGATIVE); KETONES,URINE TRACE mg/dL (NEGATIVE); LEUKOCYTE ESTERASE,URINE MODERATE (NEGATIVE); NITRITE,URINE NEGATIVE (NEGATIVE); PROTEIN,URINE 100 mg/dL (NEGATIVE); URINE SPECIFIC GRAVITY 1.018; UROBILINOGEN,URINE NEGATIVE mg/dL (<2.0)
[2020-05-28] MEDS ORDERED: LORAZEPAM INJ 2 MG/1 ML VIAL IV ONE (06:30)
[2020-05-28 06:43] LABS: CALCIUM 6.6 mg/dL (8.4-10.2)
[2020-05-28 06:44] LABS: POTASSIUM 3.9 mmol/L (3.6-5.0)
[2020-05-28] MEDS: ACETYLCYSTEINE 20% SOLN 800 MG/4 ML VIAL.NEB NEB SCH ×2 (08:20→19:33)
[2020-05-28] MEDS ORDERED: (PENDING PHARMACY ID) (Cholecalciferol (Vitamin D3) [Vitamin D3] 50,000 UNIT) PO SCH (10:00)
[2020-05-28] MEDS ORDERED: ERGOCALCIFEROL (VITAMIN D2) 50000 UNIT (1.25 MG) CAPSULE PO SCH (10:00)
[2020-05-28] MEDS: ASCORBIC ACID 500 MG TABLET PO SCH ×2 (10:39→17:37)
[2020-05-28] MEDS: ATENOLOL 50 MG TABLET PO SCH (10:39)
[2020-05-28] MEDS: GUAIFENESIN 600 MG TABLET.SA PO SCH ×2 (10:39→21:11)
[2020-05-28] MEDS: ZINC SULFATE 220 MG CAPSULE PO SCH (10:39)
[2020-05-28] MEDS: LACTOBACILLUS ACIDOPHILUS 250 MG TAB PO SCH ×2 (10:39→17:37)
[2020-05-28] MEDS: NICOTINE 14 MG/24 HR PATCH.TD24 TD SCH (10:40)
[2020-05-28] MEDS: DEXAMETHASONE SOD PHOS INJ 10 MG/1 ML VIAL IV SCH (10:40)
[2020-05-28] MEDS: FLUTICASONE/VILANTEROL 200-25 MCG/DOSE IH SCH (10:40)
[2020-05-28] MEDS: NYSTATIN TOPICAL POWDER 15 GM TP SCH ×2 (10:41→17:37)
[2020-05-28] MEDS: UMECLIDINIUM BROMIDE 62.5 MCG/DOSE IH SCH (10:41)
--- NOTE | 2020-05-28 16:15 | EKG REPORT ---
SEVERITY:- ABNORMAL ECG - SINUS TACHYCARDIA PAC MULTIFORM VENTRICULAR PREMATURE COMPLEXES PROBABLE ANTEROSEPTAL INFARCT, AGE INDETERM NONSPECIFIC T ABNORMALITIES, INFERIOR LEADS : Confirmed by: John Garcia MD 28-May-2020 16:14:12
[2020-05-28] MEDS ORDERED: RINGERS SOLUTION,LACTATED 1,000 ML IV PRN (17:13)
--- NOTE | 2020-05-28 17:15 | PDOC PROGRESS REPORT ---
Subjective Progress Note for:: 05/28/20 Subjective:: Patient is an 84-year-old female with a past medical history of hypertension, COPD, hypothyroidism, breast cancer and suspicion for dementia with behavioral disturbances (; patient tends to call 911 to report that she is being held hostage) who was recently discharged to [facility] after being treated for multifocal pneumonia. She was readmitted 05/21/2020 with Metabolic encephalopathy, ELIJAH, and acute urinary retention. Patient was seen on afternoon rounds . She was found resting in bed on BiPAP. She continues to have a wet sounding, but nonproductive cough. She is also continuing to have frequent, watery, stools, though decreased in volume. Overa ll, work of breathing is decreased. Does continue to have periods of agitation and confusion. Remains afebrile. She denies chest pain, palpitations, abdominal pain, nausea and vomiting. She does admit to poor appetite; does not like the hospital food. Would like to try cold apple sauce. No concerns reported per nursing. Reason For Visit: URINARY RETENTION,ELIJAH,ACUTE ON CHRONIC RESPIRATORY Physical Exam Vital Signs: Temp Pulse Resp BP Pulse Ox 97.7 F 113 H 21 H 144/81 H 100 05/28/20 12:07 05/28/20 14:00 05/28/20 16:00 05/28/20 12:07 05/28/20 16:00 Intake & Output 05/27/20 05/28/20 05/29/20 06:59 06:59 06:59 Intake Total 418 780 96 Output Total 925 2400 Balance -507 -1620 96 Weight 55.1 kg 55.6 kg General appearance: PRESENT: no acute distress, disheveled, hard of hearing, thin, well-developed, well-nourished Head exam: PRESENT: atraumatic, normocephalic Eye exam: PRESENT: conjunctiva pink, EOMI, PERRLA. ABSENT: scleral icterus Mouth exam: PRESENT: dry mucosa, tongue midline Teeth exam: PRESENT: poor dentation, other - poor oral care Respiratory exam: PRESENT: decreased breath sounds - bibasilar; poor inspiratory effort- shallow breathing, rhonchi, symmetrical, unlabored, other - BiPAP. ABSENT: rales, wheezes Cardiovascular exam: PRESENT: RRR. ABSENT: diastolic murmur, rubs, systolic murmur Pulses: PRESENT: normal dorsalis pedis pul Vascular exam: PRESENT: normal capillary refill GI/Abdominal exam: PRESENT: normal bowel sounds, soft. ABSENT: distended, guarding, mass, organolmegaly, rebound, tenderness Rectal exam: PRESENT: deferred Gentrourinary exam: PRESENT: indwelling catheter Extremities exam: ABSENT: calf tenderness, clubbing, pedal edema Neurological exam: PRESENT: alert, awake, oriented to person, oriented to place, oriented to time, oriented to situation, CN II-XII grossly intact, other - intermittent confusion. ABSENT: motor sensory deficit Psychiatric exam: PRESENT: appropriate affect, normal mood. ABSENT: homicidal ideation, suicidal ideation Skin exam: PRESENT: dry, erythema - peritoneal; improved, warm. ABSENT: cyanosis, rash Results Laboratory Results: 05/28/20 04:54 05/28/20 04:54 05/27/20 05/27/20 05/27/20 16:25 18:03 22:49 WBC 13.8 H RBC 4.12 Hgb 11.7 L Hct 34.8 L MCV 85 MCH 28.5 MCHC 33.7 RDW 16.0 H Plt Count 366 Seg Neutrophils % Not Reportable Sodium 140.5 Potassium 2.9 L* Chloride 110 H Carbon Dioxide 20 L Anion Gap 11 BUN 13 Creatinine 1.04 Est GFR ( Amer) > 60 Glucose 107 Calcium 6.9 L* Magnesium 1.4 L Ferritin 794.00 H C-Reactive Protein 64.0 H Urine Color Urine Appearance Urine pH Ur Specific [place] Urine Protein Urine Glucose (UA) Urine Ketones Urine Blood Urine Nitrite Ur Leukocyte Esterase Urine WBC (Auto) Urine RBC (Auto) 05/28/20 05/28/20 05/28/20 04:54 04:54 05:55 WBC 14.3 H RBC 4.02 Hgb 11.4 L Hct 33.5 L MCV 83 MCH 28.3 MCHC 34.0 RDW 16.2 H Plt Count 368 Seg Neutrophils % Not Reportable Sodium 141.9 Potassium 3.9 D Chloride 112 H Carbon Dioxide 20 L Anion Gap 10 BUN 13 Creatinine 0.92 Est GFR ( Amer) > 60 Glucose 105 Calcium 6.6 L* Magnesium Ferritin C-Reactive Protein Urine Color YELLOW Urine Appearance TURBID Urine pH 6.0 Ur Specific [place] 1.018 Urine Protein 100 H Urine Glucose (UA) NEGATIVE Urine Ketones TRACE H Urine Blood LARGE H Urine Nitrite NEGATIVE Ur Leukocyte Esterase MODERATE H Urine WBC (Auto) >182 Urine RBC (Auto) 126 05/26/20 17:55 Stool - Stool - Final 05/21/20 05/21/20 05/26/20 12:18 12:18 22:10 Creatine Kinase 44 Troponin I 0.108 NT-Pro-B Natriuret Pep 8190 H 18184 H Impressions: Chest X-Ray 05/25/20 00:00 IMPRESSION: PATCHY AIRSPACE DISEASE IN THE RIGHT APEX, PERIHILAR RIGHT LUNG, AND LEFT LUNG BASE, MAY BE SLIGHTLY WORSE IN THE RIGHT APEX. Chest CT 05/27/20 12:11 IMPRESSION: 1. NONOCCLUSIVE PULMONARY EMBOLI TO BOTH LUNGS. 2. INTERVAL DEVELOPMENT OF SCATTERED GROUND-GLASS OPACITIES THROUGHOUT BOTH LUNGS, CONCERNING FOR VIRAL INFECTION. MORE CONFLUENT AIRSPACE DISEASE IN THE LOWER LOBES AND CANNOT EXCLUDE SUPERIMPOSED BACTERIAL PNEUMONIA. 3. BILATERAL PLEURAL EFFUSIONS, SLIGHTLY IMPROVED. 4. CHRONIC PULMONARY SCARRING. PREVIOUSLY SEEN PULMONARY NODULES APPEAR UNCHANGED. Assessment and Plan - Diagnosis (1) Pulmonary embolus Qualifiers: Pulmonary embolism type: other Chronicity: acute Acute cor pulmonale presence: without acute cor pulmonale Qualified Code(s): I26.99 - Other pulmonary embolism without acute cor pulmonale Is this a current diagnosis for this admission?: Yes Plan: Patient was noted to have bilateral, nonobstructive, peripheral pulmonary emboli on CT imaging. Patient is placed on Heparin gtt. Respiratory support as below. Will discuss anticoagulant recommendations with hematology/oncology as the patient was also supposed to follow-up with Dr. Rodriguez next week for her pulmonary nodules (2) Suspected COVID-19 virus infection Is this a current diagnosis for this admission?: Yes Plan: We will obtain COVID testing. D-dimer, ferritin, CRP, LDH all elevated. I have placed patient on heparin drip secondary to acute pulmonary emboli. Provide supplemental oxygen as needed maintain saturations greater than 89%. As needed nebulizer treatments. IV dexamethasone Discussed treatment options with patient; she states that she wishes to be made a full code. She would also be interested in remdesivir or convalescent plasma should she qualify. Zinc, vitamin D, vitamin C, and melatonin supplementation. Encourage pulmonary toilet. Isolation precautions. (3) Emphysema lung Qualifiers: Emphysema type: centrilobular Qualified Code(s): J43.2 - Centrilobular emphysema Is this a current diagnosis for this admission?: Yes Plan: Provide supplemental oxygen as needed to maintain saturations greater than 89%. Scheduled and as needed nebulizer treatments. Mucomyst nebulizer treatments. Continue home dose Breo, Incruse, as needed albuterol inhaler. As needed DuoNeb's. Mucinex twice daily. Robitussin as needed. Pulmonary toilet is encouraged with incentive spirometer, flutter valve, and early ambulation. (4) Acute and chronic respiratory failure with hypoxia Is this a current diagnosis for this admission?: Yes Plan: Slightly improved today; decreased work of breathing, improved oxygen saturations on supplemental oxygen via nasal cannula at 5 L/min and intermittent BiPAP. Secondary to resolving pneumonia with underlying emphysema. Now with acute bilateral pulmonary emboli increased scattered groundglass opacities Evaluation and management as above. (5) Acute urinary retention Is this a current diagnosis for this admission?: Yes Plan: Likely secondary to UTI We will discontinue Alvarado and start bladder trials. Bladder scan every 6 hours and straight cath as needed. Strict I&Os (6) Physical deconditioning Is this a current diagnosis for this admission?: Yes Plan: PT/OT consultation once the patient's condition begins to improve. Discharge planning consulted. (7) Urinary tract infection Qualifiers: Urinary tract infection type: site unspecified Hematuria presence: with hematuria Qualified Code(s): N39.0 - Urinary tract infection, site not specified; R31.9 - Hematuria, unspecified Is this a current diagnosis for this admission?: Yes Plan: Blood cultures negative at 5 days Urine culture revealed Jeana Repeat urinalysis today reveals continued evidence for urinary tract infection. Repeat urine culture also reveals Jeana Patient was placed on IV cefepime by ED provider; received 1 dose. Received 4 days of Zosyn and 1 of ceftriaxone. One dose of Diflucan 100 mg; unfortunately had to discontinue due to development of prolonged QTc interval Will consult ID. Will repeat blood cultures to ensure the patient does not have candidemia (8) Gross hematuria Is this a current diagnosis for this admission?: Yes Plan: Secondary to UTI. Management as above. (9) Hypokalemia Is this a current diagnosis for this admission?: Yes Plan: Replete. Secondary to GI losses as patient has developed large-volume watery stools. Follow-up chemistries. (10) Diarrhea Qualifiers: Diarrhea type: unspecified type Qualified Code(s): R19.7 - Diarrhea, unspecified Is this a current diagnosis for this admission?: Yes Plan: Decreased stool volume today. Possibly related to Zosyn. C. difficile negative. Stool culture revealed Jeana Start lactobacillus. Have discontinued Zosyn. Offered patient rectal tube for comfort and skin protection; tolerating well. (11) Hyperkalemia Is this a current diagnosis for this admission?: Yes Plan: Resolved (12) Hypotension Qualifiers: Hypotension type: hypotension due to hypovolemia Qualified Code(s): I95.89 - Other hypotension; E86.1 - Hypovolemia Is this a current diagnosis for this admission?: Yes Plan: Resolved. (13) Metabolic encephalopathy Is this a current diagnosis for this admission?: Yes Plan: Acute metabolic encephalopathy is resolved. Multifactorial secondary to dehydration, electrolyte derangements, UTI, acute urinary retention, and acute on chronic respiratory failure secondary to resolv ing pneumonia and emphysema. Worsened by IV Ativan. Likely underlying dementia. As the patient has a history of breast cancer with lung nodules concerning for malignancy, should her mentation worsen, will obtain head imaging. (14) Dehydration Is this a current diagnosis for this admission?: Yes Plan: Resolved. (15) Pulmonary nodules/lesions, multiple Is this a current diagnosis for this admission?: Yes Plan: History of breast cancer. Nodules concerning for malignancy. Bronchoscopy 08/14/2019 - for malignancy. During patient's recent admission, oncology was consulted with recommendation for repeat CT in [address] showed bilateral lung nodules that appear to be decreased since the prior imaging. Right upper lobe with some possible cavitation. Patient scheduled follow-up with Dr. Casey as an outpatient in 1 to [address] chest with contrast today revealed stable pulmonary nodules. Will discuss with Dr. Rodriguez (16) Acute kidney injury Is this a current diagnosis for this admission?: Yes Plan: Resolved. Multifactorial secondary to dehydration and possibly worsened by acute urinary retention. We will avoid nephrotoxic medications as able. Renally dose where appropriate. Follow-up chemistry - Time Time Spent with patient: 35 or more minutes Medications reviewed and adjusted accordingly: Yes Anticipated Discharge Disposition: Care Home Facility Anticipated Discharge Timeframe: >72 hrs
[2020-05-28] MEDS: LIDOCAINE 5% (700 MG) TRANSDERMAL ADH..PATCH TP SCH ×3 (17:37→21:11)
[2020-05-28] MEDS: PHARMACY COMMUNICATION ORDER MC SCH (21:06)
[2020-05-28] MEDS: POLYETHYLENE GLYCOL 3350 POWDER 17 GM/1 PACKET PO SCH (21:06)
[2020-05-28] MEDS: ATORVASTATIN CALCIUM 40 MG TABLET PO SCH (21:11)
[2020-05-28] MEDS: MONTELUKAST SODIUM 10 MG TABLET PO SCH (21:11)
[2020-05-28] MEDS: HEPARIN SODIUM,PORCINE/D5W 25,000 UNIT/250 ML RTUINJ IV PRN (22:44)
[2020-05-29] MEDS: IPRATROPIUM/ALBUTEROL 0.5-2.5 MG/3 ML AMPUL NEB PRN ×3 (01:36→20:06)
[2020-05-29] MEDS: MIDODRINE HCL 5 MG TABLET PO SCH ×3 (05:12→21:28)
[2020-05-29] MEDS: LEVOTHYROXINE SODIUM 0.1 MG TABLET PO SCH (06:01)
[2020-05-29] MEDS: FUROSEMIDE INJ/PF 20 MG/2 ML SDV IV SCH (06:01)
[2020-05-29] MEDS: LEVOTHYROXINE SODIUM 0.075 MG TABLET PO SCH (06:01)
[2020-05-29 06:35] LABS: HEMATOCRIT 28.9 % (36.0-47.0); HEMOGLOBIN 9.9 g/dL (12.0-15.5); MEAN CORPUSCULAR HEMOGLOBIN 28.6 pg (27.0-33.4); MEAN CORPUSCULAR HGB CONC 34.2 g/dL (32.0-36.0); MEAN CORPUSCULAR VOLUME 84 fl (80-97); PLATELET COUNT 382 10^3/uL (150-450); RED BLOOD COUNT 3.45 10^6/uL (3.72-5.28); RED CELL DISTRIBUTION WIDTH 16.5 % (11.5-14.0); WHITE BLOOD COUNT 14.2 10^3/uL (4.0-10.5)
[2020-05-29 06:43] LABS: ANION GAP 7 (5-19); BLOOD UREA NITROGEN 13 mg/dL (7-20); CARBON DIOXIDE 22 mmol/L (22-30); CHLORIDE 111 mmol/L (98-107); GLUCOSE 115 mg/dL (75-110)
[2020-05-29 06:50] LABS: CALCIUM 6.3 mg/dL (8.4-10.2)
[2020-05-29 06:51] LABS: POTASSIUM 2.8 mmol/L (3.6-5.0)
[2020-05-29 07:12] LABS: ABSOLUTE LYMPHOCYTES# (MANUAL) 0.1 10^3/uL (0.5-4.7); ANISOCYTOSIS 1+; BASOPHILS % (MANUAL) 0 % (0-2); EOSINOPHILS % (MANUAL) 0 % (0-6); LYMPHOCYTES % (MANUAL) 1 % (13-45); MONOCYTES % (MANUAL) 7 % (3-13); PLATELET COMMENT ADEQUATE; SEGMENTED NEUTROPHILS % (MAN) 92 % (42-78); TOTAL CELLS COUNTED 100; TOXIC GRANULATION SLIGHT
[2020-05-29] MEDS ORDERED: POTASSIUM CHLORIDE 20 MEQ/50 ML RTU IV ONE (07:15)
[2020-05-29] MEDS ORDERED: MAGNESIUM SULFATE 4 GM/D5W 100 ML IV ONE (07:15)
[2020-05-29] MEDS ORDERED: POTASSIUM CHLORIDE 20 MEQ PACKET PO ONE (07:15)
[2020-05-29] MEDS: ACETYLCYSTEINE 20% SOLN 800 MG/4 ML VIAL.NEB NEB SCH ×2 (07:59→20:08)
[2020-05-29] MEDS: LACTOBACILLUS ACIDOPHILUS 250 MG TAB PO SCH ×2 (10:14→18:38)
[2020-05-29] MEDS: GUAIFENESIN 600 MG TABLET.SA PO SCH ×2 (10:14→21:10)
[2020-05-29] MEDS: PANTOPRAZOLE SODIUM 40 MG VIAL IV SCH (10:14)
[2020-05-29] MEDS: ATENOLOL 50 MG TABLET PO SCH (10:14)
[2020-05-29] MEDS: ZINC SULFATE 220 MG CAPSULE PO SCH (10:14)
[2020-05-29] MEDS: NICOTINE 14 MG/24 HR PATCH.TD24 TD SCH (10:14)
[2020-05-29] MEDS: ASCORBIC ACID 500 MG TABLET PO SCH ×2 (10:14→18:40)
[2020-05-29] MEDS: FLUTICASONE/VILANTEROL 200-25 MCG/DOSE IH SCH (10:15)
[2020-05-29] MEDS: DEXAMETHASONE SOD PHOS INJ 10 MG/1 ML VIAL IV SCH (10:15)
[2020-05-29] MEDS: NYSTATIN TOPICAL POWDER 15 GM TP SCH ×2 (10:16→18:57)
[2020-05-29] MEDS: UMECLIDINIUM BROMIDE 62.5 MCG/DOSE IH SCH (10:16)
[2020-05-29] MEDS ORDERED: ATENOLOL 50 MG TABLET PO ONE (11:00)
--- NOTE | 2020-05-29 12:10 | PDOC PROGRESS REPORT ---
Subjective Progress Note for:: 05/29/20 Subjective:: Patient is an 84-year-old female with a past medical history of hypertension, COPD, hypothyroidism, breast cancer and suspicion for dementia with behavioral disturbances (owning; patient tends to call 911 to report that she is being held hostage) who was recently discharged to [place] after being treated for multifocal pneumonia. She was readmitted 05/21/2020 with Metabolic encephalopathy, ELIJAH, and acute urinary retention. Patient was seen on morning rounds . She was found resting in bed on supplemental oxygen by nasal cannula at 4 L/min; she is not home O2 dependent. She continues to have a wet sounding, but nonproductive cough. She is also continuing to have frequent, watery, stools, though decreased in volume. Overall, work of breathing is decreased. She states she feels a little better. She denies chest pain, palpitations, abdominal pain, nausea and vomiting. She does admit to poor appetite; does not like the hospital food. No concerns reported per nursing. Reason For Visit: URINARY RETENTION,ELIJAH,ACUTE ON CHRONIC RESPIRATORY Physical Exam Vital Signs: Temp Pulse Resp BP Pulse Ox 97.7 F 110 H 20 137/93 H 100 05/29/20 08:11 05/29/20 08:11 05/29/20 08:11 05/29/20 08:11 05/29/20 08:11 Intake & Output 05/28/20 05/29/20 05/30/20 06:59 06:59 06:59 Intake Total 780 147 50 Output Total 2400 1020 Balance -1620 -873 50 Weight 55.6 kg 54.8 kg General appearance: PRESENT: no acute distress, cooperative, hard of hearing, thin, well-developed, well-nourished Head exam: PRESENT: atraumatic, normocephalic Eye exam: PRESENT: conjunctiva pink, EOMI, PERRLA. ABSENT: scleral icterus Mouth exam: PRESENT: moist, tongue midline Respiratory exam: PRESENT: clear to auscultation leonid, symmetrical, unlabored, other - Supplemental oxygen by nasal. ABSENT: rales, rhonchi, wheezes Cardiovascular exam: PRESENT: RRR, tachycardia - Heart rate 90-110. ABSENT: diastolic murmur, rubs, systolic murmur Pulses: PRESENT: normal dorsalis pedis pul Vascular exam: PRESENT: normal capillary refill GI/Abdominal exam: PRESENT: normal bowel sounds, soft. ABSENT: distended, guarding, mass, organolmegaly, rebound, tenderness Rectal exam: PRESENT: deferred, other - Fecal management system Extremities exam: PRESENT: full ROM. ABSENT: calf tenderness, clubbing, pedal edema Neurological exam: PRESENT: alert, awake, oriented to person, oriented to place, oriented to situation, CN II-XII grossly intact, other - Intermittent confusion; decreased. ABSENT: motor sensory deficit Psychiatric exam: PRESENT: appropriate affect, normal mood. ABSENT: homicidal ideation, suicidal ideation Skin exam: PRESENT: dry, intact, warm. ABSENT: cyanosis, rash Results Laboratory Results: 05/29/20 06:00 05/29/20 06:00 05/29/20 05/29/20 06:00 06:00 WBC 14.2 H RBC 3.45 L Hgb 9.9 L Hct 28.9 L MCV 84 MCH 28.6 MCHC 34.2 RDW 16.5 H Plt Count 382 Seg Neutrophils % Not Reportable Sodium 139.9 Potassium 2.8 L* Chloride 111 H Carbon Dioxide 22 Anion Gap 7 BUN 13 Creatinine 0.93 Est GFR ( Amer) > 60 Glucose 115 H Calcium 6.3 L* Magnesium 1.2 L* 05/26/20 17:55 Stool - Stool - Final 05/21/20 05/21/20 05/26/20 12:18 12:18 22:10 Creatine Kinase 44 Troponin I 0.108 NT-Pro-B Natriuret Pep 8190 H 97407 H Impressions: Chest X-Ray 05/25/20 00:00 IMPRESSION: PATCHY AIRSPACE DISEASE IN THE RIGHT APEX, PERIHILAR RIGHT LUNG, AND LEFT LUNG BASE, MAY BE SLIGHTLY WORSE IN THE RIGHT APEX. Chest CT 05/27/20 12:11 IMPRESSION: 1. NONOCCLUSIVE PULMONARY EMBOLI TO BOTH LUNGS. 2. INTERVAL DEVELOPMENT OF SCATTERED GROUND-GLASS OPACITIES THROUGHOUT BOTH LUNGS, CONCERNING FOR VIRAL INFECTION. MORE CONFLUENT AIRSPACE DISEASE IN THE LOWER LOBES AND CANNOT EXCLUDE SUPERIMPOSED BACTERIAL PNEUMONIA. 3. BILATERAL PLEURAL EFFUSIONS, SLIGHTLY IMPROVED. 4. CHRONIC PULMONARY SCARRING. PREVIOUSLY SEEN PULMONARY NODULES APPEAR UNCHANGED. Assessment and Plan - Diagnosis (1) Pulmonary embolus Qualifiers: Pulmonary embolism type: other Chronicity: acute Acute cor pulmonale presence: without acute cor pulmonale Qualified Code(s): I26.99 - Other pulmonary embolism without acute cor pulmonale Is this a current diagnosis for this admission?: Yes Plan: Patient was noted to have bilateral, nonobstructive, peripheral pulmonary emboli on CT imaging. Patient is placed on Heparin gtt. Respiratory support as below. Will discuss anticoagulant recommendations with hematology/oncology as the patient was also supposed to follow-up with Dr. Rodriguez next week for her pulmonary nodules (2) Suspected COVID-19 virus infection Is this a current diagnosis for this admission?: Yes Plan: We will obtain COVID testing. D-dimer, ferritin, CRP, LDH all elevated. I have placed patient on heparin drip secondary to acute pulmonary emboli. Provide supplemental oxygen as needed maintain saturations greater than 89%. As needed nebulizer treatments. IV dexamethasone Discussed treatment options with patient; she states that she wishes to be made a full code. She would also be interested in remdesivir or convalescent plasma should she qualify. Zinc, vitamin D, vitamin C, and melatonin supplementation. Encourage pulmonary toilet. Isolation precautions. (3) Emphysema lung Qualifiers: Emphysema type: centrilobular Qualified Code(s): J43.2 - Centrilobular emphysema Is this a current diagnosis for this admission?: Yes Plan: Provide supplemental oxygen as needed to maintain saturations greater than 89%. Scheduled and as needed nebulizer treatments. Mucomyst nebulizer treatments. Continue home dose Breo, Incruse, as needed albuterol inhaler. As needed DuoNeb's. Mucinex twice daily. Robitussin as needed. Pulmonary toilet is encouraged with incentive spirometer, flutter valve, and early ambulation. (4) Acute and chronic respiratory failure with hypoxia Is this a current diagnosis for this admission?: Yes Plan: Continues to improve; decreased work of breathing, improved oxygen saturations on supplemental oxygen via nasal cannula at 4 L/min and intermittent BiPAP. Secondary to resolving pneumonia with underlying emphysema. Now with acute bilateral pulmonary emboli Increased scattered groundglass opacities noted on CT; covid pending Evaluation and management as above. (5) Acute urinary retention Is this a current diagnosis for this admission?: Yes Plan: Likely secondary to UTI Now w/ Alvarado. Strict I&Os (6) Physical deconditioning Is this a current diagnosis for this admission?: Yes Plan: PT/OT consultation once the patient's condition begins to improve. Discharge planning consulted. (7) Urinary tract infection Qualifiers: Urinary tract infection type: site unspecified Hematuria presence: with hematuria Qualified Code(s): N39.0 - Urinary tract infection, site not specified; R31.9 - Hematuria, unspecified Is this a current diagnosis for this admission?: Yes Plan: Blood cultures negative at 5 days Urine culture revealed Jeana Repeat urinalysis today reveals continued evidence for urinary tract infection. Repeat urine culture also reveals Jeana Patient was placed on IV cefepime by ED provider; received 1 dose. Received 4 days of Zosyn and 1 of ceftriaxone. One dose of Diflucan 100 mg; unfortunately had to discontinue due to development of prolonged QTc interval Will consult ID. Will repeat blood cultures to ensure the patient does not have candidemia (8) Gross hematuria Is this a current diagnosis for this admission?: Yes Plan: Resolved; urine appears to be clear, light yellow today. Microscopic hematuria persists Secondary to UTI. Management as above. (9) Hypokalemia Is this a current diagnosis for this admission?: Yes Plan: Additional oral and IV replacement today. Magnesium replaced. Secondary to GI losses as patient has developed large-volume watery stools. Follow-up chemistries. (10) Diarrhea Qualifiers: Diarrhea type: unspecified type Qualified Code(s): R19.7 - Diarrhea, unspecified Is this a current diagnosis for this admission?: Yes Plan: Decreased stool volume today. Possibly related to Zosyn. C. difficile negative. Stool culture revealed Jeana Continue lactobacillus. Have discontinued Zosyn. Offered patient rectal tube for comfort and skin protection; tolerating well. (11) Hyperkalemia Is this a current diagnosis for this admission?: Yes Plan: Resolved (12) Hypotension Qualifiers: Hypotension type: hypotension due to hypovolemia Qualified Code(s): I95.89 - Other hypotension; E86.1 - Hypovolemia Is this a current diagnosis for this admission?: Yes Plan: Resolved. (13) Metabolic encephalopathy Is this a current diagnosis for this admission?: Yes Plan: Acute metabolic encephalopathy is resolved. Multifactorial secondary to dehydration, electrolyte derangements, UTI, acute urinary retention, and acute on chronic respiratory failure secondary to resolving pneumonia and emphysema. Worsened by IV Ativan. Likely underlying dementia. As the patient has a history of breast cancer with lung nodules concerning for malignancy, should her mentation worsen, will obtain head imaging. (14) Dehydration Is this a current diagnosis for this admission?: Yes Plan: Resolved. (15) Pulmonary nodules/lesions, multiple Is this a current diagnosis for this admission?: Yes Plan: History of breast cancer. Nodules concerning for malignancy. Bronchoscopy 08/14/2019 - for malignancy. During patient's recent admission, oncology was consulted with recommendation for repeat CT in [address] showed bilateral lung nodules that appear to be decreased since the prior imaging. Right upper lobe with some possible cavitation. Patient scheduled follow-up with Dr. Casey as an outpatient in 1 to [address] chest with contrast today revealed stable pulmonary nodules. Will discuss with Dr. Rodriguez (16) Acute kidney injury Is this a current diagnosis for this admission?: Yes Plan: Resolved. Multifactorial secondary to dehydration and possibly worsened by acute urinary retention. We will avoid nephrotoxic medications as able. Renally dose where appropriate. Follow-up chemistry (17) Anemia Qualifiers: Other causes of anemia: chronic disease, other Is this a current diagnosis for this admission?: Yes Plan: Iron deficiency anemia Hemoglobin trending down slightly; in part hemodilutional Currently on Heparin gtt for PE Monitor for acute bleeding. IV Feraheme today Likely Heme/Onc consultation Trend CBC - Time Time Spent with patient: 35 or more minutes Medications reviewed and adjusted accordingly: Yes Anticipated Discharge Disposition: Senior Living Facility Anticipated Discharge Timeframe: >72 hrs
[2020-05-29] MEDS ORDERED: FERUMOXYTOL 510 MG in NORMAL SALINE 100 ML IV ONE (13:00)
[2020-05-29] MEDS ORDERED: POTASSIUM CHLORIDE 10 MEQ TABLET.ER PO ONE (13:30)
[2020-05-29] MEDS ORDERED: LOPERAMIDE HCL 2 MG CAPSULE PO PRN (16:00)
[2020-05-29] MEDS ORDERED: MAGNESIUM SULFATE/D5W 1 GM/100 ML RTUPB IV SCH (16:15)
[2020-05-29] MEDS ORDERED: POTASSIUM CHLORIDE 10 MEQ TABLET.ER PO SCH (17:00)
[2020-05-29 17:25] LABS: HEMATOCRIT 28.7 % (36.0-47.0); MEAN CORPUSCULAR HEMOGLOBIN 29.1 pg (27.0-33.4); MEAN CORPUSCULAR HGB CONC 34.8 g/dL (32.0-36.0); MEAN CORPUSCULAR VOLUME 84 fl (80-97); PLATELET COUNT 356 10^3/uL (150-450); RED BLOOD COUNT 3.43 10^6/uL (3.72-5.28); RED CELL DISTRIBUTION WIDTH 16.4 % (11.5-14.0); WHITE BLOOD COUNT 17.6 10^3/uL (4.0-10.5)
[2020-05-29 17:45] LABS: BLOOD UREA NITROGEN 15 mg/dL (7-20); CARBON DIOXIDE 19 mmol/L (22-30); GLUCOSE 139 mg/dL (75-110); POTASSIUM 3.4 mmol/L (3.6-5.0)
[2020-05-29 17:47] LABS: ANION GAP 8 (5-19); CHLORIDE 109 mmol/L (98-107)
[2020-05-29 18:06] LABS: CALCIUM 6.5 mg/dL (8.4-10.2)
[2020-05-29] MEDS: CEFTRIAXONE 1 GM/D5W RTU 1 GM/50 ML RTUPB IV SCH (18:41)
[2020-05-29] MEDS: ALBUMIN HUMAN 12.5 GM/50 ML RTUINJ IV SCH ×4 (20:03→23:53)
[2020-05-29 20:07] LABS: INTERNATIONAL RATION (INR) 1.31; PROTHROMBIN TIME 16.4 SEC (11.4-15.4)
[2020-05-29 20:09] LABS: PARTIAL THROMBOPLASTIN TIME 102.5 SEC (23.5-35.8)
[2020-05-29] MEDS: ATORVASTATIN CALCIUM 40 MG TABLET PO SCH (21:09)
[2020-05-29] MEDS: MONTELUKAST SODIUM 10 MG TABLET PO SCH (21:09)
[2020-05-29] MEDS: POLYETHYLENE GLYCOL 3350 POWDER 17 GM/1 PACKET PO SCH (21:10)
[2020-05-29] MEDS: POTASSI CL 20 MEQ/NS 1L 1,000 ML IV PRN (21:10)
[2020-05-29] MEDS: PHARMACY COMMUNICATION ORDER MC SCH (21:10)
[2020-05-29] MEDS: LIDOCAINE 5% (700 MG) TRANSDERMAL ADH..PATCH TP SCH (21:12)
[2020-05-30] MEDS: IPRATROPIUM/ALBUTEROL 0.5-2.5 MG/3 ML AMPUL NEB PRN ×3 (04:58→19:49)
[2020-05-30] MEDS: MIDODRINE HCL 5 MG TABLET PO SCH ×3 (05:06→21:10)
[2020-05-30] MEDS: LEVOTHYROXINE SODIUM 0.075 MG TABLET PO SCH (05:45)
[2020-05-30] MEDS: LEVOTHYROXINE SODIUM 0.1 MG TABLET PO SCH (05:45)
[2020-05-30 05:57] LABS: HEMATOCRIT 26.6 % (36.0-47.0); HEMOGLOBIN 9.1 g/dL (12.0-15.5); MEAN CORPUSCULAR HEMOGLOBIN 28.6 pg (27.0-33.4); MEAN CORPUSCULAR HGB CONC 34.3 g/dL (32.0-36.0); MEAN CORPUSCULAR VOLUME 83 fl (80-97); PLATELET COUNT 331 10^3/uL (150-450); RED BLOOD COUNT 3.18 10^6/uL (3.72-5.28); RED CELL DISTRIBUTION WIDTH 16.5 % (11.5-14.0); WHITE BLOOD COUNT 14.5 10^3/uL (4.0-10.5)
[2020-05-30 06:16] LABS: ALBUMIN 3.2 g/dL (3.5-5.0); ALKALINE PHOSPHATASE 57 U/L (38-126); ANION GAP 11 (5-19); ASPARTATE AMINO TRANSFERASE 31 U/L (14-36); BILIRUBIN,DIRECT 0.6 mg/dL (0.0-0.4); BILIRUBIN,TOTAL 0.7 mg/dL (0.2-1.3); BLOOD UREA NITROGEN 16 mg/dL (7-20); CARBON DIOXIDE 19 mmol/L (22-30); CHLORIDE 110 mmol/L (98-107); GLUCOSE 92 mg/dL (75-110); TOTAL PROTEIN 5.9 g/dL (6.3-8.2)
[2020-05-30 06:25] LABS: CALCIUM 6.6 mg/dL (8.4-10.2)
[2020-05-30] MEDS: HEPARIN SODIUM,PORCINE/D5W 25,000 UNIT/250 ML RTUINJ IV PRN (06:51)
[2020-05-30] MEDS ORDERED: POTASSIUM CHLORIDE 20 MEQ PACKET PO ONE (07:00)
[2020-05-30] MEDS ORDERED: CALCIUM GLUC IN NACL, ISO-OSM 1 GM/50 ML RTUPB IV ONE (07:47)
[2020-05-30] MEDS: ACETYLCYSTEINE 20% SOLN 800 MG/4 ML VIAL.NEB NEB SCH ×2 (07:49→19:49)
[2020-05-30] MEDS: PANTOPRAZOLE SODIUM 40 MG VIAL IV SCH (09:00)
[2020-05-30] MEDS: GUAIFENESIN 600 MG TABLET.SA PO SCH ×2 (09:01→21:09)
[2020-05-30] MEDS: ASCORBIC ACID 500 MG TABLET PO SCH (09:01)
[2020-05-30] MEDS: LACTOBACILLUS ACIDOPHILUS 250 MG TAB PO SCH ×2 (09:01→18:03)
[2020-05-30] MEDS: DEXAMETHASONE SOD PHOS INJ 10 MG/1 ML VIAL IV SCH (09:01)
[2020-05-30] MEDS: ZINC SULFATE 220 MG CAPSULE PO SCH (09:01)
[2020-05-30] MEDS: UMECLIDINIUM BROMIDE 62.5 MCG/DOSE IH SCH (09:01)
[2020-05-30] MEDS: FLUTICASONE/VILANTEROL 200-25 MCG/DOSE IH SCH (09:02)
[2020-05-30] MEDS: NYSTATIN TOPICAL POWDER 15 GM TP SCH ×2 (09:02→18:04)
[2020-05-30] MEDS: NICOTINE 14 MG/24 HR PATCH.TD24 TD SCH (09:03)
[2020-05-30] MEDS: CALCIUM CARBONATE 600 MG/VITAMIN D3 400 UNIT TABLET PO SCH ×2 (09:08→18:03)
[2020-05-30] MEDS ORDERED: ATENOLOL 50 MG TABLET PO SCH (10:00)
[2020-05-30] MEDS ORDERED: LOPERAMIDE HCL 2 MG CAPSULE PO ONE (13:13)
--- NOTE | 2020-05-30 13:14 | PDOC PROGRESS REPORT ---
Subjective Progress Note for:: 05/30/20 Subjective:: Patient is an 84-year-old female with a past medical history of hypertension, COPD, hypothyroidism, breast cancer and suspicion for dementia with behavioral disturbances (; patient tends to call 911 to report that she is being held hostage) who was recently discharged to [place] after being treated for multifocal pneumonia. She was readmitted 05/21/2020 with Metabolic encephalopathy, ELIJAH, and acute urinary retention. Patient was seen on afternoon rounds . She was found resting in bed on supplemental oxygen by nasal cannula at 4 L/min; she is not home O2 dependent. She reports her cough is slightly improved; wet sounding but non productive. Decreased dyspnea at rest, though with 3-4 word Tachypnea. She states she feels a little better. She denies chest pain, palpitations, abdominal pain, nausea and vomiting. Slight improvement appetite; ate some pudding and ice cream today. No concerns reported per nursing. Reason For Visit: URINARY RETENTION,ELIJAH,ACUTE ON CHRONIC RESPIRATORY Physical Exam Vital Signs: Temp Pulse Resp BP Pulse Ox 97.5 F 89 21 H 144/89 H 100 05/30/20 08:05 05/30/20 08:05 05/30/20 08:05 05/30/20 08:05 05/30/20 08:05 Intake & Output 05/29/20 05/30/20 05/31/20 06:59 06:59 06:59 Intake Total 147 2110 Output Total 1020 1400 Balance -873 710 Weight 54.8 kg 55.1 kg General appearance: PRESENT: no acute distress, cooperative, hard of hearing, thin, well-developed, well-nourished Head exam: PRESENT: atraumatic, normocephalic Eye exam: PRESENT: conjunctiva pink, EOMI, PERRLA. ABSENT: scleral icterus Mouth exam: PRESENT: moist, tongue midline Respiratory exam: PRESENT: rhonchi, symmetrical, unlabored, other - Supplemental oxygen by nasal cannula. ABSENT: rales, wheezes Cardiovascular exam: PRESENT: RRR. ABSENT: diastolic murmur, rubs, systolic murmur Pulses: PRESENT: normal dorsalis pedis pul Vascular exam: PRESENT: normal capillary refill GI/Abdominal exam: PRESENT: normal bowel sounds, soft, other - Bowel management system. ABSENT: distended, guarding, mass, organolmegaly, rebound, tenderness Rectal exam: PRESENT: deferred Extremities exam: PRESENT: full ROM. ABSENT: calf tenderness, clubbing, pedal edema Neurological exam: PRESENT: alert, awake, oriented to person, oriented to place, oriented to time, oriented to situation, CN II-XII grossly intact. ABSENT: mo tor sensory deficit Psychiatric exam: PRESENT: appropriate affect, normal mood. ABSENT: homicidal ideation, suicidal ideation Skin exam: PRESENT: dry, intact, warm. ABSENT: cyanosis, rash Results Laboratory Results: 05/30/20 04:45 05/30/20 04:45 05/29/20 05/29/20 05/29/20 16:56 16:56 16:56 WBC 17.6 H RBC 3.43 L Hgb 10.0 L Hct 28.7 L MCV 84 MCH 29.1 MCHC 34.8 RDW 16.4 H Plt Count 356 Sodium 136.0 L Potassium 3.4 L Chloride 109 H Carbon Dioxide 19 L Anion Gap 8 BUN 15 Creatinine 0.85 Est GFR ( Amer) > 60 Glucose 139 H Calcium 6.5 L* Total Bilirubin AST Alkaline Phosphatase Total Protein Albumin 2.6 L 05/30/20 05/30/20 04:45 04:45 WBC 14.5 H RBC 3.18 L Hgb 9.1 L Hct 26.6 L MCV 83 MCH 28.6 MCHC 34.3 RDW 16.5 H Plt Count 331 Sodium 139.6 Potassium 3.0 L* Chloride 110 H Carbon Dioxide 19 L Anion Gap 11 BUN 16 Creatinine 0.88 Est GFR ( Amer) > 60 Glucose 92 Calcium 6.6 L* Total Bilirubin 0.7 AST 31 Alkaline Phosphatase 57 Total Protein 5.9 L Albumin 3.2 L 05/26/20 17:55 Stool - Stool - Final 05/26/20 17:55 Stool - Stool Stool Culture - Final C.albicans/C.dubliniensis 05/21/20 05/21/20 05/26/20 12:18 12:18 22:10 Creatine Kinase 44 Troponin I 0.108 NT-Pro-B Natriuret Pep 8190 H 51439 H Impressions: Chest X-Ray 05/25/20 00:00 IMPRESSION: PATCHY AIRSPACE DISEASE IN THE RIGHT APEX, PERIHILAR RIGHT LUNG, AND LEFT LUNG BASE, MAY BE SLIGHTLY WORSE IN THE RIGHT APEX. Chest CT 05/27/20 12:11 IMPRESSION: 1. NONOCCLUSIVE PULMONARY EMBOLI TO BOTH LUNGS. 2. INTERVAL DEVELOPMENT OF SCATTERED GROUND-GLASS OPACITIES THROUGHOUT BOTH LUNGS, CONCERNING FOR VIRAL INFECTION. MORE CONFLUENT AIRSPACE DISEASE IN THE LOWER LOBES AND CANNOT EXCLUDE SUPERIMPOSED BACTERIAL PNEUMONIA. 3. BILATERAL PLEURAL EFFUSIONS, SLIGHTLY IMPROVED. 4. CHRONIC PULMONARY SCARRING. PREVIOUSLY SEEN PULMONARY NODULES APPEAR UNCHANGED. Assessment and Plan - Diagnosis (1) Pulmonary embolus Qualifiers: Pulmonary embolism type: other Chronicity: acute Acute cor pulmonale presence: without acute cor pulmonale Qualified Code(s): I26.99 - Other pulmonary embolism without acute cor pulmonale Is this a current diagnosis for this admission?: Yes Plan: Patient was noted to have bilateral, nonobstructive, peripheral pulmonary emboli on CT imaging. Patient is placed on Heparin gtt. Respiratory support as below. Have consulted hematology/oncology for anticoagulation recommendations; patient was scheduled to follow-up with Dr. Rodriguez this week. We will check occult stool (2) Emphysema lung Qualifiers: Emphysema type: centrilobular Qualified Code(s): J43.2 - Centrilobular emphysema Is this a current diagnosis for this admission?: Yes Plan: Provide supplemental oxygen as needed to maintain saturations greater than 89%. Scheduled and as needed nebulizer treatments. Mucomyst nebulizer treatments. Continue home dose Breo, Incruse, as needed albuterol inhaler. Decrease steroids to oral prednisone 20 mg daily As needed DuoNeb's. Mucinex twice daily. Robitussin as needed. Pulmonary toilet is encouraged with incentive spirometer, flutter valve, and early ambulation. (3) Acute and chronic respiratory failure with hypoxia Is this a current diagnosis for this admission?: Yes Plan: Continues to improve; decreased work of breathing, improved oxygen saturations on supplemental oxygen via nasal cannula at 4 L/min and intermittent BiPAP. Secondary to resolving pneumonia with underlying emphysema. Now with acute bilateral pulmonary emboli Increased scattered groundglass opacities noted on CT; covid negative Evaluation and management as above. (4) Acute urinary retention Is this a current diagnosis for this admission?: Yes Plan: Likely secondary to UTI Now w/ Alvarado. Strict I&Os (5) Physical deconditioning Is this a current diagnosis for this admission?: Yes Plan: PT/OT consultation once the patient's condition begins to improve. Discharge planning consulted. (6) Hypokalemia Is this a current diagnosis for this admission?: Yes Plan: Gradually trending up. Requiring additional oral and IV replacement today. Magnesium replaced. Secondary to GI losses as patient has developed large-volume watery stools. Follow-up chemistries. (7) Diarrhea Qualifiers: Diarrhea type: unspecified type Qualified Code(s): R19.7 - Diarrhea, unspecified Is this a current diagnosis for this admission?: Yes Plan: Decreased stool volume today. C. difficile negative. Stool culture revealed Jeana Continue lactobacillus. Have discontinued Zosyn. Offered patient rectal tube for comfort and skin protection; tolerating well. (8) Pulmonary nodules/lesions, multiple Is this a current diagnosis for this admission?: Yes Plan: History of breast cancer. Nodules concerning for malignancy. Bronchoscopy 08/14/2019 - for malignancy. During patient's recent admission, oncology was consulted with recommendation for repeat CT in [address] showed bilateral lung nodules that appear to be decreased since the prior imaging. Right upper lobe with some possible cavitation. Patient scheduled follow-up with Dr. Casey as an outpatient in 1 to [address] chest with contrast today revealed stable pulmonary nodules. Will discuss with Dr. Rodriguez (9) Anemia Qualifiers: Other causes of anemia: chronic disease, other Is this a current diagnosis for this admission?: Yes Plan: Iron deficiency anemia Hemoglobin trending down slightly; in part hemodilutional IV Feraheme yesterday Currently on Heparin gtt for PE Monitor for acute bleeding. Heme/Onc consultation Check occult stool Trend CBC (10) Suspected COVID-19 virus infection Is this a current diagnosis for this admission?: Yes Plan: Covid negative D-dimer, ferritin, CRP, LDH all elevated. Patient was placed patient on heparin drip secondary to acute pulmonary emboli. Provide supplemental oxygen as needed maintain saturations greater than 89%. As needed nebulizer treatments. IV dexamethasone; transition to p.o. prednisone for ongoing emphysema exacerbation. Received zinc, vitamin D, vitamin C, and melatonin supplementation. Encourage pulmonary toilet. (11) Acute kidney injury Is this a current diagnosis for this admission?: Yes Plan: Resolved. Multifactorial secondary to dehydration and possibly worsened by acute urinary retention. We will avoid nephrotoxic medications as able. Renally dose where appropriate. Follow-up chemistry (12) Dehydration Is this a current diagnosis for this admission?: Yes Plan: Resolved. (13) Metabolic encephalopathy Is this a current diagnosis for this admission?: Yes Plan: Acute metabolic encephalopathy is resolved. Multifactorial secondary to dehydration, electrolyte derangements, UTI, acute urinary retention, and acute on chronic respiratory failure secondary to resolving pneumonia and emphysema. Worsened by IV Ativan. Likely underlying dementia. As the patient has a history of breast cancer with lung nodules concerning for malignancy, should her mentation worsen, will obtain head imaging. (14) Hypotension Qualifiers: Hypotension type: hypotension due to hypovolemia Qualified Code(s): I95.89 - Other hypotension; E86.1 - Hypovolemia Is this a current diagnosis for this admission?: Yes Plan: Resolved. (15) Hyperkalemia Is this a current diagnosis for this admission?: Yes Plan: Resolved (16) Gross hematuria Is this a current diagnosis for this admission?: Yes Plan: Resolved; urine appears to be clear, light yellow today. Microscopic hematuria persists Secondary to UTI. Management as above. (17) Urinary tract infection Qualifiers: Urinary tract infection type: site unspecified Hematuria presence: with hematuria Qualified Code(s): N39.0 - Urinary tract infection, site not specified; R31.9 - Hematuria, unspecified Is this a current diagnosis for this admission?: Yes Plan: Blood cultures negative at 5 days Urine culture revealed Jeana Repeat urinalysis today reveals continued evidence for urinary tract infection. Repeat urine culture also reveals Jeana Patient was placed on IV cefepime by ED provider; received 1 dose. Received 4 days of Zosyn and 1 of ceftriaxone. One dose of Diflucan 100 mg; unfortunately had to discontinue due to development of prolonged QTc interval Will consult ID. Will repeat blood cultures to ensure the patient does not have candidemia - Time Time Spent with patient: 35 or more minutes Medications reviewed and adjusted accordingly: Yes Anticipated Discharge Disposition: Intermediate Facility Anticipated Discharge Timeframe: >72 hrs
--- NOTE | 2020-05-30 16:32 | PDOC CONSULTATION ---
Consultation Consult Date: 05/30/20 Attending physician:: KATHLEEN VALLEJO Provider Consulted: CRYS BARRIGA Consult reason:: Asked by hospitalist team to see patient with lung nodules as well as new PE and hematochezia History of Present Illness Admission Date/PCP: 05/21/20 14:21 YEIMY WHITMAN MD Patient complains of: Shortness of breath, weakness History of Present Illness: This was a telehealth consultation, done under appropriate Medicare guidelines. JESSY BAKER is a 84 year old female who presented again with weakness, shortness of breath, upon admission had CT of the chest done again, we had seen her previous admission she had bilateral pulmonary nodules with concern of malignancy, but during that admission about 2 weeks after she presented she had another CT which indicated that the nodules have decreased in size, and now the nodules look slightly improved as well this is all consistent more with a infectious process as opposed to malignancy. However on this admission she was found to have bilateral PE, and has been on heparin drip for about 3 days, unfortunately in the last 24 hours has had black stool that is Hemoccult positive and she has concern of GI bleeding. Hemoglobin is dropped over the last 24 hours as well. I had a long conversation with the patient, she was very lucid this morning although has had periods of delirium throughout the admission. She notes that she is kind of tired of these admissions, and does not really want aggressive therapy. She is agreed to a DNR, but now really wants to be kept comfortable. Past Medical History Cardiac Medical History: Reports: Hypertension Pulmonary Medical History: Reports: Chronic Obstructive Pulmonary Disease (COPD) Endocrine Medical History: Reports: Hypothyroidism Malignancy Medical History: Reports: Breast Cancer Psychiatric Medical History: Denies: Depression Social History Lives with: Family Smoking Status: Current Every Day Smoker Frequency of Alcohol Use: None Hx Recreational Drug Use: No Drugs: None Hx Prescription Drug Abuse: No - Advance Directive Resuscitation Status: Do Not Resuscitate Family History Family History: Reviewed & Not Pertinent, Other Parental Family History Reviewed: Yes Children Family History Reviewed: Yes Sibling(s) Family History Reviewed.: Yes Medication/Allergy Home Medications: Montelukast Sodium [Singulair 10 mg Tablet] 10 mg PO QHS 02/11/13 Albuterol Sulfate [Proair HFA Inhalation Aerosol 8.5 gm MDI] 2 puff IH Q4HP PRN 04/30/20 Atenolol [Tenormin 50 mg Tablet] 25 mg PO DAILY 04/30/20 Atorvastatin Calcium [Lipitor 40 mg Tablet] 40 mg PO QHS 04/30/20 Fluticasone/Salmeterol [Advair 500-50 Diskus 14 Dose/Diskus] 1 inh IH Q12 04/30/20 Levothyroxine Sodium [Synthroid] 175 mcg PO Q6AM 04/30/20 Lidocaine [Lidoderm 5% (700 mg) Transdermal Patch] 2 patch TP DAILY 04/30/20 Nifedipine [Nifedipine ER] 60 mg PO DAILY 04/30/20 Oxycodone HCl/Acetaminophen [Oxycodone-Acetaminophen 10-325] 1.5 each PO Q6HP PRN 04/30/20 Polyethylene Glycol 3350 [Clearlax] 17 gm PO QHS 04/30/20 Cholecalciferol (Vitamin D3) [Vitamin D] 50,000 unit PO FR@1000 05/21/20 Umeclidinium Atkinson [Incruse 62.5 Mcg Ellipta 7 Dose/Dpi] 1 inh IH DAILY 05/21/20 Allergies/Adverse Reactions: Sulfa (Sulfonamide Antibiotics) Allergy (Intermediate, Verified 02/18/13 18:13) Hives Review of Systems Constitutional: ABSENT: chills, fever(s), headache(s), weight gain, weight loss Eyes: ABSENT: visual disturbances Ears: ABSENT: hearing changes Cardiovascular: ABSENT: chest pain, dyspnea on exertion, edema, orthropnea, palpitations Respiratory: ABSENT: cough, hemoptysis Gastrointestinal: ABSENT: abdominal pain, constipation, diarrhea, hematemesis, hematochezia, nausea, vomiting Genitourinary: ABSENT: dysuria, hematuria Musculoskeletal: ABSENT: joint swelling Integumentary: ABSENT: rash, wounds Neurological: ABSENT: abnormal gait, abnormal speech, confusion, dizziness, focal weakness, syncope Psychiatric: ABSENT: anxiety, depression, homidical ideation, suicidal ideation Endocrine: ABSENT: cold intolerance, heat intolerance, polydipsia, polyuria Hematologic/Lymphatic: ABSENT: easy bleeding, easy bruising Physical Exam Vital Signs: Temp Pulse Resp BP Pulse Ox 97.8 F 84 16 151/80 H 96 05/30/20 11:26 05/30/20 11:26 05/30/20 11:26 05/30/20 11:26 05/30/20 11:26 Intake & Output 05/29/20 05/30/20 05/31/20 06:59 06:59 06:59 Intake Total 147 2110 Output Total 1020 1400 Balance -873 710 Weight 54.8 kg 55.1 kg General appearance: PRESENT: no acute distress, well-developed, well-nourished Head exam: PRESENT: atraumatic, normocephalic Eye exam: PRESENT: conjunctiva pink, EOMI, PERRLA. ABSENT: scleral icterus Ear exam: PRESENT: normal external ear exam Mouth exam: PRESENT: moist, tongue midline Neck exam: ABSENT: carotid bruit, JVD, lymphadenopathy, thyromegaly Respiratory exam: PRESENT: clear to auscultation leonid. ABSENT: rales, rhonchi, wheezes Cardiovascular exam: PRESENT: RRR. ABSENT: diastolic murmur, rubs, systolic mur mur Pulses: PRESENT: normal dorsalis pedis pul Vascular exam: PRESENT: normal capillary refill GI/Abdominal exam: PRESENT: normal bowel sounds, soft. ABSENT: distended, guarding, mass, organolmegaly, rebound, tenderness Rectal exam: PRESENT: deferred Extremities exam: PRESENT: full ROM. ABSENT: calf tenderness, clubbing, pedal edema Neurological exam: PRESENT: alert, awake, oriented to person, oriented to place, oriented to time, oriented to situation, CN II-XII grossly intact. ABSENT: motor sensory deficit Psychiatric exam: PRESENT: appropriate affect, normal mood. ABSENT: homicidal ideation, suicidal ideation Skin exam: PRESENT: dry, intact, warm. ABSENT: cyanosis, rash Results Laboratory Results: 05/30/20 04:45 05/30/20 04:45 05/29/20 05/29/20 05/29/20 16:56 16:56 16:56 WBC 17.6 H RBC 3.43 L Hgb 10.0 L Hct 28.7 L MCV 84 MCH 29.1 MCHC 34.8 RDW 16.4 H Plt Count 356 Sodium 136.0 L Potassium 3.4 L Chloride 109 H Carbon Dioxide 19 L Anion Gap 8 BUN 15 Creatinine 0.85 Est GFR ( Amer) > 60 Glucose 139 H Calcium 6.5 L* Total Bilirubin AST Alkaline Phosphatase Total Protein Albumin 2.6 L Stool Occult Blood 05/30/20 05/30/20 05/30/20 04:45 04:45 15:20 WBC 14.5 H RBC 3.18 L Hgb 9.1 L Hct 26.6 L MCV 83 MCH 28.6 MCHC 34.3 RDW 16.5 H Plt Count 331 Sodium 139.6 Potassium 3.0 L* Chloride 110 H Carbon Dioxide 19 L Anion Gap 11 BUN 16 Creatinine 0.88 Est GFR ( Amer) > 60 Glucose 92 Calcium 6.6 L* Total Bilirubin 0.7 AST 31 Alkaline Phosphatase 57 Total Protein 5.9 L Albumin 3.2 L Stool Occult Blood POSITIVE 05/26/20 17:55 Stool - Stool - Final 05/26/20 17:55 Stool - Stool Stool Culture - Final C.albicans/C.dubliniensis 05/21/20 05/21/20 05/26/20 12:18 12:18 22:10 Creatine Kinase 44 Troponin I 0.108 NT-Pro-B Natriuret Pep 8190 H 21676 H Impressions: Chest X-Ray 05/25/20 00:00 IMPRESSION: PATCHY AIRSPACE DISEASE IN THE RIGHT APEX, PERIHILAR RIGHT LUNG, AND LEFT LUNG BASE, MAY BE SLIGHTLY WORSE IN THE RIGHT APEX. Chest CT 05/27/20 12:11 IMPRESSION: 1. NONOCCLUSIVE PULMONARY EMBOLI TO BOTH LUNGS. 2. INTERVAL DEVELOPMENT OF SCATTERED GROUND-GLASS OPACITIES THROUGHOUT BOTH LUNGS, CONCERNING FOR VIRAL INFECTION. MORE CONFLUENT AIRSPACE DISEASE IN THE LOWER LOBES AND CANNOT EXCLUDE SUPERIMPOSED BACTERIAL PNEUMONIA. 3. BILATERAL PLEURAL EFFUSIONS, SLIGHTLY IMPROVED. 4. CHRONIC PULMONARY SCARRING. PREVIOUSLY SEEN PULMONARY NODULES APPEAR UNCHANGED. Status: Image reviewed by me Assessment & Plan - Diagnosis (1) Pulmonary nodules/lesions, multiple Is this a current diagnosis for this admission?: Yes Plan: Likely infectious, less likely to be malignancy. No further work-up needed for this. (2) Pulmonary embolus Qualifiers: Pulmonary embolism type: other Chronicity: acute Acute cor pulmonale presence: without acute cor pulmonale Qualified Code(s): I26.99 - Other pulmonary embolism without acute cor pulmonale Is this a current diagnosis for this admission?: Yes Plan: Agree previously with heparin drip but now that the patient is having what appears to be active bleeding agree with holding the heparin drip for the next 24 hours. I have asked Kathleen Vallejo to speak with patient and to speak with family about her wishes to be comfortable. And if everybody is on board with comfort care measures then I believe we should not restart anticoagulation and see where she could be to just be comfortable. I do not believe she can go home she will need probably a facility. In review of her records, I do believe her medical condition is dire enough to consider an inpatient hospice type setting. (3) Anemia Qualifiers: Anemia type: other cause Other causes of anemia: chronic disease, other Qualified Code(s): D63.8 - Anemia in other chronic diseases classified elsewhere Is this a current diagnosis for this admission?: Yes Plan: Probably combination of multiple issues causing this anemia, but recently probable blood loss. Plan as above. - Time Time Spent: Greater than 70 Minutes - Inpatient Certification Based on my medical assessment, after consideration of the patient's comorbidities, presenting symptoms, or acuity I expect that the services needed warrant INPATIENT care.: Yes I certify that my determination is in accordance with my understanding of Medicare's requirements for reasonable and necessary INPATIENT services [42 CFR 412.3e].: Yes Medical Necessity: Risk of Complication if Not Cared For in Hospital
[2020-05-30] MEDS: CEFTRIAXONE 1 GM/D5W RTU 1 GM/50 ML RTUPB IV SCH (18:04)
[2020-05-30] MEDS: ATORVASTATIN CALCIUM 40 MG TABLET PO SCH (21:09)
[2020-05-30] MEDS: MONTELUKAST SODIUM 10 MG TABLET PO SCH (21:09)
[2020-05-30] MEDS: PHARMACY COMMUNICATION ORDER MC SCH (21:11)
[2020-05-30] MEDS: POLYETHYLENE GLYCOL 3350 POWDER 17 GM/1 PACKET PO SCH (21:11)
[2020-05-30] MEDS: LIDOCAINE 5% (700 MG) TRANSDERMAL ADH..PATCH TP SCH (21:15)
[2020-05-31] MEDS: POTASSI CL 20 MEQ/NS 1L 1,000 ML IV PRN (02:22)
[2020-05-31] MEDS: LEVOTHYROXINE SODIUM 0.075 MG TABLET PO SCH (05:10)
[2020-05-31] MEDS: MIDODRINE HCL 5 MG TABLET PO SCH (05:10)
[2020-05-31] MEDS: LEVOTHYROXINE SODIUM 0.1 MG TABLET PO SCH (05:10)
[2020-05-31 06:47] LABS: HEMATOCRIT 30.6 % (36.0-47.0); HEMOGLOBIN 10.5 g/dL (12.0-15.5); MEAN CORPUSCULAR HEMOGLOBIN 28.8 pg (27.0-33.4); MEAN CORPUSCULAR HGB CONC 34.2 g/dL (32.0-36.0); MEAN CORPUSCULAR VOLUME 84 fl (80-97); PLATELET COUNT 365 10^3/uL (150-450); RED BLOOD COUNT 3.63 10^6/uL (3.72-5.28); RED CELL DISTRIBUTION WIDTH 16.7 % (11.5-14.0)
[2020-05-31 07:07] LABS: ALBUMIN 2.9 g/dL (3.5-5.0); ALKALINE PHOSPHATASE 58 U/L (38-126); ANION GAP 12 (5-19); ASPARTATE AMINO TRANSFERASE 33 U/L (14-36); BILIRUBIN,DIRECT 0.4 mg/dL (0.0-0.4); BILIRUBIN,TOTAL 0.6 mg/dL (0.2-1.3); BLOOD UREA NITROGEN 15 mg/dL (7-20); CARBON DIOXIDE 17 mmol/L (22-30); CHLORIDE 110 mmol/L (98-107); GLUCOSE 79 mg/dL (75-110); POTASSIUM 3.3 mmol/L (3.6-5.0); TOTAL PROTEIN 5.4 g/dL (6.3-8.2)
[2020-05-31 07:17] LABS: CALCIUM 6.8 mg/dL (8.4-10.2)
[2020-05-31 07:24] LABS: ABSOLUTE LYMPHOCYTES# (MANUAL) 0.9 10^3/uL (0.5-4.7); BASOPHILS % (MANUAL) 0 % (0-2); EOSINOPHILS % (MANUAL) 0 % (0-6); LYMPHOCYTES % (MANUAL) 5 % (13-45); MONOCYTES % (MANUAL) 0 % (3-13); SEGMENTED NEUTROPHILS % (MAN) 95 % (42-78); TOTAL CELLS COUNTED 100
[2020-05-31 07:26] LABS: ANISOCYTOSIS 1+; BURR CELLS 1+; POIKILOCYTOSIS 1+; POLYCHROMASIA SLIGHT
[2020-05-31 07:27] LABS: HELMET CELLS SLIGHT; OVALOCYTES 1+; PLATELET COMMENT ADEQUATE; SCHISTOCYTES SLIGHT
[2020-05-31] MEDS ORDERED: POTASSIUM CHLORIDE 10 MEQ TABLET.ER PO ONE (07:46)
--- NOTE | 2020-05-31 08:15 | PDOC PROGRESS REPORT ---
Subjective Progress Note for:: 05/31/20 Subjective:: Patient states that she is not going to get any better. She requests that the CT scan be cancelled so that she does not have to drink the contrast. She requests no further needle sticks. She would like comfort measures only. However, she would like to arrange for someplace where she can be with her , who lives alone in their home and has dementia. She does not have any other family members to care for them and a neighbor helps her at home currently. Reason For Visit: URINARY RETENTION,ELIJAH,ACUTE ON CHRONIC RESPIRATORY Physical Exam Vital Signs: Temp Pulse Resp BP Pulse Ox 97.8 F 75 18 148/83 H 100 05/31/20 03:10 05/31/20 03:10 05/31/20 03:10 05/31/20 03:10 05/31/20 03:10 Intake & Output 05/30/20 05/31/20 06/01/20 06:59 06:59 06:59 Intake Total 2110 1266 Output Total 1400 1125 Balance 710 141 Weight 55.1 kg 54.1 kg General appearance: PRESENT: mild distress, thin Head exam: PRESENT: normocephalic Mouth exam: PRESENT: dry mucosa Respiratory exam: PRESENT: other - Upper airway rattles and coarse cough. Cardiovascular exam: PRESENT: other - Obscured. Extremities exam: ABSENT: pedal edema Neurological exam: PRESENT: alert, awake, oriented to person, oriented to place, oriented to time, oriented to situation Psychiatric exam: PRESENT: appropriate affect Skin exam: PRESENT: normal color Results Laboratory Results: 05/31/20 06:03 05/31/20 06:03 05/30/20 05/30/20 05/31/20 15:20 15:20 06:03 WBC 17.0 H RBC 3.63 L Hgb 10.5 L Hct 30.6 L MCV 84 MCH 28.8 MCHC 34.2 RDW 16.7 H Plt Count 365 Seg Neutrophils % Not Reportable Sodium Potassium Chloride Carbon Dioxide Anion Gap BUN Creatinine Est GFR ( Amer) Glucose Calcium Phosphorus Magnesium Total Bilirubin AST Alkaline Phosphatase Total Protein Albumin Stool Occult Blood POSITIVE Stool for White Cells NO WBCs SEEN 05/31/20 06:03 WBC RBC Hgb Hct MCV MCH MCHC RDW Plt Count Seg Neutrophils % Sodium 138.8 Potassium 3.3 L Chloride 110 H Carbon Dioxide 17 L Anion Gap 12 BUN 15 Creatinine 0.77 Est GFR ( Amer) > 60 Glucose 79 Calcium 6.8 L* Phosphorus 2.0 L Magnesium 1.9 Total Bilirubin 0.6 AST 33 Alkaline Phosphatase 58 Total Protein 5.4 L Albumin 2.9 L Stool Occult Blood Stool for White Cells 05/30/20 15:20 Stool - Stool Ova and Parasites - Final Not Reportable 05/30/20 15:20 Stool - Stool Ova and Parasites - Final Not Reportable 05/30/20 15:20 Stool - Stool Ova and Parasites - Final Not Reportable 05/30/20 15:20 Stool - Stool Ova and Parasites - Final Not Reportable 05/30/20 15:20 Stool - Stool Ova and Parasites - Final Not Reportable 05/21/20 05/21/20 05/26/20 12:18 12:18 22:10 Creatine Kinase 44 Troponin I 0.108 NT-Pro-B Natriuret Pep 8190 H 75046 H Impressions: Chest X-Ray 05/25/20 00:00 IMPRESSION: PATCHY AIRSPACE DISEASE IN THE RIGHT APEX, PERIHILAR RIGHT LUNG, AND LEFT LUNG BASE, MAY BE SLIGHTLY WORSE IN THE RIGHT APEX. Chest CT 05/27/20 12:11 IMPRESSION: 1. NONOCCLUSIVE PULMONARY EMBOLI TO BOTH LUNGS. 2. INTERVAL DEVELOPMENT OF SCATTERED GROUND-GLASS OPACITIES THROUGHOUT BOTH LUNGS, CONCERNING FOR VIRAL INFECTION. MORE CONFLUENT AIRSPACE DISEASE IN THE LOWER LOBES AND CANNOT EXCLUDE SUPERIMPOSED BACTERIAL PNEUMONIA. 3. BILATERAL PLEURAL EFFUSIONS, SLIGHTLY IMPROVED. 4. CHRONIC PULMONARY SCARRING. PREVIOUSLY SEEN PULMONARY NODULES APPEAR UNCHANGED. Assessment & Plan - Diagnosis (1) Acute and chronic respiratory failure with hypoxia Is this a current diagnosis for this admission?: Yes Plan: Currently on BiPAP, but she requests some time off this machine. She is not sure if she will be more comfortable with or without this. (2) Pulmonary embolus Qualifiers: Pulmonary embolism type: other Chronicity: acute Acute cor pulmonale presence: without acute cor pulmonale Qualified Code(s): I26.99 - Other pulmonary embolism without acute cor pulmonale Is this a current diagnosis for this admission?: Yes Plan: She had been on Heparin drip, but due to GI bleed, this has been stopped. She understands risk of further events without anticoagulation, but requests comfort measures only. (3) Urinary tract infection Qualifiers: Urinary tract infection type: site unspecified Hematuria presence: with hematuria Qualified Code(s): N39.0 - Urinary tract infection, site not specified; R31.9 - Hematuria, unspecified Is this a current diagnosis for this admission?: Yes Plan: She has completed antibiotics fro this. (4) Anemia Qualifiers: Anemia type: other cause Other causes of anemia: chronic disease, other Qualified Code(s): D63.8 - Anemia in other chronic diseases classified elsewhere Is this a current diagnosis for this admission?: Yes Plan: Also anemia due to acute GI bleed. However, patient again requests comfort measures only. - Time Time Spent with patient: 15-24 minutes - Plan Summary Plan Summary: Patient requests comfort measures and Hospice. However, she would like to be with her and is very worried about him as well. She does not believe he is able to help her at home. She would like a SNF as long as they may both be together. I am not sure if Hospice can help at home with BOTH patients, as they would still need a family member as primary caregiver with them at home. This was discussed at length with Kathleen Bernard. She will work with social services technician on possible placement options. Until then, patient will me DNR with comfort measures only. No further IV sticks, labs, etc, except for comfort measures.
[2020-05-31] MEDS: ACETYLCYSTEINE 20% SOLN 800 MG/4 ML VIAL.NEB NEB SCH (08:22)
[2020-05-31] MEDS: IPRATROPIUM/ALBUTEROL 0.5-2.5 MG/3 ML AMPUL NEB PRN ×2 (08:22→20:19)
[2020-05-31] MEDS ORDERED: PROMETHAZINE HCL INJ 25 MG/1 ML VIAL IV PRN (09:01)
[2020-05-31] MEDS ORDERED: ACETAMINOPHEN 325 MG TABLET PO PRN (09:01)
[2020-05-31] MEDS ORDERED: GUAIFENESIN SYRP 200 MG/10 ML UDC PO PRN (09:02)
[2020-05-31] MEDS ORDERED: POTASSIUM PHOS,M-BASIC-D-BASIC 15 MMOL in NORMAL SALINE 250 ML IV ONE (10:00)
--- NOTE | 2020-05-31 10:29 | ADVANCED CARE ---
- Diagnosis (1) Pulmonary embolus Diagnosis Current: Yes (2) Emphysema lung Diagnosis Current: Yes (3) Acute and chronic respiratory failure with hypoxia Diagnosis Current: Yes (4) Acute urinary retention Diagnosis Current: Yes (5) Physical deconditioning Diagnosis Current: Yes (6) Hypokalemia Diagnosis Current: Yes (7) Diarrhea Diagnosis Current: Yes (8) Pulmonary nodules/lesions, multiple Diagnosis Current: Yes (9) Anemia Diagnosis Current: Yes (10) Suspected COVID-19 virus infection Diagnosis Current: Yes (11) Acute kidney injury Diagnosis Current: Yes (12) Dehydration Diagnosis Current: Yes (13) Metabolic encephalopathy Diagnosis Current: Yes (14) Hypotension Diagnosis Current: Yes (15) Hyperkalemia Diagnosis Current: Yes (16) Gross hematuria Diagnosis Current: Yes (17) Urinary tract infection Diagnosis Current: Yes (18) Acute blood loss anemia Diagnosis Current: Yes (19) GI bleed Diagnosis Current: Yes Attendance: The patient, Jesusiat Crockett. Resuscitation Status: Comfort Measures Only Discussion: Received phone call from Dr. Garrido. Per their conversation this morning, patient has indicated that she wishes to be transition to comfort care measures. I followed up with the patient to discuss her end-of-life wishes. She is currently alert and oriented and is able to describe her recent clinical course. She tells me that she understands that if we stop her medications and do no further work-up regarding her diarrhea/GI bleed that it is likely that her health will worsen rapidly. She states that she does not want to take any more medications, have her blood drawn, or undergo any further testing or procedures. She states that her only goal at this time is to not suffer. She does ask that, if at all possible, arrangements be made for her to go to a [facility] for [facility] care where her could join her for long-term care. I informed her that I would reach out to the social workers. She understands that we can not make promises for admission to the same facility regarding her ; however, she is assured that we would follow-up to ensure that he is safe. Patient asks to stop all medications at this time. She does state that she occasionally feels that BiPAP helps with comfort; therefore would like to continue this as an option. Care Planning Goals: Comfort Care Only Discharge to SNF with Hospice services. Follow up on 's safety, and if at all possible, facilitate admission to the same SNF. Time Spent: 20 min
--- NOTE | 2020-05-31 10:49 | PDOC PROGRESS REPORT ---
Subjective Progress Note for:: 05/31/20 Subjective:: Patient is an 84-year-old female with a past medical history of hypertension, COPD, hypothyroidism, breast cancer and suspicion for dementia with behavioral disturbances (owning; patient tends to call 911 to report that she is being held hostage) who was recently discharged to [facility] after being treated for multifocal pneumonia. She was readmitted 05/21/2020 with Metabolic encephalopathy, ELIJAH, and acute urinary retention. Now with development of acute on chronic respiratory failure, Acute Bilateral Pulmonary Emboli, and GI bleed. Patient was seen on morning rounds . She was found resting in bed on supplemental oxygen by BiPAP; she is not home O2 dependent. She reports her cough improved. Decreased dyspnea at rest, though with 3-4 word tachypnea. She states she feels a little better but is tired. She has had three separate conversations regarding goals of care (w/ Dr. Rodriguez, Dr. Casey, and myself). She is requesting to discontinue all medications and medical interventions; desires to transition to comfort care only. See separate ACP note. She denies chest pain, palpitations, abdominal pain, nausea and vomiting. Slight improvement appetite; bites of ice cream for breakfast. No concerns reported per nursing. Reason For Visit: URINARY RETENTION,ELIJAH,ACUTE ON CHRONIC RESPIRATORY Physical Exam Vital Signs: Temp Pulse Resp BP Pulse Ox 97.5 F 74 20 157/75 H 100 05/31/20 07:24 05/31/20 07:24 05/31/20 07:24 05/31/20 07:24 05/31/20 07:24 Intake & Output 05/30/20 05/31/20 06/01/20 06:59 06:59 06:59 Intake Total 2110 1266 Output Total 1400 1125 Balance 710 141 Weight 55.1 kg 54.1 kg General appearance: PRESENT: no acute distress, cooperative, hard of hearing, thin, well-developed Head exam: PRESENT: atraumatic, normocephalic Eye exam: PRESENT: conjunctiva pink, EOMI, PERRLA. ABSENT: scleral icterus Mouth exam: PRESENT: dry mucosa, tongue midline Respiratory exam: PRESENT: clear to auscultation leonid, rhonchi, symmetrical, tachypnea, other - BiPAP for comfort. ABSENT: rales, wheezes Cardiovascular exam: PRESENT: RRR Pulses: PRESENT: normal dorsalis pedis pul Vascular exam: PRESENT: normal capillary refill GI/Abdominal exam: PRESENT: hypoactive bowel sounds, soft. ABSENT: distended, guarding, mass, organolmegaly, rebound, tenderness Rectal exam: PRESENT: deferred, other - fecal management system Extremities exam: PRESENT: full ROM, pedal edema. ABSENT: calf tenderness, clubbing Neurological exam: PRESENT: alert, awake, oriented to person, oriented to place, oriented to time, oriented to situation, CN II-XII grossly intact. ABSENT: motor sensory deficit Psychiatric exam: PRESENT: appropriate affect, normal mood. ABSENT: homicidal ideation, suicidal ideation Skin exam: PRESENT: dry, intact, warm. ABSENT: cyanosis, rash Results Laboratory Results: 05/31/20 06:03 05/31/20 06:03 05/30/20 05/30/20 05/31/20 15:20 15:20 06:03 WBC 17.0 H RBC 3.63 L Hgb 10.5 L Hct 30.6 L MCV 84 MCH 28.8 MCHC 34.2 RDW 16.7 H Plt Count 365 Seg Neutrophils % Not Reportable Sodium Potassium Chloride Carbon Dioxide Anion Gap BUN Creatinine Est GFR ( Amer) Glucose Calcium Phosphorus Magnesium Total Bilirubin AST Alkaline Phosphatase Total Protein Albumin Stool Occult Blood POSITIVE Stool for White Cells NO WBCs SEEN 05/31/20 06:03 WBC RBC Hgb Hct MCV MCH MCHC RDW Plt Count Seg Neutrophils % Sodium 138.8 Potassium 3.3 L Chloride 110 H Carbon Dioxide 17 L Anion Gap 12 BUN 15 Creatinine 0.77 Est GFR ( Amer) > 60 Glucose 79 Calcium 6.8 L* Phosphorus 2.0 L Magnesium 1.9 Total Bilirubin 0.6 AST 33 Alkaline Phosphatase 58 Total Protein 5.4 L Albumin 2.9 L Stool Occult Blood Stool for White Cells 05/30/20 15:20 Stool - Stool Ova and Parasites - Final Not Reportable 05/30/20 15:20 Stool - Stool Ova and Parasites - Final Not Reportable 05/30/20 15:20 Stool - Stool Ova and Parasites - Final Not Reportable 05/30/20 15:20 Stool - Stool Ova and Parasites - Final Not Reportable 05/30/20 15:20 Stool - Stool Ova and Parasites - Final Not Reportable 05/21/20 05/21/20 05/26/20 12:18 12:18 22:10 Creatine Kinase 44 Troponin I 0.108 NT-Pro-B Natriuret Pep 8190 H 56476 H Impressions: Chest X-Ray 05/25/20 00:00 IMPRESSION: PATCHY AIRSPACE DISEASE IN THE RIGHT APEX, PERIHILAR RIGHT LUNG, AND LEFT LUNG BASE, MAY BE SLIGHTLY WORSE IN THE RIGHT APEX. Chest CT 05/27/20 12:11 IMPRESSION: 1. NONOCCLUSIVE PULMONARY EMBOLI TO BOTH LUNGS. 2. INTERVAL DEVELOPMENT OF SCATTERED GROUND-GLASS OPACITIES THROUGHOUT BOTH LUNGS, CONCERNING FOR VIRAL INFECTION. MORE CONFLUENT AIRSPACE DISEASE IN THE LOWER LOBES AND CANNOT EXCLUDE SUPERIMPOSED BACTERIAL PNEUMONIA. 3. BILATERAL PLEURAL EFFUSIONS, SLIGHTLY IMPROVED. 4. CHRONIC PULMONARY SCARRING. PREVIOUSLY SEEN PULMONARY NODULES APPEAR UNCHANGED. Assessment and Plan - Diagnosis (1) Comfort measures only status Is this a current diagnosis for this admission?: Yes (2) GI bleed Is this a current diagnosis for this admission?: Yes Plan: Noted that the patient's stools changed to black in color. She is also had a drop in her hemoglobin. Was started on heparin drip 05/27/2020 for bilateral pulmonary emboli. Occult stool positive. Heparin gtt placed on hold 05/30/20 Per his conversation with the patient, she is interested in "being comfortable" and confirmed her DNR/DNI status. He recommends further discussion on goals of care to determine if the patient is desiring transition to hospice services. During follow up conversation, patient confirms her desire to discontinue all medications and transition to comfort care. No further interventions planned. (3) Pulmonary embolus Qualifiers: Pulmonary embolism type: other Chronicity: acute Acute cor pulmonale presence: without acute cor pulmonale Qualified Code(s): I26.99 - Other pulmonary embolism without acute cor pulmonale Is this a current diagnosis for this admission?: Yes Plan: Patient was noted to have bilateral, nonobstructive, peripheral pulmonary emboli on CT imaging. Patient was placed on Heparin gtt; placed on hold with development of GI bleed. Respiratory support as below. Have consulted hematology/oncology for anticoagulation recommendations; patient was scheduled to follow-up with Dr. Rodriguez this week. Patient has now requested to discontinue all medications and transition to comfort care. No further interventions planned. (4) Emphysema lung Qualifiers: Emphysema type: centrilobular Qualified Code(s): J43.2 - Centrilobular emphysema Is this a current diagnosis for this admission?: Yes Plan: Provided supplemental oxygen, scheduled and as needed nebulizer treatments, Mucomyst nebulizer treatments, and steroid therapy. Continued home dose Breo, Incruse, as needed albuterol inhaler. Pulmonary toilet is encouraged with incentive spirometer, flutter valve, and early ambulation. Patient has now requested to discontinue all medications and transition to comfort care. No further interventions planned. (5) Acute and chronic respiratory failure with hypoxia Is this a current diagnosis for this admission?: Yes Plan: Improved; decreased work of breathing, improved oxygen saturations on supplemental oxygen via nasal cannula at 5 L/min and intermittent BiPAP. Secondary to resolving pneumonia with underlying emphysema. Now with acute bilateral pulmonary emboli Increased scattered groundglass opacities noted on CT; covid negative Evaluation and management as above. (6) Acute urinary retention Is this a current diagnosis for this admission?: Yes Plan: Likely secondary to UTI Now w/ [facility]. (7) Physical deconditioning Is this a current diagnosis for this admission?: Yes Plan: PT/OT consultation once the patient's condition begins to improve. Discharge planning consulted. (8) Hypokalemia Is this a current diagnosis for this admission?: Yes Plan: Gradually trending up. Received oral and IV replacement Magnesium replaced. Secondary to GI losses as patient has developed large-volume watery stools. Patient has now requested to discontinue all medications and transition to comfort care. No further interventions planned. (9) Diarrhea Qualifiers: Diarrhea type: unspecified type Qualified Code(s): R19.7 - Diarrhea, unspecified Is this a current diagnosis for this admission?: Yes Plan: Decreased stool volume today. C. difficile negative. Stool culture revealed Jeana Continue lactobacillus. Offered patient rectal tube for comfort and skin protection; tolerating well. CT ABD/Pelvis cancelled per patient request. Patient has now requested to discontinue all medications and transition to comfort care. No further interventions planned. (10) Pulmonary nodules/lesions, multiple Is this a current diagnosis for this admission?: Yes Plan: History of breast cancer. Nodules concerning for malignancy. Bronchoscopy 08/14/2019 - for malignancy. During patient's recent admission, oncology was consulted with recommendation for repeat CT in [address] showed bilateral lung nodules that appear to be decreased since the prior imaging. Right upper lobe with some possible cavitation. Patient scheduled follow-up with Dr. Casey as an outpatient in 1 to [address] chest with contrast today revealed stable pulmonary nodules. Heme/Onc consulted; appreciate their assistance. (11) Anemia Qualifiers: Anemia type: other cause Other causes of anemia: chronic disease, other Qualified Code(s): D63.8 - Anemia in other chronic diseases classified elsewhere Is this a current diagnosis for this admission?: Yes Plan: Iron deficiency anemia Hemoglobin trending down slightly; in part hemodilutional IV Feraheme yesterday Occult stool positive. Heme/Onc consultation; appreciate their evaluation and recommendations. Patient has now requested to discontinue all medications and transition to comfort care. No further interventions planned. (12) Dehydration Is this a current diagnosis for this admission?: Yes Plan: Resolved. (13) Metabolic encephalopathy Is this a current diagnosis for this admission?: Yes Plan: Acute metabolic encephalopathy is resolved. Multifactorial secondary to dehydration, electrolyte derangements, UTI, acute urinary retention, and acute on chronic respiratory failure secondary to resolving pneumonia and emphysema. Worsened by IV Ativan. Likely underlying dementia. As the patient has a history of breast cancer with lung nodules concerning for malignancy, should her mentation worsen, will obtain head imaging. (14) Hypotension Qualifiers: Hypotension type: hypotension due to hypovolemia Qualified Code(s): I95.89 - Other hypotension; E86.1 - Hypovolemia Is this a current diagnosis for this admission?: Yes Plan: Resolved. (15) Hyperkalemia Is this a current diagnosis for this admission?: Yes Plan: Resolved (16) Acute blood loss anemia Is this a current diagnosis for this admission?: Yes Plan: Secondary to GI bleed. Hgb currently 10.5 Have discontinued Heparin gtt. Patient has now requested to discontinue all medications and transition to comfort care. No further interventions planned. (17) Hypocalcemia Is this a current diagnosis for this admission?: Yes Plan: Corrected calcium is 7.2 She was provided IV and oral replacement. Follow up chemistry including albumin and phosphorus are all low. Patient has now requested to discontinue all medications and transition to comfort care. No further interventions planned. (18) Urinary tract infection Qualifiers: Urinary tract infection type: site unspecified Hematuria presence: with hematuria Qualified Code(s): N39.0 - Urinary tract infection, site not specified; R31.9 - Hematuria, unspecified Is this a current diagnosis for this admission?: Yes Plan: Blood cultures negative at 5 days Urine culture revealed Jeana Repeat urinalysis today reveals continued evidence for urinary tract infection. Repeat urine culture also reveals Jeana Repeat blood cultures NGTD Patient was placed on IV cefepime by ED provider; received 1 dose. Received 4 days of Zosyn and 1 of ceftriaxone. One dose of Diflucan 100 mg; unfortunately had to discontinue due to development of prolonged QTc interval Patient has now requested to discontinue all medications and transition to comfort care. No further interventions planned. (19) Gross hematuria Is this a current diagnosis for this admission?: Yes Plan: Resolved; urine appears to be clear, light yellow today. Microscopic hematuria persists Secondary to UTI. Management as above. (20) Acute kidney injury Is this a current diagnosis for this admission?: Yes Plan: Resolved. Multifactorial secondary to dehydration and possibly worsened by acute urinary retention. (21) Suspected COVID-19 virus infection Is this a current diagnosis for this admission?: Yes Plan: Ruled out Covid negative D-dimer, ferritin, CRP, LDH all elevated. Patient was placed patient on heparin drip secondary to acute pulmonary emboli. Provided supplemental oxygen and as needed nebulizer treatments. IV dexamethasone; transitioned to p.o. prednisone for ongoing emphysema exacerbation. Received zinc, vitamin D, vitamin C, and melatonin supplementation. Encourage pulmonary toilet. Patient has now requested to discontinue all medications and transition to comfort care. No further interventions planned. - Time Time Spent with patient: 35 or more minutes Medications reviewed and adjusted accordingly: Yes Anticipated Discharge Disposition: Shelter Facility - w/ Hospice Anticipated Discharge Timeframe: when bed available
[2020-05-31] MEDS: PREDNISONE 20 MG TABLET PO SCH (11:24)
[2020-05-31] MEDS: FLUTICASONE/VILANTEROL 200-25 MCG/DOSE IH SCH (11:24)
[2020-05-31] MEDS: LACTOBACILLUS ACIDOPHILUS 250 MG TAB PO SCH ×2 (11:24→19:16)
[2020-05-31] MEDS: PANTOPRAZOLE SODIUM 40 MG VIAL IV SCH (11:25)
[2020-05-31] MEDS: NYSTATIN TOPICAL POWDER 15 GM TP SCH ×2 (11:29→19:45)
[2020-05-31] MEDS: NICOTINE 14 MG/24 HR PATCH.TD24 TD SCH (11:29)
[2020-05-31] MEDS: LIDOCAINE 5% (700 MG) TRANSDERMAL ADH..PATCH TP SCH (21:20)
[2020-05-31] MEDS: PHARMACY COMMUNICATION ORDER MC SCH (21:20)
[2020-05-31] MEDS: POLYETHYLENE GLYCOL 3350 POWDER 17 GM/1 PACKET PO SCH (21:21)
[2020-05-31] MEDS: MORPHINE SULFATE 10 MG/ML INJ IV PRN (23:45)
[2020-06-01] MEDS: LORAZEPAM INJ 2 MG/1 ML VIAL IV PRN ×3 (05:01→21:46)
[2020-06-01] MEDS: LEVOTHYROXINE SODIUM 0.1 MG TABLET PO SCH (05:02)
[2020-06-01] MEDS: LEVOTHYROXINE SODIUM 0.075 MG TABLET PO SCH (05:02)
[2020-06-01] MEDS: PANTOPRAZOLE SODIUM 40 MG TABLET.DR PO SCH (05:02)
[2020-06-01] MEDS: LACTOBACILLUS ACIDOPHILUS 250 MG TAB PO SCH ×2 (11:00→17:26)
[2020-06-01] MEDS: PREDNISONE 20 MG TABLET PO SCH (11:00)
--- NOTE | 2020-06-01 11:02 | PDOC PROGRESS REPORT ---
Subjective Progress Note for:: 06/01/20 Subjective:: Patient is comfort measures. She barely opened her eyes but she did nod her head to answer questions. She currently denies pain. Reason For Visit: URINARY RETENTION,ELIJAH,ACUTE ON CHRONIC RESPIRATORY Physical Exam Vital Signs: Temp Pulse Resp BP Pulse Ox 97.4 F 106 H 20 154/75 H 100 05/31/20 19:40 06/01/20 10:21 06/01/20 10:21 05/31/20 19:40 06/01/20 10:21 Intake & Output 05/31/20 06/01/20 06/02/20 06:59 06:59 06:59 Intake Total 1266 100 Output Total 1125 825 Balance 141 -725 Weight 54.1 kg 59.6 kg General appearance: PRESENT: no acute distress, well-developed Head exam: PRESENT: atraumatic, normocephalic Ear exam: PRESENT: normal external ear exam, other - Oxygen mask in place. ABSENT: bleeding, drainage Respiratory exam: PRESENT: rhonchi - Bilateral, symmetrical, unlabored. ABSENT: tachypnea, wheezes Cardiovascular exam: PRESENT: RRR, +S1, +S2 GI/Abdominal exam: PRESENT: normal bowel sounds, soft. ABSENT: distended, guarding, tenderness Rectal exam: PRESENT: deferred, other - Fecal collection tube in place Gentrourinary exam: PRESENT: indwelling catheter Musculoskeletal exam: ABSENT: normal inspection Neurological exam: PRESENT: awake, oriented to person, other. ABSENT: alert - Seems somnolent. Opens eyes to verbal stimulation but close them again quickly. Psychiatric exam: PRESENT: flat affect. ABSENT: agitated, anxious Focused psych exam: ABSENT: delusional, paranoid, restlessness Skin exam: PRESENT: dry, warm. ABSENT: rash Results Laboratory Results: 05/31/20 06:03 05/31/20 06:03 05/30/20 15:20 Stool - Stool - Final 05/21/20 05/21/20 05/26/20 12:18 12:18 22:10 Creatine Kinase 44 Troponin I 0.108 NT-Pro-B Natriuret Pep 8190 H 87069 H Impressions: Chest X-Ray 05/25/20 00:00 IMPRESSION: PATCHY AIRSPACE DISEASE IN THE RIGHT APEX, PERIHILAR RIGHT LUNG, AND LEFT LUNG BASE, MAY BE SLIGHTLY WORSE IN THE RIGHT APEX. Chest CT 05/27/20 12:11 IMPRESSION: 1. NONOCCLUSIVE PULMONARY EMBOLI TO BOTH LUNGS. 2. INTERVAL DEVELOPMENT OF SCATTERED GROUND-GLASS OPACITIES THROUGHOUT BOTH LUNGS, CONCERNING FOR VIRAL INFECTION. MORE CONFLUENT AIRSPACE DISEASE IN THE LOWER LOBES AND CANNOT EXCLUDE SUPERIMPOSED BACTERIAL PNEUMONIA. 3. BILATERAL PLEURAL EFFUSIONS, SLIGHTLY IMPROVED. 4. CHRONIC PULMONARY SCARRING. PREVIOUSLY SEEN PULMONARY NODULES APPEAR UNCHANGED. Assessment and Plan - Diagnosis (1) Comfort measures only status Is this a current diagnosis for this admission?: Yes Plan: 06/01/2020-patient is comfort measures only per Ivette Bernard and Dr. Garrido's notes. Working with discharge planning for likely hospice placement. (2) GI bleed Qualifiers: GI bleed type/associated pathology: melena Qualified Code(s): K92.1 - Melena Is this a current diagnosis for this admission?: Yes Plan: Noted that the patient's stools changed to black in color. She is also had a drop in her hemoglobin. Was started on heparin drip 05/27/2020 for bilateral pulmonary emboli. Occult stool positive. Heparin gtt placed on hold 05/30/20 Per his conversation with the patient, she is interested in "being comfortable" and confirmed her DNR/DNI status. He recommends further discussion on goals of care to determine if the patient is desiring transition to hospice services. During follow up conversation, patient confirms her desire to discontinue all medications and transition to comfort care. No further interventions planned. 06/01/2020-no further intervention (3) Pulmonary embolus Qualifiers: Pulmonary embolism type: other Chronicity: acute Acute cor pulmonale presence: without acute cor pulmonale Qualified Code(s): I26.99 - Other pulmonary embolism without acute cor pulmonale Is this a current diagnosis for this admission?: Yes Plan: Patient was noted to have bilateral, nonobstructive, peripheral pulmonary emboli on CT imaging. Patient was placed on Heparin gtt; placed on hold with development of GI bleed. Respiratory support as below. Have consulted hematology/oncology for anticoagulation recommendations; patient was scheduled to follow-up with Dr. Rodriguez this week. Patient has now requested to discontinue all medications and transition to comfort care. No further interventions planned. 06/01/2020-anticoagulation discontinued (4) Emphysema lung Qualifiers: Emphysema type: centrilobular Qualified Code(s): J43.2 - Centrilobular emphysema Is this a current diagnosis for this admission?: Yes Plan: Provided supplemental oxygen, scheduled and as needed nebulizer treatments, Mucomyst nebulizer treatments, and steroid therapy. Continued home dose Breo, Incruse, as needed albuterol inhaler. Pulmonary toilet is encouraged with incentive spirometer, flutter valve, and early ambulation. Patient has now requested to discontinue all medications and transition to comfort care. No further interventions planned. 06/01/2020-as above (5) Acute and chronic respiratory failure with hypoxia Is this a current diagnosis for this admission?: Yes Plan: Improved; decreased work of breathing, improved oxygen saturations on supplemental oxygen via nasal cannula at 5 L/min and intermittent BiPAP. Secondary to resolving pneumonia with underlying emphysema. Now with acute bilateral pulmonary emboli Increased scattered groundglass opacities noted on CT; covid negative Evaluation and management as above. 06/01/2020-she is now on a nonrebreather mask. Unsure as to why we are continuing oxygen if the patient is truly comfort measures. Will discuss further and make adjustments accordingly. (6) Acute urinary retention Is this a current diagnosis for this admission?: Yes Plan: Likely secondary to UTI Now w/ Alvarado. Candiduria x2. Likely the reason. Alvarado catheter in place. (7) Physical deconditioning Is this a current diagnosis for this admission?: Yes Plan: PT/OT consultation once the patient's condition begins to improve. Discharge planning consulted. Awaiting placement for hospice (8) Diarrhea Qualifiers: Diarrhea type: unspecified type Qualified Code(s): R19.7 - Diarrhea, unspecified Is this a current diagnosis for this admission?: Yes Plan: Decreased stool volume today. C. difficile negative. Stool culture revealed Jeana Continue lactobacillus. Offered patient rectal tube for comfort and skin protection; tolerating well. CT ABD/Pelvis cancelled per patient request. Patient has now requested to discontinue all medications and transition to comfort care. No further interventions planned. No further work-up as patient is comfort care (9) Hypokalemia Is this a current diagnosis for this admission?: Yes Plan: Gradually trending up. Received oral and IV replacement Magnesium replaced. Secondary to GI losses as patient has developed large-volume watery stools. Patient has now requested to discontinue all medications and transition to comfort care. No further interventions planned. No additional laboratory studies ordered due to comfort care status (10) Anemia Qualifiers: Anemia type: other cause Other causes of anemia: chronic disease, other Qualified Code(s): D63.8 - Anemia in other chronic diseases classified elsewhere Is this a current diagnosis for this admission?: Yes Plan: Iron deficiency anemia Hemoglobin trending down slightly; in part hemodilutional IV Feraheme yesterday Occult stool positive. Heme/Onc consultation; appreciate their evaluation and recommendations. Patient has now requested to discontinue all medications and transition to comfort care. No further interventions planned. (11) Pulmonary nodules/lesions, multiple Is this a current diagnosis for this admission?: Yes Plan: History of breast cancer. Nodules concerning for malignancy. Bronchoscopy 08/14/2019 - for malignancy. During patient's recent admission, oncology was consulted with recommendation for repeat CT in [address] showed bilateral lung nodules that appear to be decreased since the prior imaging. Right upper lobe with some possible cavitation. Patient scheduled follow-up with Dr. Casey as an outpatient in 1 to [address] chest with contrast today revealed stable pulmonary nodules. Heme/Onc consulted; appreciate their assistance. (12) Acute blood loss anemia Is this a current diagnosis for this admission?: Yes Plan: Secondary to GI bleed. Hgb currently 10.5 Have discontinued Heparin gtt. Patient has now requested to discontinue all medications and transition to comfort care. No further interventions planned. (13) Dehydration Is this a current diagnosis for this admission?: Yes Plan: Resolved. (14) Hyperkalemia Is this a current diagnosis for this admission?: Yes Plan: Resolved (15) Hypotension Qualifiers: Hypotension type: hypotension due to hypovolemia Qualified Code(s): I95.89 - Other hypotension; E86.1 - Hypovolemia Is this a current diagnosis for this admission?: Yes Plan: Resolved. (16) Metabolic encephalopathy Is this a current diagnosis for this admission?: Yes Plan: Acute metabolic encephalopathy is resolved. Multifactorial secondary to dehydration, electrolyte derangements, UTI, acute urinary retention, and acute on chronic respiratory failure secondary to resolving pneumonia and emphysema. Worsened by IV Ativan. Likely underlying dementia. As the patient has a history of breast cancer with lung nodules concerning for malignancy, should her mentation worsen, will obtain head imaging. (17) Gross hematuria Is this a current diagnosis for this admission?: Yes Plan: Resolved; urine appears to be clear, light yellow today. Microscopic hematuria persists Secondary to UTI. Management as above. (18) Urinary tract infection Qualifiers: Urinary tract infection type: site unspecified Hematuria presence: with hematuria Qualified Code(s): N39.0 - Urinary tract infection, site not specified; R31.9 - Hematuria, unspecified Is this a current diagnosis for this admission?: Yes Plan: Blood cultures negative at 5 days Urine culture revealed Jeana Repeat urinalysis today reveals continued evidence for urinary tract infection. Repeat urine culture also reveals Jeana Repeat blood cultures NGTD Patient was placed on IV cefepime by ED provider; received 1 dose. Received 4 days of Zosyn and 1 of ceftriaxone. One dose of Diflucan 100 mg; unfortunately had to discontinue due to development of prolonged QTc interval Patient has now requested to discontinue all medications and transition to comfort care. No further interventions planned. (19) Hypocalcemia Is this a current diagnosis for this admission?: Yes Plan: Corrected calcium is 7.2 She was provided IV and oral replacement. Follow up chemistry including albumin and phosphorus are all low. Patient has now requested to discontinue all medications and transition to comfort care. No further interventions planned. (20) Acute kidney injury Is this a current diagnosis for this admission?: Yes Plan: Resolved. Multifactorial secondary to dehydration and possibly worsened by acute urinary retention. (21) Suspected COVID-19 virus infection Is this a current diagnosis for this admission?: Yes Plan: Ruled out Covid negative D-dimer, ferritin, CRP, LDH all elevated. Patient was placed patient on heparin drip secondary to acute pulmonary emboli. Provided supplemental oxygen and as needed nebulizer treatments. IV dexamethasone; transitioned to p.o. prednisone for ongoing emphysema exacerbation. Received zinc, vitamin D, vitamin C, and melatonin supplementation. Encourage pulmonary toilet. Patient has now requested to discontinue all medications and transition to comfort care. No further interventions planned. - Plan Summary Summary: 06/01/2020-the patient is now comfort measures only. Discharge planning is working on placement. I believe inpatient hospice is the plan. Patient appears comfortable and was pain-free during the encounter today. We will continue comfort measures. We will further investigate the need for oxygen if the patient is truly comfort measure only. With her oxygen requirements discontinuing the oxygen would no longer prolong the inevitable and the patient would have a life expectancy of several days at best. - Time Time Spent with patient: 15-24 minutes Medications reviewed and adjusted accordingly: Yes Anticipated Discharge Disposition: Inpatient hospice Anticipated Discharge Timeframe: when bed available
[2020-06-01] MEDS: NICOTINE 14 MG/24 HR PATCH.TD24 TD SCH (11:11)
[2020-06-01] MEDS: FLUTICASONE/VILANTEROL 200-25 MCG/DOSE IH SCH (11:14)
[2020-06-01] MEDS: NYSTATIN TOPICAL POWDER 15 GM TP SCH ×2 (11:14→17:26)
[2020-06-01] MEDS: MORPHINE SULFATE 10 MG/ML INJ IV PRN (18:43)
[2020-06-01] MEDS: LIDOCAINE 5% (700 MG) TRANSDERMAL ADH..PATCH TP SCH (21:46)
[2020-06-01] MEDS: PHARMACY COMMUNICATION ORDER MC SCH (21:46)
[2020-06-01] MEDS: POLYETHYLENE GLYCOL 3350 POWDER 17 GM/1 PACKET PO SCH (21:46)
[2020-06-02] MEDS: MORPHINE SULFATE 10 MG/ML INJ IV PRN ×3 (00:12→04:41)
[2020-06-02] MEDS: IPRATROPIUM/ALBUTEROL 0.5-2.5 MG/3 ML AMPUL NEB PRN (00:39)
[2020-06-02] MEDS: LORAZEPAM INJ 2 MG/1 ML VIAL IV PRN (02:31)
[2020-06-02] MEDS: PANTOPRAZOLE SODIUM 40 MG TABLET.DR PO SCH (05:10)
[2020-06-02] MEDS: LEVOTHYROXINE SODIUM 0.075 MG TABLET PO SCH (05:10)
[2020-06-02] MEDS: LEVOTHYROXINE SODIUM 0.1 MG TABLET PO SCH (05:10)
[2020-06-02] MEDS ORDERED: POLYETHYLENE GLYCOL 3350 POWDER 17 GM/1 PACKET PO PRN (07:49)
[2020-06-02] MEDS ORDERED: LORAZEPAM 1 MG TABLET PO PRN ×2 (07:50→10:40)
[2020-06-02] MEDS ORDERED: HALOPERIDOL 2 MG TABLET PO PRN (07:51)
--- NOTE | 2020-06-02 08:50 | PDOC PROGRESS REPORT ---
Subjective Progress Note for:: 06/02/20 Subjective:: Patient is sleeping peacefully on BiPAP and does not arouse to voice or tactile stimulus. Nurses report that she was restless last night. New IV was started AGAINST patient's wishes. Discharge planning still working on Hospice. Reason For Visit: URINARY RETENTION,ELIJAH,ACUTE ON CHRONIC RESPIRATORY Physical Exam Vital Signs: Temp Pulse Resp BP Pulse Ox 97.8 F 114 H 16 124/71 100 06/02/20 04:09 06/02/20 04:09 06/02/20 05:20 06/02/20 04:09 06/02/20 04:09 Intake & Output 06/01/20 06/02/20 06/03/20 06:59 06:59 06:59 Intake Total 100 0 Output Total 825 950 Balance -725 -950 Weight 59.6 kg 58.2 kg General appearance: PRESENT: no acute distress Head exam: PRESENT: normocephalic Mouth exam: PRESENT: dry mucosa Respiratory exam: PRESENT: unlabored Extremities exam: ABSENT: pedal edema Skin exam: PRESENT: normal color Results Laboratory Results: 05/31/20 06:03 05/31/20 06:03 05/30/20 15:20 Stool - Stool - Final 05/21/20 05/21/20 05/26/20 12:18 12:18 22:10 Creatine Kinase 44 Troponin I 0.108 NT-Pro-B Natriuret Pep 8190 H 16159 H Impressions: Chest X-Ray 05/25/20 00:00 IMPRESSION: PATCHY AIRSPACE DISEASE IN THE RIGHT APEX, PERIHILAR RIGHT LUNG, AND LEFT LUNG BASE, MAY BE SLIGHTLY WORSE IN THE RIGHT APEX. Chest CT 05/27/20 12:11 IMPRESSION: 1. NONOCCLUSIVE PULMONARY EMBOLI TO BOTH LUNGS. 2. INTERVAL DEVELOPMENT OF SCATTERED GROUND-GLASS OPACITIES THROUGHOUT BOTH LUNGS, CONCERNING FOR VIRAL INFECTION. MORE CONFLUENT AIRSPACE DISEASE IN THE LOWER LOBES AND CANNOT EXCLUDE SUPERIMPOSED BACTERIAL PNEUMONIA. 3. BILATERAL PLEURAL EFFUSIONS, SLIGHTLY IMPROVED. 4. CHRONIC PULMONARY SCARRING. PREVIOUSLY SEEN PULMONARY NODULES APPEAR UNCHAN GED. Assessment & Plan - Diagnosis (1) Acute and chronic respiratory failure with hypoxia Is this a current diagnosis for this admission?: Yes Plan: Patient continues on comfort measures only. All IV meds have been changed to PO. NO FURTHER IVs or NEEDLE STICKS. Hopefully may return home to be with AVRIL. This is her only wish. (2) Pulmonary embolus Qualifiers: Pulmonary embolism type: other Chronicity: acute Acute cor pulmonale presence: without acute cor pulmonale Qualified Code(s): I26.99 - Other pulmonary embolism without acute cor pulmonale Is this a current diagnosis for this admission?: Yes (3) Urinary tract infection Qualifiers: Urinary tract infection type: site unspecified Hematuria presence: with hematuria Qualified Code(s): N39.0 - Urinary tract infection, site not specified; R31.9 - Hematuria, unspecified Is this a current diagnosis for this admission?: Yes (4) Anemia Qualifiers: Anemia type: other cause Other causes of anemia: chronic disease, other Qualified Code(s): D63.8 - Anemia in other chronic diseases classified elsewhere Is this a current diagnosis for this admission?: Yes - Time Time Spent with patient: Less than 15 minutes
[2020-06-02] MEDS ORDERED: MORPHINE SULFATE 10 MG/5 ML ORAL SOLUTION UDCUP PO PRN (10:35)
--- NOTE | 2020-06-02 11:02 | PDOC DISCHARGE SUMMARY ---
Impression - Admit/DC Date/PCP Admission Date/Primary Care Provider: 05/21/20 14:21 YEIMY WHITMAN MD Discharge Date: 06/02/20 - Discharge Diagnosis (1) Comfort measures only status Is this a current diagnosis for this admission?: Yes (2) GI bleed Is this a current diagnosis for this admission?: Yes (3) Pulmonary embolus Is this a current diagnosis for this admission?: Yes (4) Emphysema lung Is this a current diagnosis for this admission?: Yes (5) Acute and chronic respiratory failure with hypoxia Is this a current diagnosis for this admission?: Yes (6) Acute urinary retention Is this a current diagnosis for this admission?: Yes (7) Physical deconditioning Is this a current diagnosis for this admission?: Yes (8) Diarrhea Is this a current diagnosis for this admission?: Yes (9) Hypokalemia Is this a current diagnosis for this admission?: Yes (10) Anemia Is this a current diagnosis for this admission?: Yes (11) Pulmonary nodules/lesions, multiple Is this a current diagnosis for this admission?: Yes (12) Acute blood loss anemia Is this a current diagnosis for this admission?: Yes (13) Dehydration Is this a current diagnosis for this admission?: Yes (14) Hyperkalemia Is this a current diagnosis for this admission?: Yes (15) Hypotension Is this a current diagnosis for this admission?: Yes (16) Metabolic encephalopathy Is this a current diagnosis for this admission?: Yes (17) Gross hematuria Is this a current diagnosis for this admission?: Yes (18) Urinary tract infection Is this a current diagnosis for this admission?: Yes (19) Hypocalcemia Is this a current diagnosis for this admission?: Yes (20) Acute kidney injury Is this a current diagnosis for this admission?: Yes (21) Suspected COVID-19 virus infection Is this a current diagnosis for this admission?: Yes - Assessment Summary: 06/01/2020-the patient is now comfort measures only. Discharge planning is working on placement. I believe inpatient hospice is the plan. Patient appears comfortable and was pain-free during the encounter today. We will continue comfort measures. We will further investigate the need for oxygen if the patient is truly comfort measure only. With her oxygen requirements discontinuing the oxygen would no longer prolong the inevitable and the patient would have a life expectancy of several days at best. - Additional Information Resuscitation Status: Comfort Measures Only Discharge Diet: As Tolerated Discharge Activity: Activity As Tolerated Referrals: YEIMY WHITMAN MD [Primary Care Provider] - Follow up as needed Prescriptions: Lorazepam [Ativan 1 mg Tablet] 1 mg PO Q2HP PRN #10 tablet PRN Reason: Anxiety/Agitation Morphine Sulfate 5 mg PO Q2 PRN #30 solution PRN Reason: For Pain Home Medications: Albuterol Sulfate [Proair HFA Inhalation Aerosol 8.5 gm MDI] 2 puff IH Q4HP PRN 04/30/20 Fluticasone/Salmeterol [Advair 500-50 Diskus 14 Dose/Diskus] 1 inh IH Q12 04/30/20 Lidocaine [Lidoderm 5% (700 mg) Transdermal Patch] 2 patch TP DAILY 04/30/20 Acetaminophen [Tylenol 325 mg Tablet] 650 mg PO Q4HP PRN tablet 06/02/20 Lidocaine [Lidoderm 5% (700 mg) Transdermal Patch] 2 patch TP QHS adh..patch 06/02/20 Loperamide HCl [Imodium 2 mg Capsule] 2 mg PO Q6HP PRN capsule 06/02/20 Lorazepam [Ativan 1 mg Tablet] 1 mg PO Q2HP PRN #10 tablet 06/02/20 Morphine Sulfate 5 mg PO Q2 PRN #30 solution 06/02/20 History of Present Illiness History of Present Illness: JESSY BAKER is a 84 year old female who discharged to [facility] from this hospital after being admitted with a multifocal pneumonia. There was some question about nodules in the lungs but repeat CT appeared to show interval decrease in size and so she was going to have follow-up with Dr. Briggs as an outpatient for repeat scan. She was very weak and so she went to [facility] for rehab. The details of her arrival here are not very well-known at this time, but it appears that her blood pressure was low and she may have been short of breath. Her bladder was very distended and a Alvarado catheter was placed in the ER. They got some urine out that was very very dark as well as some clots. They irrigated the Alvarado in the bladder and they got about a liter of dark looking urine that probably has some blood in it. She had an acute kidney injury. She had what appeared to be some fluid in the perihilar space on chest x-ray. She did not have a fever. She was put on BiPAP and her breathing relaxed. Hospital Course Hospital Course: (1) Comfort measures only status Is this a current diagnosis for this admission?: Yes (2) GI bleed Is this a current diagnosis for this admission?: Yes Plan: Noted that the patient's stools changed to black in color. She is also had a drop in her hemoglobin. Was started on heparin drip 05/27/2020 for bilateral pulmonary emboli. Occult stool positive. Heparin gtt placed on hold 05/30/20 Per his conversation with the patient, she is interested in "being comfortable" and confirmed her DNR/DNI status. He recommends further discussion on goals of care to determine if the patient is desiring transition to hospice services. During follow up conversation, patient confirms her desire to discontinue all medications and transition to comfort care. No further interventions planned. (3) Pulmonary embolus Qualifiers: Pulmonary embolism type: other Chronicity: acute Acute cor pulmonale presence: without acute cor pulmonale Qualified Code(s): I26.99 - Other pulmonary embolism without acute cor pulmonale Is this a current diagnosis for this admission?: Yes Plan: Patient was noted to have bilateral, nonobstructive, peripheral pulmonary emboli on CT imaging. Patient was placed on Heparin gtt; placed on hold with development of GI bleed. Respiratory support as below. Have consulted hematology/oncology for anticoagulation recommendations; patient was scheduled to follow-up with Dr. Rodriguez this week. Patient has now requested to discontinue all medications and transition to comfort care. No further interventions planned. (4) Emphysema lung Qualifiers: Emphysema type: centrilobular Qualified Code(s): J43.2 - Centrilobular emphysema Is this a current diagnosis for this admission?: Yes Plan: Provided supplemental oxygen, scheduled and as needed nebulizer treatments, Mucomyst nebulizer treatments, and steroid therapy. Continued home dose Breo, Incruse, as needed albuterol inhaler. Pulmonary toilet is encouraged with incentive spirometer, flutter valve, and early ambulation. Patient has now requested to discontinue all medications and transition to comfort care. No further interventions planned. (5) Acute and chronic respiratory failure with hypoxia Is this a current diagnosis for this admission?: Yes Plan: Improved; decreased work of breathing, improved oxygen saturations on supplemental oxygen via nasal cannula at 5 L/min and intermittent BiPAP. Secondary to resolving pneumonia with underlying emphysema. Now with acute bilateral pulmonary emboli Increased scattered groundglass opacities noted on CT; covid negative Evaluation and management as above. (6) Acute urinary retention Is this a current diagnosis for this admission?: Yes Plan: Likely secondary to UTI Now w/ Alvarado. (7) Physical deconditioning Is this a current diagnosis for this admission?: Yes Plan: PT/OT consultation once the patient's condition begins to improve. Discharge planning consulted. (8) Hypokalemia Is this a current diagnosis for this admission?: Yes Plan: Gradually trending up. Received oral and IV replacement Magnesium replaced. Secondary to GI losses as patient has developed large-volume watery stools. Patient has now requested to discontinue all medications and transition to comfort care. No further interventions planned. (9) Diarrhea Qualifiers: Diarrhea type: unspecified type Qualified Code(s): R19.7 - Diarrhea, unspecified Is this a current diagnosis for this admission?: Yes Plan: Decreased stool volume today. C. difficile negative. Stool culture revealed Jeana Continue lactobacillus. Offered patient rectal tube for comfort and skin protection; tolerating well. CT ABD/Pelvis cancelled per patient request. Patient has now requested to discontinue all medications and transition to comfort care. No further interventions planned. (10) Pulmonary nodules/lesions, multiple Is this a current diagnosis for this admission?: Yes Plan: History of breast cancer. Nodules concerning for malignancy. Bronchoscopy 08/14/2019 - for malignancy. During patient's recent admission, oncology was consulted with recommendation for repeat CT in [address] showed bilateral lung nodules that appear to be decreased since the prior imaging. Right upper lobe with some possible cavitation. Patient scheduled follow-up with Dr. Casey as an outpatient in 1 to [address] chest with contrast today revealed stable pulmonary nodules. Heme/Onc consulted; appreciate their assistance. (11) Anemia Qualifiers: Anemia type: other cause Other causes of anemia: chronic disease, other Qualified Code(s): D63.8 - Anemia in other chronic diseases classified elsewhere Is this a current diagnosis for this admission?: Yes Plan: Iron deficiency anemia Hemoglobin trending down slightly; in part hemodilutional IV Feraheme yesterday Occult stool positive. Heme/Onc consultation; appreciate their evaluation and recommendations. Patient has now requested to discontinue all medications and transition to comfort care. No further interventions planned. (12) Dehydration Is this a current diagnosis for this admission?: Yes Plan: Resolved. (13) Metabolic encephalopathy Is this a current diagnosis for this admission?: Yes Plan: Acute metabolic encephalopathy is resolved. Multifactorial secondary to dehydration, electrolyte derangements, UTI, acute urinary retention, and acute on chronic respiratory failure secondary to resolving pneumonia and emphysema. Worsened by IV Ativan. Likely underlying dementia. As the patient has a history of breast cancer with lung nodules concerning for malignancy, should her mentation worsen, will obtain head imaging. (14) Hypotension Qualifiers: Hypotension type: hypotension due to hypovolemia Qualified Code(s): I95.89 - Other hypotension; E86.1 - Hypovolemia Is this a current diagnosis for this admission?: Yes Plan: Resolved. (15) Hyperkalemia Is this a current diagnosis for this admission?: Yes Plan: Resolved (16) Acute blood loss anemia Is this a current diagnosis for this admission?: Yes Plan: Secondary to GI bleed. Hgb currently 10.5 Have discontinued Heparin gtt. Patient has now requested to discontinue all medications and transition to comfort care. No further interventions planned. (17) Hypocalcemia Is this a current diagnosis for this admission?: Yes Plan: Corrected calcium is 7.2 She was provided IV and oral replacement. Follow up chemistry including albumin and phosphorus are all low. Patient has now requested to discontinue all medications and transition to comfort care. No further interventions planned. (18) Urinary tract infection Qualifiers: Urinary tract infection type: site unspecified Hematuria presence: with hematuria Qualified Code(s): N39.0 - Urinary tract infection, site not specified; R31.9 - Hematuria, unspecified Is this a current diagnosis for this admission?: Yes Plan: Blood cultures negative at 5 days Urine culture revealed Jeana Repeat urinalysis today reveals continued evidence for urinary tract infection. Repeat urine culture also reveals Jeana Repeat blood cultures NGTD Patient was placed on IV cefepime by ED provider; received 1 dose. Received 4 days of Zosyn and 1 of ceftriaxone. One dose of Diflucan 100 mg; unfortunately had to discontinue due to development of prolonged QTc interval Patient has now requested to discontinue all medications and transition to comfort care. No further interventions planned. (19) Gross hematuria Is this a current diagnosis for this admission?: Yes Plan: Resolved; urine appears to be clear, light yellow today. Microscopic hematuria persists Secondary to UTI. Management as above. (20) Acute kidney injury Is this a current diagnosis for this admission?: Yes Plan: Resolved. Multifactorial secondary to dehydration and possibly worsened by acute urinary retention. (21) Suspected COVID-19 virus infection Is this a current diagnosis for this admission?: Yes Plan: Ruled out Covid negative D-dimer, ferritin, CRP, LDH all elevated. Patient was placed patient on heparin drip secondary to acute pulmonary emboli. Provided supplemental oxygen and as needed nebulizer treatments. IV dexamethasone; transitioned to p.o. prednisone for ongoing emphysema exacerbation. Received zinc, vitamin D, vitamin C, and melatonin supplementation. Encourage pulmonary toilet. Patient has now requested to discontinue all medications and transition to comfort care. No further interventions planned. Physical Exam Vital Signs: Temp Pulse Resp BP Pulse Ox 97.5 F 103 H 13 107/58 L 91 L 06/02/20 07:45 06/02/20 07:45 06/02/20 07:45 06/02/20 07:45 06/02/20 10:42 Intake & Output 06/01/20 06/02/20 06/03/20 06:59 06:59 06:59 Intake Total 100 0 Output Total 825 950 Balance -725 -950 Weight 59.6 kg 58.2 kg General appearance: PRESENT: other - Tachypneic on BiPAP Respiratory exam: PRESENT: prolonged expiratory phas, symmetrical, tachypnea, other - Coarse breath sounds. ABSENT: rales Cardiovascular exam: PRESENT: RRR, +S1, +S2. ABSENT: bradycardia, diastolic murmur, irregular rhythm, systolic murmur, tachycardia GI/Abdominal exam: PRESENT: diminished bowel sounds, soft. ABSENT: distended, guarding, tenderness Rectal exam: PRESENT: other - Fecal collection system Gentrourinary exam: PRESENT: indwelling catheter Neurological exam: PRESENT: awake. ABSENT: alert - Somnolent Psychiatric exam: ABSENT: agitated, anxious Results Laboratory Results: WBC 17.0 10^3/uL (4.0-10.5) H 05/31/20 06:03 RBC 3.63 10^6/uL (3.72-5.28) L 05/31/20 06:03 Hgb 10.5 g/dL (12.0-15.5) L 05/31/20 06:03 Hct 30.6 % (36.0-47.0) L 05/31/20 06:03 MCV 84 fl (80-97) 05/31/20 06:03 MCH 28.8 pg (27.0-33.4) 05/31/20 06:03 MCHC 34.2 g/dL (32.0-36.0) 05/31/20 06:03 RDW 16.7 % (11.5-14.0) H 05/31/20 06:03 Plt Count 365 10^3/uL (150-450) 05/31/20 06:03 Lymph % (Auto) Not Reportable 05/31/20 06:03 [place] % (Auto) Not Reportable 05/31/20 06:03 Eos % (Auto) Not Reportable 05/31/20 06:03 Baso % (Auto) Not Reportable 05/31/20 06:03 Absolute Neuts (auto) Not Reportable 05/31/20 06:03 Absolute Lymphs (auto) Not Reportable 05/31/20 06:03 Absolute Monos (auto) Not Reportable 05/31/20 06:03 Absolute Eos (auto) Not Reportable 05/31/20 06:03 Absolute Basos (auto) Not Reportable 05/31/20 06:03 Total Counted 100 05/31/20 06:03 Seg Neutrophils % Not Reportable 05/31/20 06:03 Seg Neuts % (Manual) 95 % (42-78) H 05/31/20 06:03 Band Neutrophils % 3 % (3-5) 05/22/20 21:39 Lymphocytes % (Manual) 5 % (13-45) L 05/31/20 06:03 Monocytes % (Manual) 0 % (3-13) L 05/31/20 06:03 Eosinophils % (Manual) 0 % (0-6) 05/31/20 06:03 Basophils % (Manual) 0 % (0-2) 05/31/20 06:03 Abs Neuts (Manual) 16.2 10^3/uL (1.7-8.2) H 05/31/20 06:03 Abs Lymphs (Manual) 0.9 10^3/uL (0.5-4.7) 05/31/20 06:03 Abs Monocytes (Manual) 0.0 10^3/uL (0.1-1.4) L 05/31/20 06:03 Absolute Eos (Manual) 0.0 10^3/uL (0.0-0.6) 05/31/20 06:03 Abs Basophils (Manual) 0.0 10^3/uL (0.0-0.2) 05/31/20 06:03 Hypersegmented Neuts PRESENT 05/22/20 21:39 Toxic Granulation SLIGHT 05/29/20 06:00 Platelet Comment ADEQUATE 05/31/20 06:03 Polychromasia SLIGHT 05/31/20 06:03 Poikilocytosis 1+ 05/31/20 06:03 Anisocytosis 1+ 05/31/20 06:03 Target Cells SLIGHT 05/27/20 18:03 Ovalocytes 1+ 05/31/20 06:03 Helmet Cells SLIGHT 05/31/20 06:03 [place] Cells 1+ 05/31/20 06:03 Acanthocytes (Spur) SLIGHT 05/22/20 21:39 Schistocytes SLIGHT 05/31/20 06:03 PT 16.4 SEC (11.4-15.4) H 05/29/20 19:45 INR 1.31 05/29/20 19:45 INR (Anticoag Therapy) Cancelled 05/29/20 16:56 APTT 31.3 SEC (23.5-35.8) 05/31/20 06:03 D-Dimer 6.17 ug/mL (0.00-0.50) H 05/27/20 16:25 Carbonic Acid 0.84 mmol/L (1.05-1.35) L 05/27/20 13:40 HCO3/H2CO3 Ratio 24:1 05/27/20 13:40 ABG pH 7.49 (7.35-7.45) H 05/27/20 13:40 ABG pCO2 27.9 mmHg (35-45) L 05/27/20 13:40 ABG pO2 86.2 mmHg (80-100) 05/27/20 13:40 ABG HCO3 20.5 mmol/L (20-24) 05/27/20 13:40 ABG Total CO2 21.4 mmol/L (21-25) 05/27/20 13:40 ABG O2 Saturation 97.3 % (94-98) 05/27/20 13:40 ABG Base Excess -1.8 mmol/L 05/27/20 13:40 FiO2 5L 05/27/20 13:40 Sodium 138.8 mmol/L (137-145) 05/31/20 06:03 Potassium 3.3 mmol/L (3.6-5.0) L 05/31/20 06:03 Chloride 110 mmol/L (98-107) H 05/31/20 06:03 Carbon Dioxide 17 mmol/L (22-30) L 05/31/20 06:03 Anion Gap 12 (5-19) 05/31/20 06:03 BUN 15 mg/dL (7-20) 05/31/20 06:03 Creatinine 0.77 mg/dL (0.52-1.25) 05/31/20 06:03 Est GFR ( Amer) > 60 (>60) 05/31/20 06:03 Est GFR (MDRD) Non-Af > 60 (>60) 05/31/20 06:03 Glucose 79 mg/dL (75-110) 05/31/20 06:03 POC Glucose 129 mg/dL (70-110) H 05/23/20 16:17 Lactic Acid 6.3 mmol/L (0.7-2.1) H 05/21/20 12:18 Calcium 6.8 mg/dL (8.4-10.2) L* 05/31/20 06:03 Phosphorus 2.0 mg/dL (2.5-4.5) L 05/31/20 06:03 Magnesium 1.9 mg/dL (1.6-2.3) 05/31/20 06:03 Ferritin 794.00 ng/mL (11.1-264.0) H 05/27/20 16:25 Total Bilirubin 0.6 mg/dL (0.2-1.3) 05/31/20 06:03 Direct Bilirubin 0.4 mg/dL (0.0-0.4) 05/31/20 06:03 Neonat Total Bilirubin Not Reportable 05/31/20 06:03 Neonat Direct Bilirubin Not Reportable 05/31/20 06:03 Neonat Indirect Bili Not Reportable 05/31/20 06:03 AST 33 U/L (14-36) 05/31/20 06:03 ALT 19 U/L (<35) 05/31/20 06:03 Alkaline Phosphatase 58 U/L (38-126) 05/31/20 06:03 Lactate Dehydrogenase 373 U/L (120-246) H 05/27/20 16:25 Creatine Kinase 44 U/L (30-135) 05/21/20 12:18 Troponin I 0.108 ng/mL 05/21/20 12:18 C-Reactive Protein 64.0 mg/L (<10.0) H 05/27/20 16:25 NT-Pro-B Natriuret Pep 88044 pg/mL (<450) H 05/26/20 22:10 Total Protein 5.4 g/dL (6.3-8.2) L 05/31/20 06:03 Albumin 2.9 g/dL (3.5-5.0) L 05/31/20 06:03 Urine Color YELLOW 05/28/20 05:55 Urine Appearance TURBID 05/28/20 05:55 Urine pH 6.0 (5.0-9.0) 05/28/20 05:55 Ur Specific [place] 1.018 05/28/20 05:55 Urine Protein 100 mg/dL (NEGATIVE) H 05/28/20 05:55 Urine Glucose (UA) NEGATIVE mg/dL (NEGATIVE) 05/28/20 05:55 Urine Ketones TRACE mg/dL (NEGATIVE) H 05/28/20 05:55 Urine Blood LARGE (NEGATIVE) H 05/28/20 05:55 Urine Nitrite NEGATIVE (NEGATIVE) 05/28/20 05:55 Urine Bilirubin NEGATIVE (NEGATIVE) 05/28/20 05:55 Urine Urobilinogen NEGATIVE mg/dL (<2.0) 05/28/20 05:55 Ur Leukocyte Esterase MODERATE (NEGATIVE) H 05/28/20 05:55 Urine WBC (Auto) >182 /HPF 05/28/20 05:55 Urine RBC (Auto) 126 /HPF 05/28/20 05:55 U Hyaline Cast (Auto) 42 /LPF 05/28/20 05:55 Urine Bacteria (Auto) 3+ /HPF 05/28/20 05:55 Urine WBC Clumps MANY /HPF 05/28/20 05:55 Squamous Epi Cells Auto 1 /HPF 05/26/20 08:44 U Non-Squamous Epis Auto 5 /HPF 05/28/20 05:55 Urine Mucus (Auto) RARE /LPF 05/26/20 08:44 Urine Yeast (Budding) PRESENT /HPF 05/26/20 08:44 Urine Ascorbic Acid NEGATIVE (NEGATIVE) 05/28/20 05:55 Stool Occult Blood POSITIVE (NEGATIVE) 05/30/20 15:20 Stool for White Cells NO WBCs SEEN 05/30/20 15:20 Stl C. Difficile GDH Ag NEGATIVE (NEGATIVE) 05/26/20 17:55 Stl C.difficile Tox A&B NEGATIVE (NEGATIVE) 05/26/20 17:55 COVID-19 Source See comment 05/27/20 16:00 COVID-19 (SHERRIE) Not Detected (Not Detect) 05/27/20 16:00 Blood Type O POSITIVE 05/22/20 07:30 Blood Type Confirm O POSITIVE 05/22/20 09:11 Antibody Screen NEGATIVE 05/22/20 07:30 Crossmatch See Detail 05/22/20 07:30 05/21/20 05/26/20 12:18 22:10 Troponin I 0.108 NT-Pro-B Natriuret Pep 8190 H 02501 H Impressions: Chest X-Ray 05/21/20 12:04 IMPRESSION: Increased right perihilar opacities with persistent but improved patchy bibasilar opacities, left greater than right. Chest X-Ray 05/22/20 00:00 IMPRESSION: Pulmonary vascular prominence with mild interstitial edema Persistent left lower lobe airspace disease worrisome for pneumonia. Similar compared to 05/25/2020. Obstructive lung disease Chest X-Ray 05/25/20 00:00 IMPRESSION: PATCHY AIRSPACE DISEASE IN THE RIGHT APEX, PERIHILAR RIGHT LUNG, AND LEFT LUNG BASE, MAY BE SLIGHTLY WORSE IN THE RIGHT APEX. Chest CT 05/27/20 12:11 IMPRESSION: 1. NONOCCLUSIVE PULMONARY EMBOLI TO BOTH LUNGS. 2. INTERVAL DEVELOPMENT OF SCATTERED GROUND-GLASS OPACITIES THROUGHOUT BOTH LUNGS, CONCERNING FOR VIRAL INFECTION. MORE CONFLUENT AIRSPACE DISEASE IN THE LOWER LOBES AND CANNOT EXCLUDE SUPERIMPOSED BACTERIAL PNEUMONIA. 3. BILATERAL PLEURAL EFFUSIONS, SLIGHTLY IMPROVED. 4. CHRONIC PULMONARY SCARRING. PREVIOUSLY SEEN PULMONARY NODULES APPEAR UNCHANGED. Plan Health Concerns: Home with hospice. Patient is comfort measures only. Plan of Treatment: Continue comfort measures at home with home hospice Goals: Safely transition to home allowing her to at home with her present Time Spent: Greater than 30 Minutes Stroke Is this a Stroke Patient?: No Acute Heart Failure Is this a Heart Failure Patient?: No
[2020-06-02] MEDS: FLUTICASONE/VILANTEROL 200-25 MCG/DOSE IH SCH (11:58)
[2020-06-02] MEDS: NYSTATIN TOPICAL POWDER 15 GM TP SCH (12:00)
[2020-06-02] MEDS: NICOTINE 14 MG/24 HR PATCH.TD24 TD SCH (12:01)
--- NOTE | 2020-06-02 15:58 | ADVANCED CARE ---
- Diagnosis (1) Comfort measures only status Diagnosis Current: Yes (2) GI bleed Diagnosis Current: Yes (3) Pulmonary embolus Diagnosis Current: Yes (4) Emphysema lung Diagnosis Current: Yes (5) Acute and chronic respiratory failure with hypoxia Diagnosis Current: Yes (6) Acute urinary retention Diagnosis Current: Yes (7) Physical deconditioning Diagnosis Current: Yes (8) Diarrhea Diagnosis Current: Yes (9) Hypokalemia Diagnosis Current: Yes (10) Anemia Diagnosis Current: Yes (11) Pulmonary nodules/lesions, multiple Diagnosis Current: Yes (12) Acute blood loss anemia Diagnosis Current: Yes (13) Dehydration Diagnosis Current: Yes (14) Hyperkalemia Diagnosis Current: Yes (15) Hypotension Diagnosis Current: Yes (16) Metabolic encephalopathy Diagnosis Current: Yes (17) Gross hematuria Diagnosis Current: Yes (18) Urinary tract infection Diagnosis Current: Yes (19) Hypocalcemia Diagnosis Current: Yes (20) Acute kidney injury Diagnosis Current: Yes (21) Suspected COVID-19 virus infection Diagnosis Current: Yes Attendance: Discussion was held at the bedside with the patient's Resuscitation Status: Comfort Measures Only Discussion: The patient's was questioning why she was not getting more oxygen. I explained that she did not want the BiPAP and is constantly pulling off the mask every time we apply it. I told him that this is her way of saying she does not want the oxygen. I was even more israel and said that continuing oxygen is in fact prolonging the inevitable as well as prolonging her suffering. We are going to try and utilize the left antecubital IV and possibly give her a dose of IV morphine and then look for a second IV. We will only try if there is an obvious vein as I do not want her stuck multiple times. I also explained that I think it would be unsafe if not very traumatic to try and transport her at home. I explained that staying in the hospital with comfort measures will assure 24-hour nursing care as well as consistent availability of physicians. When the patient is comfort measures visitation is expanded. I told him that not only he but 1 or 2 other visitors would have access. I believe that he understands and at least for the time being is in a greement. I did explain that I was going to try an intravenous dose of morphine and if this works we will try and maximize use of the left antecubital IV and as noted above try to secure a different IV site if necessary. Care Planning Goals: Finalize a plan to ensure that the patient does not suffer. This will most likely be accomplished by her staying in the hospital for comfort measures. Document(s) Completed: Mehul DNR was signed Time Spent: 25 min
[2020-06-02] MEDS ORDERED: LORAZEPAM INJ 2 MG/1 ML VIAL IV PRN (15:59)
[2020-06-02] MEDS ORDERED: MORPHINE SULFATE 10 MG/ML INJ IV PRN ×2 (15:59)
[2020-06-02] MEDS ORDERED: MORPHINE SULFATE 10 MG/ML INJ IV ONE (16:00)
--- NOTE | 2020-06-02 19:49 | Progress Note ---
Provider Note Provider Note: 06/02/2020 After discussion with the patient's it was agreed to keep her as an inpatient and closely manage her comfort measures. By doing this patient will have 24-hour nursing supervision and care. Physician oversight will be available if medication changes are needed.
[2020-06-02] MEDS: LIDOCAINE 5% (700 MG) TRANSDERMAL ADH..PATCH TP SCH (22:57)
[2020-06-02] MEDS: PHARMACY COMMUNICATION ORDER MC SCH (23:03)
[2020-06-03] MEDS: LEVOTHYROXINE SODIUM 0.075 MG TABLET PO SCH (06:31)
[2020-06-03] MEDS: LEVOTHYROXINE SODIUM 0.1 MG TABLET PO SCH (06:32)
[2020-06-03 06:52] VITALS: BP 108/61
--- NOTE | 2020-06-03 07:38 | PDOC PROGRESS REPORT ---
Subjective Progress Note for:: 06/03/20 Subjective:: Patient sleeping peacefully. Fish Mouth breathing. Does not respond to voice or tactile stimulus, but does withdraw slightly. Nurses report she was comfortable all night. did not visit yesterday. Reason For Visit: URINARY RETENTION,ELIJAH,ACUTE ON CHRONIC RESPIRATORY Physical Exam Vital Signs: Temp Pulse Resp BP Pulse Ox 98.2 F 127 H 24 H 108/61 95 06/03/20 00:15 06/03/20 03:56 06/03/20 03:56 06/03/20 03:56 06/03/20 03:56 Intake & Output 06/02/20 06/03/20 06/04/20 06:59 06:59 06:59 Intake Total 0 0 Output Total 950 360 Balance -950 -360 Weight 58.2 kg 56.5 kg General appearance: PRESENT: no acute distress Head exam: PRESENT: normocephalic Respiratory exam: PRESENT: unlabored Neurological exam: PRESENT: other - non-responsive. Skin exam: PRESENT: normal color Results Laboratory Results: 05/31/20 06:03 05/31/20 06:03 05/29/20 06:00 Blood Blood Culture - Final NO GROWTH IN 5 DAYS 05/29/20 05:40 Blood Blood Culture - Final NO GROWTH IN 5 DAYS 05/30/20 15:20 Stool - Stool - Final 05/30/20 15:20 Stool - Stool Stool Culture - Final NO SALMONELLA, SHIGELLA, CAMPYLOBACTER, OR E.COLI 0157 RECOVERED. NEGATIVE FOR SHIGA TOXINS 1&2. 05/21/20 05/21/20 05/26/20 12:18 12:18 22:10 Creatine Kinase 44 Troponin I 0.108 NT-Pro-B Natriuret Pep 8190 H 21245 H Impressions: Chest X-Ray 05/25/20 00:00 IMPRESSION: PATCHY AIRSPACE DISEASE IN THE RIGHT APEX, PERIHILAR RIGHT LUNG, AND LEFT LUNG BASE, MAY BE SLIGHTLY WORSE IN THE RIGHT APEX. Chest CT 05/27/20 12:11 IMPRESSION: 1. NONOCCLUSIVE PULMONARY EMBOLI TO BOTH LUNGS. 2. INTERVAL DEVELOPMENT OF SCATTERED GROUND-GLASS OPACITIES THROUGHOUT BOTH LUNGS, CONCERNING FOR VIRAL INFECTION. MORE CONFLUENT AIRSPACE DISEASE IN THE LOWER LOBES AND CANNOT EXCLUDE SUPERIMPOSED BACTERIAL PNEUMONIA. 3. BILATERAL PLEURAL EFFUSIONS, SLIGHTLY IMPROVED. 4. CHRONIC PULMONARY SCARRING. PREVIOUSLY SEEN PULMONARY NODULES APPEAR UNCHANGED. Assessment & Plan - Diagnosis (1) Acute and chronic respiratory failure with hypoxia Is this a current diagnosis for this admission?: Yes (2) Pulmonary embolus Qualifiers: Pulmonary embolism type: other Chronicity: acute Acute cor pulmonale presence: without acute cor pulmonale Qualified Code(s): I26.99 - Other pulmonary embolism without acute cor pulmonale Is this a current diagnosis for this admission?: Yes (3) Urinary tract infection Qualifiers: Urinary tract infection type: site unspecified Hematuria presence: with hematuria Qualified Code(s): N39.0 - Urinary tract infection, site not sp ecified; R31.9 - Hematuria, unspecified Is this a current diagnosis for this admission?: Yes (4) Anemia Qualifiers: Anemia type: other cause Other causes of anemia: chronic disease, other Qualified Code(s): D63.8 - Anemia in other chronic diseases classified elsewhere Is this a current diagnosis for this admission?: Yes - Time Time Spent with patient: Less than 15 minutes - Plan Summary Plan Summary: Continue palliative measures. I discussed with nurses the patient's wish to be with her . They will try to call him today to arrange for him to stay with her if possible. Continue oral morphine, ativan and Haldol PRN for comfort only.
--- NOTE | 2020-06-03 09:16 | PDOC PROGRESS REPORT ---
Subjective Progress Note for:: 06/03/20 Subjective:: Patient is unresponsive to verbal stimuli. She is guppy breathing. Despite discontinuing oxygen yesterday oxygen was placed on the patient last night. She continues to remove the oxygen mask every time it is put on and this is why the oxygen was discontinued. It is possible that oxygen may only prolong the inevitable outcome. Reason For Visit: URINARY RETENTION,ELIJAH,ACUTE ON CHRONIC RESPIRATORY Physical Exam Vital Signs: Temp Pulse Resp BP Pulse Ox 98.2 F 127 H 24 H 108/61 95 06/03/20 00:15 06/03/20 03:56 06/03/20 03:56 06/03/20 03:56 06/03/20 03:56 Intake & Output 06/02/20 06/03/20 06/04/20 06:59 06:59 06:59 Intake Total 0 0 Output Total 950 360 Balance -950 -360 Weight 58.2 kg 56.5 kg General appearance: PRESENT: other - Unresponsive to verbal and gentle touch. Withdraws with painful stimuli. Respiratory exam: PRESENT: decreased breath sounds, symmetrical, tachypnea, other - Very limited inspiratory phase.. ABSENT: wheezes Cardiovascular exam: PRESENT: +S1, +S2, tachycardia GI/Abdominal exam: PRESENT: diminished bowel sounds, soft. ABSENT: distended, tenderness Rectal exam: PRESENT: deferred, other - Fecal collection tube in place Gentrourinary exam: PRESENT: indwelling catheter Extremities exam: ABSENT: pedal edema Neurological exam: ABSENT: awake Psychiatric exam: PRESENT: flat affect, unusual affect - Guppy breathing Results Laboratory Results: 05/31/20 06:03 05/31/20 06:03 05/29/20 06:00 Blood Blood Culture - Final NO GROWTH IN 5 DAYS 05/29/20 05:40 Blood Blood Culture - Final NO GROWTH IN 5 DAYS 05/30/20 15:20 Stool - Stool - Final 05/30/20 15:20 Stool - Stool Stool Culture - Final NO SALMONELLA, SHIGELLA, CAMPYLOBACTER, OR E.COLI 0157 RECOVERED. NEGATIVE FOR SHIGA TOXINS 1&2. 05/21/20 05/21/20 05/26/20 12:18 12:18 22:10 Creatine Kinase 44 Troponin I 0.108 NT-Pro-B Natriuret Pep 8190 H 45617 H Impressions: Chest X-Ray 05/25/20 00:00 IMPRESSION: PATCHY AIRSPACE DISEASE IN THE RIGHT APEX, PERIHILAR RIGHT LUNG, AND LEFT LUNG BASE, MAY BE SLIGHTLY WORSE IN THE RIGHT APEX. Chest CT 05/27/20 12:11 IMPRESSION: 1. NONOCCLUSIVE PULMONARY EMBOLI TO BOTH LUNGS. 2. INTERVAL DEVELOPMENT OF SCATTERED GROUND-GLASS OPACITIES THROUGHOUT BOTH LUNGS, CONCERNING FOR VIRAL INFECTION. MORE CONFLUENT AIRSPACE DISEASE IN THE LOWER LOBES AND CANNOT EXCLUDE SUPERIMPOSED BACTERIAL PNEUMONIA. 3. BILATERAL PLEURAL EFFUSIONS, SLIGHTLY IMPROVED. 4. CHRONIC PULMONARY SCARRING. PREVIOUSLY SEEN PULMONARY NODULES APPEAR UNCHANGED. Assessment and Plan - Diagnosis (1) Comfort measures only status Is this a current diagnosis for this admission?: Yes (2) GI bleed Qualifiers: GI bleed type/associated pathology: melena Qualified Code(s): K92.1 - Melena Is this a current diagnosis for this admission?: Yes (3) Pulmonary embolus Qualifiers: Pulmonary embolism type: other Chronicity: acute Acute cor pulmonale presence: without acute cor pulmonale Qualified Code(s): I26.99 - Other pulmonary embolism without acute cor pulmonale Is this a current diagnosis for this admission?: Yes (4) Emphysema lung Qualifiers: Emphysema type: centrilobular Qualified Code(s): J43.2 - Centrilobular emphysema Is this a current diagnosis for this admission?: Yes (5) Acute and chronic respiratory failure with hypoxia Is this a current diagnosis for this admission?: Yes (6) Acute urinary retention Is this a current diagnosis for this admission?: Yes (7) Physical deconditioning Is this a current diagnosis for this admission?: Yes (8) Diarrhea Qualifiers: Diarrhea type: unspecified type Qualified Code(s): R19.7 - Diarrhea, unspecified Is this a current diagnosis for this admission?: Yes (9) Hypokalemia Is this a current diagnosis for this admission?: Yes (10) Anemia Qualifiers: Anemia type: other cause Other causes of anemia: chronic disease, other Qualified Code(s): D63.8 - Anemia in other chronic diseases classified elsewhere Is this a current diagnosis for this admission?: Yes (11) Pulmonary nodules/lesions, multiple Is this a current diagnosis for this admission?: Yes (12) Acute blood loss anemia Is this a current diagnosis for this admission?: Yes (13) Dehydration Is this a current diagnosis for this admission?: Yes (14) Hyperkalemia Is this a current diagnosis for this admission?: Yes (15) Hypotension Qualifiers: Hypotension type: hypotension due to hypovolemia Qualified Code(s): I95.89 - Other hypotension; E86.1 - Hypovolemia Is this a current diagnosis for this admission?: Yes (16) Metabolic encephalopathy Is this a current diagnosis for this admission?: Yes (17) Gross hematuria Is this a current diagnosis for this admission?: Yes (18) Urinary tract infection Qualifiers: Urinary tract infection type: site unspecified Hematuria presence: with hematuria Qualified Code(s): N39.0 - Urinary tract infection, site not specified; R31.9 - Hematuria, unspecified Is this a current diagnosis for this admission?: Yes (19) Hypocalcemia Is this a current diagnosis for this admission?: Yes (20) Acute kidney injury Is this a current diagnosis for this admission?: Yes (21) Suspected COVID-19 virus infection Is this a current diagnosis for this admission?: Yes - Plan Summary Summary: 06/01/2020-the patient is now comfort measures only. Discharge planning is working on placement. I believe inpatient hospice is the plan. Patient appears comfortable and was pain-free during the encounter today. We will continue comfort measures. We will further investigate the need for oxygen if the patient is truly comfort measure only. With her oxygen requirements discontinuing the oxygen would no longer prolong the inevitable and the patient would have a life expectancy of several days at best. 06/02/2020-see discharge summary. Discharge canceled. 06/03/2020-patient remains inpatient for inpatient comfort measures. Had a long discussion with the patient's yesterday. He is aware that he can stay as much as he wants and that an additional 1 or 2 visitors are allowed for patients with comfort measures only. We discussed the fact that she keeps taking her oxygen mask off and this is likely her way to make it known that she does not want oxygen mask in place. She is fishmouth breathing this morning. Responsiveness is extremely limited. We will continue to ensure comfort measures. We will try and preserve the IV as intravenous medications are most appropriate at this time. - Time Time Spent with patient: 15-24 minutes Medications reviewed and adjusted accordingly: Yes Anticipated Discharge Disposition: Inpatient comfort measures only Anticipated Discharge Timeframe: Life expectancy 24 to 48 hours
[2020-06-03] MEDS: FLUTICASONE/VILANTEROL 200-25 MCG/DOSE IH SCH (09:20)
[2020-06-03] MEDS: NICOTINE 14 MG/24 HR PATCH.TD24 TD SCH (09:21)
--- NOTE | 2020-06-03 10:33 | Death Summary ---
Summary Date : 06/03/20 Time of :: 10:13 Resuscitation Status: Comfort Measures Only Primary Care Provider: Ingrid Consulting Provider: Carmela - Final Diagnosis (1) Comfort measures only status Is this a current diagnosis for this admission?: Yes (2) GI bleed Is this a current diagnosis for this admission?: Yes (3) Pulmonary embolus Is this a current diagnosis for this admission?: Yes (4) Emphysema lung Is this a current diagnosis for this admission?: Yes (5) Acute and chronic respiratory failure with hypoxia Is this a current diagnosis for this admission?: Yes (6) Acute urinary retention Is this a current diagnosis for this admission?: Yes (7) Physical deconditioning Is this a current diagnosis for this admission?: Yes (8) Diarrhea Is this a current diagnosis for this admission?: Yes (9) Hypokalemia Is this a current diagnosis for this admission?: Yes (10) Anemia Is this a current diagnosis for this admission?: Yes (11) Pulmonary nodules/lesions, multiple Is this a current diagnosis for this admission?: Yes (12) Acute blood loss anemia Is this a current diagnosis for this admission?: Yes (13) Dehydration Is this a current diagnosis for this admission?: Yes (14) Hyperkalemia Is this a current diagnosis for this admission?: Yes (15) Hypotension Is this a current diagnosis for this admission?: Yes (16) Metabolic encephalopathy Is this a current diagnosis for this admission?: Yes (17) Gross hematuria Is this a current diagnosis for this admission?: Yes (18) Urinary tract infection Is this a current diagnosis for this admission?: Yes (19) Hypocalcemia Is this a current diagnosis for this admission?: Yes (20) Acute kidney injury Is this a current diagnosis for this admission?: Yes (21) Suspected COVID-19 virus infection Is this a current diagnosis for this admission?: Yes Hospital Course:: (1) Comfort measures only status Is this a current diagnosis for this admission?: Yes (2) GI bleed Is this a current diagnosis for this admission?: Yes Plan: Noted that the patient's stools changed to black in color. She is also had a drop in her hemoglobin. Was started on heparin drip 05/27/2020 for bilateral pulmonary emboli. Occult stool positive. Heparin gtt placed on hold 05/30/20 Per his conversation with the patient, she is interested in "being comfortable" and confirmed her DNR/DNI status. He recommends further discussion on goals of care to determine if the patient is desiring transition to hospice services. During follow up conversation, patient confirms her desire to discontinue all medications and transition to comfort care. No further interventions planned. (3) Pulmonary embolus Qualifiers: Pulmonary embolism type: other Chronicity: acute Acute cor pulmonale presence: without acute cor pulmonale Qualified Code(s): I26.99 - Other pulmonary embolism without acute cor pulmonale Is this a current diagnosis for this admission?: Yes Plan: Patient was noted to have bilateral, nonobstructive, peripheral pulmonary emboli on CT imaging. Patient was placed on Heparin gtt; placed on hold with development of GI bleed. Respiratory support as below. Have consulted hematology/oncology for anticoagulation recommendations; patient was scheduled to follow-up with Dr. Rodriguez this week. Patient has now requested to discontinue all medications and transition to comfort care. No further interventions planned. (4) Emphysema lung Qualifiers: Emphysema type: centrilobular Qualified Code(s): J43.2 - Centrilobular emphysema Is this a current diagnosis for this admission?: Yes Plan: Provided supplemental oxygen, scheduled and as needed nebulizer treatments, Mucomyst nebulizer treatments, and steroid therapy. Continued home dose Breo, Incruse, as needed albuterol inhaler. Pulmonary toilet is encouraged with incentive spirometer, flutter valve, and early ambulation. Patient has now requested to discontinue all medications and transition to comfort care. No further interventions planned. (5) Acute and chronic respiratory failure with hypoxia Is this a current diagnosis for this admission?: Yes Plan: Improved; decreased work of breathing, improved oxygen saturations on supplemental oxygen via nasal cannula at 5 L/min and intermittent BiPAP. Secondary to resolving pneumonia with underlying emphysema. Now with acute bilateral pulmonary emboli Increased scattered groundglass opacities noted on CT; covid negative Evaluation and management as above. (6) Acute urinary retention Is this a current diagnosis for this admission?: Yes Plan: Likely secondary to UTI Now w/ Alvarado. (7) Physical deconditioning Is this a current diagnosis for this admission?: Yes Plan: PT/OT consultation once the patient's condition begins to improve. Discharge planning consulted. (8) Hypokalemia Is this a current diagnosis for this admission?: Yes Plan: Gradually trending up. Received oral and IV replacement Magnesium replaced. Secondary to GI losses as patient has developed large-volume watery stools. Patient has now requested to discontinue all medications and transition to comfort care. No further interventions planned. (9) Diarrhea Qualifiers: Diarrhea type: unspecified type Qualified Code(s): R19.7 - Diarrhea, uns pecified Is this a current diagnosis for this admission?: Yes Plan: Decreased stool volume today. C. difficile negative. Stool culture revealed Jeana Continue lactobacillus. Offered patient rectal tube for comfort and skin protection; tolerating well. CT ABD/Pelvis cancelled per patient request. Patient has now requested to discontinue all medications and transition to comfort care. No further interventions planned. (10) Pulmonary nodules/lesions, multiple Is this a current diagnosis for this admission?: Yes Plan: History of breast cancer. Nodules concerning for malignancy. Bronchoscopy 08/14/2019 - for malignancy. During patient's recent admission, oncology was consulted with recommendation for repeat CT in [address] showed bilateral lung nodules that appear to be decreased since the prior imaging. Right upper lobe with some possible cavitation. Patient scheduled follow-up with Dr. Casey as an outpatient in 1 to [address] chest with contrast today revealed stable pulmonary nodules. Heme/Onc consulted; appreciate their assistance. (11) Anemia Qualifiers: Anemia type: other cause Other causes of anemia: chronic disease, other Qualified Code(s): D63.8 - Anemia in other chronic diseases classified elsewhere Is this a current diagnosis for this admission?: Yes Plan: Iron deficiency anemia Hemoglobin trending down slightly; in part hemodilutional IV Feraheme yesterday Occult stool positive. Heme/Onc consultation; appreciate their evaluation and recommendations. Patient has now requested to discontinue all medications and transition to comfort care. No further interventions planned. (12) Dehydration Is this a current diagnosis for this admission?: Yes Plan: Resolved. (13) Metabolic encephalopathy Is this a current diagnosis for this admission?: Yes Plan: Acute metabolic encephalopathy is resolved. Multifactorial secondary to dehydration, electrolyte derangements, UTI, acute urinary retention, and acute on chronic respiratory failure secondary to resolving pneumonia and emphysema. Worsened by IV Ativan. Likely underlying dementia. As the patient has a history of breast cancer with lung nodules concerning for malignancy, should her mentation worsen, will obtain head imaging. (14) Hypotension Qualifiers: Hypotension type: hypotension due to hypovolemia Qualified Code(s): I95.89 - Other hypotension; E86.1 - Hypovolemia Is this a current diagnosis for this admission?: Yes Plan: Resolved. (15) Hyperkalemia Is this a current diagnosis for this admission?: Yes Plan: Resolved (16) Acute blood loss anemia Is this a current diagnosis for this admission?: Yes Plan: Secondary to GI bleed. Hgb currently 10.5 Have discontinued Heparin gtt. Patient has now requested to discontinue all medications and transition to comfort care. No further interventions planned. (17) Hypocalcemia Is this a current diagnosis for this admission?: Yes Plan: Corrected calcium is 7.2 She was provided IV and oral replacement. Follow up chemistry including albumin and phosphorus are all low. Patient has now requested to discontinue all medications and transition to comfort care. No further interventions planned. (18) Urinary tract infection Qualifiers: Urinary tract infection type: site unspecified Hematuria presence: with hematuria Qualified Code(s): N39.0 - Urinary tract infection, site not specified; R31.9 - Hematuria, unspecified Is this a current diagnosis for this admission?: Yes Plan: Blood cultures negative at 5 days Urine culture revealed Jeana Repeat urinalysis today reveals continued evidence for urinary tract infection. Repeat urine culture also reveals Jeana Repeat blood cultures NGTD Patient was placed on IV cefepime by ED provider; received 1 dose. Received 4 days of Zosyn and 1 of ceftriaxone. One dose of Diflucan 100 mg; unfortunately had to discontinue due to development of prolonged QTc interval Patient has now requested to discontinue all medications and transition to comfort care. No further interventions planned. (19) Gross hematuria Is this a current diagnosis for this admission?: Yes Plan: Resolved; urine appears to be clear, light yellow today. Microscopic hematuria persists Secondary to UTI. Management as above. (20) Acute kidney injury Is this a current diagnosis for this admission?: Yes Plan: Resolved. Multifactorial secondary to dehydration and possibly worsened by acute urinary retention. (21) Suspected COVID-19 virus infection Is this a current diagnosis for this admission?: Yes Plan: Ruled out Covid negative D-dimer, ferritin, CRP, LDH all elevated. Patient was placed patient on heparin drip secondary to acute pulmonary emboli. Provided supplemental oxygen and as needed nebulizer treatments. IV dexamethasone; transitioned to p.o. prednisone for ongoing emphysema exacerbation. Received zinc, vitamin D, vitamin C, and melatonin supplementation. Encourage pulmonary toilet. Patient has now requested to discontinue all medications and transition to comfort care. No further interventions planned. 06/01/2020-the patient is now comfort measures only. Discharge planning is wo rking on placement. I believe inpatient hospice is the plan. Patient appears comfortable and was pain-free during the encounter today. We will continue comfort measures. We will further investigate the need for oxygen if the patient is truly comfort measure only. With her oxygen requirements discontinuing the oxygen would no longer prolong the inevitable and the patient would have a life expectancy of several days at best. 06/02/2020-see discharge summary. Discharge canceled. 06/03/2020-patient remains inpatient for inpatient comfort measures. Had a long discussion with the patient's yesterday. He is aware that he can stay as much as he wants and that an additional 1 or 2 visitors are allowed for patients with comfort measures only. We discussed the fact that she keeps marylu ing her oxygen mask off and this is likely her way to make it known that she does not want oxygen mask in place. She is fishmouth breathing this morning. Responsiveness is extremely limited. We will continue to ensure comfort measures. We will try and preserve the IV as intravenous medications are most appropriate at this time. 06/03/2020 Shortly after the encounter this morning the nurse notified me that the patient had . Time of was 1013 o'clock a.m. 06/03/2020 Cause of Acute on chronic respiratory failure with hypoxia Pulmonary embolus Additional contributing diagnoses: Emphysema, GI bleed, urinary tract infection
== END 2020-06-03 13:02 | DRG 871 ==
LOC: ER 11:48 → EH 14:21 → 3W 17:22 → 3N 05-27 17:32 → 3W 05-30 17:20
PROVIDERS: ADMIT Family Medicine; ATTEND Hospitalist
PROC: 5A09557 Assistance with Respiratory Ventilation, Greater than 96 Consecutive Hours, Continuous Positive Airway Pressure (ICD-10-PCS; 2020-05-21)
PROC: 30233N1 Transfusion of Nonautologous Red Blood Cells into Peripheral Vein, Percutaneous Approach (ICD-10-PCS; principal; 2020-05-22)
PROC: B24BZZ4 Ultrasonography of Heart with Aorta, Transesophageal (ICD-10-PCS; 2020-05-27)
DX: A41.9 Sepsis, unspecified organism (principal); I26.99 Other pulmonary embolism without acute cor pulmonale; J96.21 Acute and chronic respiratory failure with hypoxia; G93.41 Metabolic encephalopathy; J18.9 Pneumonia, unspecified organism; N17.9 Acute kidney failure, unspecified; D62 Acute posthemorrhagic anemia; N39.0 Urinary tract infection, site not specified; F03.91 Unspecified dementia, unspecified severity, with behavioral disturbance; K92.1 Melena; R65.20 Severe sepsis without septic shock; R33.9 Retention of urine, unspecified; J43.2 Centrilobular emphysema; Z20.828 Contact with and (suspected) exposure to other viral communicable diseases; Z66 Do not resuscitate; Z51.5 Encounter for palliative care; R19.7 Diarrhea, unspecified; E87.6 Hypokalemia; R91.8 Other nonspecific abnormal finding of lung field; E86.0 Dehydration; E87.5 Hyperkalemia; R31.0 Gross hematuria; E83.51 Hypocalcemia; D63.8 Anemia in other chronic diseases classified elsewhere; E86.1 Hypovolemia; I95.89 Other hypotension; I10 Essential (primary) hypertension; E03.9 Hypothyroidism, unspecified; F17.210 Nicotine dependence, cigarettes, uncomplicated; I45.81 Long QT syndrome; Z79.51 Long term (current) use of inhaled steroids; Z79.899 Other long term (current) drug therapy; Z88.2 Allergy status to sulfonamides; Z85.3 Personal history of malignant neoplasm of breast; Z79.890 Hormone replacement therapy
CPT/HCPCS: 36415; 36430; 36600; 71045; 71260; 74177; 80048; 80053; 81001; 82040; 82272; 82550; 82728; 82803; 82962; 83605; 83615; 83735; 83880; 84100; 84443; 84484; 85025; 85027; 85379; 85610; 85730; 86140; 86850; 86900; 86901; 86920; 87040; 87045; 87070; 87077; 87086; 87177; 87205; 87324; 87449; 87635; 89055; 93005; 93010; 93306; 94660; 96365; 99285; J0610; C9113; C9803; J0692; J0696; J1100; J1644; J1940; J2060; J2270; J2543; J3475; J3480; J3490; J7030; J7040; J7050; J7120; P9016; P9047; Q0138